=== PATIENT | female | born 1950 ===

== ENCOUNTER → 2016-12-17 | Outpatient (CLI) | payer BC ==
--- NOTE | 2016-12-17 10:36 | MM ---
Reason for exam: history of breast cancer, mastectomy. Last mammogram was performed 1 year ago. History: Patient is postmenopausal, has history of other cancer at age 64, has history of breast cancer at age 61, and had first child at age 37. Family history of breast cancer in mother at age 79 and breast cancer in maternal aunt. Mastectomy of the left breast, January 19, 2012. Malignant US LT VAD breast biopsy of the left breast, January 08, 2012. Chemotherapy, 2011. Benign excisional biopsy of the left breast, January 15, 2000. Benign stereotactic core biopsy of the left breast, December 26, 1999. Core biopsy of the left breast. 2 excisional biopsies of the left breast. Physical Findings: Nurse did not find any significant physical abnormalities on exam. MG 3D Diag Mammo W/Cad RT CC and MLO view(s) were taken of the right breast. Prior study comparison: December 02, 2015, right breast MG 3d diag mammo w/cad RT. August 16, 2014, right breast MG diagnostic mammo RT w CAD. The breast tissue is heterogeneously dense. This may lower the sensitivity of mammography. No significant new findings when compared with previous films. These results were verbally communicated with the patient and result sheet given to the patient on 12/17/16. ASSESSMENT: Benign, BI-RAD 2 RECOMMENDATION: Follow-up diagnostic mammogram of the right breast in 1 year.
--- NOTE | 2016-12-17 11:22 | BD ---
EXAMINATION TYPE: MG DEXA axial skeleton. DATE OF EXAM: 12/17/2016 11:00 AM COMPARISON: 11.24.2012 CLINICAL HISTORY: C50.212 BREAST CANCER, N95.1 POST MENOPAUSAL SYMPTOMS Height: 64 Weight: 138 FRAX RISK QUESTIONS: Alcohol (3 or more units per day): NO Family History (Parent hip fracture): NO Glucocorticoids (More than 3mos): NO (Ex: prednisone, prednisolone, methylprednisolone, dexamethasone, and hydrocortisone). History of Fracture in Adulthood: NO Secondary Osteoporosis: NO 1. Type 1 Diabetes: NO 2. Hyperthyroidism: NO 3. Menopause before 45: NO 4. Malnutrition: NO 5. Chronic liver disease: NO Rheumatoid Arthritis: NO Current Tobacco Use: NO RISK FACTORS HISTORY OF: Family History of Osteoporosis: NO Smoke tobacco: NO Drink Alcohol: SOCIAL Active: YES Diet low in dairy products/other sources of calcium: NO Postmenopausal woman: AT 49 YRS OLD Take estrogen and/or progesterone medications: CONTRACEPTIVES IN PAST FOR 20 YRS How lon YRS Lost more than 2 inches in height since high school: NOT QUITE Adrenal Insufficiency: NO MEDICATIONS: Additional Medications: HX OF CHEMO, AND PRESENTLY ON CHEMO, CALCIUM, VIT D AND BIOTIN Additional History: LT MASTECTOMY, BREAST CANCER, MULTIPLE AREAS OF CA EXAM MEASUREMENTS: Bone mineral densitometry was performed using the [employer] System. Bone mineral density as measured about the Lumbar spine is: ----- L1-L4(G/cm2): 1.100 T Score Values are as follows: ----- L1: -1.2 ----- L2: -1.7 ----- L3: -0.8 ----- L4: 0.6 ----- L1-L4: -0.7 Bone mineral density has: Increased 2.4% since study of: 11.24.2012 Bone mineral density about the R hip (g/cm2): 0.762 Bone mineral density about the L hip (g/cm2): 0.756 T Score values are as follows: -----R Neck: -2.0 -----L Neck: -2.0 -----R Intertrochanter: -2.0 -----L Intertrochanter: -2.0 Bone mineral density has: Decreased -6.1% since study of: 11.24.2012 FRAX %'S: FOR MAJOR OSTEOPOROTIC FX: 11.2%.....FOR HIP FX: 1.9% PROBABILITY OF FX IN 10 YRS TIME IMPRESSION: Osteopenia (T Score between -2.5 and -1 as noted by T score values There is slightly increased risk of fracture and the patient may be considered for treatment. Re-Screen 1-2 years. FOR BOTH SCANS OF BOTH HIPS AND L/S SPINE NOTE: T-SCORE=SD OF THE YOUNG ADULT MEAN.
== END | disposition home or self-care (01) ==
LOC: RADMAMWWP 09:32
PROVIDERS: ATTEND Internal Medicine Hematology & Oncology
DX: Z12.31 Encounter for screening mammogram for malignant neoplasm of breast (principal); Z85.3 Personal history of malignant neoplasm of breast; M85.89 Other specified disorders of bone density and structure, multiple sites
CPT/HCPCS: 77080; G0206; G0279

== ENCOUNTER → 2016-12-29 | Outpatient (CLI) | payer BC ==
[2016-12-29 11:35] LABS: Blood Urea Nitrogen 20 mg/dL (7-17); Non-African American GFR(MDRD) >60 (>60 ml/min/1.73 sqM)
--- NOTE | 2016-12-29 12:50 | CT ---
EXAMINATION TYPE: CT chest w con DATE OF EXAM: 12/29/2016 12:01 PM COMPARISON: NONE HISTORY: 66 year-old female history of breast cancer, follow-up exam TECHNIQUE: Contiguous axial scanning of the chest after the administration of 100 mL of Omnipaque 300 . Coronal/sagittal reconstructions performed. CT DLP: 132.1mGycm. Automatic exposure control utilized for a dose reduction. FINDINGS: Heart is normal size without pericardial effusion. Aorta is normal caliber with very direct takeoff of the left vertebral artery directly from the aorti c arch. No thoracic lymphadenopathy by CT size criteria. Some minimal residual soft tissue thickening remains and is unchanged at the left carotid space at the level of the thoracic inlet. Evaluation of the lungs show some strandy atelectasis in both lung bases. No consolidation or pleural effusion. Mild biapical pleural-parenchymal scarring is noted. Small hemangioma within the right hepatic dome is unchanged. Postsurgical changes of left mastectomy and breast reconstruction. Bones: There is some stable residual sclerosis along the posterior margin of the right sternal manubr ium relating to the previous lesion seen on 04/10/2016. No osseous destructive process. IMPRESSION: Status post left mastectomy and breast reconstruction. Stable exam without evidence for recurrent met astatic disease.
== END | disposition home or self-care (01) ==
LOC: RADCTMAIN 11:08
PROVIDERS: ATTEND Internal Medicine Hematology & Oncology
DX: C50.919 Malignant neoplasm of unspecified site of unspecified female breast (principal); Z90.12 Acquired absence of left breast and nipple
CPT/HCPCS: 82565; 84520; 71260; 36415; Q9967

== ENCOUNTER → 2017-05-24 | Outpatient (CLI) | payer BC ==
[2017-05-24 11:37] LABS: Blood Urea Nitrogen 22 mg/dL (7-17); Non-African American GFR(MDRD) >60 (>60 ml/min/1.73 sqM)
--- NOTE | 2017-05-24 13:07 | CT ---
EXAMINATION TYPE: CT chest w con DATE OF EXAM: 05/24/2017 COMPARISON: CT chest December 29, 2016. PET/CT April 25, 2016 HISTORY: Breast cancer CT DLP: 166.1 mGycm. Automated Exposure Control for Dose Reduction was Utilized. TECHNIQUE: CT scan of the thorax is performed following with IV Contrast, patient injected with 100 mL of Omnipaque 300. FINDINGS: LUNGS: Dependent atelectasis is seen in both lower lobes. There is minimal linear scarring in the li ngula redemonstrated on axial image 49. There is no pleural effusion or pneumothorax seen bilaterally . No concerning parenchymal nodule or mass is present bilaterally The tracheobronchial tree is patent . MEDIASTINUM: There are no greater than 1 cm hilar or mediastinal lymph nodes on current study. Scatte red subcentimeter lymph nodes are stable. No recurrent adenopathy anterior superior mediastinum is cl early seen. No cardiomegaly or pericardial effusion is seen. There is 4 vessel origin from aortic a rch which is normal variant. Mild to minimal plaque in the arch is redemonstrated. OTHER: Subcentimeter hypodense area right hepatic dome anteriorly on axial image 49 is too small to cecelia lincoln characterize per presumed benign. Post left-sided mastectomy changes with left breast implant is redemonstrated. There is mild to moderate multilevel spurring in the thoracic spine. Vague scleros is superior sternal manubrial junction is unchanged correlates with prior osseous lesion.. IMPRESSION: No significant change from prior study. No new suspicious mass or adenopathy is seen to s gest neoplastic recurrence.
== END | disposition home or self-care (01) ==
LOC: RADCTMAIN 11:01
PROVIDERS: ATTEND Internal Medicine Hematology & Oncology
DX: C50.212 Malignant neoplasm of upper-inner quadrant of left female breast (principal)
CPT/HCPCS: 82565; 84520; 71260; 36415; Q9967

== ENCOUNTER 2017-11-05 10:32 | Outpatient (CLI) | payer BC ==
[2017-11-05 11:12] VITALS: BP 132/77; PULSE 91; RESP 16; TEMP 98.3
[2017-11-05] MEDS ORDERED: FILGRASTIM-SNDZ 480 MCG/0.8 ML SYRINGE SQ ONE (23:00)
== END 2017-11-05 13:54 | disposition home or self-care (01) ==
LOC: PROCWHC3 10:32
PROVIDERS: ATTEND Internal Medicine Hematology & Oncology
DX: D70.1 Agranulocytosis secondary to cancer chemotherapy (principal)
CPT/HCPCS: 96372; Q5101

== ENCOUNTER 2017-11-05 11:27 | Emergency (ER) | payer BC ==
[2017-11-05 11:43] VITALS: TEMP 98.4
--- NOTE | 2017-11-05 12:02 | ED ---
Back Pain HPI - General Chief Complaint: Back Pain/Injury Stated Complaint: Lower Back Pain Time Seen by Provider: 11/05/17 11:49 Source: patient Limitations: no limitations - History of Present Illness Initial Comments: Patient is a 67-year-old female presents with a chief complaint of back pain. She had a history of breast cancer for which she is currently undergoing treatment. She was at the hospital today for an ultrasound and a Neupogen shot. Patient states that she had a BNP over the ultrasound but afterwards took Tylenol and her back pain feels much better. She was instructed to come to the emergency department because there is no doctor at [facility] today. The patient denies any injury. Currently she is not having any pain. Pain is not reproducible. She denies any loss of bowel or bladder function. She denies any numbness or tingling in her legs. - Related Data Home Medications Medication Instructions Recorded Confirmed Acetaminophen Tab [Tylenol Tab] 1,000 mg PO Q6H PRN 05/06/15 11/05/17 Ca/D3/Mag/Zinc/Meghana/Jackson/Mgbor 1 tab PO DAILY 05/06/15 11/05/17 [Caltrate 600+D3+Min Chew Tab] Multivit-Min/FA/Lycopene/Lut 1 tab PO DAILY 05/06/15 11/05/17 [Centrum Silver Tablet] Vitamin B Complex 1 cap PO DAILY 10/14/17 11/05/17 Biotin 5 mg PO DAILY 11/05/17 11/05/17 Previous Rx's Medication Instructions Recorded Diazepam [Valium] 5 mg PO BID PRN #10 tab 11/05/17 Allergies Allergy/AdvReac Type Severity Reaction Status Date / Time No Known Allergies Allergy Verified 11/05/17 12:15 Review of Systems ROS Statement: Those systems with pertinent positive or pertinent negative responses have been documented in the HPI. ROS Other: All systems not noted in ROS Statement are negative. Constitutional: Denies: fever Eyes: Denies: vision change Respiratory: Denies: cough Cardiovascular: Denies: chest pain Endocrine: Denies: fatigue Gastrointestinal: Denies: abdominal pain, nausea, vomiting Genitourinary: Denies: dysuria Musculoskeletal: Reports: back pain Neurological: Denies: headache Past Medical History Past Medical History: Cancer Additional Past Medical History / Comment(s): STATES HAS BREAST CA THAT HAS METASTASIZED, hx of colon polyps History of Any Multi-Drug Resistant Organisms: None Reported Past Surgical History: Breast Surgery Additional Past Surgical History / Comment(s): 2013 hysterectomy, colonoscopy, left mastectomy and reconstuction of left breast Past Anesthesia/Blood Transfusion Reactions: No Reported Reaction Past Psychological History: Anxiety, Depression Smoking Status: Never smoker - Past Family History Mother Family Medical History: Cancer, Congestive Heart Failure (CHF), COPD General Exam Limitations: no limitations General appearance: alert, in no apparent distress Head exam: Present: atraumatic, normocephalic Eye exam: Present: normal appearance Neck exam: Present: normal inspection Respiratory exam: Present: normal lung sounds bilaterally Cardiovascular Exam: Present: regular rate, normal rhythm GI/Abdominal exam: Present: soft. Absent: distended, tenderness Rectal exam: Present: deferred Extremities exam: Present: normal inspection Back exam: Present: normal inspection, full ROM. Absent: tenderness, CVA tenderness (R), CVA tenderness (L), muscle spasm, vertebral tenderness Neurological exam: Present: alert, oriented X3, normal gait Psychiatric exam: Present: normal affect, normal mood Skin exam: Present: warm, dry, intact Course Vital Signs 11/05/17 11:40 Temperature 98.4 F Pulse Rate 97 Respiratory 16 Rate Blood Pressure 130/80 O2 Sat by Pulse 96 Oximetry Medical Decision Making - Medical Decision Making Patient presents 1 day of nontraumatic back pain. Patient states that she was instructed to come here after an ultrasound however she took Tylenol after the ultrasound and states that she is feeling better. At this time, we will check a urinalysis and if negative the patient will be discharged home. On initial evaluation, the patient appears well. She is neurologically intact. She is able to handle it well without assistance. 12:48 PM Urinalysis does not offer any evidence of infection. I reviewed the ultrasound of the patient had prior to arrival at the ED. She was informed of results and was given a copy of her ultrasound interpretation. - Lab Data Lab Results 11/05/17 Range/Units 12:13 Urine Color Yellow Urine Appearance Clear (Clear) Urine pH 7.5 (5.0-8.0) Ur Specific Robert 1.020 (1.001-1.035) Urine Protein Trace H (Negative) Urine Glucose (UA) Negative (Negative) Urine Ketones Negative (Negative) Urine Blood Negative (Negative) Urine Nitrite Negative (Negative) Urine Bilirubin Negative (Negative) Urine Urobilinogen <2.0 (<2.0) mg/dL Ur Leukocyte Esterase Negative (Negative) Disposition Clinical Impression: Mechanical back pain Disposition: HOME SELF-CARE Condition: Good Instructions: Acute Low Back Pain (ED) Prescriptions: Diazepam [Valium] 5 mg PO BID PRN #10 tab PRN Reason: severe muscle spasm Referrals: Glen Vázquez MD [Primary Care Provider] - 1-2 days
[2017-11-05 12:19] LABS: Appearance,Urine Clear (Clear); Bilirubin,Urine Negative (Negative); Blood,Urine Negative (Negative); Color,Urine Yellow; Glucose,Urine (UA) Negative (Negative); Ketones,Urine Negative (Negative); Leukocyte Esterase,Urine Negative (Negative); Nitrite,Urine Negative (Negative); PH, Urine 7.5 (5.0-8.0); Protein,Urine Trace (Negative); Urobilinogen,Urine <2.0 mg/dL (<2.0)
[2017-11-05 13:20] VITALS: BP 133/62; PULSE 90; RESP 18
== END 2017-11-05 13:20 | disposition home or self-care (01) ==
LOC: EC 11:27
DX: M54.5 Low back pain (principal); Z85.3 Personal history of malignant neoplasm of breast; Z79.899 Other long term (current) drug therapy; Z90.710 Acquired absence of both cervix and uterus
CPT/HCPCS: 76700; 81003; 99283

== ENCOUNTER → 2017-11-05 | Outpatient (CLI) | payer BC ==
--- NOTE | 2017-11-05 10:46 | US ---
EXAMINATION TYPE: US abdomen complete DATE OF EXAM: 11/05/2017 COMPARISON: CT chest CLINICAL HISTORY: Abdominal Pain R10.11. Pt states low back pain that started yesterday/ currently on treatment for breast CA EXAM MEASUREMENTS: Liver Length: 15.8 cm Gallbladder Wall: 0.2 cm CBD: 0.4 cm Spleen: 11.0 cm Right Kidney: 9.8 x 4.1 x 4.5 cm Left Kidney: 10.2 x 5.1 x 4.9 cm Pancreas: 3mm Panc duct visualized Liver: Appeared wnl, lesions seen on CT unable to be visualized by ultrasound Gallbladder: wnl Evidence for sonographic Stevenson's sign: No CBD: wnl Spleen: wnl Right Kidney: wnl Left Kidney: wnl Upper IVC: wnl Abd Aorta: wnl The liver is homogenous. The intrahepatic portion of the IVC and proximal abdominal aorta are within normal limits. There is no evidence of cholelithiasis. Common bile duct is unremarkable. The visu alized portions of the pancreas are homogenous. The spleen is unremarkable. Kidneys are symmetric a nd free of hydronephrosis. No renal lesions are seen. IMPRESSION: 1. Hepatic lesion seen at CT are not confirmed with ultrasound however I do recommend further evaluat ion of the liver with hemangioma protocol.
== END | disposition home or self-care (01) ==
LOC: RADUSWWP 09:58
PROVIDERS: ATTEND Internal Medicine Hematology & Oncology
DX: R10.11 Right upper quadrant pain (principal)
CPT/HCPCS: 76700

== ENCOUNTER → 2017-12-17 | Outpatient (CLI) | payer BC ==
--- NOTE | 2017-12-17 17:17 | CT ---
EXAMINATION TYPE: CT chest w con DATE OF EXAM: 12/17/2017 COMPARISON: 10/04/2017 HISTORY: Follow up breast cancer, feeling weak CT DLP: 473 mGycm, Automated exposure control for dose reduction was used. CONTRAST: Performed injected with 100 mL of Omnipaque 300. TECHNIQUE: Axial images were obtained at 5 mm thick sections. Reconstructed images are reviewed on [employer] computer in the coronal plane. FINDINGS: Portion of the thyroid visualized is normal. Left breast prosthesis is present. Soft tissue density No suspicious lung nodules or focal infiltrates are present. No enlarged mediastinal or hilar adenopathy is evident. Couple of small aortopulmonic window lymph nodes are present. Enlarged lymphadenopathy is not identified. The ascending aorta diameter at the le sarah of the main pulmonary artery is 3.3 cm. The main pulmonary artery diameter at the bifurcation is 2.[address] sections are obtained through the upper abdomen. Abdomen is essentially unremarkable. The sclerotic area within the posterior lateral left portion of the sternum is stable. The soft tissu e density in the superior mediastinum posterior to the manubrium is significantly diminished in size. IMPRESSIONS: 1. No suspicious acute changes CT chest.
== END | disposition home or self-care (01) ==
LOC: RADPROMAIN 14:35
PROVIDERS: ATTEND Internal Medicine Hematology & Oncology
DX: C50.212 Malignant neoplasm of upper-inner quadrant of left female breast (principal)
CPT/HCPCS: 71260; Q9967; J1642

== ENCOUNTER → 2018-06-09 | Outpatient (CLI) | payer BC ==
[2018-06-09 11:41] LABS: Blood Urea Nitrogen 10 mg/dL (7-17)
--- NOTE | 2018-06-09 13:24 | CT ---
EXAMINATION TYPE: CT chest w con DATE OF EXAM: 06/09/2018 COMPARISON: 12/17/2017 and 10/04/2017 HISTORY: Breast cancer. Follow-up exam. CT DLP: 351 mGycm. Automated Exposure Control for Dose Reduction was Utilized. TECHNIQUE: CT scan of the thorax is performed following with IV Contrast, patient injected with 100 mL of Isovue 300. FINDINGS: LUNGS: There is a 3 mm pulmonary nodule within the right lower lobe that appears to be stable from th e prior, however this was obscured by atelectasis on the prior exam. No additional pulmonary nodules are identified. Minimal bibasilar subsegmental atelectasis and biapical pleural parenchymal scarring is noted. The lungs are grossly clear, there is no concerning parenchymal mass or nodule identified. There is no pleural effusion or pneumothorax seen. The tracheobronchial tree is patent. MEDIASTINUM: There are no greater than 1 cm hilar or mediastinal lymph nodes. Lymph node again measu res approximately 7 mm in short axis and is similar to the priors. No pericardial effusion is seen. There is a right-sided Mediport. OTHER: There is a left breast implant. Sclerotic lesion of the left sternum is unchanged. There is co ntinued appearance of a peripherally enhancing right hepatic lesion on series 3 image 54 as well as a previously seen lesion near the hepatic dome on image 48. These again could represent small hemangio mas also the possibility of metastasis is again not excluded. MRI could be performed for further annamaria acterization. Splenic varices are incidentally noted on today's examination. These appear to be prese nt on the prior. IMPRESSION: 1. Retrospectively stable 3 mm right basilar pulmonary nodule, previously obscured by atelectasis. 2. Stable solitary sternal sclerotic osseous metastatic focus. 3. Redemonstration of subcentimeter hepatic lesions that may represent hemangiomas although could be better characterized with MR. These are similar to priors. 4. No evidence of adenopathy. The previously seen superior mediastinal node is unchanged from the chao or and nonenlarged.
== END | disposition home or self-care (01) ==
LOC: RADPROMAIN 10:28
PROVIDERS: ATTEND Internal Medicine Hematology & Oncology
DX: C50.212 Malignant neoplasm of upper-inner quadrant of left female breast (principal); C79.51 Secondary malignant neoplasm of bone; R91.1 Solitary pulmonary nodule
CPT/HCPCS: 82565; 84520; 71260; Q9967

== ENCOUNTER → 2018-09-08 | Outpatient (CLI) | payer BC ==
[2018-09-08 08:40] LABS: Blood Urea Nitrogen 25 mg/dL (7-17)
--- NOTE | 2018-09-08 14:02 | CT ---
EXAMINATION TYPE: CT neck chest w con DATE OF EXAM: 09/08/2018 COMPARISON: None HISTORY: Breast cancer. CT DLP: 631.5 mGycm CONTRAST: Patient injected with 100 mL of Isovue M300. TECHNIQUE: Axial images at 3 mm thick sections. Reconstructed images in the coronal plane and sagitt al plane are reviewed. FINDINGS: CT neck: The torus tubarius and fossa of Rosenmuller are normal. Kiln Fireman spaces are normal. Para nasal sinuses and mastoid air cells are clear. Parotid glands appear normal and symmetrical. Submandibular glands, are normal. Parapharyngeal spac es are normal. No suspicious adenopathy is evident. The hypopharynx appears within normal limits. Vocal cord level appear symmetrical. Thyroid as visualized is normal. Osseous structures are normal. Degenerative disc changes are present. Posterior endplate spurring is present C5-6 and to a lesser degree C6-7. Anterior vertebral body spurring present C5,6 and 7. IMPRESSIONS: 1. Normal CT neck. EXAMINATION TYPE: CT neck chest w con DATE OF EXAM: 09/08/2018 COMPARISON: 06/09/2018 HISTORY: Breast cancer. CT DLP: 631.5 mGycm, Automated exposure control for dose reduction was used. CONTRAST: Performed injected with 100 mL of Isovue M300. TECHNIQUE: Axial images were obtained at 5 mm thick sections. Reconstructed images are reviewed on [employer] computer in the coronal plane. FINDINGS: Thyroid visualized is normal. There is a 0.5 cm posterior medial right lung base nodule present previously. Previous measurement of 0.3 cm. Given measurement error, this appears stable from the comparison. No enlarged mediastinal or hilar adenopathy is evident. Shotty lymphadenopathy is within the medias tinum. The ascending aorta diameter at the level of the main pulmonary artery is 3.2 cm. The main pu lmonary artery diameter at the bifurcation is 2.6 cm. There is a left breast prosthesis. Limited CT sections are obtained through the upper abdomen. The peripheral enhancing lesion within th e superior right lobe liver was present previously and is stable. This may represent a hemangioma. IMPRESSIONS: 1. No suspicious acute changes CT chest. 2. Small nodule posterior medial right lung base
== END | disposition home or self-care (01) ==
LOC: RADPROMAIN 07:55
PROVIDERS: ATTEND Internal Medicine Hematology & Oncology
DX: C50.212 Malignant neoplasm of upper-inner quadrant of left female breast (principal); R91.1 Solitary pulmonary nodule; Z95.828 Presence of other vascular implants and grafts
CPT/HCPCS: 82565; 84520; 70491; 71260; Q9967

== ENCOUNTER → 2018-11-19 | Outpatient (CLI) | payer BC ==
--- NOTE | 2018-11-21 07:30 | PE ---
EXAMINATION TYPE: PET CT fusion skull to thigh DATE OF EXAM: 11/19/2018 COMPARISON: CT neck and chest 11 days ago. HISTORY: Breast cancer treated 2012 with radiation completed 2014 and chemotherapy completed November 2018 TECHNIQUE: Following the intravenous administration of 13.357 mCi of F-18 FDG, whole body images are performed from the skull base to the midthigh. Images are reviewed on the computer in the coronal, axial, and sagittal planes. Reconstructed rotating images are created on independent workstation and reviewed on the computer. A noncontrast CT is performed in conjunction with the PET scan. SCAN: Subsequent Scan FINDINGS: SKULL BASE AND NECK: There is suspicious left-sided neck lymph nodes posterior cervical triangle axi al image 35, more anterior lymph node measures 10 x 5 mm axial image 35, max SUV is 3.00. There are a dditional suspicious left-sided neck lymph nodes level of vocal cords is 10 x 9 mm lymph node axial i mage 49, max SUV 5.09. There is hypermetabolic left supraclavicular lymph node measuring 1.7 x 0.9 cm is 59, max SUV is 3.6. CHEST, MEDIASTINUM, AND HILAR REGION: There is hypermetabolic 0.6 x 1.0 cm superior mediastinal lymph node anterior to ascending aorta axial image 81, max SUV is 5.39. Left breast implant is in place. There is suspicious 9 x 5 mm medial anterior chest wall lesion just left of midline anterior to the sternum axial images 86, mild hypermetabolic uptake is present, max S UV is 3.98. Additional smaller suspicious lesion is seen inferior to this axial image 96. There is s uspicious nodularity and skin thickening medial aspect right breast abutting skin surface, max SUV is 3.55 axial image 86. There is dense fibroglandular tissue in visualized right breast. There is mild hypermetabolic uptake lateral inferior aspect of right breast without definitive mass, max SUV is 3.21 axial image 102. Cor relate clinically. Mild skin thickening throughout the right breast is present. ABDOMEN AND PELVIS: No suspicious hypermetabolic uptake is. OSSEOUS STRUCTURES: Mild diffuse uptake throughout osseous structures is seen without suspicious foca l lytic or sclerotic lesion. OTHER CT: There is right internal jugular Mediport catheter terminating in SVC. There is mild emphysematous change throughout both lungs. There is dependent atelectasis in both lowe r lobes IMPRESSION: Suspicious left-sided neck lymph nodes. Suspicious medial anterior chest wall masses poss ibly of breast etiology? Nonspecific right breast uptake.
== END | disposition home or self-care (01) ==
LOC: RADPETMAIN 09:21
PROVIDERS: ATTEND Internal Medicine Hematology & Oncology
DX: C50.212 Malignant neoplasm of upper-inner quadrant of left female breast (principal)
CPT/HCPCS: 78815; A9552

== ENCOUNTER → 2019-01-26 | Outpatient (CLI) | payer BC | END | disposition home or self-care (01) | LOC: PROCWHC3 14:24 | PROVIDERS: ATTEND Internal Medicine Hematology & Oncology | DX: R50.9 Fever, unspecified (principal) | CPT/HCPCS: 87502 ==

== ENCOUNTER 2019-03-11 21:24 | Inpatient (IN) | payer BC ==
[2019-03-11] MEDS ORDERED: SODIUM CHLORIDE 0.9% 500 ML 500 ML IV STA (21:41)
[2019-03-11 23:05] LABS: Anisocytosis Slight; HCT 43.4 % (34.0-46.0); HGB 14.2 gm/dL (11.4-16.0); MCH 33.7 pg (25.0-35.0); MCHC 32.7 g/dL (31.0-37.0); Macrocytosis Marked; Mean Platelet Volume 6.8; Platelet Count 333 k/uL (150-450); RBC 4.21 m/uL (3.80-5.40); RDW 19.9 % (11.5-15.5)
[2019-03-11 23:15] LABS: Albumin 3.9 g/dL (3.5-5.0); Calcium 9.4 mg/dL (8.4-10.2); Magnesium 2.3 mg/dL (1.6-2.3); Total Bilirubin 0.7 mg/dL (0.2-1.3); Total Protein 6.6 g/dL (6.3-8.2)
[2019-03-11 23:17] LABS: INR 1.1 (<1.2); Prothrombin Time 11.6 sec (9.0-12.0)
--- NOTE | 2019-03-11 23:32 | XR ---
EXAM: XR Chest, 2 Views CLINICAL HISTORY: ITS.REASON XR Reason: Weakness TECHNIQUE: Frontal and lateral views of the chest. COMPARISON: No relevant prior studies available. FINDINGS: Lungs: Unremarkable. No consolidation. Pleural space: Bilateral pleural effusions. No pneumothorax. Heart: No suspicious enlargement. Mediastinum: Unremarkable. Bones/joints: No acute fracture. IMPRESSION: Bilateral pleural effusions.
--- NOTE | 2019-03-11 23:44 | ED ---
Weakness HPI - General Chief complaint: Weakness Stated complaint: Weakness Time Seen by Provider: 03/11/19 21:41 Source: patient Mode of arrival: ambulatory Limitations: no limitations - History of Present Illness Initial comments: Naida is a 69-year-old female with past medical history most significant for recurrent breast cancer patient states she's been fighting for 7 years. Patient presents the emergency department today for evaluation of generalized weakness. Patient states that over the past couple weeks she is just not had any appetite she's not been eating or drinking well. She states that she saw her primary care physician about a week ago and was told that her labs looked fine at that time but since that time she hasn't been eating or drinking. Patient reports just generalized malaise. She denies any fevers chills nausea or vomiting. She denies any specific pain. Patient does report that she feels the necrotic breast lesion on her right chest wall is getting worse and has followed her fluids not painful. It has been evaluated by her oncologist and she's been advised that there is nothing to be done for it. - Related Data Home Medications Medication Instructions Recorded Confirmed Acetaminophen Tab [Tylenol Tab] 1,000 mg PO Q6H PRN 05/06/15 03/11/19 Ca/D3/Mag/Zinc/Meghana/Jackson/Mgbor 1 tab PO DAILY 05/06/15 03/11/19 [Caltrate 600+D3+Min Chew Tab] Multivit-Min/FA/Lycopene/Lut 1 tab PO DAILY 05/06/15 03/11/19 [Centrum Silver Tablet] RX: Vitamin B Complex 1 cap PO DAILY 10/14/17 03/11/19 RX: Biotin 5 mg PO DAILY 11/05/17 03/11/19 Allergies Allergy/AdvReac Type Severity Reaction Status Date / Time No Known Allergies Allergy Verified 03/11/19 21:52 Review of Systems ROS Statement: Those systems with pertinent positive or pertinent negative responses have been documented in the HPI. ROS Other: All systems not noted in ROS Statement are negative. Past Medical History Past Medical History: Cancer Additional Past Medical History / Comment(s): STATES HAS BREAST CA THAT HAS METASTASIZED, hx of colon polyps History of Any Multi-Drug Resistant Organisms: None Reported Past Surgical History: Breast Surgery Additional Past Surgical History / Comment(s): 2012 hysterectomy, colonoscopy, left mastectomy and reconstuction of left breast Past Anesthesia/Blood Transfusion Reactions: No Reported Reaction Past Psychological History: Anxiety, Depression Smoking Status: Never smoker Past Alcohol Use History: None Reported Past Drug Use History: None Reported - Past Family History Mother Family Medical History: Cancer, Congestive Heart Failure (CHF), COPD General Exam - General Exam Comments Initial Comments: Physical Exam GENERAL: Chronically ill-appearing dehydrated elderly female HENT: Normocephalic, Atraumatic. EYES: PERRL, EOMI PULMONARY: Unlabored respirations. No audible rales rhonchi or wheezing was noted. CARDIOVASCULAR: Tachycardic, regular ABDOMEN: Soft and nontender with normal bowel sounds. SKIN: There is a necrotic right chest wall lesion due to breast cancer, areas of granulation tissues and necrosis no obvious purulent or surrounding erythema Skin is dry, there is skin tenting : Deferred NEUROLOGIC: Patient is alert and oriented x3. Moving all extremities spontaneously MUSCULOSKELETAL: Generalized atrophy PSYCHIATRIC: Normal psychiatric evaluation. Limitations: no limitations Course Vital Signs 03/11/19 03/11/19 21:38 23:48 Temperature 97.5 F L Pulse Rate 113 H 93 Respiratory 16 18 Rate Blood Pressure 89/64 103/79 O2 Sat by Pulse 95 95 Oximetry EKG Findings - EKG Comments: EKG Findings:: EKG was obtained for evaluation of tachycardia. EKG obtained at 2207. Rate is 113 rhythm is sinus there's normal axis there are normal intervals, AL 128, QRS 76, QTC is 483. This is a low voltage QRS but there are no acute ST elevations or depressions there is no evidence of acute ischemia or infarction. Medical Decision Making - Medical Decision Making The patient was seen and evaluated history is obtained from the patient This is a metastatic breast cancer patient presenting with decreased oral intake for her over a week, she appears very dehydrated she is tachycardic Labs and imaging were ordered Has multiple significant abnormalities including hyponatremia mild hyperkalemia however I suspect this is due to hemolysis BUN is elevated Patient receiving IV fluids Results were discussed with the patient I recommended she remain in the hospital for IV fluid resuscitation and further evaluation. Patient is agreeable to this. Patient care was discussed with Dr. Espinoza who accepts the admission with a consult oncology. I discussed CODE STATUS with the patient who states she would like to be full code at this time. - Lab Data Result diagrams: 03/11/19 22:54 03/11/19 22:54 Lab Results 03/11/19 03/11/19 03/11/19 Range/Units 22:54 22:54 22:54 WBC 5.0 (3.8-10.6) k/uL RBC 4.21 (3.80-5.40) m/uL Hgb 14.2 (11.4-16.0) gm/dL Hct 43.4 (34.0-46.0) % MCV 103.0 H (80.0-100.0) fL MCH 33.7 (25.0-35.0) pg MCHC 32.7 (31.0-37.0) g/dL RDW 19.9 H (11.5-15.5) % Plt Count 333 (150-450) k/uL Neutrophils % (Manual) 83 % Lymphocytes % (Manual) 11 % Monocytes % (Manual) 6 % Neutrophils # (Manual) 4.15 (1.3-7.7) k/uL Lymphocytes # (Manual) 0.55 L (1.0-4.8) k/uL Monocytes # (Manual) 0.30 (0-1.0) k/uL Nucleated RBCs 0 (0-0) /100 WBC Manual Slide Review Performed Anisocytosis Slight Macrocytosis Marked A PT (9.0-12.0) sec INR (<1.2) APTT (22.0-30.0) sec Sodium 124 L (137-145) mmol/L Potassium 6.0 H (3.5-5.1) mmol/L Chloride 94 L (98-107) mmol/L Carbon Dioxide 19 L (22-30) mmol/L Anion Gap 11 mmol/L BUN 55 H (7-17) mg/dL Creatinine 0.91 (0.52-1.04) mg/dL Est GFR (CKD-EPI)AfAm 74 (>60 ml/min/1.73 sqM) Est GFR (CKD-EPI)NonAf 65 (>60 ml/min/1.73 sqM) Glucose 137 H (74-99) mg/dL Plasma Lactic Acid [place] 1.8 (0.7-2.0) mmol/L Calcium 9.4 (8.4-10.2) mg/dL Magnesium 2.3 (1.6-2.3) mg/dL Total Bilirubin 0.7 (0.2-1.3) mg/dL AST 66 H (14-36) U/L ALT 129 H (9-52) U/L Alkaline Phosphatase 495 H (38-126) U/L Creatine Kinase 29 L (30-135) U/L Troponin I (0.000-0.034) ng/mL Total Protein 6.6 (6.3-8.2) g/dL Albumin 3.9 (3.5-5.0) g/dL TSH 2.770 (0.465-4.680) mIU/L 03/11/19 03/11/19 Range/Units 22:54 22:54 WBC (3.8-10.6) k/uL RBC (3.80-5.40) m/uL Hgb (11.4-16.0) gm/dL Hct (34.0-46.0) % MCV (80.0-100.0) fL MCH (25.0-35.0) pg MCHC (31.0-37.0) g/dL RDW (11.5-15.5) % Plt Count (150-450) k/uL Neutrophils % (Manual) % Lymphocytes % (Manual) % Monocytes % (Manual) % Neutrophils # (Manual) (1.3-7.7) k/uL Lymphocytes # (Manual) (1.0-4.8) k/uL Monocytes # (Manual) (0-1.0) k/uL Nucleated RBCs (0-0) /100 WBC Manual Slide Review Anisocytosis Macrocytosis PT 11.6 (9.0-12.0) sec INR 1.1 (<1.2) APTT 23.0 (22.0-30.0) sec Sodium (137-145) mmol/L Potassium (3.5-5.1) mmol/L Chloride (98-107) mmol/L Carbon Dioxide (22-30) mmol/L Anion Gap mmol/L BUN (7-17) mg/dL Creatinine (0.52-1.04) mg/dL Est GFR (CKD-EPI)AfAm (>60 ml/min/1.73 sqM) Est GFR (CKD-EPI)NonAf (>60 ml/min/1.73 sqM) Glucose (74-99) mg/dL Plasma Lactic Acid Gurmeet (0.7-2.0) mmol/L Calcium (8.4-10.2) mg/dL Magnesium (1.6-2.3) mg/dL Total Bilirubin (0.2-1.3) mg/dL AST (14-36) U/L ALT (9-52) U/L Alkaline Phosphatase (38-126) U/L Creatine Kinase (30-135) U/L Troponin I <0.012 (0.000-0.034) ng/mL Total Protein (6.3-8.2) g/dL Albumin (3.5-5.0) g/dL TSH (0.465-4.680) mIU/L Disposition Clinical Impression: Hyponatremia, Dehydration, Breast cancer Disposition: ADMITTED IP TO THIS HOSP Referrals: Glen Vázquez MD [Primary Care Provider] - 1-2 days
[2019-03-11] MEDS: SODIUM CHLORIDE 0.9% 1,000 ML IV SCH (23:45)
[2019-03-11] MEDS ORDERED: NALOXONE 0.4 MG/ML 1 ML VIAL IV PRN (23:46)
[2019-03-11] MEDS ORDERED: IBUPROFEN 400 MG TAB PO PRN (23:46)
[2019-03-11 23:55] LABS: Lymphocytes # (M) 0.55 k/uL (1.0-4.8); Neutrophils # (M) 4.15 k/uL (1.3-7.7); Neutrophils % (M) 83 %; Nucleated Red Blood Cells 0 /100 WBC (0-0); Total Cells Counted 100
[2019-03-12] MEDS: ONDANSETRON 4 MG/2 ML VIAL IVP PRN ×2 (00:42→17:16)
[2019-03-12] MEDS: MORPHINE SULFATE 4 MG/ML SYRINGE IV PRN ×3 (00:46→23:10)
[2019-03-12 04:19] LABS: Appearance,Urine Clear (Clear); Bacteria,Urine Occasional /hpf; Bilirubin,Urine Negative (Negative); Blood,Urine Negative (Negative); Color,Urine Yellow; Glucose,Urine (UA) Negative (Negative); Granular Casts,Urine 61 /lpf (0); Hyaline Casts,Urine 202 /lpf (0-2); Ketones,Urine Negative (Negative); Leukocyte Esterase,Urine Small (Negative); Mucus,Urine Rare /hpf; Nitrite,Urine Negative (Negative); PH, Urine 5.5 (5.0-8.0); Protein,Urine 1+ (Negative); RBC,Urine 4 /hpf (0-5); Specific Gravity,Urine 1.036 (1.001-1.035); Squamous Epithelial Cell,Urine 1 /hpf (0-4)
[2019-03-12 06:28] LABS: Potassium 5.7 mmol/L (3.5-5.1)
--- NOTE | 2019-03-12 08:40 | P.HPIM ---
History of Present Illness H&P Date: 03/12/19 Chief Complaint: Weakness This is a 69-year-old pleasant female who presented to the emergency room complaining of generalized weakness. Patient states that over the last couple weeks she has not had any appetite she has not been able to eat or drink well. Patient states that she seen her primary care physician about a week ago and was told that the left looks fine at that time however since then she has not been able to eat or drink. Patient reported generalized malaise. She denied any fever, chills, nausea or vomiting at that time. Patient has past medical history significant of recurrent breast CA, initial diagnosis apparently 7 years ago. Patient has a necrotic breast lesion on the right chest wall that is progressively getting worse. Past medical history also includes anxiety and depression. Patient has never been a smoker. At this time patient is resting in bed in no acute distress. She is complaining of lack of appetite, weakness, malaise. Patient states over the last few weeks she's had episodes of vomiting and nausea. Patient denies any diarrhea or constipation. Patient has been complaining of chest wall pain and difficulty br eathing. On Wednesday of last week she had thoracentesis due to bilateral pleural effusion. 1.3 L of fluid was drained from the right lung. Patient states after the procedure was done she did have an easier time breathing. However it did not help her weakness or malaise. Patient states that next week she will be starting another chemotherapy since previous treatments have not been successful. Patient denies any fevers or chills. Review of Systems Review Of Systems: Constitutional: No fever, no chills, no night sweats. No weight change. Reports weakness and fatigue no lethargy. No daytime sleepiness. Reports chest wall pain EENT: No headache. No blurred vision or double vision, no loss of vision. No loss of Hearing, no ringing in the ears, no dizziness. No nasal drainage or congestion. No epistaxis. No sore throat. Lungs: Reports shortness of breath, no cough, no sputum production. No wheezing. Cardiovascular: No chest pain, no lower extremity edema. No palpitations. No paroxysmal nocturnal dyspnea. No orthopnea. No lightheadedness or dizziness. No syncopal episodes. Abdominal: no abdominal discomfort. Reports nausea and vomiting. no diarrhea. No constipation. No bloody or tarry stools. Reports loss of appetite. Genitourinary: No dysuria, increased frequency, urgency. No urinary retention. Musculoskeletal: No myalgias. Reports muscle weakness, no gait dysfunction, no frequent falls. No back pain. No neck pain. Integumentary: Reports chest wall wound, No rash or pruritus. No unusual bruising. No change in hair or nails. Neurologic: No aphasia. No facial droop. No change in mentation. No head injury. No headache. No paralysis. No paresthesia. Psychiatric: No depression. No anxiety. No mood swings. Endocrine: No abnormal blood sugars. No weight change. No excessive sweating or thirst. Past Medical History Past Medical History: Cancer Additional Past Medical History / Comment(s): STATES HAS BREAST CA THAT HAS METASTASIZED, hx of colon polyps History of Any Multi-Drug Resistant Organisms: None Reported Past Surgical History: Breast Surgery, Hysterectomy Additional Past Surgical History / Comment(s): 2012 hysterectomy, colonoscopy, left mastectomy and reconstuction of left breast 2011. Chemo/Radiation last chemo tx Past Anesthesia/Blood Transfusion Reactions: No Reported Reaction Past Psychological History: Anxiety, Depression Additional Psychological History / Comment(s): related to health issues Smoking Status: Never smoker Past Alcohol Use History: None Reported Past Drug Use History: None Reported - Past Family History Mother Family Medical History: Cancer, Congestive Heart Failure (CHF), COPD Medications and Allergies Home Medications Medication Instructions Recorded Confirmed Type Acetaminophen Tab [Tylenol Tab] 1,000 mg PO Q6H PRN 05/06/15 03/11/19 History Ca/D3/Mag/Zinc/Meghana/Jackson/Mgbor 1 tab PO DAILY 05/06/15 03/11/19 History [Caltrate 600+D3+Min Chew Tab] Multivit-Min/FA/Lycopene/Lut 1 tab PO DAILY 05/06/15 03/11/19 History [Centrum Silver Tablet] Vitamin B Complex 1 cap PO DAILY 10/14/17 03/11/19 History Biotin 5 mg PO DAILY 11/05/17 03/11/19 History Allergies Allergy/AdvReac Type Severity Reaction Status Date / Time No Known Allergies Allergy Verified 03/11/19 21:52 Physical Exam Vitals: Vital Signs Temp Pulse Pulse Resp BP BP Pulse Ox 03/12/19 04:48 98.4 F 108 H 18 133/83 98 03/12/19 04:14 97.6 F 107 H 18 93/81 95 03/12/19 04:00 108 H 03/12/19 03:14 19 03/12/19 00:48 19 03/11/19 23:48 93 18 103/79 95 03/11/19 21:38 97.5 F L 113 H 16 89/64 95 Intake and Output 03/11/19 03/12/19 03/12/19 22:59 06:59 14:59 Other: # Voids 1 Weight 60.781 kg 62.7 kg General Appearance: Alert, cooperative, no distress, appears stated age. Neck HEENT: Supple, no lymphadenopathy, no thyroid enlargement, no carotid bruits. Lungs: Clear to auscultation without crackles or wheezes no rhonchi, no deformity. Chest Wall: no costochondral pain or discomfort. Heart: Regular rate and rhythm, S1, S2 normal, no murmur, rub or gallop. Back: Symmetric, no curvature, ROM normal, no CVA tenderness. Abdomen: Soft, non-tender, no rebound or rigidity, no hepatosplenomegaly. Extremities: Extremities normal, atraumatic, no cyanosis or edema. Pulses: 2+ and symmetric. Skin: Maceration to the right breast erythema and eschar noted Skin color, texture, tugor normal, Neurologic: Alert oriented x3 cranial nerves II through XII intact, no motor deficit, Results CBC & Chem 7: 03/11/19 22:54 03/12/19 10:00 Labs: Abnormal Lab Results - Last 24 Hours (Table) 03/11/19 03/11/19 03/12/19 Range/Units 22:54 22:54 01:35 MCV 103.0 H (80.0-100.0) fL RDW 19.9 H (11.5-15.5) % Lymphocytes # (Manual) 0.55 L (1.0-4.8) k/uL Macrocytosis Marked A Sodium 124 L (137-145) mmol/L Potassium 6.0 H (3.5-5.1) mmol/L Chloride 94 L (98-107) mmol/L Carbon Dioxide 19 L (22-30) mmol/L BUN 55 H (7-17) mg/dL Glucose 137 H (74-99) mg/dL AST 66 H (14-36) U/L ALT 129 H (9-52) U/L Alkaline Phosphatase 495 H (38-126) U/L Creatine Kinase 29 L (30-135) U/L Ur Specific [place] 1.036 H (1.001-1.035) Urine Protein 1+ H (Negative) Ur Leukocyte Esterase Small H (Negative) Urine WBC 11 H (0-5) /hpf Urine Bacteria Occasional H (None) /hpf Hyaline Casts 202 H (0-2) /lpf Urine Mucus Rare H (None) /hpf 03/12/19 Range/Units 05:30 MCV (80.0-100.0) fL RDW (11.5-15.5) % Lymphocytes # (Manual) (1.0-4.8) k/uL Macrocytosis Sodium 126 L (137-145) mmol/L Potassium 5.7 H (3.5-5.1) mmol/L Chloride 95 L (98-107) mmol/L Carbon Dioxide (22-30) mmol/L BUN 54 H (7-17) mg/dL Glucose 133 H (74-99) mg/dL AST (14-36) U/L ALT (9-52) U/L Alkaline Phosphatase (38-126) U/L Creatine Kinase (30-135) U/L Ur Specific [place] (1.001-1.035) Urine Protein (Negative) Ur Leukocyte Esterase (Negative) Urine WBC (0-5) /hpf Urine Bacteria (None) /hpf Hyaline Casts (0-2) /lpf Urine Mucus (None) /hpf Thrombosis Risk Factor Assmnt - Choose All That Apply Any of the Below Risk Factors Present?: Yes Other Risk Factors: Yes Each Risk Factor Represents 2 Points: Age 61-74 years, Malignancy Thrombosis Risk Factor Assessment Total Risk Factor Score: 4 Thrombosis Risk Factor Assessment Level: Moderate Risk Assessment and Plan Plan: 1. Hyponatremia secondary to dehydration possible SIADH related to stage IV breast cancer. Urine studies pending. Sodium every 6 hours 3 Blood cultures, repeat BMP in a.m. 2. Failure to thrive. Remeron 15 mg at bedtime, ensure daily. Encourage oral intake. Consult PT/OT 3. Malnutrition secondary to breast CA. As noted above nutrition consult. 4. Hyperkalemia. No EKG changes, Kayexalate 15 mg once 5. Pleural effusion post thoracentesis on 03/08/19 1.3 L removed. Chest x-ray 6. Stage IV breast CA with pleural effusion. Consult oncology 7. DVT prophylaxis pneumatic compression sleeves 8. GI prophylaxis. Pepcid 20 mg daily Discharge plan: Minimum 2 nights stay, possible home with homecare Impression and plan of care have been directed as dictated by the signing physician. Allison Greene nurse practitioner acting as scribe for signing physician.
[2019-03-12] MEDS: SODIUM CHLORIDE 0.9% 1,000 ML IV SCH ×3 (10:27→20:27)
[2019-03-12 10:28] LABS: Albumin 3.5 g/dL (3.5-5.0); Bilirubin, Delta 0.3 mg/dL (0.0-0.2); Bilirubin,Unconjugated 0.2 mg/dL (0.0-1.1); Total Bilirubin 0.5 mg/dL (0.2-1.3)
[2019-03-12] MEDS ORDERED: SODIUM POLYSTYRENE SULFONATE 15 GM/60 ML BOTTLE PO ONE (11:45)
--- NOTE | 2019-03-12 12:12 | XR ---
EXAMINATION TYPE: XR chest 2V DATE OF EXAM: 03/12/2019 HISTORY: SOB. REFERENCE: Previous study dated 03/11/2019. FINDINGS: There is a MediPort in place via a right internal jugular approach. The tip is in the right atrium. There is bibasilar airspace disease there are bilateral effusions. The heart is enlarged. There is be en very little interval change in the appearance of the chest. IMPRESSION: NO SIGNIFICANT INTERVAL CHANGE IN THE APPEARANCE OF THE CHEST.
[2019-03-12 12:15] LABS: Creatinine,Urine Random 202.8 mg/dL
[2019-03-12] MEDS: MIRTAZAPINE 15 MG TAB PO SCH (20:27)
--- NOTE | 2019-03-13 00:28 | P.CONS ---
History of Present Illness - Reason for Consult Consult date: 03/12/19 Metastatic breast cancer, progressive weakness, abnormal blood tests - History of Present Illness The patient is a 69-year-old white female, well known to our service. She is followed by Dr. Prasad in the outpatient setting. She was diagnosed with left- sided breast cancer initially in 2011. The tumor at that time was triple negative. The patient was treated with IV chemotherapy, and was then placed on observation. She then developed metastatic disease in 2014 with a large right supraclavicular mass. She received radiation for that. She has since progressed through various regimens. The patient developed a right chest wall lesion with repeat biopsy interestingly showing hormone receptor positive disease. Most recently she was on Ibrance and Faslodex. She was having increasing shortness of breath, and also noted progressive symptoms in the lesion of the right chest wall, with some superficial ulceration and intermittent drainage. She was found to have a right-sided pleural effusion on CTA done on 02/17/19, and had thoracentesis at [facility] last week, with 1.2 L drawn, with some improvement in her respiratory symptoms. Pathology is pending. However the patient continued to have progressive weakness, and very poor appetite and oral intake. Due to the same, she came into the emergency room. She was found to to be clinically dehydrated, along with multiple abnormal blood tests including sodium, elevated potassium, and elevated liver enzymes. She was therefore admitted for further management. The PET scan in 11/19 had shown uptake in the right chest wall lesion, and left supraclavicular lymph nodes. Review of Systems Constitutional: Reports chronic pain, Reports poor appetite, Reports weakness, Reports weight loss Eyes: denies blurred vision, denies pain Ears: deny: decreased hearing, ear discharge, earache, tinnitus Ears, nose, mouth and throat: Denies headache, Denies sore throat Cardiovascular: Reports shortness of breath Respiratory: Reports dyspnea Gastrointestinal: Denies abdominal pain, Denies diarrhea, Denies nausea, Denies vomiting Genitourinary: Denies dysuria, Denies hematuria Menstruation: Reports postmenopausal Musculoskeletal: Reports as per HPI (rt chest wall pain) Integumentary: Reports lesions (rt chest wall necrotic lesion) Neurological: Reports weakness Psychiatric: Denies anxiety, Denies depression Endocrine: Reports fatigue, Reports weight change Hematologic/Lymphatic: Reports as per HPI, Reports lymphadenopathy Past Medical History Past Medical History: Cancer Additional Past Medical History / Comment(s): STATES HAS BREAST CA THAT HAS METASTASIZED, hx of colon polyps History of Any Multi-Drug Resistant Organisms: None Reported Past Surgical History: Breast Surgery, Hysterectomy Additional Past Surgical History / Comment(s): 2013 hysterectomy, colonoscopy, left mastectomy and reconstuction of left breast 2011. Chemo/Radiation last chemo tx Past Anesthesia/Blood Transfusion Reactions: No Reported Reaction Past Psychological History: Anxiety, Depression Additional Psychological History / Comment(s): related to health issues Smoking Status: Never smoker Past Alcohol Use History: None Reported Past Drug Use History: None Reported - Past Family History Mother Family Medical History: Cancer, Congestive Heart Failure (CHF), COPD Medications and Allergies Home Medications Medication Instructions Recorded Confirmed Type Acetaminophen Tab [Tylenol Tab] 1,000 mg PO Q6H PRN 05/06/15 03/11/19 History Ca/D3/Mag/Zinc/Meghana/Jackson/Mgbor 1 tab PO DAILY 05/06/15 03/11/19 History [Caltrate 600+D3+Min Chew Tab] Multivit-Min/FA/Lycopene/Lut 1 tab PO DAILY 05/06/15 03/11/19 History [Centrum Silver Tablet] Vitamin B Complex 1 cap PO DAILY 10/14/17 03/11/19 History Biotin 5 mg PO DAILY 11/05/17 03/11/19 History Allergies Allergy/AdvReac Type Severity Reaction Status Date / Time No Known Allergies Allergy Verified 03/11/19 21:52 Physical Exam Vitals: Vital Signs Temp Pulse Pulse Resp BP BP Pulse Ox 03/12/19 11:37 102 H 18 03/12/19 11:36 97.5 F L 102 H 18 129/80 92 L 03/12/19 07:45 97.4 F L 104 H 18 118/83 89 L 03/12/19 04:48 98.4 F 108 H 18 133/83 98 03/12/19 04:14 97.6 F 107 H 18 93/81 95 03/12/19 04:00 108 H 03/12/19 03:14 19 03/12/19 00:48 19 03/11/19 23:48 93 18 103/79 95 03/11/19 21:38 97.5 F L 113 H 16 89/64 95 Intake and Output 03/11/19 03/12/19 03/12/19 22:59 06:59 14:59 Intake Total 296 Balance 296 Intake: IV 40 Invasive Line 2 40 Oral 256 Other: Voiding Method Toilet # Voids 1 Weight 60.781 kg 62.7 kg - Constitutional General appearance: no acute distress - EENT Eyes: EOMI, PERRLA ENT: hearing grossly normal, normal oropharynx - Neck Neck: lymphadenopathy (left SC 2-3 hard , confluent , largest 1-1.5 cm) Thyroid: bilateral: normal size - Respiratory Respiratory: right: diminished (lower 1/3) - Cardiovascular Rhythm: regular Heart sounds: normal: S1, S2 - Gastrointestinal General gastrointestinal: normal bowel sounds, soft - Integumentary Masslike lesion right chest wall, slightly raised, with metastatic, indurated, with scattered superficial ulceration - Neurologic Neurologic: CNII-XII intact - Musculoskeletal Musculoskeletal: generalized weakness, strength equal bilaterally - Psychiatric Psychiatric: A&O x's 3, appropriate affect Results CBC & Chem 7: 03/11/19 22:54 03/12/19 10:00 Labs: Abnormal Lab Results - Last 24 Hours (Table) 03/11/19 03/11/19 03/12/19 Range/Units 22:54 22:54 01:35 MCV 103.0 H (80.0-100.0) fL RDW 19.9 H (11.5-15.5) % Lymphocytes # (Manual) 0.55 L (1.0-4.8) k/uL Macrocytosis Marked A Sodium 124 L (137-145) mmol/L Potassium 6.0 H (3.5-5.1) mmol/L Chloride 94 L (98-107) mmol/L Carbon Dioxide 19 L (22-30) mmol/L BUN 55 H (7-17) mg/dL Glucose 137 H (74-99) mg/dL Delta Bilirubin (0.0-0.2) mg/dL AST 66 H (14-36) U/L ALT 129 H (9-52) U/L Alkaline Phosphatase 495 H (38-126) U/L Creatine Kinase 29 L (30-135) U/L Total Protein (6.3-8.2) g/dL Ur Specific [place] 1.036 H (1.001-1.035) Urine Protein 1+ H (Negative) Ur Leukocyte Esterase Small H (Negative) Urine WBC 11 H (0-5) /hpf Urine Bacteria Occasional H (None) /hpf Hyaline Casts 202 H (0-2) /lpf Urine Mucus Rare H (None) /hpf 03/12/19 03/12/19 Range/Units 05:30 10:00 MCV (80.0-100.0) fL RDW (11.5-15.5) % Lymphocytes # (Manual) (1.0-4.8) k/uL Macrocytosis Sodium 126 L 127 L (137-145) mmol/L Potassium 5.7 H (3.5-5.1) mmol/L Chloride 95 L (98-107) mmol/L Carbon Dioxide (22-30) mmol/L BUN 54 H (7-17) mg/dL Glucose 133 H (74-99) mg/dL Delta Bilirubin 0.3 H (0.0-0.2) mg/dL AST 47 H (14-36) U/L ALT 110 H (9-52) U/L Alkaline Phosphatase 414 H (38-126) U/L Creatine Kinase (30-135) U/L Total Protein 6.0 L (6.3-8.2) g/dL Ur Specific [place] (1.001-1.035) Urine Protein (Negative) Ur Leukocyte Esterase (Negative) Urine WBC (0-5) /hpf Urine Bacteria (None) /hpf Hyaline Casts (0-2) /lpf Urine Mucus (None) /hpf Microbiology - Last 24 Hours (Table) 03/12/19 01:35 Urine Culture - Preliminary Urine,Voided Comments: CTA report, ultrasound just report and chest x-ray report from [facility] EMR reviewed Pathology report reviewed. Pending at this time Chest x-ray: report reviewed CT scan - chest: report reviewed Assessment and Plan (1) Dehydration Narrative/Plan: The patient's oral intake has been quite poor and of progressive manner over the past several weeks. Therefore she has become dehydrated. This is confirmed on clinical examination and by labs. She is feeling somewhat better already with IV hydration of generalized weakness persists. Continue hydration, and monitoring of electrolytes with supplementation and adjustment as needed Current Visit: Yes Status: Acute Code(s): E86.0 - DEHYDRATION SNOMED Code(s): 33664100 (2) Hyponatremia Narrative/Plan: More likely hypovolemic hyponatremia due to dehydration from poor oral intake. Given recent lung issues, element of SIADH is also possible. Labs for the same have been ordered. Monitor sodium with IV hydration. I will also check cortisol level Current Visit: Yes Status: Acute Code(s): E87.1 - HYPO-OSMOLALITY AND HYPONATREMIA SNOMED Code(s): 49756097 (3) Breast cancer Narrative/Plan: Diagnostic and therapeutic circumstances as noted above. The patient's initial left-sided breast cancer was triple negative, for which she was treated with adjuvant chemotherapy, and subsequently radiation and additional chemotherapy f or metastatic disease. The right chest wall lesion on biopsy actually showed breast cancer which was hormone receptor positive, raising the possibility of a second primary. The patient was treated with aggressive first line hormonal treatment, with however continued progression. At this time cytology of the pleural fluid is pending. This will be important to know if progression is due to hormone receptor negative or hormone receptor positive disease. At this time the plan is to start her on chemotherapy with Abraxane, which would cover both entities. This would be started as an outpatient, assuming current issues improve sufficiently. Current Visit: Yes Status: Acute Code(s): C50.919 - MALIGNANT NEOPLASM OF [facility] SITE OF UNSPECIFIED FEMALE BREAST SNOMED Code(s): 023561874 (4) Abnormal liver enzymes Narrative/Plan: Etiology is not clear at this time. The patient does have a history of significant Tylenol use which could be a factor. Imaging studies show far have not shown evidence of liver metastasis. Dedicated imaging will be ordered for baseline. Current Visit: Yes Status: Acute Code(s): R74.8 - ABNORMAL LEVELS OF OTHER SERUM ENZYMES SNOMED Code(s): 131290704
[2019-03-13 06:35] LABS: Anisocytosis Moderate; Basophils % (A) 0 %; Eosinophils # (A) 0.1 k/uL (0-0.7); Eosinophils % (A) 1 %; HCT 40.6 % (34.0-46.0); HGB 13.5 gm/dL (11.4-16.0); Lymphocytes # (A) 0.4 k/uL (1.0-4.8); Lymphocytes % (A) 8 %; MCH 34.7 pg (25.0-35.0); MCHC 33.2 g/dL (31.0-37.0); MCV 104.5 fL (80.0-100.0); Mean Platelet Volume 7.7; Monocytes # (A) 0.4 k/uL (0-1.0); Monocytes % (A) 8 %; Neutrophils # (A) 3.8 k/uL (1.3-7.7); Neutrophils % (A) 80 %; Platelet Count 228 k/uL (150-450); RBC 3.88 m/uL (3.80-5.40); RDW 21.3 % (11.5-15.5); WBC 4.7 k/uL (3.8-10.6)
[2019-03-13 06:41] LABS: Macrocytosis Marked
[2019-03-13 06:43] LABS: Calcium 8.6 mg/dL (8.4-10.2); Potassium 5.4 mmol/L (3.5-5.1)
[2019-03-13] MEDS: SODIUM CHLORIDE 0.9% 1,000 ML IV SCH ×2 (07:59→14:59)
[2019-03-13] MEDS: FAMOTIDINE 20 MG TAB PO SCH (07:59)
[2019-03-13] MEDS: IOPAMIDOL-300 CONTRAST 30 ML VIAL (ORAL USE) PO PRN ×2 (08:05→09:05)
--- NOTE | 2019-03-13 10:56 | CT ---
EXAMINATION TYPE: CT abdomen pelvis w con DATE OF EXAM: 03/13/2019 COMPARISON: Nuclear medicine PET/CT 11/19/2018 HISTORY: abnormal liver enzymes CT DLP: 631.3 mGycm Automated exposure control for dose reduction was used. TECHNIQUE: Helical acquisition of images from the lung bases through the pelvis have been completed. CONTRAST: Performed with Oral Contrast and with IV Contrast, patient injected with 100 mL of Isovue 300. FINDINGS: There is a sizable pericardial effusion which has developed in the interval measuring appro ximately 19 mm in thickness anteriorly. Left breast prosthesis is again noted to be in place, there i s skin thickening over the right breast. There are some changes of anasarca. LUNG BASES: Bilateral pleural effusions have developed in the interval with associated compressive at electasis. AORTA: No significant abnormality is appreciated. LIVER/GB: Multiple low dense foci are scattered within the liver, at least 10 lesions are suspected, the largest within the right lobe measures only 17 mm. Periportal edema changes are present. Perichol ecystic fluid present about the gallbladder. PANCREAS: No significant abnormality is seen. SPLEEN: No significant abnormality is seen. ADRENALS: No significant abnormality is seen. KIDNEYS: No significant abnormality is seen. REPRODUCTIVE ORGANS: Not seen BOWEL: No significant abnormality is seen. FREE AIR: No Free Air visible. ASCITES: There is ascites developed in the interval greater in the upper abdomen is also present wit hin the pelvis and along the paracolic gutters PELVIC ADENOPATHY: None visualized. RETROPERITONEAL ADENOPATHY: No Retroperitoneal Adenopathy visible. URINARY BLADDER: No significant abnormality is seen. OSSEOUS STRUCTURES: No significant abnormality is seen. IMPRESSION: INTERVAL DEVELOPMENT OF BILATERAL PLEURAL EFFUSIONS, PERICARDIAL EFFUSION, ASCITES. METASTATIC DISEAS E TO THE LIVER.
[2019-03-13] MEDS: MORPHINE SULFATE 4 MG/ML SYRINGE IV PRN ×3 (11:08→22:21)
[2019-03-13] MEDS: ONDANSETRON 4 MG/2 ML VIAL IVP PRN ×2 (11:19→15:18)
--- NOTE | 2019-03-13 13:49 | P.PN ---
Subjective Progress Note Date: 03/13/19 This is a 69-year-old pleasant female patient of Dr. Glen Vázquez who presented to the emergency room complaining of generalized weakness. Patient states that over the last couple weeks she has not had any appetite she has not been able to eat or drink well. Patient states that she seen her primary care physician about a week ago and was told that the left looks fine at that time however since then she has not been able to eat or drink. Patient reported generalized malaise. She denied any fever, chills, nausea or vomiting at that time. Patient has past medical history significant of recurrent breast CA, initial diagnosis apparently 7 years ago. Patient has a necrotic breast lesion on the right chest wall that is progressively getting worse. Past medical history also includes anxiety and depression. Patient has never been a smoker. At this time patient is resting in bed in no acute distress. She is complaining of lack of appetite, weakness, malaise. Patient states over the last few weeks she's had episodes of vomiting and nausea. Patient denies any diarrhea or const ipation. Patient has been complaining of chest wall pain and difficulty breathing. On Wednesday of last week she had thoracentesis due to bilateral pleural effusion. 1.3 L of fluid was drained from the right lung. Patient states after the procedure was done she did have an easier time breathing. However it did not help her weakness or malaise. Patient states that next week she will be starting another chemotherapy since previous treatments have not been successful. Patient denies any fevers or chills. 03/13: Patient has a wound on her right breast which she states has been drinking for 5 days but now has a foul order. She denies being on any antibiotics recently. Consult for Dr. Wilcox has been ordered and will culture ordered. She has been seen by Dr. Zamora regarding breast cancer the plan is to start chemotherapy with Abraxane as an outpatient. Patient is noted to have increased liver enzymes and Dr. Zamora ordered CAT scan of the abdomen and pelvis which revealed interval development of bilateral pleural effusions, pericardial effusion, ascites. Metastatic disease to the liver. Consult has been admitted for cardiology regarding pericardial effusion. Chest x-ray from yesterday showed no significant interval change in the appearance of the chest. Repeat lab work reveals sodium 127, potassium 5.4, chloride 97, CO2 21, BUN 15 creatinine 0.91, blood sugar 130. Cortisol 67 Consult has been added for nephrology for hyponatremia possible SIADH. Patient does have some increased edema for which IV fluids will be decreased to 50 mL per hour. Review of Systems Review Of Systems: Constitutional: No fever, no chills, no night sweats. No weight change. Reports weakness and fatigue no lethargy. No daytime sleepiness. Reports chest wall pain EENT: No headache. No blurred vision or double vision, no loss of vision. No loss of Hearing, no ringing in the ears, no dizziness. No nasal drainage or congestion. No epistaxis. No sore throat. Lungs: Reports shortness of breath, no cough, no sputum production. No wheezing. Cardiovascular: No chest pain, no lower extremity edema. No palpitations. No paroxysmal nocturnal dyspnea. No orthopnea. No lightheadedness or dizziness. No syncopal episodes. Abdominal: no abdominal discomfort. Reports nausea and vomiting. no diarrhea. No constipation. No bloody or tarry stools. Reports loss of appetite. Genitourinary: No dysuria, increased frequency, urgency. No urinary retention. Musculoskeletal: No myalgias. Reports muscle weakness, no gait dysfunction, no frequent falls. No back pain. No neck pain. Integumentary: Reports chest wall wound, drainage, No rash or pruritus. No unusual bruising. No change in hair or nails. Neurologic: No aphasia. No facial droop. No change in mentation. No head injury. No headache. No paralysis. No paresthesia. Psychiatric: No depression. No anxiety. No mood swings. Endocrine: No abnormal blood sugars. No weight change. No excessive sweating or thirst. Objective - Vital Signs Vital signs: Vital Signs Temp 98.6 F 03/13/19 05:05 Pulse 111 H 03/13/19 05:05 Resp 20 03/13/19 05:05 BP 95/83 03/13/19 05:05 Pulse Ox 95 03/13/19 05:05 Intake & Output 03/12/19 03/13/19 03/13/19 18:59 06:59 18:59 Intake Total 1946 100 Output Total 200 Balance 1746 100 Weight 62.7 kg Intake: IV 1050 Invasive Line 2 50 Sodium Chloride 0.9% 1, 1000 000 ml @ 125 mls/hr IV . Q8H LILIAN Rx#:[id number] Oral 896 100 Output: Urine 200 Other: Voiding Method Toilet Toilet # Voids 1 - Exam General Appearance: Alert, cooperative, no distress, appears stated age. Neck HEENT: Supple, no lymphadenopathy, no thyroid enlargement, no carotid brui ts. Lungs: Clear to auscultation without crackles or wheezes no rhonchi, no deformity. Chest Wall: no costochondral pain or discomfort. Heart: Regular rate and rhythm, S1, S2 normal, no murmur, rub or gallop. Back: Symmetric, no curvature, ROM normal, no CVA tenderness. Abdomen: Soft, non-tender, no rebound or rigidity, no hepatosplenomegaly. Extremities: Extremities normal, atraumatic, no cyanosis or edema. Pulses: 2+ and symmetric. Skin: Maceration to the right breast erythema and eschar noted Skin color, texture, tugor normal, Neurologic: Alert oriented x3 cranial nerves II through XII intact, no motor deficit, - Labs CBC & Chem 7: 03/13/19 06:10 03/13/19 06:10 Labs: Abnormal Lab Results - Last 24 Hours (Table) 03/12/19 03/13/19 03/13/19 Range/Units 10:00 06:10 06:10 MCV 104.5 H (80.0-100.0) fL RDW 21.3 H (11.5-15.5) % Lymphocytes # 0.4 L (1.0-4.8) k/uL Macrocytosis Marked A Sodium 127 L 127 L (137-145) mmol/L Potassium 5.4 H (3.5-5.1) mmol/L Chloride 97 L (98-107) mmol/L Carbon Dioxide 21 L (22-30) mmol/L BUN 58 H (7-17) mg/dL Glucose 130 H (74-99) mg/dL Delta Bilirubin 0.3 H (0.0-0.2) mg/dL AST 47 H (14-36) U/L ALT 110 H (9-52) U/L Alkaline Phosphatase 414 H (38-126) U/L Total Protein 6.0 L (6.3-8.2) g/dL Microbiology - Last 24 Hours (Table) 03/11/19 22:54 Blood Culture - Preliminary Blood No Growth after 24 hours 03/12/19 01:35 Urine Culture - Preliminary Urine,Voided Assessment and Plan Plan: 1. Hyponatremia secondary to dehydration possible SIADH related to stage IV breast cancer. Consult with nephrology. IV fluids decreased to 50 mL per hour. 2. Failure to thrive. Remeron 15 mg at bedtime, ensure daily. Encourage oral intake. Consult PT/OT 3. Malnutrition secondary to breast CA. As noted above nutrition consult. 4. Hyperkalemia. No EKG changes, Kayexalate 15 mg once 5. Pleural effusion post thoracentesis on 03/08/19 1.3 L removed. Chest x-ray 6. Stage IV breast CA with pleural effusion. Consult oncology 7. Right wrist wound. Wound culture ordered, consult with Roland Neal added. 8. Pericardial effusion. Cardiology consult. 9. DVT prophylaxis pneumatic compression sleeves 8. GI prophylaxis. Pepcid 20 mg daily Discharge plan: possible home with homecare Impression and plan of care have been directed as dictated by the signing physician. Marybeth Hensley nurse practitioner acting as scribe for signing physician.
--- NOTE | 2019-03-13 14:05 | P.CONS ---
History of Present Illness - Reason for Consult Consult date: 03/13/19 Right breast wound - History of Present Illness This is a 69-year-old female patient with past medical history of initial diagnosis of left sided breast cancer in 2011 and treated with IV chemotherapy and placed on observation. She developed metastatic disease in 2014 with a large right supraclavicular mass. She received radiation and various regimes. She developed a right chest wall lesion and repeat biopsy was done and is currently on Ibrance and Faslodex. She had progressive symptoms and the lesion on the right chest wall with superficial ulceration and drainage. She has a thoracentesis done for right-sided pleural effusion last week at [facility] and 1.2 L removed and pathology pending. Patient presented to the hospital complaining of weakness poor appetite and decreased oral intake not able to eat or drink very well and generalized malaise. She denied any fever, chills, nausea or vomiting at that time. Patient states over the last few weeks she's had episodes of vomiting and nausea. Patient denies any diarrhea or constipation. Patient has been complaining of chest wall pain and difficulty breathing. Patient states that she is to start chemotherapy on Wednesday. Re garding the wound on the right chest, she has not been on any antibiotics. Wound culture was obtained today. She has had drainage from the area but noted today but had a foul odor. She underwent a CAT scan of the abdomen and pelvis which revealed interval development of bilateral pleural effusions, pericardial effusion, ascites. Metastatic disease to the liver. Chest x-ray from yesterday showed no significant interval change in the appearance of the chest. Additional consults in place including oncology, cardiology for pericardial effusion, nephrology for hyponatremia. Patient has been started on Unasyn. Review of Systems Constitutional: Reports anorexia, Reports fatigue, Reports lethargy, Reports malaise, Reports poor appetite, Reports weakness, Reports weight loss, Denies chills, Denies fever Ears, nose, mouth and throat: Denies dysphagia, Denies headache, Denies nasal congestion, Denies nasal discharge, Denies sore throat, Denies vertigo Breasts: right: pain Breasts: Reports as per HPI Cardiovascular: Reports dyspnea on exertion, Denies chest pain, Denies edema, Denies syncope Respiratory: Reports dyspnea, Denies cough, Denies cough with sputum, Denies excessive sputum, Denies hemoptysis, Denies home oxygen, Denies wheezing Gastrointestinal: Reports loss of appetite, Reports nausea, Reports vomiting, Denies abdominal pain Genitourinary: Denies dysuria Musculoskeletal: Reports muscle weakness, Denies frequent falls, Denies gait dysfunction Integumentary: Reports wounds, Denies pruritus, Denies rash Neurological: Denies aphasia, Denies change in mentation, Denies change in speech, Denies vertigo, Denies weakness Psychiatric: Denies anxiety, Denies depression Endocrine: Denies fatigue, Denies weight change Past Medical History Past Medical History: Cancer Additional Past Medical History / Comment(s): STATES HAS BREAST CA THAT HAS METASTASIZED, hx of colon polyps History of Any Multi-Drug Resistant Organisms: None Reported Past Surgical History: Breast Surgery, Hysterectomy Additional Past Surgical History / Comment(s): 2013 hysterectomy, colonoscopy, left mastectomy and reconstuction of left breast 2011. Chemo/Radiation last chemo tx Past Anesthesia/Blood Transfusion Reactions: No Reported Reaction Past Psychological History: Anxiety, Depression Additional Psychological History / Comment(s): related to health issues Smoking Status: Never smoker Past Alcohol Use History: None Reported Additional Past Alcohol Use History / Comment(s): Patient lives at home with her and is independent. Past Drug Use History: None Reported - Past Family History Mother Family Medical History: Cancer, Congestive Heart Failure (CHF), COPD Medications and Allergies Home Medications Medication Instructions Recorded Confirmed Type Acetaminophen Tab [Tylenol Tab] 1,000 mg PO Q6H PRN 05/06/15 03/11/19 History Ca/D3/Mag/Zinc/Meghana/Jackson/Mgbor 1 tab PO DAILY 05/06/15 03/11/19 History [Caltrate 600+D3+Min Chew Tab] Multivit-Min/FA/Lycopene/Lut 1 tab PO DAILY 05/06/15 03/11/19 History [Centrum Silver Tablet] Vitamin B Complex 1 cap PO DAILY 10/14/17 03/11/19 History Biotin 5 mg PO DAILY 11/05/17 03/11/19 History Allergies Allergy/AdvReac Type Severity Reaction Status Date / Time No Known Allergies Allergy Verified 03/11/19 21:52 Physical Exam Vitals: Vital Signs Temp Pulse Resp BP Pulse Ox 03/13/19 05:05 98.6 F 111 H 20 95/83 95 03/12/19 20:31 98.1 F 110 H 18 100/82 96 03/12/19 17:45 98.0 F 110 H 16 105/69 96 03/12/19 16:00 97.9 F 110 H 16 110/62 92 L 03/12/19 15:41 100 18 Intake and Output 03/12/19 03/13/19 03/13/19 22:59 06:59 14:59 Intake Total 1210 100 Balance 1210 100 Intake: IV 1010 Invasive Line 2 10 Sodium Chloride 0.9% 1, 1000 000 ml @ 125 mls/hr IV . Q8H REPLACED BY [facility] Rx#:[id number] Oral 200 100 Other: Voiding Method Toilet Toilet # Voids 2 1 1 Weight 62.7 kg Gen: This is a 69-year-old female. She is resting in bed and appears to be comfortable and in no acute distress. HEENT: Head is atraumatic, normocephalic. Pupils equal, round. Sclerae is anicteric. NECK: Supple. No JVD. No lymphadenopathy. No thyromegaly. LUNGS: Clear to auscultation. No wheezes or rhonchi. No intercostal retractions. HEART: Regular rate and rhythm. No murmur. Port to the right upper chest wall. Breast: Deferred to Dr. Wilcox ABDOMEN: Soft. Bowel sounds are present. No masses. No tenderness. EXTREMITIES: No pedal edema. No calf tenderness. NEUROLOGICAL: Patient is awake, alert and oriented x3. Cranial nerves 2 through 12 are grossly intact. Results Results: Laboratory Results WBC 4.7 k/uL (3.8-10.6) 03/13/19 06:10 RBC 3.88 m/uL (3.80-5.40) 03/13/19 06:10 Hgb 13.5 gm/dL (11.4-16.0) 03/13/19 06:10 Hct 40.6 % (34.0-46.0) 03/13/19 06:10 MCV 104.5 fL (80.0-100.0) H 03/13/19 06:10 MCH 34.7 pg (25.0-35.0) 03/13/19 06:10 MCHC 33.2 g/dL (31.0-37.0) 03/13/19 06:10 RDW 21.3 % (11.5-15.5) H 03/13/19 06:10 Plt Count 228 k/uL (150-450) 03/13/19 06:10 Neutrophils % 80 % 03/13/19 06:10 Neutrophils % (Manual) 83 % 03/11/19 22:54 Lymphocytes % 8 % 03/13/19 06:10 Lymphocytes % (Manual) 11 % 03/11/19 22:54 Monocytes % 8 % 03/13/19 06:10 Monocytes % (Manual) 6 % 03/11/19 22:54 Eosinophils % 1 % 03/13/19 06:10 Basophils % 0 % 03/13/19 06:10 Neutrophils # 3.8 k/uL (1.3-7.7) 03/13/19 06:10 Neutrophils # (Manual) 4.15 k/uL (1.3-7.7) 03/11/19 22:54 Lymphocytes # 0.4 k/uL (1.0-4.8) L 03/13/19 06:10 Lymphocytes # (Manual) 0.55 k/uL (1.0-4.8) L 03/11/19 22:54 Monocytes # 0.4 k/uL (0-1.0) 03/13/19 06:10 Monocytes # (Manual) 0.30 k/uL (0-1.0) 03/11/19 22:54 Eosinophils # 0.1 k/uL (0-0.7) 03/13/19 06:10 Basophils # 0.0 k/uL (0-0.2) 03/13/19 06:10 Nucleated RBCs 0 /100 WBC (0-0) 03/11/19 22:54 Manual Slide Review Performed 03/11/19 22:54 Anisocytosis Moderate 03/13/19 06:10 Macrocytosis Marked A 03/13/19 06:10 PT 11.6 sec (9.0-12.0) 03/11/19 22:54 INR 1.1 (<1.2) 03/11/19 22:54 APTT 23.0 sec (22.0-30.0) 03/11/19 22:54 Sodium 127 mmol/L (137-145) L 03/13/19 06:10 Potassium 5.4 mmol/L (3.5-5.1) H 03/13/19 06:10 Chloride 97 mmol/L (98-107) L 03/13/19 06:10 Carbon Dioxide 21 mmol/L (22-30) L 03/13/19 06:10 Anion Gap 9 mmol/L 03/13/19 06:10 BUN 58 mg/dL (7-17) H 03/13/19 06:10 Creatinine 0.91 mg/dL (0.52-1.04) 03/13/19 06:10 Est GFR (CKD-EPI)AfAm 74 (>60 ml/min/1.73 sqM) 03/13/19 06:10 Est GFR (CKD-EPI)NonAf 65 (>60 ml/min/1.73 sqM) 03/13/19 06:10 Glucose 130 mg/dL (74-99) H 03/13/19 06:10 Osmolality 285 mosm/kg (280-301) 03/12/19 10:00 Plasma Lactic Acid Gurmeet 1.8 mmol/L (0.7-2.0) 03/11/19 22:54 Calcium 8.6 mg/dL (8.4-10.2) 03/13/19 06:10 Magnesium 2.3 mg/dL (1.6-2.3) 03/11/19 22:54 Total Bilirubin 0.5 mg/dL (0.2-1.3) 03/12/19 10:00 Conjugated Bilirubin 0.0 mg/dL (0.0-0.3) 03/12/19 10:00 Unconjugated Bilirubin 0.2 mg/dL (0.0-1.1) 03/12/19 10:00 Delta Bilirubin 0.3 mg/dL (0.0-0.2) H 03/12/19 10:00 AST 47 U/L (14-36) H 03/12/19 10:00 ALT 110 U/L (9-52) H 03/12/19 10:00 Alkaline Phosphatase 414 U/L (38-126) H 03/12/19 10:00 Creatine Kinase 29 U/L (30-135) L 03/11/19 22:54 Troponin I <0.012 ng/mL (0.000-0.034) 03/11/19 22:54 Total Protein 6.0 g/dL (6.3-8.2) L 03/12/19 10:00 Albumin 3.5 g/dL (3.5-5.0) 03/12/19 10:00 TSH 2.770 mIU/L (0.465-4.680) 03/11/19 22:54 Cortisol 67 ug/dL 03/13/19 06:10 Urine Color Yellow 03/12/19 01:35 Urine Appearance Clear (Clear) 03/12/19 01:35 Urine pH 5.5 (5.0-8.0) 03/12/19 01:35 Ur Specific [place] 1.036 (1.001-1.035) H 03/12/19 01:35 Urine Protein 1+ (Negative) H 03/12/19 01:35 Urine Glucose (UA) Negative (Negative) 03/12/19 01:35 Urine Ketones Negative (Negative) 03/12/19 01:35 Urine Blood Negative (Negative) 03/12/19 01:35 Urine Nitrite Negative (Negative) 03/12/19 01:35 Urine Bilirubin Negative (Negative) 03/12/19 01:35 Urine Urobilinogen 2.0 mg/dL (<2.0) 03/12/19 01:35 Ur Leukocyte Esterase Small (Negative) H 03/12/19 01:35 Urine RBC 4 /hpf (0-5) 03/12/19 01:35 Urine WBC 11 /hpf (0-5) H 03/12/19 01:35 Ur Squamous Epith Cells 1 /hpf (0-4) 03/12/19 01:35 Urine Bacteria Occasional /hpf (None) H 03/12/19 01:35 Hyaline Casts 202 /lpf (0-2) H 03/12/19 01:35 Granular Casts 61 /lpf (0) 03/12/19 01:35 Urine Mucus Rare /hpf (None) H 03/12/19 01:35 Urine Osmolality 899 mosm/kg (50-1400) 03/12/19 11:20 Ur Random Creatinine 202.8 mg/dL 03/12/19 11:20 Ur Random Sodium <10 mmol/L 03/12/19 11:20 CBC & Chem 7: 03/13/19 06:10 03/13/19 06:10 Labs: Abnormal Lab Results - Last 24 Hours (Table) 03/13/19 03/13/19 Range/Units 06:10 06:10 MCV 104.5 H (80.0-100.0) fL RDW 21.3 H (11.5-15.5) % Lymphocytes # 0.4 L (1.0-4.8) k/uL Macrocytosis Marked A Sodium 127 L (137-145) mmol/L Potassium 5.4 H (3.5-5.1) mmol/L Chloride 97 L (98-107) mmol/L Carbon Dioxide 21 L (22-30) mmol/L BUN 58 H (7-17) mg/dL Glucose 130 H (74-99) mg/dL Microbiology - Last 24 Hours (Table) 03/12/19 01:35 Urine Culture - Final Urine,Voided 03/11/19 22:54 Blood Culture - Preliminary Blood No Growth after 24 hours Assessment and Plan Plan: This is a 69-year-old female with underlying history of stage IV breast cancer complicated by pleural effusion with recent thoracentesis, severe protein calorie malnutrition, hyponatremia, pericardial effusion, ascites and metastatic disease to the liver. Patient has a wound to the right breast/chest wall area. Unasyn was added and will culture obtained. Local wound care will b e addressed. Continue supportive care. Further recommendations as patient progresses. The above dictated assessment and findings were discussed with Dr. Wilcox. The impression and plan of care have been directed as dictated. Marybeth Hensley nurse practitioner acting as scribe for Dr. Wilcox.
[2019-03-13] MEDS: ALBUMIN HUMAN 25% 50 ML in EMPTY BAG 1 BAG IVPB SCH ×2 (15:45→17:08)
[2019-03-13] MEDS: AMPICILLIN-SULBACTAM 3 GM in SODIUM CHLORIDE 0.9% 100 ML IVPB SCH (17:54)
--- NOTE | 2019-03-13 18:04 | P.CON ---
Consult Note - . Consult date: 03/13/19 Assessment/Plan:: This is a 69-year-old female patient with past medical history of initial diagnosis of left sided breast cancer in 2011 and treated with IV chemotherapy and placed on observation. She developed metastatic disease in 2014 with a large right supraclavicular mass. She received radiation and various regimes. She developed a right chest wall lesion and repeat biopsy was done and is currently on Ibrance and Faslodex. She had progressive symptoms and the lesion on the right chest wall with superficial ulceration and drainage. She has a thoracentesis done for right-sided pleural effusion last week at [facility] and 1.2 L removed and pathology pending. Patient presented to the hospital complaining of weakness poor appetite and decreased oral intake not able to eat or drink very well and generalized malaise. She denied any fever, chills, nausea or vomiting at that time. Patient states over the last few weeks she's had episodes of vomiting and nausea. Patient denies any diarrhea or constipation. Patient has been complaining of chest wall pain and difficulty breathing. Patient states that she is to start chemotherapy on Wednesday. Regarding the wound on the right chest, she has not been on any antibiotics. Wound culture was obtained today. She has had drainage from the area but noted today but had a foul odor. She underwent a CAT scan of the abdomen and pelvis which revealed interval development of bilateral pleural effusions, pericardial effusion, ascites. Metastatic disease to the liver. Chest x-ray from yesterday showed no significant interval change in the appearance of the chest. Additional consults in place including oncology, cardiology for pericardial effusion, nephrology for hyponatremia. Patient has been started on Unasyn. Please see the consult note as dictated by nurse practitioner Neeru Marybeth Hensley. 69-year-old female who has metastatic breast carcinoma with recent significant worsening of her status presents to Hospital feeling very poorly. She difficulty with her breast ulceration with increasing odor drainage and increasing fatigue and malaise. She's also developed some nausea with emesis and feels very poorly. It is noted developed some hyponatremia also. On the exam the patient has the extensive ulceration to the right breast that is necrotic and malodorous. There is some surrounding erythema. At this time Unasyn is an excellent choice for the cellulitis that has developed in the roselia-ulcer area on the breast from the carcinoma. Topical metronidazole that are the tablets that are crushed in sprinkled onto the ulcers is often helpful in reducing the strong odor. It appears at the patient is developed progression of her metastatic disease since her last set of scans and it's not clear at this point in time with the overall process will be. I evaluation, assessment and plan as dictated by nurse practitioner Mrs. Marybeth Hensley.
[2019-03-13] MEDS: metroNIDAZOLE 500 MG TAB PO SCH ×2 (18:11→22:19)
[2019-03-13] MEDS: MIRTAZAPINE 15 MG TAB PO SCH (20:37)
--- NOTE | 2019-03-13 22:30 | P.PN ---
Subjective Progress Note Date: 03/13/19 Principal diagnosis: Metastatic breast Cancer Objective - Vital Signs Vital signs: Vital Signs Temp 97.5 F L 03/13/19 14:42 Pulse 110 H 03/13/19 14:42 Resp 14 03/13/19 14:42 BP 95/55 03/13/19 15:02 Pulse Ox 98 03/13/19 14:42 Intake & Output 03/12/19 03/13/19 03/13/19 18:59 06:59 18:59 Intake Total 1946 100 Output Total 200 Balance 1746 100 Weight 62.7 kg Intake: IV 1050 Invasive Line 2 50 Sodium Chloride 0.9% 1, 1000 000 ml @ 125 mls/hr IV . Q8H [facility] Rx#:[id number] Oral 896 100 Output: Urine 200 Other: Voiding Method Toilet Toilet Toilet # Voids 1 2 # Bowel Movements 0 - Exam - Constitutional General appearance: no acute distress - EENT Eyes: EOMI, PERRLA ENT: hearing grossly normal, normal oropharynx - Neck Neck: lymphadenopathy (left SC 2-3 hard , confluent , largest 1-1.5 cm) Thyroid: bilateral: normal size - Respiratory Respiratory: right: diminished (lower 1/3) - Cardiovascular Rhythm: regular Heart sounds: normal: S1, S2 - Gastrointestinal General gastrointestinal: normal bowel sounds, soft - Integumentary Masslike lesion right chest wall, slightly raised, with metastatic, indurated, with scattered superficial ulceration - Neurologic Neurologic: CNII-XII intact - Musculoskeletal Musculoskeletal: generalized weakness, strength equal bilaterally - Psychiatric Psychiatric: A&O x's 3, appropriate affect - Labs CBC & Chem 7: 03/13/19 06:10 03/13/19 06:10 Labs: Abnormal Lab Results - Last 24 Hours (Table) 03/13/19 03/13/19 Range/Units 06:10 06:10 MCV 104.5 H (80.0-100.0) fL RDW 21.3 H (11.5-15.5) % Lymphocytes # 0.4 L (1.0-4.8) k/uL Macrocytosis Marked A Sodium 127 L (137-145) mmol/L Potassium 5.4 H (3.5-5.1) mmol/L Chloride 97 L (98-107) mmol/L Carbon Dioxide 21 L (22-30) mmol/L BUN 58 H (7-17) mg/dL Glucose 130 H (74-99) mg/dL Microbiology - Last 24 Hours (Table) 03/12/19 01:35 Urine Culture - Final Urine,Voided 03/11/19 22:54 Blood Culture - Preliminary Blood No Growth after 24 hours Assessment and Plan Plan: 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 - Right chest wall lesion on biopsy with a hormone positive component (possible secondary primary) - With continued progression and persistent siadh, as well as nausea and dehydration an MRI of the brain has been ordered for full restaging Recurrent Pleural Effusions: - Status Post Thoracentesis - Will obtain the path from recent fluid studies to assess for component of hormone receptor positive or negative Abnormal liver enzymes - Etiology is not clear at this time. The patient does have a history of significant Tylenol use which could be a factor. Imaging studies show far have not shown evidence of liver metastasis. Dedicated imaging will be ordered for baseline. Dehydration - The patient's oral intake has been quite poor and of progressive manner over the past several weeks. Therefore she has become dehydrated. This is confirmed on clinical examination and by labs. She is feeling somewhat better already with IV hydration of generalized weakness persists. Continue hydration, and monitoring of electrolytes with supplementation and adjustment as needed Hyponatremia - More likely hypovolemic hyponatremia due to dehydration from poor oral intake. Given recent lung issues, element of SIADH is also possible. Labs for the same have been ordered. Monitor sodium with IV hydration. I will also check cortisol level PLan: - MRI Brain - PT/OT - Supportive Care - Prognosis beatriz
[2019-03-14] MEDS: AMPICILLIN-SULBACTAM 3 GM in SODIUM CHLORIDE 0.9% 100 ML IVPB SCH ×3 (01:13→15:22)
[2019-03-14] MEDS: SODIUM CHLORIDE 0.9% 1,000 ML IV SCH (01:13)
[2019-03-14] MEDS: MORPHINE SULFATE 4 MG/ML SYRINGE IV PRN (04:51)
[2019-03-14 07:08] LABS: Albumin 3.7 g/dL (3.5-5.0); Calcium 8.9 mg/dL (8.4-10.2); Potassium 5.9 mmol/L (3.5-5.1); Total Bilirubin 0.6 mg/dL (0.2-1.3); Total Protein 6.1 g/dL (6.3-8.2)
--- NOTE | 2019-03-14 08:13 | P.CRDCN ---
History of Present Illness Consult date: 03/14/19 Requesting physician: Keaton Espinoza Reason for Consult (text): Pericardial effusion Chief complaint: Generalized weakness, no appetite History of present illness: This is a 69-year-old female who was diagnosed with breast cancer in 2011, she then developed metastatic disease in 2014 with a large suprapubic clavicular mass for which she received radiation, patient had also received chemotherapy. She developed a right chest wall lesion with repeat biopsy showing hormone receptor positive disease and most recently was on a medication for this. Prior to this hospitalization patient had been experiencing worsening shortness of breath, she had a CTA performed on February 17 and subsequent to that underwent a thoracentesis at [facility] last week, 1.2 L was removed. Pathology is yet pending for this. She presented to the hospital on this occasion with symptoms of weakness and decreased appetite. Chest x-ray shows bilateral pleural effusions. EKG shows a sinus tachycardia with nonspecific ST-T wave changes. CT of the abdomen and pelvis was performed here which revealed interval development of bilateral pleural effusions, pericardio effusion, ascites, metastatic disease to the liver. Because of the evidence of pericardial effusion a cardiology consultation had been requested. Apparently the patient did undergo an echocardiogram with Doppler study of last evening which also showed a pericardial effusion, we have not yet seen the echo or had confirmation of the extent of the pericardial effusion. Blood for this reason the patient apparently was transferred to the cardiac unit. Her blood pressure this morning is 108/80 with a heart rate of 102, 91% on 3 L of oxygen. White blood cell count 4.7, hemoglobin 13.5, platelet count 228. Sodium yesterday 127, 128 today, potassium 5.9, BUN 66 and creatinine 1.1. AST 46, ALT 99, alk phos 413, total protein 6.1. At the time of my examination this morning, patient feels nauseated and extremely weak. She denies any dizziness or lightheadedness. Past Medical History Past Medical History: Cancer Additional Past Medical History / Comment(s): STATES HAS BREAST CA THAT HAS METASTASIZED, hx of colon polyps History of Any Multi-Drug Resistant Organisms: None Reported Past Surgical History: Breast Surgery, Hysterectomy Additional Past Surgical History / Comment(s): 2013 hysterectomy, colonoscopy, left mastectomy and reconstuction of left breast 2011. Chemo/Radiation last chemo tx Past Anesthesia/Blood Transfusion Reactions: No Reported Reaction Past Psychological History: Anxiety, Depression Additional Psychological History / Comment(s): related to health issues Smoking Status: Never smoker Past Alcohol Use History: None Reported Additional Past Alcohol Use History / Comment(s): Patient lives at home with her and is independent. Past Drug Use History: None Reported - Past Family History Mother Family Medical History: Cancer, Congestive Heart Failure (CHF), COPD Medications and Allergies Home Medications Medication Instructions Recorded Confirmed Type Acetaminophen Tab [Tylenol Tab] 1,000 mg PO Q6H PRN 05/06/15 03/11/19 History Ca/D3/Mag/Zinc/Meghana/Jackson/Mgbor 1 tab PO DAILY 05/06/15 03/11/19 History [Caltrate 600+D3+Min Chew Tab] Multivit-Min/FA/Lycopene/Lut 1 tab PO DAILY 05/06/15 03/11/19 History [Centrum Silver Tablet] Vitamin B Complex 1 cap PO DAILY 10/14/17 03/11/19 History Biotin 5 mg PO DAILY 11/05/17 03/11/19 History Allergies Allergy/AdvReac Type Severity Reaction Status Date / Time No Known Allergies Allergy Verified 03/11/19 21:52 Physical Exam Vitals: Vital Signs Temp Pulse Resp BP Pulse Ox 03/14/19 04:44 97.2 F L 102 H 19 107/82 03/14/19 02:02 106 H 119/92 03/14/19 01:17 97.5 F L 108 H 15 117/73 91 L 03/13/19 22:22 107 H 16 108/73 93 L 03/13/19 21:47 16 03/13/19 20:00 106 H 03/13/19 19:45 97.5 F L 106 H 16 145/78 95 03/13/19 17:11 100/88 03/13/19 15:02 95/55 03/13/19 14:42 97.5 F L 110 H 14 98 Intake and Output 03/13/19 03/14/19 03/14/19 22:59 06:59 14:59 Intake Total 400 Output Total 100 200 Balance -100 200 Intake: Intake, IV Titration 400 Amount Sodium Chloride 0.9% 1, 400 000 ml @ 50 mls/hr IV . Q20H [facility] Rx#:[id number] Output: Urine 100 200 Other: Voiding Method Bedside Commode Bedside Commode # Voids 1 Weight 69.4 kg Gen: This is a 69-year-old female. She is resting in bed and appears to be comfortable and in no acute distress. HEENT: Head is atraumatic, normocephalic. Pupils equal, round. Sclerae is anicteric. NECK: Supple. No JVD. No lymphadenopathy. No thyromegaly. LUNGS: Clear to auscultation. No wheezes or rhonchi. No intercostal retractions. HEART: Heart S1 and S2, no murmur or gallop heard, there is a pericardial rub heard. ABDOMEN: Soft. Bowel sounds are present. No masses. No tenderness. EXTREMITIES: No pedal edema. No calf tenderness. NEUROLOGICAL: Patient is awake, alert and oriented x3. Cranial nerves 2 through 12 are grossly intact. Results 03/13/19 06:10 03/14/19 06:35 Cardiac Enzymes 03/14/19 Range/Units 06:35 AST 46 H (14-36) U/L Comprehensive Metabolic Panel 03/14/19 Range/Units 06:35 Sodium 128 L (137-145) mmol/L Potassium 5.9 H (3.5-5.1) mmol/L Chloride 97 L (98-107) mmol/L Carbon Dioxide 20 L (22-30) mmol/L BUN 66 H (7-17) mg/dL Creatinine 1.15 H (0.52-1.04) mg/dL Glucose 119 H (74-99) mg/dL Calcium 8.9 (8.4-10.2) mg/dL AST 46 H (14-36) U/L ALT 99 H (9-52) U/L Alkaline Phosphatase 413 H (38-126) U/L Total Protein 6.1 L (6.3-8.2) g/dL Albumin 3.7 (3.5-5.0) g/dL Current Medications Generic Name Dose Route Start Last Admin Trade Name Freq PRN Reason Stop Dose Admin Famotidine 20 mg 03/13/19 09:00 03/13/19 07:59 Pepcid PO 20 mg DAILY LILIAN Administration Ampicillin Sodium/Sulbactam 100 mls @ 200 mls/hr 03/13/19 16:00 03/14/19 01:13 Sodium 3 gm/ Sodium Chloride IVPB 200 mls/hr Q8HR LILIAN Administration Sodium Chloride 1,000 mls @ 50 mls/hr 03/13/19 12:45 03/14/19 01:13 Saline 0.9% IV 50 mls/hr .Q20H LILIAN Administration Metronidazole 500 mg 03/13/19 18:00 03/13/19 22:19 Flagyl PO 500 mg QID LILIAN Administration Mirtazapine 15 mg 03/12/19 21:00 03/13/19 20:37 Remeron PO 15 mg HS LILIAN Administration Morphine Sulfate 4 mg 03/11/19 23:46 03/14/19 04:51 Morphine Sulfate (Inj) IV 2 mg Q4HR PRN Administration Severe Pain Naloxone HCl 0.2 mg 03/11/19 23:46 Narcan IV Q2M PRN Opioid Reversal Ondansetron HCl 4 mg 03/11/19 23:46 03/13/19 15:18 Zofran IVP 4 mg Q8HR PRN Administration Nausea And Vomiting Intake and Output 03/13/19 03/14/19 03/14/19 22:59 06:59 14:59 Intake Total 400 Output Total 100 200 Balance -100 200 Intake: Intake, IV Titration 400 Amount Sodium Chloride 0.9% 1, 400 000 ml @ 50 mls/hr IV . Q20H [facility] Rx#:[id number] Output: Urine 100 200 Other: Voiding Method Bedside Commode Bedside Commode # Voids 1 Weight 69.4 kg 03/13/19 06:10 03/14/19 06:35 EKG Interpretations (text) EKG shows a sinus tachycardia with a heart rate of 113, T wave inversion noted in the lateral leads. Assessment and Plan Plan: assessment and plan #1 symptoms of weakness and decreased appetite and a patient with stage IV breast cancer with metastases #2 hyponatremia and dehydration #3 recent pleural effusion status post thoracentesis #4 pericardial effusion Plan We will review the echocardiogram with Doppler study, to evaluate the pericar dial effusion to rule out potential tamponade. Patient is quite comfortable this morning, we will consult cardiothoracic surgery for possible pericardial window. Further recommendations to follow. DNP note has been reviewed, I agree with a documented findings and plan of care. Patient was seen and examined.
[2019-03-14] MEDS: FAMOTIDINE 20 MG TAB PO SCH (08:21)
[2019-03-14] MEDS: metroNIDAZOLE 500 MG TAB PO SCH ×3 (08:21→22:36)
[2019-03-14] MEDS ORDERED: ALPRAZolam 0.5 MG TAB PO PRN (09:00)
--- NOTE | 2019-03-14 09:06 | ECHOF ---
Referral Reason:routine MEASUREMENTS -------- HEIGHT: 167.6 cm WEIGHT: 62.6 kg BP: 95/55 RVIDd: 2.5 cm (< 3.3) IVSd: 1.1 cm (0.6 - 1.1) LVIDd: 3.2 cm (3.9 - 5.3) LVPWd: 1.0 cm (0.6 - 1.1) IVSs: 1.4 cm LVIDs: 2.2 cm LVPWs: 1.3 cm Ao Diam: 3.1 cm (2.0 - 3.7) AV Cusp: 1.7 cm (1.5 - 2.6) MV EXCURSION: 13.666 mm (> 18.000) MV EF SLOPE: 276 mm/s (70 - 150) EPSS: 0.4 cm MV E Casper: 0.28 m/s MV DecT: 194 ms MV A Casper: 0.47 m/s MV E/A Ratio: 0.60 RAP: 15.00 mmHg RVSP: 35.10 mmHg FINDINGS -------- Resting tachycardia (HR>100bpm). This was a technically adequate study. The left ventricular size is normal. Left ventricular wall thickness is normal. Overall left vent ricular systolic function is normal with, an EF between 60 - 65 %. The right ventricle is normal in size. The left atrium was not well visualized. The right atrium was not well visualized. There is mild aortic valve sclerosis. The mitral valve is normal. Mild tricuspid regurgitation present. There is mild pulmonary hypertension. The right ventricular systolic pressure, as measured by Doppler, is 35.10mmHg. The pulmonic valve was not well visualized. The aortic root size is normal. The inferior vena cava is dilated with poor inspiratory collapse which is consistent with estimated r ight atrial pressure of 15 mmHg. There is a large, generalized pericardial effusion present. CONCLUSIONS -------- 1. Resting tachycardia (HR>100bpm). 2. This was a technically adequate study. 3. The left ventricular size is normal. 4. Left ventricular wall thickness is normal. 5. Overall left ventricular systolic function is normal with, an EF between 60 - 65 %. 6. The right ventricle is normal in size. 7. The left atrium was not well visualized. 8. The right atrium was not well visualized. 9. There is mild aortic valve sclerosis. 10. The mitral valve is normal. 11. Mild tricuspid regurgitation present. 12. There is mild pulmonary hypertension. 13. The right ventricular systolic pressure, as measured by Doppler, is 35.10mmHg. 14. The pulmonic valve was not well visualized. 15. The aortic root size is normal. 16. The inferior vena cava is dilated with poor inspiratory collapse which is consistent with estimat ed right atrial pressure of 15 mmHg. 17. There is a large, generalized pericardial effusion present. SENIOR SHAREPOINT ARCHITECT: Thania Bennett RDCS
[2019-03-14] MEDS: ALBUMIN HUMAN 25% 50 ML in EMPTY BAG 1 BAG IVPB SCH ×2 (10:47→11:46)
[2019-03-14] MEDS ORDERED: FUROSEMIDE 10 MG/ML 2 ML VIAL IV ONE (12:02)
[2019-03-14 13:45] LABS: Potassium 5.8 mmol/L (3.5-5.1)
--- NOTE | 2019-03-14 14:46 | P.PN ---
Subjective Progress Note Date: 03/14/19 Principal diagnosis: Metastatic breast Cancer Third space edema throughout, very lethargic Son was at bedside, PLan is to undergo pericardial window this evening. Objective - Vital Signs Vital signs: Vital Signs Temp 97.2 F L 03/14/19 04:44 Pulse 102 H 03/14/19 11:57 Resp 18 03/14/19 11:57 BP 96/58 03/14/19 08:00 Pulse Ox 95 03/14/19 08:17 Intake & Output 03/13/19 03/14/19 03/14/19 18:59 06:59 18:59 Intake Total 400 Output Total 300 Balance 100 Weight 69.4 kg Intake: Intake, IV Titration 400 Amount Sodium Chloride 0.9% 1, 400 000 ml @ 50 mls/hr IV . Q20H [facility] Rx#:[id number] Output: Urine 300 Other: Voiding Method Toilet Bedside Commode Bedside Commode # Voids 2 2 # Bowel Movements 0 - Exam - Constitutional General appearance: no acute distress appears chronically ill and weak - EENT Eyes: EOMI, PERRLA ENT: hearing grossly normal, normal oropharynx - Neck Neck: lymphadenopathy (left SC 2-3 hard , confluent , largest 1-1.5 cm) Thyroid: bilateral: normal size - Respiratory Respiratory: right: diminished (lower 1/3) - Cardiovascular Rhythm: regular Heart sounds: normal: S1, S2 - Gastrointestinal General gastrointestinal:abdominal distention - Integumentary Masslike lesion right chest wall, slightly raised, with metastatic, indurated, with scattered superficial ulceration - Neurologic Neurologic: CNII-XII intact - Musculoskeletal Musculoskeletal: generalized weakness, bilateral lower and upper extremity edema - Psychiatric Psychiatric: flat affect, lethargic, falls asleep - Labs CBC & Chem 7: 03/13/19 06:10 03/14/19 13:05 Labs: Abnormal Lab Results - Last 24 Hours (Table) 03/13/19 03/14/19 03/14/19 Range/Units 06:10 06:35 13:05 Sodium 128 L 127 L (137-145) mmol/L Potassium 5.9 H 5.8 H (3.5-5.1) mmol/L Chloride 97 L 96 L (98-107) mmol/L Carbon Dioxide 20 L 19 L (22-30) mmol/L BUN 66 H (7-17) mg/dL Creatinine 1.15 H (0.52-1.04) mg/dL Glucose 119 H (74-99) mg/dL AST 46 H (14-36) U/L ALT 99 H (9-52) U/L Alkaline Phosphatase 413 H (38-126) U/L Total Protein 6.1 L (6.3-8.2) g/dL CA 15-3 Antigen 41.4 H (0.0-32.3) U/mL Microbiology - Last 24 Hours (Table) 03/11/19 22:54 Blood Culture - Preliminary Blood No Growth after 48 hours 03/13/19 15:00 Gram Stain - Preliminary Breast - Right Wound Culture - Preliminary 03/12/19 01:35 Urine Culture - Final Urine,Voided Assessment and Plan Plan: 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 - Right chest wall lesion on biopsy with a hormone positive component (possible secondary primary) - With continued progression and persistent siadh, as well as nausea and dehydration an MRI of the brain has been ordered for full restaging Recurrent Pleural Effusions: - Status Post Thoracentesis - Will obtain the path from recent fluid studies to assess for component of hormone receptor positive or negative Abnormal liver enzymes - Metastatic Cancer - Imaging studies from 03/13 are now newly showing liver metastasis. Dedicated imaging will be ordered for baseline. - GI evaluation resonable and consideration of component of hepatorenal syndrome. Nephrology is following Dehydration - The patient's oral intake has been quite poor and of progressive manner over the past several weeks. Therefore she has become dehydrated. This is confirmed on clinical examination and by labs. She is feeling somewhat better already with IV hydration of generalized weakness persists. Continue hydration, and monitoring of electrolytes with supplementation and adjustment as needed Hyponatremia - More likely hypovolemic hyponatremia due to dehydration from poor oral intake. Given recent lung issues, element of SIADH is also possible. Labs for the same have been ordered. Monitor sodium with IV hydration. I will also check cortisol level PLan: - Pericardial window per Cardiothoracic surgery - Chemo on hold at this time until recovers - Supportive Care - Prognosis beatriz
--- NOTE | 2019-03-14 15:16 | P.PN ---
Subjective Progress Note Date: 03/14/19 This is a 69-year-old pleasant female patient of Dr. Glen Vázquez who presented to the emergency room complaining of generalized weakness. Patient states that over the last couple weeks she has not had any appetite she has not been able to eat or drink well. Patient states that she seen her primary care physician about a week ago and was told that the left looks fine at that time however since then she has not been able to eat or drink. Patient reported generalized malaise. She denied any fever, chills, nausea or vomiting at that time. Patient has past medical history significant of recurrent breast CA, initial diagnosis apparently 7 years ago. Patient has a necrotic breast lesion on the right chest wall that is progressively getting worse. Past medical history also includes anxiety and depression. Patient has never been a smoker. At this time patient is resting in bed in no acute distress. She is complaining of lack of appetite, weakness, malaise. Patient states over the last few weeks she's had episodes of vomiting and nausea. Patient denies any diarrhea or const ipation. Patient has been complaining of chest wall pain and difficulty breathing. On Wednesday of last week she had thoracentesis due to bilateral pleural effusion. 1.3 L of fluid was drained from the right lung. Patient states after the procedure was done she did have an easier time breathing. However it did not help her weakness or malaise. Patient states that next week she will be starting another chemotherapy since previous treatments have not been successful. Patient denies any fevers or chills. 03/13: Patient has a wound on her right breast which she states has been drinking for 5 days but now has a foul order. She denies being on any antibiotics recently. Consult for Dr. Wilcox has been ordered and will culture ordered. She has been seen by Dr. Zamora regarding breast cancer the plan is to start chemotherapy with Abraxane as an outpatient. Patient is noted to have increased liver enzymes and Dr. Zamora ordered CAT scan of the abdomen and pelvis which revealed interval development of bilateral pleural effusions, pericardial effusion, ascites. Metastatic disease to the liver. Consult has been admitted for cardiology regarding pericardial effusion. Chest x-ray from yesterday showed no significant interval change in the appearance of the chest. Repeat lab work reveals sodium 127, potassium 5.4, chloride 97, CO2 21, BUN 15 creatinine 0.91, blood sugar 130. Cortisol 67 Consult has been added for nephrology for hyponatremia possible SIADH. Patient does have some increased edema for which IV fluids will be decreased to 50 mL per hour. 03/14: Echocardiogram reveals EF of 60-65%, mild aortic valve sclerosis, mild pulmonary hypertension, large generalized pericardial effusion. Patient was transferred to the cardiac stepdown unit. She did have marginal blood pressure readings and pulse ox was 91% on 2 L increased to 3 L. Patient has been seen by oncology and MRI of the brain was ordered for today looking for brain metastases but patient is unable to lay flat for this and we will cancel it for now. Xanax ordered for anxiety. Discussed case with cardiology and cardiothoracic surgery consult has been added. Patient received 1 dose of IV albumin yesterday we will repeat for today. Chest x-ray ordered for today. Patient states that she has less edema in her legs but continues to have edema in her arms. She denies any diarrhea. She has not had a bowel movement since admission. Patient is having very little oral intake. She is followed by dietitian and I will be changed to a regular diet to make it more accommodating for her. Repeat lab work reveals sodium 127, potassium 5.8, chloride 96, CO2 19. Patient has been afebrile, heart rate in the low 100s up to 106, pulse ox 95% on 3 L. Blood pressure 96/58. Review of Systems Constitutional: No fever, no chills, no night sweats. No weight change. Reports weakness and fatigue no lethargy. No daytime sleepiness. Reports chest wall pain EENT: No headache. No blurred vision or double vision, no loss of vision. No loss of Hearing, no ringing in the ears, no dizziness. No nasal drainage or congestion. No epistaxis. No sore throat. Lungs: Reports shortness of breath, no cough, no sputum production. No wheezing. Cardiovascular: No chest pain, no lower extremity edema. No palpitations. No paroxysmal nocturnal dyspnea. No orthopnea. No lightheadedness or dizziness. No syncopal episodes. Abdominal: no abdominal discomfort. Reports nausea and vomiting. no diarrhea. No constipation. No bloody or tarry stools. Reports loss of appetite. Genitourinary: No dysuria, increased frequency, urgency. No urinary retention. Musculoskeletal: No myalgias. Reports muscle weakness, no gait dysfunction, no frequent falls. No back pain. No neck pain. Integumentary: Reports chest wall wound, drainage, No rash or pruritus. No unusual bruising. No change in hair or nails. Neurologic: No aphasia. No facial droop. No change in mentation. No head injury. No headache. No paralysis. No paresthesia. Psychiatric: No depression. No anxiety. No mood swings. Endocrine: No abnormal blood sugars. No weight change. No excessive sweating or thirst. Objective - Vital Signs Vital signs: Vital Signs Temp 97.2 F L 03/14/19 04:44 Pulse 102 H 03/14/19 04:44 Resp 19 03/14/19 04:44 BP 107/82 03/14/19 04:44 Pulse Ox 95 03/14/19 08:17 Intake & Output 03/13/19 03/14/19 03/14/19 18:59 06:59 18:59 Intake Total 400 Output Total 300 Balance 100 Weight 69.4 kg Intake: Intake, IV Titration 400 Amount Sodium Chloride 0.9% 1, 400 000 ml @ 50 mls/hr IV . Q20H [facility] Rx#:[id number] Output: Urine 300 Other: Voiding Method Toilet Bedside Commode # Voids 2 1 # Bowel Movements 0 - Exam General Appearance: Alert, cooperative, no distress, appears stated age. Neck HEENT: Supple, no lymphadenopathy, no thyroid enlargement, no carotid bruits. Lungs: Clear to auscultation without crackles or wheezes no rhonchi, no deformity. Chest Wall: no costochondral pain or discomfort. Heart: Regular rate and rhythm, S1, S2 normal, no murmur, rub or gallop. Back: Symmetric, no curvature, ROM normal, no CVA tenderness. Abdomen: Soft, non-tender, no rebound or rigidity, no hepatosplenomegaly. Extremities: Extremities normal, atraumatic, no cyanosis or edema. Pulses: 2+ and symmetric. Skin: Maceration to the right breast erythema and eschar noted Skin color, texture, tugor normal, Neurologic: Alert oriented x3 cranial nerves II through XII intact, no motor deficit, - Labs CBC & Chem 7: 03/13/19 06:10 03/14/19 13:05 Labs: Abnormal Lab Results - Last 24 Hours (Table) 03/13/19 03/14/19 Range/Units 06:10 06:35 Sodium 128 L (137-145) mmol/L Potassium 5.9 H (3.5-5.1) mmol/L Chloride 97 L (98-107) mmol/L Carbon Dioxide 20 L (22-30) mmol/L BUN 66 H (7-17) mg/dL Creatinine 1.15 H (0.52-1.04) mg/dL Glucose 119 H (74-99) mg/dL AST 46 H (14-36) U/L ALT 99 H (9-52) U/L Alkaline Phosphatase 413 H (38-126) U/L Total Protein 6.1 L (6.3-8.2) g/dL CA 15-3 Antigen 41.4 H (0.0-32.3) U/mL Microbiology - Last 24 Hours (Table) 03/11/19 22:54 Blood Culture - Preliminary Blood No Growth after 48 hours 03/13/19 15:00 Gram Stain - Preliminary Breast - Right Wound Culture - Preliminary 03/12/19 01:35 Urine Culture - Final Urine,Voided Assessment and Plan Plan: 1. Hyponatremia secondary to dehydration possible SIADH not completely ruled out related to stage IV breast cancer. Consult with nephrology. IV fluids dec reased to 50 mL per hour. 2. Failure to thrive with severe protein calorie malnutrition and weight loss. Remeron 15 mg at bedtime, ensure daily. Encourage oral intake. Diet changed to regular. Patient is followed by registered dietitian. 3. Malnutrition secondary to breast CA. As noted above nutrition consult. 4. Hyperkalemia. No EKG changes, Kayexalate 15 mg once. Continue to monitor. 5. Pleural effusion post thoracentesis on 03/08/19 1.3 L removed. Chest x-ray repeated today 6. Stage IV breast CA with pleural effusion. Consult oncology appreciated. MRI of the brain was ordered to rule out brain metastases but this was canceled due to patient unable to lay flat. 7. Right breast wound. Wound culture ordered, consult with Dr. Wiclox, continue Unasyn. 8. Pericardial effusion. Cardiology consult. Echocardiogram as above. Patient has been transferred to cardiac stepdown unit. 9. DVT prophylaxis pneumatic compression sleeves 8. GI prophylaxis. Pepcid 20 mg daily Discharge plan: possible home with homecare. Patient is appropriate for palliative care. Impression and plan of care have been directed as dictated by the signing physician. Marbyeth Hensley nurse practitioner acting as scribe for signing physician.
--- NOTE | 2019-03-14 16:31 | P.GSCN ---
History of Present Illness Consult date: 03/14/19 Reason for Consult: Large pericardial effusion Requesting physician: Marco Leavitt History of present illness: This is 69-year-old female patient who is followed by Dr. Glen Vázquez on an outpatient basis. She has a past medical history significant for anxiety, depression and left-sided breast cancer which was diagnosed and 2012 and has been treated with chemotherapy and radiation. In 2014 she was found to have a large right supraclavicular mass which was positive for metastatic disease. There is a family history of cancer with her mom having breast cancer and her dad having prostate cancer. Recently, the patient has developed a superficial right chest wall ulceration which is being followed by infectious disease. She is a lifetime nonsmoker. Over the past week the patient has had complaints of progressive shortness of breath, generalized weakness, poor appetite and episodes of nausea and vomiting. She denies any fevers, chills, diarrhea, constipation or any recent trauma. Due to the patient's progressive shortness of breath she was seen by her primary care physician and was also treated at [facility] for a right-sided pleural effusion with 1.3 L of straw-colored fluid drained. The cytology results are not available at this time. She reports after having the fluid drained her breathing has really not improved. Subsequently due to the patient's generalized weakness and shortness of breath she presented to the emergency department here at [facility]. A chest x-ray was completed in the emergency department which showed bilateral pleural effusion. For further evaluation the patient also underwent a computed tomography scan of her abdomen and pelvis without contrast. This computed tomography scan results demonstrated interval development of bilateral pleural effusions, a pericardial effusion, ascites and metastatic disease to the liver. A 2-D echocardiogram was also completed which showed an overall left ventricular systolic function to be normal with an ejection fraction between 60 and 65%, a large generalized pericardial effusion and the inferior vena cava is dilated with poor inspiratory collapse. Due to the findings of a large per icardial effusion a consult was placed to Dr. Pam Hickman from cardiothoracic surgery for evaluation and possible surgical recommendations. Review of Systems A 14 point review of systems was completed and was negative except as mentioned in the HPI. Past Medical History Past Medical History: Cancer Additional Past Medical History / Comment(s): STATES HAS BREAST CA THAT HAS METASTASIZED, hx of colon polyps, wound to her right breast History of Any Multi-Drug Resistant Organisms: None Reported Past Surgical History: Breast Surgery, Hysterectomy Additional Past Surgical History / Comment(s): 2013 hysterectomy, colonoscopy, left mastectomy and reconstuction of left breast 2011. Chemo/Radiation last chemo tx , cataract surgery in November 2018 bilateral eyes Past Anesthesia/Blood Transfusion Reactions: No Reported Reaction Past Psychological History: Anxiety, Depression Additional Psychological History / Comment(s): related to health issues Smoking Status: Never smoker Past Alcohol Use History: None Reported Additional Past Alcohol Use History / Comment(s): Patient lives at home with her and is independent. Past Drug Use History: None Reported - Past Family History Mother Family Medical History: Cancer (Breast), Congestive Heart Failure (CHF), COPD Father Family Medical History: Cancer (Prostate), Dementia Medications and Allergies Home Medications Medication Instructions Recorded Confirmed Type Acetaminophen Tab [Tylenol Tab] 1,000 mg PO Q6H PRN 05/06/15 03/11/19 History Ca/D3/Mag/Zinc/Meghana/Jackson/Mgbor 1 tab PO DAILY 05/06/15 03/11/19 History [Caltrate 600+D3+Min Chew Tab] Multivit-Min/FA/Lycopene/Lut 1 tab PO DAILY 05/06/15 03/11/19 History [Centrum Silver Tablet] Vitamin B Complex 1 cap PO DAILY 10/14/17 03/11/19 History Biotin 5 mg PO DAILY 11/05/17 03/11/19 History Allergies Allergy/AdvReac Type Severity Reaction Status Date / Time No Known Allergies Allergy Verified 03/11/19 21:52 Surgical - Exam Vital Signs Temp Pulse Resp BP Pulse Ox 97.5 F L 113 H 16 89/64 95 03/11/19 21:38 03/11/19 21:38 03/11/19 21:38 03/11/19 21:38 03/11/19 21:38 - General No acute distress, generalized anasarca no pain, chronically ill - Eyes PERRL, normal ocular movement - ENT normal pinna, normal nares, normal mucosa, no hearing loss, no congestion - Neck Neck is supple, positive JVD no masses, no bruits, trachea midline - Respiratory Lung sounds diminished bilateral bases. No wheezes or rhonchi. Respirations are symmetrical and nonlabored. Oxygen saturation is 95% on 3 L nasal cannula. - Cardiovascular Regular rhythm and tachycardic rate. S1 and S2 present, negative for S3, gallop or murmur. Remote telemetry showing sinus tachycardia heart rate 104. Generalized anasarca. Port-A-Cath in place to her right upper chest wall. - Abdomen Abdomen is soft, nontender and distended. No guarding or rigidity. No organomegaly. Hypoactive bowel sounds all 4 abdominal quadrants. - Genitourinary Deferred - Rectum Deferred - Integumentary Skin is warm and dry. No clubbing or cyanosis is present. Right upper chest wall erythema. - Neurologic Cranial nerves II through XII are grossly intact. normal coordination, normal sensation - Musculoskeletal Bedrest at this time. Generalized weakness. - Psychiatric oriented to time, oriented to person, oriented to place, speech is normal, memory intact Results - Labs 03/13/19 06:10 03/14/19 13:05 Abnormal Lab Results - Last 24 Hours (Table) 03/13/19 03/14/19 Range/Units 06:10 06:35 Sodium 128 L (137-145) mmol/L Potassium 5.9 H (3.5-5.1) mmol/L Chloride 97 L (98-107) mmol/L Carbon Dioxide 20 L (22-30) mmol/L BUN 66 H (7-17) mg/dL Creatinine 1.15 H (0.52-1.04) mg/dL Glucose 119 H (74-99) mg/dL AST 46 H (14-36) U/L ALT 99 H (9-52) U/L Alkaline Phosphatase 413 H (38-126) U/L Total Protein 6.1 L (6.3-8.2) g/dL CA 15-3 Antigen 41.4 H (0.0-32.3) U/mL Microbiology - Last 24 Hours (Table) 03/11/19 22:54 Blood Culture - Preliminary Blood No Growth after 48 hours 03/13/19 15:00 Gram Stain - Preliminary Breast - Right Wound Culture - Preliminary 03/12/19 01:35 Urine Culture - Final Urine,Voided Diabetes panel 03/14/19 Range/Units 06:35 Sodium 128 L (137-145) mmol/L Potassium 5.9 H (3.5-5.1) mmol/L Chloride 97 L (98-107) mmol/L Carbon Dioxide 20 L (22-30) mmol/L BUN 66 H (7-17) mg/dL Creatinine 1.15 H (0.52-1.04) mg/dL Glucose 119 H (74-99) mg/dL Calcium 8.9 (8.4-10.2) mg/dL AST 46 H (14-36) U/L ALT 99 H (9-52) U/L Alkaline Phosphatase 413 H (38-126) U/L Total Protein 6.1 L (6.3-8.2) g/dL Albumin 3.7 (3.5-5.0) g/dL Calcium panel 03/14/19 Range/Units 06:35 Calcium 8.9 (8.4-10.2) mg/dL Albumin 3.7 (3.5-5.0) g/dL Pituitary panel 03/14/19 Range/Units 06:35 Sodium 128 L (137-145) mmol/L Potassium 5.9 H (3.5-5.1) mmol/L Chloride 97 L (98-107) mmol/L Carbon Dioxide 20 L (22-30) mmol/L BUN 66 H (7-17) mg/dL Creatinine 1.15 H (0.52-1.04) mg/dL Glucose 119 H (74-99) mg/dL Calcium 8.9 (8.4-10.2) mg/dL Adrenal panel 03/14/19 Range/Units 06:35 Sodium 128 L (137-145) mmol/L Potassium 5.9 H (3.5-5.1) mmol/L Chloride 97 L (98-107) mmol/L Carbon Dioxide 20 L (22-30) mmol/L BUN 66 H (7-17) mg/dL Creatinine 1.15 H (0.52-1.04) mg/dL Glucose 119 H (74-99) mg/dL Calcium 8.9 (8.4-10.2) mg/dL Total Bilirubin 0.6 (0.2-1.3) mg/dL AST 46 H (14-36) U/L ALT 99 H (9-52) U/L Alkaline Phosphatase 413 H (38-126) U/L Total Protein 6.1 L (6.3-8.2) g/dL Albumin 3.7 (3.5-5.0) g/dL - Imaging Chest x-ray: report reviewed, image reviewed CT scan - abdomen: report reviewed CT scan - pelvis: report reviewed Additional studies: 2-D echocardiogram report reviewed. Assessment and Plan Assessment: 1. Large pericardial effusion 2. Metastatic breast cancer 3. Wound to her right breast/upper chest wall 4. History of right pleural effusion status post right thoracentesis with 1.2 L of fluid were drained Plan: The patient was seen and examined on the 3 S. cardiac stepdown unit. Her chart and diagnostics were reviewed. Her case was discussed with Dr. Pam Hickman from cardiothoracic surgery. Wound care management per infectious disease. Medical comorbidity managements per primary care service. GI and DVT prophylaxis. Oncology recommendations per Dr. Zamora. The patient was seen and examined by Dr. Pam Hickman. He discussed the treatment options of the pericardial window with the patient, her and her son who are present at the bedside. Risks and benefits of the pericardial window procedure were discussed, the patient wishes to proceed with a pericardial window procedure. She has been made nothing by mouth and has been scheduled for a pericardial window procedure this evening 03/14/2019 to be performed by Dr. Hickman. Thank you Dr. Leavitt for this consult, look forward to working with you in the care of your patient. Time with Patient: Greater than 30
--- NOTE | 2019-03-14 16:40 | CONS ---
CONSULTATION REASON FOR CONSULT: Hyponatremia and hyperkalemia. HISTORY OF PRESENT ILLNESS: The patient is a 69-year-old female who has an underlying history of breast cancer with metastatic disease diagnosed in 2014 with a large right supraclavicular mass. Currently patient has an open wound, from which she noticed increased drainage over the last few days prior to admission. The drainage was also foul-smelling. The patient follows with Dr. Wilcox as outpatient. She denies any prior history of hyponatremia or hyperkalemia. She has no history of constipation. Blood sugar was not elevated. Patient states that she has had significant swelling and she is about 20 pounds heavier than her usual weight. Patient is not on any diuretics at home. Currently she is maintained on normal saline. Sodium was 124 on admission, currently improved to 127 and 128 mEq/L. Patient is complaining of mild shortness of breath. She denies use of any nonsteroidal anti- inflammatory agents prior to admission. Serum cortisol was checked; it was at 67. Urine osmolality was 899, random urine sodium less than 10. PAST MEDICAL HISTORY: Breast cancer with metastatic disease. PAST SURGICAL HISTORY: 1. Breast surgery. 2. Hysterectomy. 3. Colonoscopy. 4. Left mastectomy. 5. Left breast reconstruction surgery. 6. History of chemo and radiation. SOCIAL HISTORY: Negative for smoking, drug abuse or alcohol abuse. MEDICATIONS: Medications prior to admission included: 1. Multivitamins. 2. Caltrate. 3. Vitamin D. 4. Biotene. 5. Tylenol. ALLERGIES: NONE. REVIEW OF SYSTEMS: As per HPI. Other systems negative. PHYSICAL EXAMINATION: Patient is comfortable, awake, alert, oriented x3, not in any acute distress. Blood pressure was 96/58, heart rate 106 per minute. She is afebrile. EXAMINATION OF THE HEART: S1 and S2. EXAMINATION OF LUNGS: Bilateral breath sounds are heard. Decreased breath sounds at the bases. Wound on the right side of the chest is currently dressed. ABDOMEN: Soft, non-tender. Examination of lower extremities shows no significant edema. However, there is edema in the upper extremities and trace in the lower extremities as well. 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 LABS: Sodium 127, potassium 5.8, BUN 66, serum creatinine 1.15, hemoglobin 13.5 g/dL. ASSESSMENT: 1. Hyponatremia; appears to be hypervolemic. I will give an additional dose of Lasix. Sodium seems to have improved with saline. Random urine sodium was less than 10. Therefore I will continue with saline but give an additional dose of Lasix. There is no evidence of adrenal insufficiency. Serum cortisol was at 67. Check TSH level if not checked. We may need to diurese the patient, depending on the labs from this evening. 2. Hyperkalemia, possibly related to tissue breakdown from the wound, as patient denies any prior history of hyperkalemia. She currently is not constipated and her blood sugars are not high and patient denies use of any nonsteroidal anti- inflammatory agents. Serum cortisol is not low. Patient she is receiving the Lasix IV and that will help with the potassium as well. We will repeat electrolytes this evening. Patient to be maintained on a low-potassium diet. 3. Metastatic breast cancer. PLAN: Lasix IV x1. Continue with saline for now and repeat sodium this evening. Thank you for this consultation. Will continue to follow the patient with you during her hospitalization. We will also maintain the patient on low-potassium diet. MMODL / IJN: [id number] /
[2019-03-14] MEDS ORDERED: ePHEDrine SULFATE/0.9% NACL/PF 50 MG/5 ML SYRINGE IV ONE (17:34)
[2019-03-14] MEDS ORDERED: ETOMIDATE 2 MG/ML 10 ML VIAL ONE (17:34)
[2019-03-14] MEDS ORDERED: MIDAZOLAM 2 MG/2 ML VIAL ONE (17:34)
[2019-03-14] MEDS ORDERED: NEOSTIGMINE 1 MG/ML 10 ML VIAL ONE (17:34)
[2019-03-14] MEDS ORDERED: fentaNYL (PF) 50 MCG/ML 2 ML AMP ONE (17:34)
[2019-03-14] MEDS ORDERED: ROCURONIUM BROMIDE 10 MG/ML 10 ML VIAL IV ONE (17:34)
[2019-03-14] MEDS ORDERED: PHYSOSTIGMINE SALICYLATE 1 MG/ML 2 ML AMP ONE (17:34)
[2019-03-14] MEDS ORDERED: FLUMAZENIL 0.1 MG/ML 5 ML VIAL IVP ONE (17:34)
[2019-03-14] MEDS ORDERED: NALOXONE 0.4 MG/ML 1 ML VIAL ONE (17:34)
[2019-03-14] MEDS ORDERED: DEXTROSE 50% SYRINGE 50 ML IVP ONE (17:34)
[2019-03-14] MEDS ORDERED: GLYCOPYRROLATE 0.2 MG/ML 2 ML VIAL ONE (17:34)
[2019-03-14] MEDS ORDERED: IV FLUID CONTINUATION 1,000 ML IV ONE (17:54)
[2019-03-14] MEDS ORDERED: SODIUM CHLORIDE 0.9% 50 ML with ceFAZolin 2,000 MG IV ONE ×2 (18:10)
[2019-03-14] MEDS ORDERED: ceFAZolin IN SWFI 2 GM/20 ML SYRINGE IVP ONE (18:45)
[2019-03-14] MEDS ORDERED: CHLORHEXIDINE GLUCONATE 15 ML CUP MUCOUS MEM SCH (21:00)
[2019-03-14] MEDS ORDERED: PROPOFOL 1,000 MG in EMPTY BAG 1 BAG IV SCH (21:00)
[2019-03-14 21:03] LABS: Glucose,Whole Blood 161 mg/dL (75-99)
[2019-03-14 21:29] LABS: ABG Base Excess -6.8 mmol/L; ABG HCO3 19 mmol/L (21-25); ABG Oxygen Saturation 98.4 % (94-97); ABG PCO2 33 mmHg (35-45); ABG PH 7.36 (7.35-7.45); ABG PO2 141 mmHg (83-108); ABG TCO2 20 mmol/L (19-24)
--- NOTE | 2019-03-14 22:23 | XR ---
EXAM: XR Chest, 1 View CLINICAL HISTORY: Tube placement TECHNIQUE: Frontal view of the chest. COMPARISON: No relevant prior studies available. FINDINGS: Lungs: See below. Pleural space: Moderate bilateral pleural effusions, right greater than left, with adjacent atelectasis. Pneumonia is not excluded. No pneumothorax. Heart: Unremarkable. No cardiomegaly. Mediastinum: Unremarkable. Bones/joints: Unremarkable. Tubes, lines and devices: Enteric tube is seen extending to the gastric fundus. Right IJ Port-A-Cath with tip at the cavoatrial junction. Endotracheal tube terminates 2 cm above the дмитрий. There is a tube coiled within the upper abdomen which appears to be an enteric tube. Correlate clinically. IMPRESSION: Moderate bilateral pleural effusions, right greater than left, with adjacent atelectasis. Pneumonia is not excluded.
--- NOTE | 2019-03-14 22:35 | P.PN ---
Subjective Progress Note Date: 03/14/19 This is a 69-year-old female patient with past medical history of initial diagnosis of left sided breast cancer in 2011 and treated with IV chemotherapy and placed on observation. She developed metastatic disease in 2014 with a large right supraclavicular mass. She received radiation and vario us regimes. She developed a right chest wall lesion and repeat biopsy was done and is currently on Ibrance and Faslodex. She had progressive symptoms and the lesion on the right chest wall with superficial ulceration and drainage. She has a thoracentesis done for right-sided pleural effusion last week at [facility] and 1.2 L removed and pathology pending. Patient presented to the hospital complaining of weakness poor appetite and decreased oral intake not able to eat or drink very well and generalized malaise. She denied any fever, chills, nausea or vomiting at that time. Patient states over the last few weeks she's had episodes of vomiting and nausea. Patient denies any diarrhea or constipation. Patient has been complaining of chest wall pain and difficulty breathing. Patient states that she is to start chemotherapy on Wednesday. Regarding the wound on the right chest, she has not been on any antibiotics. Wound culture was obtained today. She has had drainage from the area but noted today but had a foul odor. She underwent a CAT scan of the abdomen and pelvis which revealed interval development of bilateral pleural effusions, pericardial effusion, ascites. Metastatic disease to the liver. Chest x-ray from yesterday showed no significant interval change in the appearance of the chest. Additional consults in place including oncology, cardiology for pericardial effusion, nephrology for hyponatremia. Patient has been started on Unasyn. 03/14/2019 Patient still feels poorly and has shortness of breath but nausea has improved. Still very fatigued. Objective - Vital Signs Vital signs: Vital Signs Temp 96.9 F L 03/14/19 17:32 Pulse 108 H 03/14/19 17:32 Resp 18 03/14/19 17:32 BP 92/48 03/14/19 16:00 Pulse Ox 94 L 03/14/19 17:32 Intake & Output 03/14/19 03/14/19 03/15/19 06:59 18:59 06:59 Intake Total 400 550 8.224 Output Total 300 250 Balance 100 550 -241.776 Weight 69.4 kg 69.4 kg Intake: IV 550 Intake, IV Titration 400 8.224 Amount Propofol 1,000 mg In 8.224 Empty Bag 1 bag @ Titrate IV .Q0M LILIAN Rx#: [id number] Sodium Chloride 0.9% 1, 400 000 ml @ 50 mls/hr IV . Q20H LILIAN Rx#:[id number] Output: Chest Tube Drainage 130 Mediastinal 130 Urine 300 100 Estimated Blood Loss 20 Other: Voiding Method Bedside Commode Bedside Commode # Voids 2 - Exam Gen: This is a 69-year-old female. She is resting in bed has shortness of breath at rest HEENT: Head is atraumatic, normocephalic. Pupils equal, round. Sclerae is anicteric. NECK: Supple. No JVD. No lymphadenopathy. No thyromegaly. LUNGS: Clear to auscultation. No wheezes or rhonchi. basilar crackles HEART: Regular rate and rhythm. No murmur. Port to the right upper chest wall. Breast: Significant ulceration to the right breast anterior aspect with necrosis and foul odor, slightly improved with topical therapy. ABDOMEN: Soft. Bowel sounds are present. No masses. No tenderness. EXTREMITIES: No pedal edema. No calf tenderness. NEUROLOGICAL: Patient is awake, alert and oriented x3. Cranial nerves 2 through 12 are grossly intact. - Labs CBC & Chem 7: 03/13/19 06:10 03/14/19 13:05 Labs: Abnormal Lab Results - Last 24 Hours (Table) 03/13/19 03/14/19 03/14/19 Range/Units 06:10 06:35 13:05 ABG pCO2 (35-45) mmHg ABG pO2 (83-108) mmHg ABG HCO3 (21-25) mmol/L ABG O2 Saturation (94-97) % Sodium 128 L 127 L (137-145) mmol/L Potassium 5.9 H 5.8 H (3.5-5.1) mmol/L Chloride 97 L 96 L (98-107) mmol/L Carbon Dioxide 20 L 19 L (22-30) mmol/L BUN 66 H (7-17) mg/dL Creatinine 1.15 H (0.52-1.04) mg/dL Glucose 119 H (74-99) mg/dL POC Glucose (mg/dL) (75-99) mg/dL AST 46 H (14-36) U/L ALT 99 H (9-52) U/L Alkaline Phosphatase 413 H (38-126) U/L Total Protein 6.1 L (6.3-8.2) g/dL CA 15-3 Antigen 41.4 H (0.0-32.3) U/mL 03/14/19 03/14/19 Range/Units 21:01 21:28 ABG pCO2 33 L (35-45) mmHg ABG pO2 141 H (83-108) mmHg ABG HCO3 19 L (21-25) mmol/L ABG O2 Saturation 98.4 H (94-97) % Sodium (137-145) mmol/L Potassium (3.5-5.1) mmol/L Chloride (98-107) mmol/L Carbon Dioxide (22-30) mmol/L BUN (7-17) mg/dL Creatinine (0.52-1.04) mg/dL Glucose (74-99) mg/dL POC Glucose (mg/dL) 161 H (75-99) mg/dL AST (14-36) U/L ALT (9-52) U/L Alkaline Phosphatase (38-126) U/L Total Protein (6.3-8.2) g/dL CA 15-3 Antigen (0.0-32.3) U/mL Microbiology - Last 24 Hours (Table) 03/13/19 15:00 Gram Stain - Preliminary Breast - Right Wound Culture - Preliminary Gram Neg Bacilli 03/11/19 22:54 Blood Culture - Preliminary Blood No Growth after 48 hours Laboratory Results WBC 4.7 k/uL (3.8-10.6) 03/13/19 06:10 RBC 3.88 m/uL (3.80-5.40) 03/13/19 06:10 Hgb 13.5 gm/dL (11.4-16.0) 03/13/19 06:10 Hct 40.6 % (34.0-46.0) 03/13/19 06:10 MCV 104.5 fL (80.0-100.0) H 03/13/19 06:10 MCH 34.7 pg (25.0-35.0) 03/13/19 06:10 MCHC 33.2 g/dL (31.0-37.0) 03/13/19 06:10 RDW 21.3 % (11.5-15.5) H 03/13/19 06:10 Plt Count 228 k/uL (150-450) 03/13/19 06:10 Neutrophils % 80 % 03/13/19 06:10 Neutrophils % (Manual) 83 % 03/11/19 22:54 Lymphocytes % 8 % 03/13/19 06:10 Lymphocytes % (Manual) 11 % 03/11/19 22:54 Monocytes % 8 % 03/13/19 06:10 Monocytes % (Manual) 6 % 03/11/19 22:54 Eosinophils % 1 % 03/13/19 06:10 Basophils % 0 % 03/13/19 06:10 Neutrophils # 3.8 k/uL (1.3-7.7) 03/13/19 06:10 Neutrophils # (Manual) 4.15 k/uL (1.3-7.7) 03/11/19 22:54 Lymphocytes # 0.4 k/uL (1.0-4.8) L 03/13/19 06:10 Lymphocytes # (Manual) 0.55 k/uL (1.0-4.8) L 03/11/19 22:54 Monocytes # 0.4 k/uL (0-1.0) 03/13/19 06:10 Monocytes # (Manual) 0.30 k/uL (0-1.0) 03/11/19 22:54 Eosinophils # 0.1 k/uL (0-0.7) 03/13/19 06:10 Basophils # 0.0 k/uL (0-0.2) 03/13/19 06:10 Nucleated RBCs 0 /100 WBC (0-0) 03/11/19 22:54 Manual Slide Review Performed 03/11/19 22:54 Anisocytosis Moderate 03/13/19 06:10 Macrocytosis Marked A 03/13/19 06:10 PT 11.6 sec (9.0-12.0) 03/11/19 22:54 INR 1.1 (<1.2) 03/11/19 22:54 APTT 23.0 sec (22.0-30.0) 03/11/19 22:54 Sample Site CROSSROADS 03/14/19 21:28 ABG pH 7.36 (7.35-7.45) 03/14/19 21:28 ABG pCO2 33 mmHg (35-45) L 03/14/19 21:28 ABG pO2 141 mmHg (83-108) H 03/14/19 21:28 ABG HCO3 19 mmol/L (21-25) L 03/14/19 21:28 ABG Total CO2 20 mmol/L (19-24) 03/14/19 21:28 ABG O2 Saturation 98.4 % (94-97) H 03/14/19 21:28 ABG Base Excess -6.8 mmol/L 03/14/19 21:28 Negro Test N/A 03/14/19 21:28 FiO2 100 % 03/14/19 21:28 Sodium 127 mmol/L (137-145) L 03/14/19 13:05 Potassium 5.8 mmol/L (3.5-5.1) H 03/14/19 13:05 Chloride 96 mmol/L (98-107) L 03/14/19 13:05 Carbon Dioxide 19 mmol/L (22-30) L 03/14/19 13:05 Anion Gap 12 mmol/L 03/14/19 13:05 BUN 66 mg/dL (7-17) H 03/14/19 06:35 Creatinine 1.15 mg/dL (0.52-1.04) H 03/14/19 06:35 Est GFR (CKD-EPI)AfAm 56 (>60 ml/min/1.73 sqM) 03/14/19 06:35 Est GFR (CKD-EPI)NonAf 49 (>60 ml/min/1.73 sqM) 03/14/19 06:35 Glucose 119 mg/dL (74-99) H 03/14/19 06:35 POC Glucose (mg/dL) 161 mg/dL (75-99) H 03/14/19 21:01 POC Glu [employer]etic Sales Assistant ID Lizbeth Luu 03/14/19 21:01 Osmolality 285 mosm/kg (280-301) 03/12/19 10:00 Plasma Lactic Acid Gurmeet 1.8 mmol/L (0.7-2.0) 03/11/19 22:54 Calcium 8.9 mg/dL (8.4-10.2) 03/14/19 06:35 Magnesium 2.3 mg/dL (1.6-2.3) 03/11/19 22:54 Total Bilirubin 0.6 mg/dL (0.2-1.3) 03/14/19 06:35 Conjugated Bilirubin 0.0 mg/dL (0.0-0.3) 03/12/19 10:00 Unconjugated Bilirubin 0.2 mg/dL (0.0-1.1) 03/12/19 10:00 Delta Bilirubin 0.3 mg/dL (0.0-0.2) H 03/12/19 10:00 AST 46 U/L (14-36) H 03/14/19 06:35 ALT 99 U/L (9-52) H 03/14/19 06:35 Alkaline Phosphatase 413 U/L (38-126) H 03/14/19 06:35 Creatine Kinase 29 U/L (30-135) L 03/11/19 22:54 Troponin I <0.012 ng/mL (0.000-0.034) 03/11/19 22:54 Total Protein 6.1 g/dL (6.3-8.2) L 03/14/19 06:35 Albumin 3.7 g/dL (3.5-5.0) 03/14/19 06:35 CA 15-3 Antigen 41.4 U/mL (0.0-32.3) H 03/13/19 06:10 TSH 2.770 mIU/L (0.465-4.680) 03/11/19 22:54 Cortisol 67 ug/dL 03/13/19 06:10 Urine Color Yellow 03/12/19 01:35 Urine Appearance Clear (Clear) 03/12/19 01:35 Urine pH 5.5 (5.0-8.0) 03/12/19 01:35 Ur Specific [place] 1.036 (1.001-1.035) H 03/12/19 01:35 Urine Protein 1+ (Negative) H 03/12/19 01:35 Urine Glucose (UA) Negative (Negative) 03/12/19 01:35 Urine Ketones Negative (Negative) 03/12/19 01:35 Urine Blood Negative (Negative) 03/12/19 01:35 Urine Nitrite Negative (Negative) 03/12/19 01:35 Urine Bilirubin Negative (Negative) 03/12/19 01:35 Urine Urobilinogen 2.0 mg/dL (<2.0) 03/12/19 01:35 Ur Leukocyte Esterase Small (Negative) H 03/12/19 01:35 Urine RBC 4 /hpf (0-5) 03/12/19 01:35 Urine WBC 11 /hpf (0-5) H 03/12/19 01:35 Ur Squamous Epith Cells 1 /hpf (0-4) 03/12/19 01:35 Urine Bacteria Occasional /hpf (None) H 03/12/19 01:35 Hyaline Casts 202 /lpf (0-2) H 03/12/19 01:35 Granular Casts 61 /lpf (0) 03/12/19 01:35 Urine Mucus Rare /hpf (None) H 03/12/19 01:35 Urine Osmolality 899 mosm/kg (50-1400) 03/12/19 11:20 Ur Random Creatinine 202.8 mg/dL 03/12/19 11:20 Ur Random Sodium <10 mmol/L 03/12/19 11:20 Microbiology 03/13/19 15:00 Breast - Right Gram Stain - Preliminary 03/13/19 15:00 Breast - Right Wound Culture - Preliminary Gram Neg Bacilli 03/11/19 22:54 Blood Blood Culture - Preliminary No Growth after 48 hours 03/12/19 01:35 Urine,Voided Urine Culture - Final Assessment and Plan (1) Breast cancer Narrative/Plan: 69-year-old female who has metastatic breast carcinoma with recent significant worsening of her status presents to Hospital feeling very poorly. She difficulty with her breast ulceration with increasing odor drainage and increasing fatigue and malaise. She's also developed some nausea with emesis and feels very poorly. It is noted developed some hyponatremia also. On the exam the patient has the extensive ulceration to the right breast that is necrotic and malodorous. There is some surrounding erythema. At this time Unasyn is an excellent choice for the cellulitis that has developed in the roselia-ulcer area on the breast from the carcinoma. Topical metronidazole that are the tablets that are crushed in sprinkled onto the ulcers is often helpful in reducing the strong odor. It appears at the patient is developed progression of her metastatic disease since her last set of scans and it's not clear at this point in time with the overall process will be. 03/14/2019 patient is had little improvement. However the topical metronidazole has helped the significant malodorous nature to the right breast. Patient over still short of breath. Echocardiogram shows evidence of a pericardial effusion. Will be seen by cardiovascular surgery and likely will have an emergent pericardial window. Continue as before by cultures are pending. Current Visit: Yes Status: Acute Code(s): C50.919 - MALIGNANT NEOPLASM OF UNSP SITE OF UNSPECIFIED FEMALE BREAST SNOMED Code(s): 264483727 (2) Pericardial effusion, acute Current Visit: Yes Status: Acute Code(s): I30.9 - ACUTE PERICARDITIS, UNSPECIFIED SNOMED Code(s): 71489581
[2019-03-14 22:46] LABS: Potassium 4.8 mmol/L (3.5-5.1)
[2019-03-14 22:56] LABS: Anisocytosis Moderate; HGB 12.5 gm/dL (11.4-16.0); MCH 34.8 pg (25.0-35.0); MCHC 33.6 g/dL (31.0-37.0); MCV 103.5 fL (80.0-100.0); Macrocytosis Marked; Mean Platelet Volume 7.7; Platelet Count 148 k/uL (150-450); RBC 3.58 m/uL (3.80-5.40); RDW 21.4 % (11.5-15.5); WBC 1.6 k/uL (3.8-10.6)
[2019-03-14 22:58] LABS: INR 1.2 (<1.2); Prothrombin Time 12.8 sec (9.0-12.0)
[2019-03-14] MEDS: IPRATROPIUM-ALBUTEROL 3 ML NEB INHALATION SCH (23:00)
[2019-03-14] MEDS ORDERED: metroNIDAZOLE 500 MG TAB ONE (23:50)
[2019-03-14] MEDS ORDERED: MIRTAZAPINE 15 MG TAB ONE (23:50)
[2019-03-15] MEDS: IPRATROPIUM-ALBUTEROL 3 ML NEB INHALATION SCH ×2 (03:30→07:58)
[2019-03-15 04:09] LABS: Glucose,Whole Blood 117 mg/dL (75-99)
[2019-03-15 05:08] LABS: Band Neutrophils % 2 %; Lymphocytes # (M) 0.21 k/uL (1.0-4.8); Monocytes # (M) 0.46 k/uL (0-1.0); Neutrophils % (M) 56 %; Nucleated Red Blood Cells 0 /100 WBC (0-0); Poikilocytosis (M) Present; Polychromasia Present; Total Cells Counted 100
[2019-03-15 05:10] LABS: ABG HCO3 21 mmol/L (21-25); ABG Oxygen Saturation 96.7 % (94-97); ABG PCO2 28 mmHg (35-45); ABG PH 7.47 (7.35-7.45); ABG PO2 82 mmHg (83-108); ABG TCO2 22 mmol/L (19-24)
[2019-03-15 05:44] LABS: ALT 72 U/L (9-52); AST 39 U/L (14-36); Albumin 2.9 g/dL (3.5-5.0); Alkaline Phosphatase 304 U/L (38-126); Anion Gap 9 mmol/L; Blood Urea Nitrogen 58 mg/dL (7-17); Calcium 8.6 mg/dL (8.4-10.2); Carbon Dioxide 18 mmol/L (22-30); Chloride 100 mmol/L (98-107); Glucose 101 mg/dL (74-99); Magnesium 2.2 mg/dL (1.6-2.3); Potassium 4.7 mmol/L (3.5-5.1); Sodium 127 mmol/L (137-145); Total Bilirubin 0.7 mg/dL (0.2-1.3); Total Protein 5.1 g/dL (6.3-8.2)
[2019-03-15] MEDS: INSULIN ASPART (NovoLOG) 100 UNIT/ML VIAL SQ SCH ×4 (06:23→20:28)
[2019-03-15 06:25] LABS: Glucose,Whole Blood 107 mg/dL (75-99)
[2019-03-15] MEDS: MORPHINE SULFATE 4 MG/ML SYRINGE IV PRN (07:08)
[2019-03-15 07:27] LABS: Anisocytosis Moderate; HCT 37.9 % (34.0-46.0); HGB 12.6 gm/dL (11.4-16.0); MCH 34.1 pg (25.0-35.0); MCHC 33.3 g/dL (31.0-37.0); MCV 102.4 fL (80.0-100.0); Macrocytosis Marked; Mean Platelet Volume 7.1; Platelet Count 130 k/uL (150-450); RDW 20.2 % (11.5-15.5)
[2019-03-15 07:31] LABS: WBC 1.4 k/uL (3.8-10.6)
[2019-03-15 07:36] LABS: INR 1.2 (<1.2); Prothrombin Time 12.5 sec (9.0-12.0)
[2019-03-15 07:48] LABS: Eosinophils # (M) 0.01 k/uL (0-0.7); Lymphocytes # (M) 0.17 k/uL (1.0-4.8); Monocytes # (M) 0.49 k/uL (0-1.0); Neutrophils # (M) 0.73 k/uL (1.3-7.7); Neutrophils % (M) 52 %; Nucleated Red Blood Cells 0 /100 WBC (0-0); Total Cells Counted 100
[2019-03-15 07:50] LABS: Polychromasia Present
[2019-03-15 07:51] LABS: Poikilocytosis (M) Present
--- NOTE | 2019-03-15 08:24 | OP ---
OPERATIVE REPORT DATE OF THE SURGERY: 03/14/2019 SURGEON: Dr. Pam Hickman. 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 POSTOPERATIVE DIAGNOSIS: Malignant pericardial effusion with early tamponade on echo. PROCEDURE: Subxiphoid pericardiostomy. INDICATION FOR SURGERY: Patient is an unfortunate 69-year-old lady with metastatic breast carcinoma who was admitted with pleural effusion and on echo was found to have a large pericardial effusion. She is tachycardic with shortness of breath. She had a pleural tap. At this point, she has been considered for urgent subxiphoid pericardiostomy. Risks, benefits, and alternatives were discussed with her and her family. They understood them and agreed to proceed. The patient has a large tumor on the right breast with skin ulceration and hard chest wall with tumor invasion. The subxiphoid area seems to be spared. DESCRIPTION OF THE PROCEDURE: The patient was brought to the operating room. She was given 2 grams of cefazolin and the chest and abdomen were prepped and draped before inducing the general anesthesia with etomidate. The patient remained hemodynamically stable after initiation of general endotracheal anesthesia. A 5 cm incision was made in the midline below the xiphoid. We found the linea alba in the midst of retracted heart tissue. With finger dissection, I was able to develop albeit with difficulty plane under the sternum. A GLENNY retractor was placed to help elevate the xiphoid and the sternum. With blunt dissection, there was probably a breach of the peritoneum and a large amount of ascitic milky fluid was aspirated. That reached and the peritoneum was closed with Vicryl 2-0. The diaphragm was grasped with a Tabatha and brought inferiorly as everything was retracted superiorly. The pericardial surface was very thickened and a fining needle temporary needle confirmed presence of serosanguineous fluid. I made an opening in the pericardium with a 15 blade and drained around 500 mL of serosanguineous fluid. Hemodynamics improve further. That opening was enlarged with the Bovie, and again the pericardium was very thickened. I placed a right angle 32-Spanish in the posterior pericardium and was brought out through a separate stab incision below my access incision. The linea alba was closed with interrupted Ethibond 0 and the subcutaneous tissue was closed with interrupted Vicryl 2-0 and the skin closed in subcuticular manner using the Vicryl 4-0. Patient tolerated procedure well and was transferred to the recovery room in stable condition. The fluid was sent for cytology. MMODL / IJN: [id number] / MTDD
--- NOTE | 2019-03-15 08:27 | XR ---
EXAMINATION TYPE: XR chest 1V portable DATE OF EXAM: 03/15/2019 COMPARISON: 03/14/2019 HISTORY: Shortness of breath. Recent extubation. TECHNIQUE: Single frontal view of the chest is obtained. FINDINGS: Endotracheal tube enteric tubes have been removed in the interim. Bilateral small layering pleural effusions are redemonstrated with associated bibasilar airspace disease. No pulmonary vascul ar congestion or interstitial edema. Cardia mediastinal silhouette is partially obscured but remains overall stable. Right-sided Mediport is unchanged. There appears to be an enteric tube from an inferi or approach, possibly percutaneous coiled in the expected region of the stomach. IMPRESSION: Similar-appearing pleural effusions and associated bibasilar airspace disease, likely at electasis.
[2019-03-15] MEDS: MIRTAZAPINE 15 MG TAB PO SCH ×2 (08:50→21:18)
[2019-03-15] MEDS: AMPICILLIN-SULBACTAM 3 GM in SODIUM CHLORIDE 0.9% 100 ML IVPB SCH ×3 (08:50→16:34)
[2019-03-15] MEDS: metroNIDAZOLE 500 MG TAB PO SCH ×5 (08:50→22:48)
[2019-03-15] MEDS: SODIUM CHLORIDE 0.9% 1,000 ML IV SCH ×2 (08:51→14:56)
--- NOTE | 2019-03-15 09:11 | PN ---
PROGRESS NOTE Mrs. Moss is a 69-year-old female with a history of breast cancer in 2012 with subsequent metastasis in 2015 who has underwent thoracentesis about a month ago at [facility], presented with progressive dyspnea and fatigue, was found to have significant pericardial effusion, underwent placement of a pericardial window by Dr. Hickman. Her breathing is better today. She continues to be feeling quite weak. She denies any chest discomfort. She denies any dizziness. She has history of ascites as well as metastatic disease to the liver. She had evidence of hyponatremia on presentation. PHYSICAL EXAMINATION: Blood pressure running in the high 90s with a heart rate in the 90s and low 100s. LUNGS: Decreased breath sounds at the bases. HEART: Regular rate and rhythm, S1, S2. No S3 with no rub. Pericardial tube noted. ABDOMEN: Soft. Positive bowel sounds. EXTREMITIES: No significant edema. LAB DATA: Revealed a hemoglobin of 12.6, white blood cells yesterday 1.6. Her platelet count is 130. Her chest x-ray shows a bilateral pleural effusion, the size of her cardiac silhouette is smaller. IMPRESSION: 1. Breast cancer with metastasis and pericardial effusion, most likely malignant. 2. Pleural effusion. 3. Recurrent metastatic breast cancer. 4. Hyponatremia, could be related to SIADH. RECOMMENDATION: From the cardiac standpoint, will continue supportive care. She had 500 mL drained yesterday of bloody fluid. Will await the pathology. Unfortunately, the prognosis remains very poor. MMODL / IJN: [id number] /
[2019-03-15] MEDS ORDERED: FUROSEMIDE 10 MG/ML 4 ML VIAL IV STA (09:40)
--- NOTE | 2019-03-15 10:02 | P.CNPUL ---
History of Present Illness Consult date: 03/15/19 Requesting physician: Pam Hickman Reason for consult: other Chief complaint: Pericardial effusion, status post pericardial window History of present illness: This is a 69-year-old white female patient of Dr. Glen Vázquez, with past medical history of metastatic breast cancer, diagnosed in her left breast back in 2011 and patient was treated with chemoradiation. Patient developed metastat ic disease in 2014 with a large right supraclavicular mass, for which she received radiation. She had since progressed through various regimens, she developed a right chest wall lesion with repeat biopsy showing hormone receptor positive disease. She most recently was on hypertensive and the Faslodex. She was developing increasing shortness of breath, and progressive symptoms in the lesion in the right chest wall with superficial ulceration and intermittent drainage. She underwent right-sided thoracentesis at the [facility] last week with removal of 1.2 L of pleural fluid with improvement of her dyspnea. Pathology results are not available to us at this time. Patient had progressive weakness, poor appetite and decreased oral intake. She was brought into the emergency department on 03/11/2019, found to be clinically dehydrated with multiple lab abnormalities including low sodium, elevated potassium, and elevated liver enzymes. Most recent PET scan on November 19 showed uptake in the right chest wall lesion, and left supraclavicular lymph nodes. CT of the abdomen and pelvis was completed in the emergency department and showed multiple low density foci scattered within the liver at least 10 lesions related to metastatic disease to the liver, with pericholecystic fluid present about the gallbladder, no significant abnormality in the pancreas, spleen or adrenal glands. There was ascites developing in the upper abdomen. An interval development of bilateral pleural effusions pericardial effusion and ascites. Echocardiogram revealed EF of 60-65%, and a large generalized pericardial effusion. Patient was having marginal low blood pressures. She was seen by cardiothoracic surgery, and surgical intervention was recommended for a large pericardial effusion. And patient underwent pericardial window on 03/14/2019 and following her surgery she returned to the ICU on the ventilator. Patient has been successfully weaned from the ventilator support, she was extubated sometime this morning, she is currently seen in the intensive care unit, this is postoperative day 1, status post pericardial window. She is currently on 6 L of oxygen per nasal cannula, her IV 0.9 normal saline at a rate of 50 ML per hour, she was extubated at 05 40 this morning. Today's chest x-ray has been reviewed, and shows pleural effusions, and associated bibasilar airspace disease likely related to atelectasis. Patient has a subxiphoid chest tube in place, has been 198 mL of serosanguineous output since surgery, with drainage of 500 mL of serosanguineous output during surgery from the chest tube. Review of Systems All systems: negative Constitutional: Reports anorexia, Reports poor appetite, Reports weakness, Reports weight loss, Denies chills, Denies fever Eyes: denies blurred vision, denies pain Ears, nose, mouth and throat: Denies headache, Denies sore throat Cardiovascular: Denies chest pain, Denies shortness of breath Respiratory: Denies cough Gastrointestinal: Denies abdominal pain, Denies diarrhea, Denies nausea, Denies vomiting Genitourinary: Denies dysuria, Denies hematuria Musculoskeletal: Denies myalgias Integumentary: Denies pruritus, Denies rash Neurological: Denies numbness, Denies weakness Psychiatric: Denies anxiety, Denies depression Endocrine: Denies fatigue, Denies weight change Past Medical History Past Medical History: Cancer Additional Past Medical History / Comment(s): STATES HAS BREAST CA THAT HAS METASTASIZED, hx of colon polyps, wound to her right breast History of Any Multi-Drug Resistant Organisms: None Reported Past Surgical History: Breast Surgery, Hysterectomy Additional Past Surgical History / Comment(s): 2013 hysterectomy, colonoscopy, left mastectomy and reconstuction of left breast 2011. Chemo/Radiation last chemo tx , cataract surgery in November 2018 bilateral eyes Past Anesthesia/Blood Transfusion Reactions: No Reported Reaction Past Psychological History: Anxiety, Depression Additional Psychological History / Comment(s): related to health issues Smoking Status: Never smoker Past Alcohol Use History: None Reported Additional Past Alcohol Use History / Comment(s): Patient lives at home with her and is independent. Past Drug Use History: None Reported - Past Family History Father Family Medical History: Cancer (Prostate), Dementia Mother Family Medical History: Cancer (Breast), Congestive Heart Failure (CHF), COPD Medications and Allergies Home Medications Medication Instructions Recorded Confirmed Type Acetaminophen Tab [Tylenol Tab] 1,000 mg PO Q6H PRN 05/06/15 03/11/19 History Ca/D3/Mag/Zinc/Meghana/Jackson/Mgbor 1 tab PO DAILY 05/06/15 03/11/19 History [Caltrate 600+D3+Min Chew Tab] Multivit-Min/FA/Lycopene/Lut 1 tab PO DAILY 05/06/15 03/11/19 History [Centrum Silver Tablet] Vitamin B Complex 1 cap PO DAILY 10/14/17 03/11/19 History Biotin 5 mg PO DAILY 11/05/17 03/11/19 History Allergies Allergy/AdvReac Type Severity Reaction Status Date / Time No Known Allergies Allergy Verified 03/11/19 21:52 Physical Exam Vitals: Vital Signs Temp Pulse Pulse Resp BP BP Pulse Ox 03/15/19 09:38 96 03/15/19 09:00 112 H 15 90/69 95 03/15/19 08:10 111 H 03/15/19 08:00 97.5 F L 112 H 18 95/73 93 L 03/15/19 07:58 111 H 97 03/15/19 07:00 106 H 31 H 94/59 98 03/15/19 06:19 92 03/15/19 06:00 104 H 20 98/64 96 03/15/19 05:45 108 H 18 98 03/15/19 05:30 103 H 16 97 03/15/19 05:15 106 H 16 92 L 03/15/19 05:00 100 16 95 03/15/19 04:45 98 18 97 03/15/19 04:30 98 20 97 03/15/19 04:15 96 19 97 03/15/19 04:00 97.4 F L 97 19 97 03/15/19 03:45 95 18 97 03/15/19 03:30 93 19 100 03/15/19 03:15 96 19 100 03/15/19 03:00 96 19 100 03/15/19 02:45 92 20 92 L 03/15/19 02:30 92 18 95 03/15/19 02:15 93 18 95 03/15/19 02:00 100 18 98 03/15/19 01:45 92 18 99 03/15/19 01:30 93 18 95 03/15/19 01:15 92 18 96 03/15/19 01:00 92 18 97 03/15/19 00:45 91 18 99 03/15/19 00:30 89 18 98 03/15/19 00:15 88 14 99 03/15/19 00:00 97.5 F L 89 18 98 03/14/19 23:45 89 18 99 03/14/19 23:30 88 18 98 03/14/19 23:15 90 18 98 03/14/19 23:00 90 16 99 03/14/19 22:45 92 20 99 03/14/19 22:30 90 20 99 03/14/19 22:15 93 18 99 03/14/19 22:00 92 18 98 03/14/19 21:45 96 22 98 03/14/19 21:30 98 21 03/14/19 21:15 106 H 18 03/14/19 21:00 98 21 96 03/14/19 20:52 101 H 24 03/14/19 17:32 96.9 F L 108 H 18 94 L 03/14/19 16:00 98.9 F 100 18 92/48 92 L 03/14/19 11:57 102 H 18 Intake and Output 03/14/19 03/15/19 03/15/19 22:59 06:59 14:59 Intake Total 608.224 400 150 Output Total 250 638 267 Balance 358.224 -238 -117 Intake: IV 600 400 150 Ampicillin-Sulbactam 3 gm 100 In Sodium Chloride 0.9% 100 ml @ 200 mls/hr IVPB Q8HR PENDING SALE TO [facility] Rx#:[id number] Sodium Chloride 0.9% 50 50 300 150 ml @ 0 mls/hr IV .STK-MED ONE with ceFAZolin 2,000 mg Rx#:[id number] Intake, IV Titration 8.224 Amount Propofol 1,000 mg In 8.224 Empty Bag 1 bag @ Titrate IV .Q0M PENDING SALE TO [facility] Rx#: [id number] Output: Chest Tube Drainage 130 68 52 Mediastinal 130 68 52 Urine 100 570 215 Estimated Blood Loss 20 Other: # Voids 2 ABP, PAP, CO, CI - Last 8 Hours Arterial Blood Pressure 84/57 Arterial Blood Pressure 85/56 Arterial Blood Pressure 95/59 Arterial Blood Pressure 94/60 Arterial Blood Pressure 94/59 Arterial Blood Pressure 91/58 Arterial Blood Pressure 90/56 Arterial Blood Pressure 84/61 Arterial Blood Pressure 87/61 Arterial Blood Pressure 83/54 Arterial Blood Pressure 82/57 Arterial Blood Pressure 91/56 Arterial Blood Pressure 92/60 Arterial Blood Pressure 95/58 Arterial Blood Pressure 99/61 Arterial Blood Pressure 93/58 Arterial Blood Pressure 96/59 GENERAL EXAM: Alert, pleasant, weak and fatigued chronically ill-looking 69-year-old white female, on 6 L of oxygen, comfortable in no apparent distress. HEAD: Normocephalic/atraumatic. EYES: Normal reaction of pupils, equal size. Conjunctiva pink, sclera white. NOSE: Clear with pink turbinates. THROAT: No erythema or exudates. NECK: No masses, no JVD, no thyroid enlargement, no adenopathy. CHEST: No chest wall deformity. Symmetrical expansion. Subxiphoid chest tube is present, with 190 mL of serosanguinous is output in the chest tube. Right breast is covered with the ABD dressing, and there are extensive ulcerated wounds on her right breast with the some limited drainage LUNGS: Equal air entry with no crackles, wheeze, rhonchi or dullness. CVS: Regular rate and rhythm, normal S1 and S2, no gallops, no murmurs, no rubs ABDOMEN: Soft, nontender. No hepatosplenomegaly, normal bowel sounds, no guarding or rigidity. EXTREMITIES: No clubbing, mild lower extremity edema, no cyanosis, 2+ pulses and upper and lower extremities. MUSCULOSKELETAL: Muscle strength and tone normal. SPINE: No scoliosis or deformity SKIN: No rashes CENTRAL NERVOUS SYSTEM: Alert and oriented -3. No focal deficits, tone is normal in all 4 extremities. PSYCHIATRIC: Alert and oriented -3. Appropriate affect. Intact judgment and insight. Results - Laboratory Findings CBC and BMP: 03/15/19 04:15 03/15/19 04:15 ABG ABG pH 7.47 (7.35-7.45) H 03/15/19 05:07 ABG pCO2 28 mmHg (35-45) L 03/15/19 05:07 ABG pO2 82 mmHg (83-108) L 03/15/19 05:07 ABG O2 Saturation 96.7 % (94-97) 03/15/19 05:07 PT/INR, D-dimer PT 12.5 sec (9.0-12.0) H 03/15/19 04:15 INR 1.2 (<1.2) H 03/15/19 04:15 Abnormal lab findings: Abnormal Labs 03/11/19 03/11/19 03/12/19 22:54 22:54 01:35 WBC RBC MCV 103.0 H RDW 19.9 H Plt Count Neutrophils # (Manual) Lymphocytes # Lymphocytes # (Manual) 0.55 L Macrocytosis Marked A PT INR ABG pH ABG pCO2 ABG pO2 ABG HCO3 ABG O2 Saturation Sodium 124 L Potassium 6.0 H Chloride 94 L Carbon Dioxide 19 L BUN 55 H Creatinine Glucose 137 H POC Glucose (mg/dL) Delta Bilirubin AST 66 H ALT 129 H Alkaline Phosphatase 495 H Creatine Kinase 29 L Total Protein Albumin CA 15-3 Antigen Ur Specific [place] 1.036 H Urine Protein 1+ H Ur Leukocyte Esterase Small H Urine WBC 11 H Urine Bacteria Occasional H Hyaline Casts 202 H Urine Mucus Rare H 03/12/19 03/12/19 03/13/19 05:30 10:00 06:10 WBC RBC MCV 104.5 H RDW 21.3 H Plt Count Neutrophils # (Manual) Lymphocytes # 0.4 L Lymphocytes # (Manual) Macrocytosis Marked A PT INR ABG pH ABG pCO2 ABG pO2 ABG HCO3 ABG O2 Saturation Sodium 126 L 127 L Potassium 5.7 H Chloride 95 L Carbon Dioxide BUN 54 H Creatinine Glucose 133 H POC Glucose (mg/dL) Delta Bilirubin 0.3 H AST 47 H ALT 110 H Alkaline Phosphatase 414 H Creatine Kinase Total Protein 6.0 L Albumin CA 15-3 Antigen Ur Specific [place] Urine Protein Ur Leukocyte Esterase Urine WBC Urine Bacteria Hyaline Casts Urine Mucus 03/13/19 03/13/19 03/14/19 06:10 06:10 06:35 WBC RBC MCV RDW Plt Count Neutrophils # (Manual) Lymphocytes # Lymphocytes # (Manual) Macrocytosis PT INR ABG pH ABG pCO2 ABG pO2 ABG HCO3 ABG O2 Saturation Sodium 127 L 128 L Potassium 5.4 H 5.9 H Chloride 97 L 97 L Carbon Dioxide 21 L 20 L BUN 58 H 66 H Creatinine 1.15 H Glucose 130 H 119 H POC Glucose (mg/dL) Delta Bilirubin AST 46 H ALT 99 H Alkaline Phosphatase 413 H Creatine Kinase Total Protein 6.1 L Albumin CA 15-3 Antigen 41.4 H Ur Specific [place] Urine Protein Ur Leukocyte Esterase Urine WBC Urine Bacteria Hyaline Casts Urine Mucus 03/14/19 03/14/19 03/14/19 13:05 21:01 21:28 WBC RBC MCV RDW Plt Count Neutrophils # (Manual) Lymphocytes # Lymphocytes # (Manual) Macrocytosis PT INR ABG pH ABG pCO2 33 L ABG pO2 141 H ABG HCO3 19 L ABG O2 Saturation 98.4 H Sodium 127 L Potassium 5.8 H Chloride 96 L Carbon Dioxide 19 L BUN Creatinine Glucose POC Glucose (mg/dL) 161 H Delta Bilirubin AST ALT Alkaline Phosphatase Creatine Kinase Total Protein Albumin CA 15-3 Antigen Ur Specific [place] Urine Protein Ur Leukocyte Esterase Urine WBC Urine Bacteria Hyaline Casts Urine Mucus 03/14/19 03/14/19 03/14/19 22:28 22:28 22:28 WBC 1.6 L RBC 3.58 L MCV 103.5 H RDW 21.4 H Plt Count 148 L Neutrophils # (Manual) 0.90 L Lymphocytes # Lymphocytes # (Manual) 0.21 L Macrocytosis Marked A PT 12.8 H INR 1.2 H ABG pH ABG pCO2 ABG pO2 ABG HCO3 ABG O2 Saturation Sodium 127 L Potassium Chloride Carbon Dioxide 18 L BUN Creatinine Glucose POC Glucose (mg/dL) Delta Bilirubin AST ALT Alkaline Phosphatase Creatine Kinase Total Protein Albumin CA 15-3 Antigen Ur Specific [place] Urine Protein Ur Leukocyte Esterase Urine WBC Urine Bacteria Hyaline Casts Urine Mucus 03/15/19 03/15/19 03/15/19 01:17 04:15 04:15 WBC 1.4 L* RBC 3.70 L MCV 102.4 H RDW 20.2 H Plt Count 130 L Neutrophils # (Manual) 0.73 L Lymphocytes # Lymphocytes # (Manual) 0.17 L Macrocytosis Marked A PT INR ABG pH ABG pCO2 ABG pO2 ABG HCO3 ABG O2 Saturation Sodium 127 L Potassium Chloride Carbon Dioxide 18 L BUN 58 H Creatinine Glucose 101 H POC Glucose (mg/dL) 117 H Delta Bilirubin AST 39 H ALT 72 H Alkaline Phosphatase 304 H Creatine Kinase Total Protein 5.1 L Albumin 2.9 L CA 15-3 Antigen Ur Specific [place] Urine Protein Ur Leukocyte Esterase Urine WBC Urine Bacteria Hyaline Casts Urine Mucus 03/15/19 03/15/19 03/15/19 04:15 05:07 06:22 WBC RBC MCV RDW Plt Count Neutrophils # (Manual) Lymphocytes # Lymphocytes # (Manual) Macrocytosis PT 12.5 H INR 1.2 H ABG pH 7.47 H ABG pCO2 28 L ABG pO2 82 L ABG HCO3 ABG O2 Saturation Sodium Potassium Chloride Carbon Dioxide BUN Creatinine Glucose POC Glucose (mg/dL) 107 H Delta Bilirubin AST ALT Alkaline Phosphatase Creatine Kinase Total Protein Albumin CA 15-3 Antigen Ur Specific [place] Urine Protein Ur Leukocyte Esterase Urine WBC Urine Bacteria Hyaline Casts Urine Mucus - Diagnostic Findings Chest x-ray: report reviewed, image reviewed Assessment and Plan Plan: Assessment: #1. Malignant pericardial effusion, status post pericardial window, postop day 1, with the immediate removal of 500 mL of serosanguineous output in surgery, and there has been additional 1 98 mL of drainage in the chest tube overnight #2. Routine ventilator management, and patient was successfully extubated this morning on 03/15/2019, postop day 1, status post pericardial window #3. Metastatic recurrent breast cancer, with metastasis to the liver, and the supraclavicular nodes #4. History of left breast cancer in 2011 treated with chemoradiation #5. Generalized weakness, anorexia, weakness, dehydration #6. Leukopenia #7. Hyponatremia, improving with hydration #8. Non-anion gap metabolic acidosis #9. Elevated liver enzymes related to liver metastasis #10. Bilateral pleural Effusions, and recent history of thoracentesis at [facility] with removal of 1.2 L of pleural fluid, cytology results are not available to us Plan: We'll continue monitoring the patient in the intensive care unit, she is awake and alert, she is been extubated this morning, provided incentive spirometry, encouraged to deep breathe and cough, wean FiO2, chest x-ray shows bilateral pleural effusions. Patient is hemodynamically stable, she is producing large am ount of urine, renal profile is within normal limits, his serum sodium is improved, we'll continue current antibiotic coverage, GI and DVT prophylaxis, nephrology is following, and patient has received a dose of IV Lasix, the service is following, and managing the antibiotics, we will proceed with sips of clear liquids, and advance her diet as tolerated at 6 hours post extubate him. We'll continue to follow and make further recommendations I performed a history & physical examination of the patient and discussed their management with my nurse practitioner, Renea Ames. I reviewed the nurse practitioner's note and agree with the documented findings and plan of care. Lung sounds are positive for diminished breath sounds. The findings and the impression was discussed with the patient. I attest to the documentation by the nurse practitioner. Time with Patient: Greater than 30
[2019-03-15] MEDS: FAMOTIDINE 20 MG TAB PO SCH (11:41)
[2019-03-15 12:09] LABS: Glucose,Whole Blood 90 mg/dL (75-99)
[2019-03-15] MEDS ORDERED: ACETAMINOPHEN TAB 325 MG TAB PO PRN (12:44)
--- NOTE | 2019-03-15 14:07 | PN ---
PROGRESS NOTE Patient is seen for followup for hyponatremia and hyperkalemia. She was taken for a pericardial window, which was done yesterday. Therefore, she is currently in the ICU. The patient is maintained on normal saline at 50 mL an hour. She states she feels significantly bloated. Her sodium has been staying at about 127. She received 20 mg of IV push Lasix yesterday. Random urine sodium was less than 10. However, patient clinically appears hypervolemic. I will give her 40 mg of Lasix x1 and repeat sodium this afternoon. Then we can discontinue the saline infusion as well. PHYSICAL EXAMINATION: On examination today, blood pressure was 107/60, heart rate 111 per minute. Patient is afebrile. Examination of the heart, S1, S2. Examination of the lungs, decreased breath sounds at bases. Abdomen is soft, nontender, and obese. Examination of the lower extremities shows edema 1+ bilaterally. [employer]ING INSPECTOR exam is grossly intact. Wound on the right side of the chest is currently dressed. LABS: Show sodium 137, potassium 4.7, BUN 58, serum creatinine 0.75, hemoglobin at 12.6 g/dL, white cell count 1.4. ASSESSMENT: 1. Hyponatremia, appears clinically hypervolemic. Random urine sodium was less than 10. Patient is maintained on saline. However, sodium has not improved any further. I will give a dose of Lasix now and we will repeat sodium level this evening. I would likely discontinue the saline infusion. 2. Hyperkalemia, currently improved with the IV Lasix, this could be most likely related to tissue breakdown from chronic wound in the left chest. At this time, blood sugars are not elevated and patient denies any underlying constipation. 3. Metastatic breast cancer. 4. Chronic wound, left chest, maintained on antibiotics, being followed by Dr. Wilcox. 5. Pericardial effusion status post pericardial window, currently doing okay. PLAN: IV Lasix x1. Repeat sodium this evening. Overall prognosis is guarded. MMODL / IJN: [id number] /
--- NOTE | 2019-03-15 14:07 | P.PN ---
Subjective Progress Note Date: 03/15/19 This is a 69-year-old pleasant female patient of Dr. Glen Vázquez who presented to the emergency room complaining of generalized weakness. Patient states that over the last couple weeks she has not had any appetite she has not been able to eat or drink well. Patient states that she seen her primary care physician about a week ago and was told that the left looks fine at that time however since then she has not been able to eat or drink. Patient reported generalized malaise. She denied any fever, chills, nausea or vomiting at that time. Patient has past medical history significant of recurrent breast CA, initial diagnosis apparently 7 years ago. Patient has a necrotic breast lesion on the right chest wall that is progressively getting worse. Past medical history also includes anxiety and depression. Patient has never been a smoker. At this time patient is resting in bed in no acute distress. She is complaining of lack of appetite, weakness, malaise. Patient states over the last few weeks she's had episodes of vomiting and nausea. Patient denies any diarrhea or const ipation. Patient has been complaining of chest wall pain and difficulty breathing. On Wednesday of last week she had thoracentesis due to bilateral pleural effusion. 1.3 L of fluid was drained from the right lung. Patient states after the procedure was done she did have an easier time breathing. However it did not help her weakness or malaise. Patient states that next week she will be starting another chemotherapy since previous treatments have not been successful. Patient denies any fevers or chills. 03/13: Patient has a wound on her right breast which she states has been drinking for 5 days but now has a foul order. She denies being on any antibiotics recently. Consult for Dr. Wilcox has been ordered and will culture ordered. She has been seen by Dr. Zamora regarding breast cancer the plan is to start chemotherapy with Abraxane as an outpatient. Patient is noted to have increased liver enzymes and Dr. Zamora ordered CAT scan of the abdomen and pelvis which revealed interval development of bilateral pleural effusions, pericardial effusion, ascites. Metastatic disease to the liver. Consult has been admitted for cardiology regarding pericardial effusion. Chest x-ray from yesterday showed no significant interval change in the appearance of the chest. Repeat lab work reveals sodium 127, potassium 5.4, chloride 97, CO2 21, BUN 15 creatinine 0.91, blood sugar 130. Cortisol 67 Consult has been added for nephrology for hyponatremia possible SIADH. Patient does have some increased edema for which IV fluids will be decreased to 50 mL per hour. 03/14: Echocardiogram reveals EF of 60-65%, mild aortic valve sclerosis, mild pulmonary hypertension, large generalized pericardial effusion. Patient was transferred to the cardiac stepdown unit. She did have marginal blood pressure readings and pulse ox was 91% on 2 L increased to 3 L. Patient has been seen by oncology and MRI of the brain was ordered for today looking for brain metastases but patient is unable to lay flat for this and we will cancel it for now. Xanax ordered for anxiety. Discussed case with cardiology and cardiothoracic surgery consult has been added. Patient received 1 dose of IV albumin yesterday we will repeat for today. Chest x-ray ordered for today. Patient states that she has less edema in her legs but continues to have edema in her arms. She denies any diarrhea. She has not had a bowel movement since admission. Patient is having very little oral intake. She is followed by dietitian and I will be changed to a regular diet to make it more accommodating for her. Repeat lab work reveals sodium 127, potassium 5.8, chloride 96, CO2 19. Patient has been afebrile, heart rate in the low 100s up to 106, pulse ox 95% on 3 L. Blood pressure 96/58. 03/15: Patient underwent subxiphoid pericardiostomy yesterday evening with Dr. Hickman for malignant pericardial effusion with early tamponade with drainage of 500 ML's of bloody fluid and specimen was sent for cytology. Patient was s intubated and admitted into the intensive care unit. Patient was successfully extubated around 6 AM. Chest x-ray this morning reveals similar-appearing pleural effusions and associated bibasilar airspace disease likely atelectasis. Patient has been afebrile, heart rate 112, blood pressure 90/69, pulse ox 96% on high flow nasal cannula 8 L. Repeat lab work reveals white count 1.4, hemoglobin 12.6, platelet count 130, INR 1.2. Sodium remains at 127, BUN 15 creatinine 0.75. Liver function tests remain elevated with AST 39, ALT 72 and alkaline phosphatase 304. Patient was also seen yesterday by Dr. Eleazar and additional dose of Lasix ordered. Wound cultures showing gram-negative bacilli. Patient is complaining of severe chest pain for which she has morphine available but due to her blood pressure has not been given. We will add in tramadol and plain Tylenol for pain control. Review of Systems Constitutional: No fever, no chills, no night sweats. No weight change. Reports weakness and fatigue no lethargy. No daytime sleepiness. Reports chest wall pain EENT: No headache. No blurred vision or double vision, no loss of vision. No loss of Hearing, no ringing in the ears, no dizziness. No nasal drainage or congestion. No epistaxis. No sore throat. Lungs: Reports shortness of breath, no cough, no sputum production. No wheezing. Cardiovascular: reports chest pain,reports edema. No palpitations. No paroxysmal nocturnal dyspnea. No orthopnea. No lightheadedness or dizziness. No syncopal episodes. Abdominal: no abdominal discomfort. Reports nausea and vomiting. no diarrhea. No constipation. No bloody or tarry stools. Reports loss of appetite. Genitourinary: No dysuria, increased frequency, urgency. No urinary retention. Musculoskeletal: No myalgias. Reports muscle weakness, no gait dysfunction, no frequent falls. No back pain. No neck pain. Integumentary: Reports chest wall wound, drainage, No rash or pruritus. No unusual bruising. No change in hair or nails. Neurologic: No aphasia. No facial droop. No change in mentation. No head injury. No headache. No paralysis. No paresthesia. Psychiatric: No depression. No anxiety. No mood swings. Endocrine: No abnormal blood sugars. No weight change. No excessive sweating or thirst. Objective - Vital Signs Vital signs: Vital Signs Temp 97.5 F L 03/15/19 08:00 Pulse 112 H 03/15/19 09:00 Resp 15 03/15/19 09:00 BP 90/69 03/15/19 09:00 Pulse Ox 96 03/15/19 09:38 Intake & Output 03/14/19 03/15/19 03/15/19 18:59 06:59 18:59 Intake Total 550 458.224 150 Output Total 888 267 Balance 550 -429.776 -117 Weight 69.4 kg Intake: IV 550 450 150 Ampicillin-Sulbactam 3 gm 100 In Sodium Chloride 0.9% 100 ml @ 200 mls/hr IVPB Q8HR [facility] Rx#:[id number] Sodium Chloride 0.9% 50 350 150 ml @ 0 mls/hr IV .STK-MED ONE with ceFAZolin 2,000 mg Rx#:[id number] Intake, IV Titration 8.224 Amount Propofol 1,000 mg In 8.224 Empty Bag 1 bag @ Titrate IV .Q0M [facility] Rx#: [id number] Output: Chest Tube Drainage 198 52 Mediastinal 198 52 Urine 670 215 Estimated Blood Loss 20 Other: Voiding Method Bedside Commode # Voids 2 ABP, PAP, CO, CI - Last Documented Arterial Blood Pressure 84/57 - Exam General Appearance: Alert, cooperative, no distress, appears stated age. Son is at bedside. Neck HEENT: Supple, no lymphadenopathy, no thyroid enlargement, no carotid bruits. Lungs: Clear to auscultation without crackles or wheezes no rhonchi, no deformity. Chest Wall: no costochondral pain or discomfort. Heart: Regular rate and rhythm, S1, S2 normal, no murmur, rub or gallop. Back: Symmetric, no curvature, ROM normal, no CVA tenderness. Abdomen: Soft, non-tender, no rebound or rigidity, no hepatosplenomegaly. Extremities: Extremities normal, atraumatic, no cyanosis or edema. Pulses: 2+ and symmetric. Skin: Maceration to the right breast erythema and eschar noted Skin color, texture, tugor normal, Neurologic: Alert oriented x3 cranial nerves II through XII intact, no motor deficit, - Labs CBC & Chem 7: 03/15/19 04:15 03/15/19 04:15 Labs: Abnormal Lab Results - Last 24 Hours (Table) 03/14/19 03/14/19 03/14/19 Range/Units 13:05 21:01 21:28 WBC (3.8-10.6) k/uL RBC (3.80-5.40) m/uL MCV (80.0-100.0) fL RDW (11.5-15.5) % Plt Count (150-450) k/uL Neutrophils # (Manual) (1.3-7.7) k/uL Lymphocytes # (Manual) (1.0-4.8) k/uL Macrocytosis PT (9.0-12.0) sec INR (<1.2) ABG pH (7.35-7.45) ABG pCO2 33 L (35-45) mmHg ABG pO2 141 H (83-108) mmHg ABG HCO3 19 L (21-25) mmol/L ABG O2 Saturation 98.4 H (94-97) % Sodium 127 L (137-145) mmol/L Potassium 5.8 H (3.5-5.1) mmol/L Chloride 96 L (98-107) mmol/L Carbon Dioxide 19 L (22-30) mmol/L BUN (7-17) mg/dL Glucose (74-99) mg/dL POC Glucose (mg/dL) 161 H (75-99) mg/dL AST (14-36) U/L ALT (9-52) U/L Alkaline Phosphatase (38-126) U/L Total Protein (6.3-8.2) g/dL Albumin (3.5-5.0) g/dL 03/14/19 03/14/19 03/14/19 Range/Units 22:28 22:28 22:28 WBC 1.6 L (3.8-10.6) k/uL RBC 3.58 L (3.80-5.40) m/uL MCV 103.5 H (80.0-100.0) fL RDW 21.4 H (11.5-15.5) % Plt Count 148 L (150-450) k/uL Neutrophils # (Manual) 0.90 L (1.3-7.7) k/uL Lymphocytes # (Manual) 0.21 L (1.0-4.8) k/uL Macrocytosis Marked A PT 12.8 H (9.0-12.0) sec INR 1.2 H (<1.2) ABG pH (7.35-7.45) ABG pCO2 (35-45) mmHg ABG pO2 (83-108) mmHg ABG HCO3 (21-25) mmol/L ABG O2 Saturation (94-97) % Sodium 127 L (137-145) mmol/L Potassium (3.5-5.1) mmol/L Chloride (98-107) mmol/L Carbon Dioxide 18 L (22-30) mmol/L BUN (7-17) mg/dL Glucose (74-99) mg/dL POC Glucose (mg/dL) (75-99) mg/dL AST (14-36) U/L ALT (9-52) U/L Alkaline Phosphatase (38-126) U/L Total Protein (6.3-8.2) g/dL Albumin (3.5-5.0) g/dL 03/15/19 03/15/19 03/15/19 Range/Units 01:17 04:15 04:15 WBC 1.4 L* (3.8-10.6) k/uL RBC 3.70 L (3.80-5.40) m/uL MCV 102.4 H (80.0-100.0) fL RDW 20.2 H (11.5-15.5) % Plt Count 130 L (150-450) k/uL Neutrophils # (Manual) 0.73 L (1.3-7.7) k/uL Lymphocytes # (Manual) 0.17 L (1.0-4.8) k/uL Macrocytosis Marked A PT (9.0-12.0) sec INR (<1.2) ABG pH (7.35-7.45) ABG pCO2 (35-45) mmHg ABG pO2 (83-108) mmHg ABG HCO3 (21-25) mmol/L ABG O2 Saturation (94-97) % Sodium 127 L (137-145) mmol/L Potassium (3.5-5.1) mmol/L Chloride (98-107) mmol/L Carbon Dioxide 18 L (22-30) mmol/L BUN 58 H (7-17) mg/dL Glucose 101 H (74-99) mg/dL POC Glucose (mg/dL) 117 H (75-99) mg/dL AST 39 H (14-36) U/L ALT 72 H (9-52) U/L Alkaline Phosphatase 304 H (38-126) U/L Total Protein 5.1 L (6.3-8.2) g/dL Albumin 2.9 L (3.5-5.0) g/dL 03/15/19 03/15/19 03/15/19 Range/Units 04:15 05:07 06:22 WBC (3.8-10.6) k/uL RBC (3.80-5.40) m/uL MCV (80.0-100.0) fL RDW (11.5-15.5) % Plt Count (150-450) k/uL Neutrophils # (Manual) (1.3-7.7) k/uL Lymphocytes # (Manual) (1.0-4.8) k/uL Macrocytosis PT 12.5 H (9.0-12.0) sec INR 1.2 H (<1.2) ABG pH 7.47 H (7.35-7.45) ABG pCO2 28 L (35-45) mmHg ABG pO2 82 L (83-108) mmHg ABG HCO3 (21-25) mmol/L ABG O2 Saturation (94-97) % Sodium (137-145) mmol/L Potassium (3.5-5.1) mmol/L Chloride (98-107) mmol/L Carbon Dioxide (22-30) mmol/L BUN (7-17) mg/dL Glucose (74-99) mg/dL POC Glucose (mg/dL) 107 H (75-99) mg/dL AST (14-36) U/L ALT (9-52) U/L Alkaline Phosphatase (38-126) U/L Total Protein (6.3-8.2) g/dL Albumin (3.5-5.0) g/dL Microbiology - Last 24 Hours (Table) 03/11/19 22:54 Blood Culture - Preliminary Blood No Growth after 72 hours 03/13/19 15:00 Gram Stain - Preliminary Breast - Right Wound Culture - Preliminary Gram Neg Bacilli Assessment and Plan Plan: 1. Hyponatremia secondary to dehydration possible SIADH not completely ruled out related to stage IV breast cancer. Consult with nephrology. IV fluids decreased to 50 mL per hour. Additional dose of IV Lasix ordered. 2. Failure to thrive with severe protein calorie malnutrition and weight loss. Remeron 15 mg at bedtime, ensure daily. Encourage oral intake. Diet changed to regular. Patient is followed by registered dietitian. 3. Malnutrition secondary to breast CA. As noted above nutrition consult. 4. Hyperkalemia. No EKG changes, Kayexalate 15 mg once. Continue to monitor. 5. Pleural effusion post thoracentesis on 03/08/19 1.3 L removed. Chest x-ray repeated today 6. Stage IV breast CA with pleural effusion. Consult oncology appreciated. MRI of the brain was ordered to rule out brain metastases but this was canceled due to patient unable to lay flat. 7. Right breast wound. Wound culture ordered, consult with laura Neal. Flagyl is used for local wound care. 8. Pericardial effusion status post pericardial window by cardiothoracic surgery. Patient was transferred to intensive care unit. Cytology is pending. 9. DVT prophylaxis pneumatic compression sleeves 8. GI prophylaxis. Pepcid 20 mg daily Discharge plan: possible home with homecare. Patient is appropriate for palliative care. Impression and plan of care have been directed as dictated by the signing physician. Marybeth Hensley nurse practitioner acting as scribe for signing physician.
--- NOTE | 2019-03-15 14:11 | P.PN ---
Subjective Progress Note Date: 03/15/19 Principal diagnosis: Malignant pericardial effusion with early On Echocardiogram, Anxiety, Depression, and Left-Sided Breast Cancer Which Was Diagnosed in 2012 and Has Been Treated with Chemotherapy and Radiation and a Large Right Supraclavicular Mass Positive for Metastatic Cancer. POD #1 subxiphoid pericardiostomy. The patient is laying in bed in the intensive care unit. She is in no acute distress. She currently denies any complaints of pain or shortness of breath. She is hemodynamically stable and has not no inotropic or pressor support. Subxiphoid chest tube remains in place to low continuous suction. No air leak is present and it is draining thin serosanguineous drainage with 210 mL output since surgery. She remains on 6 L high flow nasal cannula with oxygen saturations 96%. Objective - Vital Signs Vital signs: Vital Signs Temp 97.5 F L 03/15/19 08:00 Pulse 112 H 03/15/19 11:00 Resp 23 03/15/19 11:00 BP 84/68 03/15/19 11:00 Pulse Ox 96 03/15/19 11:00 Intake & Output 03/14/19 03/15/19 03/15/19 18:59 06:59 18:59 Intake Total 550 458.224 350 Output Total 888 432 Balance 550 -429.776 -82 Weight 69.4 kg Intake: IV 550 450 350 Ampicillin-Sulbactam 3 gm 100 100 In Sodium Chloride 0.9% 100 ml @ 200 mls/hr IVPB Q8HR [facility] Rx#:[id number] Sodium Chloride 0.9% 50 350 250 ml @ 0 mls/hr IV .STK-MED ONE with ceFAZolin 2,000 mg Rx#:[id number] Intake, IV Titration 8.224 Amount Propofol 1,000 mg In 8.224 Empty Bag 1 bag @ Titrate IV .Q0M [facility] Rx#: [id number] Output: Chest Tube Drainage 198 82 Mediastinal 198 82 Urine 670 350 Estimated Blood Loss 20 Other: Voiding Method Bedside Commode # Voids 2 ABP, PAP, CO, CI - Last Documented Arterial Blood Pressure 84/57 - Constitutional General appearance: Present: cooperative, no acute distress, thin - Respiratory Details: Lung sounds with few scattered crackles throughout, diminished bilateral bases. Respirations are symmetrical and nonlabored. Oxygen saturation are 96% on 6 L nasal cannula. Subxiphoid chest tube in place to low continuous wall suction - 20 cm H2O. No air leak is present. Draining thin serosanguineous drainage. 210 mL output since surgery. - Cardiovascular Details: Regular rhythm and rate. S1 and S2 present, negative for S3, gallop or murmur. Bedside telemetry showing sinus tachycardia heart rate 105. Generalized anasarca. - Gastrointestinal Gastrointestinal Comment(s): Abdomen is soft, nontender and nondistended. Active bowel sounds all 4 abdominal quadrants. No guarding or rigidity. No organomegaly. - Genitourinary Genitourinary Comment(s): Baca catheter for accurate I&O. Draining clear yellow urine. 570 mL output in the last 8 hours. - Integumentary Integumentary Comment(s): Skin is warm and dry. No clubbing or cyanosis is present. Right upper chest wall erythema. Subxiphoid incision clean dry and approximated. No drainage or redness present. Covered with a dry gauze. - Neurologic Neurologic: Present: CNII-XII intact - Musculoskeletal Musculoskeletal: Present: generalized weakness, strength equal bilaterally - Psychiatric Psychiatric Comment(s): Flat affect Psychiatric: Present: A&O x's 3, intact judgment & insight - Allied health notes Allied health notes reviewed: nursing - Labs CBC & Chem 7: 03/15/19 04:15 03/15/19 04:15 Labs: Abnormal Lab Results - Last 24 Hours (Table) 03/14/19 03/14/19 03/14/19 Range/Units 13:05 21:01 21:28 WBC (3.8-10.6) k/uL RBC (3.80-5.40) m/uL MCV (80.0-100.0) fL RDW (11.5-15.5) % Plt Count (150-450) k/uL Neutrophils # (Manual) (1.3-7.7) k/uL Lymphocytes # (Manual) (1.0-4.8) k/uL Macrocytosis PT (9.0-12.0) sec INR (<1.2) ABG pH (7.35-7.45) ABG pCO2 33 L (35-45) mmHg ABG pO2 141 H (83-108) mmHg ABG HCO3 19 L (21-25) mmol/L ABG O2 Saturation 98.4 H (94-97) % Sodium 127 L (137-145) mmol/L Potassium 5.8 H (3.5-5.1) mmol/L Chloride 96 L (98-107) mmol/L Carbon Dioxide 19 L (22-30) mmol/L BUN (7-17) mg/dL Glucose (74-99) mg/dL POC Glucose (mg/dL) 161 H (75-99) mg/dL AST (14-36) U/L ALT (9-52) U/L Alkaline Phosphatase (38-126) U/L Total Protein (6.3-8.2) g/dL Albumin (3.5-5.0) g/dL 03/14/19 03/14/19 03/14/19 Range/Units 22:28 22:28 22:28 WBC 1.6 L (3.8-10.6) k/uL RBC 3.58 L (3.80-5.40) m/uL MCV 103.5 H (80.0-100.0) fL RDW 21.4 H (11.5-15.5) % Plt Count 148 L (150-450) k/uL Neutrophils # (Manual) 0.90 L (1.3-7.7) k/uL Lymphocytes # (Manual) 0.21 L (1.0-4.8) k/uL Macrocytosis Marked A PT 12.8 H (9.0-12.0) sec INR 1.2 H (<1.2) ABG pH (7.35-7.45) ABG pCO2 (35-45) mmHg ABG pO2 (83-108) mmHg ABG HCO3 (21-25) mmol/L ABG O2 Saturation (94-97) % Sodium 127 L (137-145) mmol/L Potassium (3.5-5.1) mmol/L Chloride (98-107) mmol/L Carbon Dioxide 18 L (22-30) mmol/L BUN (7-17) mg/dL Glucose (74-99) mg/dL POC Glucose (mg/dL) (75-99) mg/dL AST (14-36) U/L ALT (9-52) U/L Alkaline Phosphatase (38-126) U/L Total Protein (6.3-8.2) g/dL Albumin (3.5-5.0) g/dL 03/15/19 03/15/19 03/15/19 Range/Units 01:17 04:15 04:15 WBC 1.4 L* (3.8-10.6) k/uL RBC 3.70 L (3.80-5.40) m/uL MCV 102.4 H (80.0-100.0) fL RDW 20.2 H (11.5-15.5) % Plt Count 130 L (150-450) k/uL Neutrophils # (Manual) 0.73 L (1.3-7.7) k/uL Lymphocytes # (Manual) 0.17 L (1.0-4.8) k/uL Macrocytosis Marked A PT (9.0-12.0) sec INR (<1.2) ABG pH (7.35-7.45) ABG pCO2 (35-45) mmHg ABG pO2 (83-108) mmHg ABG HCO3 (21-25) mmol/L ABG O2 Saturation (94-97) % Sodium 127 L (137-145) mmol/L Potassium (3.5-5.1) mmol/L Chloride (98-107) mmol/L Carbon Dioxide 18 L (22-30) mmol/L BUN 58 H (7-17) mg/dL Glucose 101 H (74-99) mg/dL POC Glucose (mg/dL) 117 H (75-99) mg/dL AST 39 H (14-36) U/L ALT 72 H (9-52) U/L Alkaline Phosphatase 304 H (38-126) U/L Total Protein 5.1 L (6.3-8.2) g/dL Albumin 2.9 L (3.5-5.0) g/dL 03/15/19 03/15/19 03/15/19 Range/Units 04:15 05:07 06:22 WBC (3.8-10.6) k/uL RBC (3.80-5.40) m/uL MCV (80.0-100.0) fL RDW (11.5-15.5) % Plt Count (150-450) k/uL Neutrophils # (Manual) (1.3-7.7) k/uL Lymphocytes # (Manual) (1.0-4.8) k/uL Macrocytosis PT 12.5 H (9.0-12.0) sec INR 1.2 H (<1.2) ABG pH 7.47 H (7.35-7.45) ABG pCO2 28 L (35-45) mmHg ABG pO2 82 L (83-108) mmHg ABG HCO3 (21-25) mmol/L ABG O2 Saturation (94-97) % Sodium (137-145) mmol/L Potassium (3.5-5.1) mmol/L Chloride (98-107) mmol/L Carbon Dioxide (22-30) mmol/L BUN (7-17) mg/dL Glucose (74-99) mg/dL POC Glucose (mg/dL) 107 H (75-99) mg/dL AST (14-36) U/L ALT (9-52) U/L Alkaline Phosphatase (38-126) U/L Total Protein (6.3-8.2) g/dL Albumin (3.5-5.0) g/dL Microbiology - Last 24 Hours (Table) 03/11/19 22:54 Blood Culture - Preliminary Blood No Growth after 72 hours 03/13/19 15:00 Gram Stain - Preliminary Breast - Right Wound Culture - Preliminary Gram Neg Bacilli - Imaging and Cardiology Chest x-ray: report reviewed, image reviewed Assessment and Plan Assessment: 1. Large malignant pericardial effusion status post subxiphoid pericardiostomy 2. Metastatic breast cancer 3. Wound to her right breast/upper chest wall 4. History of right pleural effusion status post right thoracentesis with 1.2 L of fluid were drained Plan: 1. Keep subxiphoid chest tube in place to low continuous wall suction -20 cm H2O. 2. Encourage use of her incentive spirometry every hour while awake. 3. DVT and GI prophylaxis. 4. Bronchodilators per pulmonary management. 5. Medical and comorbidities management per primary care service. 6. Pericardial fluid cytology pending. 7. More recommendations to follow based on patient's clinical course. Time with Patient: Greater than 30
[2019-03-15] MEDS: traMADol 50 MG TAB PO PRN (15:02)
[2019-03-15 17:08] LABS: Glucose,Whole Blood 111 mg/dL (75-99)
[2019-03-15] MEDS ORDERED: FUROSEMIDE 10 MG/ML 2 ML VIAL IV ONE (20:00)
[2019-03-15 21:53] LABS: Glucose,Whole Blood 162 mg/dL (75-99)
--- NOTE | 2019-03-15 21:57 | P.PN ---
Subjective Progress Note Date: 03/15/19 This is a 69-year-old female patient with past medical history of initial diagnosis of left sided breast cancer in 2011 and treated with IV chemotherapy and placed on observation. She developed metastatic disease in 2014 with a large right supraclavicular mass. She received radiation and vario us regimes. She developed a right chest wall lesion and repeat biopsy was done and is currently on Ibrance and Faslodex. She had progressive symptoms and the lesion on the right chest wall with superficial ulceration and drainage. She has a thoracentesis done for right-sided pleural effusion last week at [facility] and 1.2 L removed and pathology pending. Patient presented to the hospital complaining of weakness poor appetite and decreased oral intake not able to eat or drink very well and generalized malaise. She denied any fever, chills, nausea or vomiting at that time. Patient states over the last few weeks she's had episodes of vomiting and nausea. Patient denies any diarrhea or constipation. Patient has been complaining of chest wall pain and difficulty breathing. Patient states that she is to start chemotherapy on Wednesday. Regarding the wound on the right chest, she has not been on any antibiotics. Wound culture was obtained today. She has had drainage from the area but noted today but had a foul odor. She underwent a CAT scan of the abdomen and pelvis which revealed interval development of bilateral pleural effusions, pericardial effusion, ascites. Metastatic disease to the liver. Chest x-ray from yesterday showed no significant interval change in the appearance of the chest. Additional consults in place including oncology, cardiology for pericardial effusion, nephrology for hyponatremia. Patient has been started on Unasyn. 03/14/2019 Patient still feels poorly and has shortness of breath but nausea has improved. Still very fatigued. 03/15/2019 patient is status post pericardial window and is feeling somewhat better today. She still is quite weak. Was able to drink liquids without great difficulty. Appetite is poor. Denies nausea or emesis at this time. Pain is under good control. Mood is improved. Objective - Vital Signs Vital signs: Vital Signs Temp 97.7 F 03/15/19 20:00 Pulse 106 H 03/15/19 20:00 Resp 14 03/15/19 20:00 BP 93/63 03/15/19 20:00 Pulse Ox 96 03/15/19 20:00 Intake & Output 03/15/19 03/15/19 03/16/19 06:59 18:59 06:59 Intake Total 458.224 630 10 Output Total 888 5657 50 Balance -429.776 -1986 Intake: IV 450 630 10 0.9 KVO 30 10 Ampicillin-Sulbactam 3 gm 100 100 In Sodium Chloride 0.9% 100 ml @ 200 mls/hr IVPB Q8HR [facility] Rx#:[id number] Sodium Chloride 0.9% 50 350 500 ml @ 0 mls/hr IV .STK-MED ONE with ceFAZolin 2,000 mg Rx#:[id number] Intake, IV Titration 8.224 Amount Propofol 1,000 mg In 8.224 Empty Bag 1 bag @ Titrate IV .Q0M [facility] Rx#: [id number] Output: Chest Tube Drainage 198 132 Mediastinal 198 132 Urine 670 2485 50 Estimated Blood Loss 20 Other: Voiding Method Indwelling Catheter Indwelling Catheter ABP, PAP, CO, CI - Last Documented Arterial Blood Pressure 84/57 - Exam Gen: This is a 69-year-old female. She is resting in bed has shortness of breath at rest HEENT: Head is atraumatic, normocephalic. Pupils equal, round. Sclerae is anicteric. NECK: Supple. No JVD. No lymphadenopathy. No thyromegaly. LUNGS: Clear to auscultation. No wheezes or rhonchi. basilar crackles subxiphoid chest tube is in place with little tenderness HEART: Regular rate and rhythm. No murmur. Port to the right upper chest wall. Breast: Significant ulceration to the right breast anterior aspect with necrosis followed her has completely resolved ABDOMEN: Soft. Bowel sounds are present. No masses. No tenderness. EXTREMITIES: No pedal edema. No calf tenderness. NEUROLOGICAL: Patient is awake, alert and oriented x3. Cranial nerves 2 through 12 are grossly intact. - Labs CBC & Chem 7: 03/15/19 04:15 03/15/19 15:32 Labs: Abnormal Lab Results - Last 24 Hours (Table) 03/14/19 03/14/19 03/14/19 Range/Units 22:28 22:28 22:28 WBC 1.6 L (3.8-10.6) k/uL RBC 3.58 L (3.80-5.40) m/uL MCV 103.5 H (80.0-100.0) fL RDW 21.4 H (11.5-15.5) % Plt Count 148 L (150-450) k/uL Neutrophils # (Manual) 0.90 L (1.3-7.7) k/uL Lymphocytes # (Manual) 0.21 L (1.0-4.8) k/uL Macrocytosis Marked A PT 12.8 H (9.0-12.0) sec INR 1.2 H (<1.2) ABG pH (7.35-7.45) ABG pCO2 (35-45) mmHg ABG pO2 (83-108) mmHg Sodium 127 L (137-145) mmol/L Carbon Dioxide 18 L (22-30) mmol/L BUN (7-17) mg/dL Glucose (74-99) mg/dL POC Glucose (mg/dL) (75-99) mg/dL AST (14-36) U/L ALT (9-52) U/L Alkaline Phosphatase (38-126) U/L Total Protein (6.3-8.2) g/dL Albumin (3.5-5.0) g/dL 03/15/19 03/15/19 03/15/19 Range/Units 01:17 04:15 04:15 WBC 1.4 L* (3.8-10.6) k/uL RBC 3.70 L (3.80-5.40) m/uL MCV 102.4 H (80.0-100.0) fL RDW 20.2 H (11.5-15.5) % Plt Count 130 L (150-450) k/uL Neutrophils # (Manual) 0.73 L (1.3-7.7) k/uL Lymphocytes # (Manual) 0.17 L (1.0-4.8) k/uL Macrocytosis Marked A PT (9.0-12.0) sec INR (<1.2) ABG pH (7.35-7.45) ABG pCO2 (35-45) mmHg ABG pO2 (83-108) mmHg Sodium 127 L (137-145) mmol/L Carbon Dioxide 18 L (22-30) mmol/L BUN 58 H (7-17) mg/dL Glucose 101 H (74-99) mg/dL POC Glucose (mg/dL) 117 H (75-99) mg/dL AST 39 H (14-36) U/L ALT 72 H (9-52) U/L Alkaline Phosphatase 304 H (38-126) U/L Total Protein 5.1 L (6.3-8.2) g/dL Albumin 2.9 L (3.5-5.0) g/dL 03/15/19 03/15/19 03/15/19 Range/Units 04:15 05:07 06:22 WBC (3.8-10.6) k/uL RBC (3.80-5.40) m/uL MCV (80.0-100.0) fL RDW (11.5-15.5) % Plt Count (150-450) k/uL Neutrophils # (Manual) (1.3-7.7) k/uL Lymphocytes # (Manual) (1.0-4.8) k/uL Macrocytosis PT 12.5 H (9.0-12.0) sec INR 1.2 H (<1.2) ABG pH 7.47 H (7.35-7.45) ABG pCO2 28 L (35-45) mmHg ABG pO2 82 L (83-108) mmHg Sodium (137-145) mmol/L Carbon Dioxide (22-30) mmol/L BUN (7-17) mg/dL Glucose (74-99) mg/dL POC Glucose (mg/dL) 107 H (75-99) mg/dL AST (14-36) U/L ALT (9-52) U/L Alkaline Phosphatase (38-126) U/L Total Protein (6.3-8.2) g/dL Albumin (3.5-5.0) g/dL 03/15/19 03/15/19 Range/Units 15:32 17:05 WBC (3.8-10.6) k/uL RBC (3.80-5.40) m/uL MCV (80.0-100.0) fL RDW (11.5-15.5) % Plt Count (150-450) k/uL Neutrophils # (Manual) (1.3-7.7) k/uL Lymphocytes # (Manual) (1.0-4.8) k/uL Macrocytosis PT (9.0-12.0) sec INR (<1.2) ABG pH (7.35-7.45) ABG pCO2 (35-45) mmHg ABG pO2 (83-108) mmHg Sodium 131 L (137-145) mmol/L Carbon Dioxide (22-30) mmol/L BUN (7-17) mg/dL Glucose (74-99) mg/dL POC Glucose (mg/dL) 111 H (75-99) mg/dL AST (14-36) U/L ALT (9-52) U/L Alkaline Phosphatase (38-126) U/L Total Protein (6.3-8.2) g/dL Albumin (3.5-5.0) g/dL Microbiology - Last 24 Hours (Table) 03/13/19 15:00 Gram Stain - Final Breast - Right Wound Culture - Final Proteus mirabilis 03/11/19 22:54 Blood Culture - Preliminary Blood No Growth after 72 hours Laboratory Results WBC 1.4 k/uL (3.8-10.6) L* 03/15/19 04:15 RBC 3.70 m/uL (3.80-5.40) L 03/15/19 04:15 Hgb 12.6 gm/dL (11.4-16.0) 03/15/19 04:15 Hct 37.9 % (34.0-46.0) 03/15/19 04:15 MCV 102.4 fL (80.0-100.0) H 03/15/19 04:15 MCH 34.1 pg (25.0-35.0) 03/15/19 04:15 MCHC 33.3 g/dL (31.0-37.0) 03/15/19 04:15 RDW 20.2 % (11.5-15.5) H 03/15/19 04:15 Plt Count 130 k/uL (150-450) L 03/15/19 04:15 Neutrophils % 80 % 03/13/19 06:10 Neutrophils % (Manual) 52 % 03/15/19 04:15 Band Neutrophils % 2 % 03/14/19 22:28 Lymphocytes % 8 % 03/13/19 06:10 Lymphocytes % (Manual) 12 % 03/15/19 04:15 Monocytes % 8 % 03/13/19 06:10 Monocytes % (Manual) 35 % 03/15/19 04:15 Eosinophils % 1 % 03/13/19 06:10 Eosinophils % (Manual) 1 % 03/15/19 04:15 Basophils % 0 % 03/13/19 06:10 Neutrophils # 3.8 k/uL (1.3-7.7) 03/13/19 06:10 Neutrophils # (Manual) 0.73 k/uL (1.3-7.7) L 03/15/19 04:15 Lymphocytes # 0.4 k/uL (1.0-4.8) L 03/13/19 06:10 Lymphocytes # (Manual) 0.17 k/uL (1.0-4.8) L 03/15/19 04:15 Monocytes # 0.4 k/uL (0-1.0) 03/13/19 06:10 Monocytes # (Manual) 0.49 k/uL (0-1.0) 03/15/19 04:15 Eosinophils # 0.1 k/uL (0-0.7) 03/13/19 06:10 Eosinophils # (Manual) 0.01 k/uL (0-0.7) 03/15/19 04:15 Basophils # 0.0 k/uL (0-0.2) 03/13/19 06:10 Nucleated RBCs 0 /100 WBC (0-0) 03/15/19 04:15 Manual Slide Review Performed 03/14/19 22:28 Polychromasia Present 03/15/19 04:15 Poikilocytosis (manual Present 03/15/19 04:15 Anisocytosis Moderate 03/15/19 04:15 Macrocytosis Marked A 03/15/19 04:15 PT 12.5 sec (9.0-12.0) H 03/15/19 04:15 INR 1.2 (<1.2) H 03/15/19 04:15 APTT 24.0 sec (22.0-30.0) 03/15/19 04:15 Sample Site SCAR 03/15/19 05:07 ABG pH 7.47 (7.35-7.45) H 03/15/19 05:07 ABG pCO2 28 mmHg (35-45) L 03/15/19 05:07 ABG pO2 82 mmHg (83-108) L 03/15/19 05:07 ABG HCO3 21 mmol/L (21-25) 03/15/19 05:07 ABG Total CO2 22 mmol/L (19-24) 03/15/19 05:07 ABG O2 Saturation 96.7 % (94-97) 03/15/19 05:07 ABG Base Excess -3.0 mmol/L 03/15/19 05:07 Negro Test Yes 03/15/19 05:07 FiO2 50 % 03/15/19 05:07 Sodium 131 mmol/L (137-145) L 03/15/19 15:32 Potassium 4.7 mmol/L (3.5-5.1) 03/15/19 04:15 Chloride 100 mmol/L (98-107) 03/15/19 04:15 Carbon Dioxide 18 mmol/L (22-30) L 03/15/19 04:15 Anion Gap 9 mmol/L 03/15/19 04:15 BUN 58 mg/dL (7-17) H 03/15/19 04:15 Creatinine 0.75 mg/dL (0.52-1.04) 03/15/19 04:15 Est GFR (CKD-EPI)AfAm >90 (>60 ml/min/1.73 sqM) 03/15/19 04:15 Est GFR (CKD-EPI)NonAf 82 (>60 ml/min/1.73 sqM) 03/15/19 04:15 Glucose 101 mg/dL (74-99) H 03/15/19 04:15 POC Glucose (mg/dL) 162 mg/dL (75-99) H 03/15/19 20:16 POC Glu [employer]ist ID Monica Hernández 03/15/19 20:16 Osmolality 285 mosm/kg (280-301) 03/12/19 10:00 Plasma Lactic Acid Gurmeet 1.8 mmol/L (0.7-2.0) 03/11/19 22:54 Uric Acid 7.1 mg/dL (3.7-7.4) 03/15/19 04:15 Calcium 8.6 mg/dL (8.4-10.2) 03/15/19 04:15 Phosphorus 3.0 mg/dL (2.5-4.5) 03/15/19 04:15 Magnesium 2.2 mg/dL (1.6-2.3) 03/15/19 04:15 Total Bilirubin 0.7 mg/dL (0.2-1.3) 03/15/19 04:15 Conjugated Bilirubin 0.0 mg/dL (0.0-0.3) 03/12/19 10:00 Unconjugated Bilirubin 0.2 mg/dL (0.0-1.1) 03/12/19 10:00 Delta Bilirubin 0.3 mg/dL (0.0-0.2) H 03/12/19 10:00 AST 39 U/L (14-36) H 03/15/19 04:15 ALT 72 U/L (9-52) H 03/15/19 04:15 Alkaline Phosphatase 304 U/L (38-126) H 03/15/19 04:15 Creatine Kinase 29 U/L (30-135) L 03/11/19 22:54 Troponin I <0.012 ng/mL (0.000-0.034) 03/11/19 22:54 Total Protein 5.1 g/dL (6.3-8.2) L 03/15/19 04:15 Albumin 2.9 g/dL (3.5-5.0) L 03/15/19 04:15 CA 15-3 Antigen 41.4 U/mL (0.0-32.3) H 03/13/19 06:10 TSH 2.770 mIU/L (0.465-4.680) 03/11/19 22:54 Cortisol 67 ug/dL 03/13/19 06:10 Urine Color Yellow 03/12/19 01:35 Urine Appearance Clear (Clear) 03/12/19 01:35 Urine pH 5.5 (5.0-8.0) 03/12/19 01:35 Ur Specific [place] 1.036 (1.001-1.035) H 03/12/19 01:35 Urine Protein 1+ (Negative) H 03/12/19 01:35 Urine Glucose (UA) Negative (Negative) 03/12/19 01:35 Urine Ketones Negative (Negative) 03/12/19 01:35 Urine Blood Negative (Negative) 03/12/19 01:35 Urine Nitrite Negative (Negative) 03/12/19 01:35 Urine Bilirubin Negative (Negative) 03/12/19 01:35 Urine Urobilinogen 2.0 mg/dL (<2.0) 03/12/19 01:35 Ur Leukocyte Esterase Small (Negative) H 03/12/19 01:35 Urine RBC 4 /hpf (0-5) 03/12/19 01:35 Urine WBC 11 /hpf (0-5) H 03/12/19 01:35 Ur Squamous Epith Cells 1 /hpf (0-4) 03/12/19 01:35 Urine Bacteria Occasional /hpf (None) H 03/12/19 01:35 Hyaline Casts 202 /lpf (0-2) H 03/12/19 01:35 Granular Casts 61 /lpf (0) 03/12/19 01:35 Urine Mucus Rare /hpf (None) H 03/12/19 01:35 Urine Osmolality 899 mosm/kg (50-1400) 03/12/19 11:20 Ur Random Creatinine 202.8 mg/dL 03/12/19 11:20 Ur Random Sodium <10 mmol/L 03/12/19 11:20 Microbiology 03/13/19 15:00 Breast - Right Gram Stain - Final 03/13/19 15:00 Breast - Right Wound Culture - Final Proteus mirabilis 03/11/19 22:54 Blood Blood Culture - Preliminary No Growth after 72 hours 03/12/19 01:35 Urine,Voided Urine Culture - Final Assessment and Plan (1) Breast cancer Narrative/Plan: 69-year-old female who has metastatic breast carcinoma with recent significant worsening of her status presents to Hospital feeling very poorly. She difficulty with her breast ulceration with increasing odor drainage and increasing fatigue and malaise. She's also developed some nausea with emesis and feels very poorly. It is noted developed some hyponatremia also. On the exam the patient has the extensive ulceration to the right breast that is necrotic and malodorous. There is some surrounding erythema. At this time Unasyn is an excellent choice for the cellulitis that has developed in the roselia-ulcer area on the breast from the carcinoma. Topical metronidazole that are the tablets that are crushed in sprinkled onto the ulcers is often helpful in reducing the strong odor. It appears at the patient is developed progression of her metastatic disease since her last set of scans and it's not clear at this point in time with the overall process will be. 03/14/2019 patient is had little improvement. However the topical metronidazole has helped the significant malodorous nature to the right breast. Patient over still short of breath. Echocardiogram shows evidence of a pericardial effusion. Will be seen by cardiovascular surgery and likely will have an emergent pericardial window. Continue as before by cultures are pending. 03/15/2019 patient is status post the pericardial window. She is having some improvement of her status. Blood pressure remains low urine output is adequate. She is not requiring vasopressor therapy. Wound culture does show evidence of the Proteus which is susceptible to Unasyn and constantly current antibiotic therapy continues. Topical metronidazole has been very helpful in reducing the putrid odor from the right breast ulceration. Patient does feel better because the improved odor. Await the cytology results and overall plan. Current Visit: Yes Status: Acute Code(s): C50.919 - MALIGNANT NEOPLASM OF UNSP SITE OF UNSPECIFIED FEMALE BREAST SNOMED Code(s): 706219018 (2) Pericardial effusion, acute Current Visit: Yes Status: Acute Code(s): I30.9 - ACUTE PERICARDITIS, U NSPECIFIED SNOMED Code(s): 44229099
[2019-03-16] MEDS: AMPICILLIN-SULBACTAM 3 GM in SODIUM CHLORIDE 0.9% 100 ML IVPB SCH ×3 (00:54→17:00)
[2019-03-16 04:53] LABS: Anion Gap 7 mmol/L; Blood Urea Nitrogen 43 mg/dL (7-17); Calcium 8.3 mg/dL (8.4-10.2); Carbon Dioxide 22 mmol/L (22-30); Chloride 100 mmol/L (98-107); Glucose 101 mg/dL (74-99); Magnesium 2.1 mg/dL (1.6-2.3); Potassium 4.3 mmol/L (3.5-5.1); Sodium 129 mmol/L (137-145)
[2019-03-16 05:03] LABS: Anisocytosis Moderate; HCT 36.4 % (34.0-46.0); HGB 12.5 gm/dL (11.4-16.0); MCH 35.6 pg (25.0-35.0); MCHC 34.4 g/dL (31.0-37.0); MCV 103.3 fL (80.0-100.0); Macrocytosis Marked; Mean Platelet Volume 7.6; Platelet Count 141 k/uL (150-450); RBC 3.52 m/uL (3.80-5.40); RDW 21.4 % (11.5-15.5); WBC 2.7 k/uL (3.8-10.6)
[2019-03-16 05:34] LABS: Band Neutrophils % 3 %; Lymphocytes # (M) 0.16 k/uL (1.0-4.8); Monocytes # (M) 0.92 k/uL (0-1.0); Neutrophils % (M) 57 %; Nucleated Red Blood Cells 0 /100 WBC (0-0); Total Cells Counted 100
[2019-03-16 05:35] LABS: Anisocytosis (M) Present
[2019-03-16 05:36] LABS: Polychromasia Present
[2019-03-16] MEDS: INSULIN ASPART (NovoLOG) 100 UNIT/ML VIAL SQ SCH ×4 (07:19→22:05)
--- NOTE | 2019-03-16 07:25 | XR ---
EXAMINATION TYPE: XR chest 1V portable DATE OF EXAM: 03/16/2019 COMPARISON: 03/15/2019 HISTORY: Shortness of breath TECHNIQUE: Single frontal view of the chest is obtained. FINDINGS: Bilateral consolidation and pleural effusion. Mediport catheter noted. No pneumothorax. Tu geno overlying the upper abdomen. May represent enteric tube. Findings are stable. IMPRESSION: 1. Stable findings compatible with bilateral infiltrate and pleural effusion correlate for pneumonia versus CHF.
[2019-03-16 07:29] LABS: Glucose,Whole Blood 143 mg/dL (75-99)
[2019-03-16] MEDS: metroNIDAZOLE 500 MG TAB PO SCH ×4 (08:06→22:15)
[2019-03-16] MEDS: traMADol 50 MG TAB PO PRN ×3 (08:06→22:14)
[2019-03-16] MEDS: FAMOTIDINE 20 MG TAB PO SCH (08:06)
--- NOTE | 2019-03-16 08:39 | P.PN ---
Subjective Progress Note Date: 03/16/19 Principal diagnosis: Pericardial effusion, status post pericardial window This is a 69-year-old white female patient of Dr. Glen Vázquez, with past medical history of metastatic breast cancer, diagnosed in her left breast back in 2011 and patient was treated with chemoradiation. Patient developed metastatic disease in 2014 with a large right supraclavicular mass, for which she received radiation. She had since progressed through various regimens, she developed a right chest wall lesion with repeat biopsy showing hormone receptor positive disease. She most recently was on hypertensive and the Faslodex. She was developing increasing shortness of breath, and progressive symptoms in the lesion in the right chest wall with superficial ulceration and intermittent drai nage. She underwent right-sided thoracentesis at the [facility] last week with removal of 1.2 L of pleural fluid with improvement of her dyspnea. Pathology results are not available to us at this time. Patient had progressive weakness, poor appetite and decreased oral intake. She was brought into the emergency department on 03/11/2019, found to be clinically dehydrated with multiple lab abnormalities including low sodium, elevated potassium, and elevated liver enzymes. Most recent PET scan on November 19 showed uptake in the right chest wall lesion, and left supraclavicular lymph nodes. CT of the abdomen and pelvis was completed in the emergency department and showed multiple low density foci scattered within the liver at least 10 lesions related to metastatic disease to the liver, with pericholecystic fluid present about the gallbladder, no significant abnormality in the pancreas, spleen or adrenal glands. There was ascites developing in the upper abdomen. An interval development of bilateral pleural effusions pericardial effusion and ascites. Echocardiogram revealed EF of 60-65%, and a large generalized pericardial effusion. Patient was having marginal low blood pressures. She was seen by cardiothoracic surgery, and surgical intervention was recommended for a large pericardial effusion. And patient underwent pericardial window on 03/14/2019 and following her surgery she returned to the ICU on the ventilator. Patient has been successfully weaned from the ventilator support, she was extubated sometime this morning, she is currently seen in the intensive care unit, this is postoperative day 1, status post pericardial window. She is currently on 6 L of oxygen per nasal cannula, her IV 0.9 normal saline at a rate of 50 ML per hour, she was extubated at 05 40 this morning. Today's chest x-ray has been reviewed, and shows pleural effusions, and associated bibasilar airspace disease likely related to atelectasis. Patient has a subxiphoid chest tube in place, has been 198 mL of serosanguineous output since surgery, with drainage of 500 mL of serosanguineous output during surgery from the chest tube. On 03/16/2019 patient seen in follow-up in the intensive care unit, she is resting in bed, awake and alert, in no acute distress, she is on 8 L per high flow nasal cannula, and her pulse ox is 96%, she is afebrile, blood pressures at times are marginal, with BP in the 80s over 50s, and 90s over 60s, hour the patient is asymptomatic, and producing urine and the order of 30-45 ML per hour, alert, and not complaining of anything, his labs have been reviewed, and showed dull white blood cell count of 2.7, hemoglobin of 12.5, serum sodium is 129, potassium is 4.3, chloride is 100, BUN is 43, creatinine is 0.62. I-S effort is 500 mL, lung sounds are clear to auscultation, no rhonchi or rales. The 0.9 normal saline at a rate of 10 ML per hour. Right breast wound culture was positive for Proteus mirabilis, she is on Unasyn which organism is susceptible to, tolerating oral intake, although appetite remains poor. Subxiphoid chest tube is in place, and there has been 182 mL of thin serosanguineous output over last 24 hours. no specific complaints, patient is calm and comfortable, denies any difficulty breathing or chest pain Objective - Vital Signs Vital signs: Vital Signs Temp 98.3 F 03/16/19 04:00 Pulse 101 H 03/16/19 07:00 Resp 12 03/16/19 07:00 BP 90/59 03/16/19 07:00 Pulse Ox 97 03/16/19 07:00 Intake & Output 03/15/19 03/16/19 03/16/19 18:59 06:59 18:59 Intake Total 630 410 10 Output Total 0233 1210 30 Balance -1986 -800 -20 Weight 75.1 kg Intake: IV 630 210 10 0.9 KVO 30 110 10 Ampicillin-Sulbactam 3 gm 100 100 In Sodium Chloride 0.9% 100 ml @ 200 mls/hr IVPB Q8HR [facility] Rx#:[id number] Sodium Chloride 0.9% 50 500 ml @ 0 mls/hr IV .STK-MED ONE with ceFAZolin 2,000 mg Rx#:[id number] Oral 200 Output: Chest Tube Drainage 132 50 Mediastinal 132 50 Urine 2485 1160 30 Other: Voiding Method Indwelling Catheter Indwelling Catheter ABP, PAP, CO, CI - Last Documented Arterial Blood Pressure 84/57 - Exam GENERAL EXAM: Alert, pleasant, weak and fatigued chronically ill-looking 69-year-old white female, on 6 L of oxygen, comfortable in no apparent distress. HEAD: Normocephalic/atraumatic. EYES: Normal reaction of pupils, equal size. Conjunctiva pink, sclera white. NOSE: Clear with pink turbinates. THROAT: No erythema or exudates. NECK: No masses, no JVD, no thyroid enlargement, no adenopathy. CHEST: No chest wall deformity. Symmetrical expansion. Subxiphoid chest tube is present, with 182 mL of serosanguinous is output in the chest tube. Right breast is covered with the ABD dressing, and there are extensive ulcerated wounds on her right breast with the some limited drainage LUNGS: Equal air entry with no crackles, wheeze, rhonchi or dullness. CVS: Regular rate and rhythm, normal S1 and S2, no gallops, no murmurs, no rubs ABDOMEN: Soft, nontender. No hepatosplenomegaly, normal bowel sounds, no guarding or rigidity. EXTREMITIES: No clubbing, mild lower extremity edema, no cyanosis, 2+ pulses and upper and lower extremities. MUSCULOSKELETAL: Muscle strength and tone normal. SPINE: No scoliosis or deformity SKIN: No rashes CENTRAL NERVOUS SYSTEM: Alert and oriented -3. No focal deficits, tone is normal in all 4 extremities. PSYCHIATRIC: Alert and oriented -3. Appropriate affect. Intact judgment and insight. - Labs CBC & Chem 7: 03/16/19 04:13 03/16/19 04:13 Labs: Abnormal Lab Results - Last 24 Hours (Table) 03/15/19 03/15/19 03/15/19 Range/Units 15:32 17:05 20:16 WBC (3.8-10.6) k/uL RBC (3.80-5.40) m/uL MCV (80.0-100.0) fL MCH (25.0-35.0) pg RDW (11.5-15.5) % Plt Count (150-450) k/uL Lymphocytes # (Manual) (1.0-4.8) k/uL Macrocytosis Sodium 131 L (137-145) mmol/L BUN (7-17) mg/dL Glucose (74-99) mg/dL POC Glucose (mg/dL) 111 H 162 H (75-99) mg/dL Calcium (8.4-10.2) mg/dL 03/16/19 03/16/19 03/16/19 Range/Units 04:13 04:13 07:14 WBC 2.7 L (3.8-10.6) k/uL RBC 3.52 L (3.80-5.40) m/uL MCV 103.3 H (80.0-100.0) fL MCH 35.6 H (25.0-35.0) pg RDW 21.4 H (11.5-15.5) % Plt Count 141 L (150-450) k/uL Lymphocytes # (Manual) 0.16 L (1.0-4.8) k/uL Macrocytosis Marked A Sodium 129 L (137-145) mmol/L BUN 43 H (7-17) mg/dL Glucose 101 H (74-99) mg/dL POC Glucose (mg/dL) 143 H (75-99) mg/dL Calcium 8.3 L (8.4-10.2) mg/dL Microbiology - Last 24 Hours (Table) 03/11/19 22:54 Blood Culture - Preliminary Blood No Growth after 96 hours 03/13/19 15:00 Gram Stain - Final Breast - Right Wound Culture - Final Proteus mirabilis Assessment and Plan Plan: Assessment: #1. Malignant pericardial effusion, status post pericardial window, postop day 2, with the immediate removal of 500 mL of serosanguineous output in surgery, and there has been additional 1 98 mL of drainage in the chest tube overnight #2. Routine ventilator management, and patient was successfully extubated this morning on 03/15/2019, postop day 1, status post pericardial window #3. Metastatic recurrent breast cancer, with metastasis to the liver, and the supraclavicular nodes #4. History of left breast cancer in 2012 treated with chemoradiation #5. Generalized weakness, anorexia, weakness, dehydration #6. Leukopenia #7. Hyponatremia, improving with hydration #8. Non-anion gap metabolic acidosis, improving #9. Elevated liver enzymes related to liver metastasis #10. Bilateral pleural Effusions, and recent history of thoracentesis at [facility] with removal of 1.2 L of pleural fluid, cytology results are not available to us Plan: Continue encouraging deep breathing and coughing, today's chest x-ray has been reviewed, and shows stable findings of bilateral pleural effusions, and bilateral infiltrates. Patient is afebrile, she is covered with Unasyn, no cough or congestion, no respiratory distress. Hemodynamically patient is stable, wean FiO2, increase activity as tolerated, encouraged patient to sit up in a chair, consult physical therapy. Continue to follow along with the CT surgery and other consultants. Await further recommendations from CT surgery. I performed a history & physical examination of the patient and discussed their management with my nurse practitioner, Renea Ames. I reviewed the nurse practitioner's note and agree with the documented findings and plan of care. Lung sounds are positive for diminished breath sounds. The findings and the impression was discussed with the patient. I attest to the documentation by the nurse practitioner. Time with Patient: Less than 30
--- NOTE | 2019-03-16 09:22 | P.PN ---
Subjective Patient is seen in follow-up for hyponatremia. Sodium level today is down a bit at 129. Oral intake is fair. She is on a full liquid diet. Denies chest pain. GFR at baseline. Vital signs are stable. Blood pressure on the lower side. General: The patient appeared well nourished and normally developed. HEENT: Head exam is unremarkable. Neck is without jugular venous distension. LUNGS: Breath sounds decreased. HEART: Rate and Rhythm are regular. First and second heart sounds normal. No murmurs, rubs or gallops. ABDOMEN: Abdominal exam reveals normal bowel sounds. Non-tender. EXTREMITITES: 1+ edema. Objective - Vital Signs Vital signs: Vital Signs Temp 98.3 F 03/16/19 04:00 Pulse 101 H 03/16/19 07:00 Resp 12 03/16/19 07:00 BP 90/59 03/16/19 07:00 Pulse Ox 97 03/16/19 07:00 Intake & Output 03/15/19 03/16/19 03/16/19 18:59 06:59 18:59 Intake Total 630 410 10 Output Total 2617 1210 30 Balance -1986 Weight 75.1 kg Intake: IV 630 210 10 0.9 KVO 30 110 10 Ampicillin-Sulbactam 3 gm 100 100 In Sodium Chloride 0.9% 100 ml @ 200 mls/hr IVPB Q8HR [facility] Rx#:[id number] Sodium Chloride 0.9% 50 500 ml @ 0 mls/hr IV .STK-MED ONE with ceFAZolin 2,000 mg Rx#:[id number] Oral 200 Output: Chest Tube Drainage 132 50 Mediastinal 132 50 Urine 2485 1160 30 Other: Voiding Method Indwelling Catheter Indwelling Catheter ABP, PAP, CO, CI - Last Documented Arterial Blood Pressure 84/57 - Labs CBC & Chem 7: 03/16/19 04:13 03/16/19 04:13 Labs: Abnormal Lab Results - Last 24 Hours (Table) 03/15/19 03/15/19 03/15/19 Range/Units 15:32 17:05 20:16 WBC (3.8-10.6) k/uL RBC (3.80-5.40) m/uL MCV (80.0-100.0) fL MCH (25.0-35.0) pg RDW (11.5-15.5) % Plt Count (150-450) k/uL Lymphocytes # (Manual) (1.0-4.8) k/uL Macrocytosis Sodium 131 L (137-145) mmol/L BUN (7-17) mg/dL Glucose (74-99) mg/dL POC Glucose (mg/dL) 111 H 162 H (75-99) mg/dL Calcium (8.4-10.2) mg/dL 03/16/19 03/16/19 03/16/19 Range/Units 04:13 04:13 07:14 WBC 2.7 L (3.8-10.6) k/uL RBC 3.52 L (3.80-5.40) m/uL MCV 103.3 H (80.0-100.0) fL MCH 35.6 H (25.0-35.0) pg RDW 21.4 H (11.5-15.5) % Plt Count 141 L (150-450) k/uL Lymphocytes # (Manual) 0.16 L (1.0-4.8) k/uL Macrocytosis Marked A Sodium 129 L (137-145) mmol/L BUN 43 H (7-17) mg/dL Glucose 101 H (74-99) mg/dL POC Glucose (mg/dL) 143 H (75-99) mg/dL Calcium 8.3 L (8.4-10.2) mg/dL Microbiology - Last 24 Hours (Table) 03/11/19 22:54 Blood Culture - Preliminary Blood No Growth after 96 hours 03/13/19 15:00 Gram Stain - Final Breast - Right Wound Culture - Final Proteus mirabilis Assessment and Plan Plan: Assessment: 1. Hyponatremia. Patient is hypervolemic. 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 Sodium level 129 this morning. Urine sodium noted to be less than 10. Urine osmolality 899. TSH, uric acid and cortisol level normal. 2. 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 3. Metastatic breast cancer. 4. Breast wound culture positive for Proteus maintained on antibiotics. 5. Volume overload. Plan: Lasix 40 mg IV once today. Maintain ensure. Repeat sodium level this evening. Ejection fraction preserved on recent echo.
[2019-03-16] MEDS ORDERED: FUROSEMIDE 10 MG/ML 4 ML VIAL IV STA (09:23)
--- NOTE | 2019-03-16 10:28 | PN ---
PROGRESS NOTE Mrs. Msos is a 69-year-old female with history of breast cancer with metastasis with pericardial and pleural effusion, underwent pericardial window. She is feeling better this morning. She continues to feel quite weak, but her breathing is better. She has continued to be in sinus mechanism. Hemodynamically, she is stable. Cytology on her pericardial fluid remains pending. Hemodynamically, she has been stable. She continues to be at this time on Remeron, Flagyl, tramadol. PHYSICAL EXAMINATION: Blood pressure running in the high 90s with the heart rate in the low 100s and 90s, afebrile. LUNGS: Reveal decreased breath sounds at the bases. HEART: Regular rate and rhythm. S1, S2. No S3 with no rub. ABDOMEN: Soft, nontender. EXTREMITIES: No edema. LAB DATA: Lab data revealed BUN and creatinine 43 and 0.62, potassium 4.3, hemoglobin 12.5. IMPRESSION: 1. Metastatic breast cancer with pericardial and pleural effusion and liver metastasis. 2. Hyponatremia. RECOMMENDATION: We will continue present therapy. We will await the results of the fluid. She continues to have hyponatremia, most likely SIADH. Unfortunately, the prognosis remains quite poor. We will await the input of the oncology service. MMODL / IJN: [id number] /
--- NOTE | 2019-03-16 12:26 | P.PN ---
Subjective Progress Note Date: 03/16/19 Principal diagnosis: Metastatic breast Cancer Patient seen in follow-up today. looking overall improved, still difficult to "catch breath" although awake and much more alert than on previous interactions. Objective - Vital Signs Vital signs: Vital Signs Temp 97.8 F 03/16/19 12:00 Pulse 105 H 03/16/19 12:00 Resp 19 03/16/19 12:00 BP 87/71 03/16/19 12:00 Pulse Ox 95 03/16/19 12:00 Intake & Output 03/15/19 03/16/19 03/16/19 18:59 06:59 18:59 Intake Total 630 410 310 Output Total 2617 1210 1045 Balance -1986 -800 -735 Weight 75.1 kg Intake: IV 630 210 160 0.9 KVO 30 110 60 Ampicillin-Sulbactam 3 gm 100 100 100 In Sodium Chloride 0.9% 100 ml @ 200 mls/hr IVPB Q8HR [facility] Rx#:[id number] Sodium Chloride 0.9% 50 500 ml @ 0 mls/hr IV .STK-MED ONE with ceFAZolin 2,000 mg Rx#:[id number] Oral 200 150 Output: Chest Tube Drainage 132 50 40 Mediastinal 132 50 40 Urine 2485 1160 1005 Other: Voiding Method Indwelling Catheter Indwelling Catheter Indwelling Catheter ABP, PAP, CO, CI - Last Documented Arterial Blood Pressure 84/57 - Exam - Constitutional General appearance: no acute distress appears chronically ill and weak - EENT Eyes: EOMI, PERRLA ENT: hearing grossly normal, normal oropharynx - Neck Neck: lymphadenopathy (left SC 2-3 hard , confluent , largest 1-1.5 cm) Thyroid: bilateral: normal size - Respiratory Respiratory: right: diminished (lower 1/3) Drainage tube - Cardiovascular Rhythm: regular Heart sounds: normal: S1, S2 - Gastrointestinal General gastrointestinal:abdominal distention - Integumentary Masslike lesion right chest wall, slightly raised, with metastatic, indurated, with scattered superficial ulceration - Neurologic Neurologic: CNII-XII intact - Musculoskeletal Musculoskeletal: generalized weakness, bilateral lower and upper extremity edema - Psychiatric Psychiatric: Awake and calm - Labs CBC & Chem 7: 03/16/19 04:13 03/16/19 04:13 Labs: Abnormal Lab Results - Last 24 Hours (Table) 0503/15/19 03/15/19 Range/Units 15:32 17:05 20:16 WBC (3.8-10.6) k/uL RBC (3.80-5.40) m/uL MCV (80.0-100.0) fL MCH (25.0-35.0) pg RDW (11.5-15.5) % Plt Count (150-450) k/uL Lymphocytes # (Manual) (1.0-4.8) k/uL Macrocytosis Sodium 131 L (137-145) mmol/L BUN (7-17) mg/dL Glucose (74-99) mg/dL POC Glucose (mg/dL) 111 H 162 H (75-99) mg/dL Calcium (8.4-10.2) mg/dL 03/16/19 03/16/19 03/16/19 Range/Units 04:13 04:13 07:14 WBC 2.7 L (3.8-10.6) k/uL RBC 3.52 L (3.80-5.40) m/uL MCV 103.3 H (80.0-100.0) fL MCH 35.6 H (25.0-35.0) pg RDW 21.4 H (11.5-15.5) % Plt Count 141 L (150-450) k/uL Lymphocytes # (Manual) 0.16 L (1.0-4.8) k/uL Macrocytosis Marked A Sodium 129 L (137-145) mmol/L BUN 43 H (7-17) mg/dL Glucose 101 H (74-99) mg/dL POC Glucose (mg/dL) 143 H (75-99) mg/dL Calcium 8.3 L (8.4-10.2) mg/dL Microbiology - Last 24 Hours (Table) 03/11/19 22:54 Blood Culture - Preliminary Blood No Growth after 96 hours 03/13/19 15:00 Gram Stain - Final Breast - Right Wound Culture - Final Proteus mirabilis Assessment and Plan Plan: 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 - Right chest wall lesion on biopsy with a hormone positive component (possible secondary primary) - With continued progression and persistent siadh, as well as nausea and dehydration an MRI of the brain has been ordered for full restaging Recurrent Pleural Effusions: - Status Post Thoracentesis - Will obtain the path from recent fluid studies to assess for component of hormone receptor positive or negative Abnormal liver enzymes - Metastatic Cancer - Imaging studies from 03/13 are now newly showing liver metastasis. Dedicated imaging will be ordered for baseline. - GI evaluation resonable and consideration of component of hepatorenal syndrome. Nephrology is following Dehydration - The patient's oral intake has been quite poor and of progressive manner over the past several weeks. Therefore she has become dehydrated. This is confirmed on clinical examination and by labs. She is feeling somewhat better already with IV hydration of generalized weakness persists. Continue hydration, and monitoring of electrolytes with supplementation and adjustment as needed Hyponatremia - More likely hypovolemic hyponatremia due to dehydration from poor oral intake. Given recent lung issues, element of SIADH is also possible. Labs for the same have been ordered. - Nephrology Following Malignant pericardial effusion: - Status post pericardial window, postop day 2. - Drainage in the chest tube overnight - ICU/Pulmonary/CTS Management PLan: - Status Post Pericardial window per Cardiothoracic surgery 03/14/19 - Chemo on hold at this time until recovers
[2019-03-16] MEDS: MIDODRINE 5 MG TAB PO SCH ×2 (12:39→17:09)
[2019-03-16 12:40] LABS: Glucose,Whole Blood 112 mg/dL (75-99)
--- NOTE | 2019-03-16 14:31 | P.PN ---
Subjective Progress Note Date: 03/16/19 Principal diagnosis: Malignant pericardial effusion with early On Echocardiogram, Anxiety, Depression, and Left-Sided Breast Cancer dagnosed in 2012 and treated with Chemotherapy and Radiationm, Large Right Supraclavicular Mass Positive for Metastatic Cancer. POD #2 subxiphoid pericardiostomy. The patient is sitting up to the bedside chair in the intensive care unit. She is in no acute distress. Denies any complaints of pain or shortness of breath. Her and son are at her bedside. She remains hemodynamically stable and has not no inotropic or pressor support. Subxiphoid chest tube remains in place and is to waterseal. No air leak is present and it is draining thin serosanguineous drainage with 110 mL output in the last 24 hours and 50 mL output in the last 8 hours. Oxygen saturations are 96% on 8 L high flow nasal cannula. She is achieving 750 mL on her incentive spirometry. Objective - Vital Signs Vital signs: Vital Signs Temp 97.8 F 03/16/19 12:00 Pulse 105 H 03/16/19 13:00 Resp 30 H 03/16/19 13:00 BP 92/67 03/16/19 13:00 Pulse Ox 96 03/16/19 13:00 Intake & Output 03/15/19 03/16/19 03/16/19 18:59 06:59 18:59 Intake Total 630 410 470 Output Total 2617 1210 1045 Balance -1986 -800 -575 Weight 75.1 kg Intake: IV 630 210 170 0.9 KVO 30 110 70 Ampicillin-Sulbactam 3 gm 100 100 100 In Sodium Chloride 0.9% 100 ml @ 200 mls/hr IVPB Q8HR [facility] Rx#:[id number] Sodium Chloride 0.9% 50 500 ml @ 0 mls/hr IV .STK-MED ONE with ceFAZolin 2,000 mg Rx#:[id number] Oral 200 300 Output: Chest Tube Drainage 132 50 40 Mediastinal 132 50 40 Urine 2485 1160 1005 Other: Voiding Method Indwelling Catheter Indwelling Catheter Indwelling Catheter ABP, PAP, CO, CI - Last Documented Arterial Blood Pressure 84/57 - Constitutional General appearance: Present: cooperative, no acute distress, obese - Respiratory Details: Lung sounds with few scattered crackles to her bilateral bases. Respirations are symmetrical and nonlabored. Oxygen saturation are 96% on 8 L high flow nasa l cannula. Achieving 750 mL on her incentive spirometry. Subxiphoid chest tube in place to water seal. Draining thin serosanguineous drainage. 110 mL output in the last 24 hours, 50 mL output in the last 8 hours. No air leak is present. - Cardiovascular Details: Regular rhythm and tachycardic rate. S1 and S2 present, negative for S3, gallop or murmur. Bedside telemetry showing sinus tachycardia heart rate 110. No edema present. - Gastrointestinal Gastrointestinal Comment(s): Abdomen is soft, nontender and nondistended. Hypoactive bowel sounds all 4 abdominal quadrants. No guarding or rigidity. No organomegaly. Tolerating oral intake. - Genitourinary Genitourinary Comment(s): Baca catheter for accurate I&O. Draining clear yellow urine. 660 mL output in the last 8 hours. - Integumentary Integumentary Comment(s): Skin is warm and dry. No clubbing or cyanosis is present. Right upper chest wall erythema/ulceration covered with ABDs pad. Subxiphoid incision clean dry and approximated. No drainage or redness present. Covered with a dry gauze. - Neurologic Neurologic: Present: CNII-XII intact - Musculoskeletal Musculoskeletal: Present: gait normal, generalized weakness, strength equal bilaterally - Psychiatric Psychiatric: Present: A&O x's 3, appropriate affect, intact judgment & insight - Allied health notes Allied health notes reviewed: nursing - Labs CBC & Chem 7: 03/16/19 04:13 03/16/19 04:13 Labs: Abnormal Lab Results - Last 24 Hours (Table) 03/15/19 03/15/19 03/15/19 Range/Units 15:32 17:05 20:16 WBC (3.8-10.6) k/uL RBC (3.80-5.40) m/uL MCV (80.0-100.0) fL MCH (25.0-35.0) pg RDW (11.5-15.5) % Plt Count (150-450) k/uL Lymphocytes # (Manual) (1.0-4.8) k/uL Macrocytosis Sodium 131 L (137-145) mmol/L BUN (7-17) mg/dL Glucose (74-99) mg/dL POC Glucose (mg/dL) 111 H 162 H (75-99) mg/dL Calcium (8.4-10.2) mg/dL 03/16/19 03/16/19 03/16/19 Range/Units 04:13 04:13 07:14 WBC 2.7 L (3.8-10.6) k/uL RBC 3.52 L (3.80-5.40) m/uL MCV 103.3 H (80.0-100.0) fL MCH 35.6 H (25.0-35.0) pg RDW 21.4 H (11.5-15.5) % Plt Count 141 L (150-450) k/uL Lymphocytes # (Manual) 0.16 L (1.0-4.8) k/uL Macrocytosis Marked A Sodium 129 L (137-145) mmol/L BUN 43 H (7-17) mg/dL Glucose 101 H (74-99) mg/dL POC Glucose (mg/dL) 143 H (75-99) mg/dL Calcium 8.3 L (8.4-10.2) mg/dL 03/16/19 Range/Units 12:37 WBC (3.8-10.6) k/uL RBC (3.80-5.40) m/uL MCV (80.0-100.0) fL MCH (25.0-35.0) pg RDW (11.5-15.5) % Plt Count (150-450) k/uL Lymphocytes # (Manual) (1.0-4.8) k/uL Macrocytosis Sodium (137-145) mmol/L BUN (7-17) mg/dL Glucose (74-99) mg/dL POC Glucose (mg/dL) 112 H (75-99) mg/dL Calcium (8.4-10.2) mg/dL Microbiology - Last 24 Hours (Table) 03/11/19 22:54 Blood Culture - Preliminary Blood No Growth after 96 hours 03/13/19 15:00 Gram Stain - Final Breast - Right Wound Culture - Final Proteus mirabilis - Imaging and Cardiology Chest x-ray: report reviewed, image reviewed Assessment and Plan Assessment: 1. Large malignant pericardial effusion status post subxiphoid pericardiostomy 2. Metastatic breast cancer 3. Wound to her right breast/upper chest wall 4. History of right pleural effusion status post right thoracentesis with 1.2 L of fluid were drained Plan: 1. Keep subxiphoid chest tube in place, place to water seal. 2. Encourage use of her incentive spirometry every hour while awake. 3. DVT and GI prophylaxis. 4. Bronchodilators per pulmonary management. 5. Medical and comorbidities management per primary care service. 6. Pericardial fluid cytology pending. 7. Discontinue Baca catheter. 8. Increase activity as tolerated. Physical and occupational therapy following. 9. More recommendations to follow based on patient's clinical course. Time with Patient: Greater than 30
--- NOTE | 2019-03-16 15:50 | P.PN ---
Subjective Progress Note Date: 03/16/19 This is a 69-year-old pleasant female patient of Dr. Glen Vázquez who presented to the emergency room complaining of generalized weakness. Patient states that over the last couple weeks she has not had any appetite she has not been able to eat or drink well. Patient states that she seen her primary care physician about a week ago and was told that the left looks fine at that time however since then she has not been able to eat or drink. Patient reported generalized malaise. She denied any fever, chills, nausea or vomiting at that time. Patient has past medical history significant of recurrent breast CA, initial diagnosis apparently 7 years ago. Patient has a necrotic breast lesion on the right chest wall that is progressively getting worse. Past medical history also includes anxiety and depression. Patient has never been a smoker. At this time patient is resting in bed in no acute distress. She is complaining of lack of appetite, weakness, malaise. Patient states over the last few weeks she's had episodes of vomiting and nausea. Patient denies any diarrhea or const ipation. Patient has been complaining of chest wall pain and difficulty breathing. On Wednesday of last week she had thoracentesis due to bilateral pleural effusion. 1.3 L of fluid was drained from the right lung. Patient states after the procedure was done she did have an easier time breathing. However it did not help her weakness or malaise. Patient states that next week she will be starting another chemotherapy since previous treatments have not been successful. Patient denies any fevers or chills. 03/13: Patient has a wound on her right breast which she states has been drinking for 5 days but now has a foul order. She denies being on any antibiotics recently. Consult for Dr. Wilcox has been ordered and will culture ordered. She has been seen by Dr. Zamora regarding breast cancer the plan is to start chemotherapy with Abraxane as an outpatient. Patient is noted to have increased liver enzymes and Dr. Zamora ordered CAT scan of the abdomen and pelvis which revealed interval development of bilateral pleural effusions, pericardial effusion, ascites. Metastatic disease to the liver. Consult has been admitted for cardiology regarding pericardial effusion. Chest x-ray from yesterday showed no significant interval change in the appearance of the chest. Repeat lab work reveals sodium 127, potassium 5.4, chloride 97, CO2 21, BUN 15 creatinine 0.91, blood sugar 130. Cortisol 67 Consult has been added for nephrology for hyponatremia possible SIADH. Patient does have some increased edema for which IV fluids will be decreased to 50 mL per hour. 03/14: Echocardiogram reveals EF of 60-65%, mild aortic valve sclerosis, mild pulmonary hypertension, large generalized pericardial effusion. Patient was transferred to the cardiac stepdown unit. She did have marginal blood pressure readings and pulse ox was 91% on 2 L increased to 3 L. Patient has been seen by oncology and MRI of the brain was ordered for today looking for brain metastases but patient is unable to lay flat for this and we will cancel it for now. Xanax ordered for anxiety. Discussed case with cardiology and cardiothoracic surgery consult has been added. Patient received 1 dose of IV albumin yesterday we will repeat for today. Chest x-ray ordered for today. Patient states that she has less edema in her legs but continues to have edema in her arms. She denies any diarrhea. She has not had a bowel movement since admission. Patient is having very little oral intake. She is followed by dietitian and I will be changed to a regular diet to make it more accommodating for her. Repeat lab work reveals sodium 127, potassium 5.8, chloride 96, CO2 19. Patient has been afebrile, heart rate in the low 100s up to 106, pulse ox 95% on 3 L. Blood pressure 96/58. 03/15: Patient underwent subxiphoid pericardiostomy yesterday evening with Dr. Hickman for malignant pericardial effusion with early tamponade with drainage of 500 ML's of bloody fluid and specimen was sent for cytology. Patient was s intubated and admitted into the intensive care unit. Patient was successfully extubated around 6 AM. Chest x-ray this morning reveals similar-appearing pleural effusions and associated bibasilar airspace disease likely atelectasis. Patient has been afebrile, heart rate 112, blood pressure 90/69, pulse ox 96% on high flow nasal cannula 8 L. Repeat lab work reveals white count 1.4, hemoglobin 12.6, platelet count 130, INR 1.2. Sodium remains at 127, BUN 15 creatinine 0.75. Liver function tests remain elevated with AST 39, ALT 72 and alkaline phosphatase 304. Patient was also seen yesterday by Dr. Eleazar and additional dose of Lasix ordered. Wound cultures showing gram-negative bacilli. Patient is complaining of severe chest pain for which she has morphine available but due to her blood pressure has not been given. We will add in tramadol and plain Tylenol for pain control. 03/16 patient is sitting up in the chair in the ICU. Denies any shortness of breath. Blood pressure 88/66 pulse rate 110 temp 97.8 saturating well heat liters high flow nasal cannula. Continues to drain serosanguineous drainage from the subxiphoid chest to with 50 mL since her last 8 hours. Cortisol on 03/13 was normal will repeat cortisol with ACTH. Midodrine initiated 10 mg 3 times a day for blood pressure. Wound culture positive for Proteus susceptible to Unasyn Review of Systems Constitutional: No fever, no chills, no night sweats. No weight change. Reports weakness and fatigue no lethargy. No daytime sleepiness. Reports chest wall pain EENT: No headache. No blurred vision or double vision, no loss of vision. No loss of Hearing, no ringing in the ears, no dizziness. No nasal drainage or congestion. No epistaxis. No sore throat. Lungs: Reports shortness of breath, no cough, no sputum production. No wheezing. Cardiovascular: reports chest pain,reports edema. No palpitations. No paroxysmal nocturnal dyspnea. No orthopnea. No lightheadedness or dizziness. No syncopal episodes. Abdominal: no abdominal discomfort. Reports nausea and vomiting. no diarrhea. No constipation. No bloody or tarry stools. Reports loss of appetite. Genitourinary: No dysuria, increased frequency, urgency. No urinary retention. Musculoskeletal: No myalgias. Reports muscle weakness, no gait dysfunction, no frequent falls. No back pain. No neck pain. Integumentary: Reports chest wall wound, drainage, No rash or pruritus. No unusual bruising. No change in hair or nails. Neurologic: No aphasia. No facial droop. No change in mentation. No head injury. No headache. No paralysis. No paresthesia. Psychiatric: No depression. No anxiety. No mood swings. Endocrine: No abnormal blood sugars. No weight change. No excessive sweating or thirst. Objective - Vital Signs Vital signs: Vital Signs Temp 97.8 F 03/16/19 12:00 Pulse 108 H 03/16/19 14:00 Resp 33 H 03/16/19 14:00 BP 86/75 03/16/19 14:00 Pulse Ox 97 03/16/19 14:00 Intake & Output 03/15/19 03/16/19 03/16/19 18:59 06:59 18:59 Intake Total 630 410 480 Output Total 261 1210 1195 Balance -1986 -800 -715 Weight 75.1 kg Intake: IV 630 210 180 0.9 KVO 30 110 80 Ampicillin-Sulbactam 3 gm 100 100 100 In Sodium Chloride 0.9% 100 ml @ 200 mls/hr IVPB Q8HR [facility] Rx#:[id number] Sodium Chloride 0.9% 50 500 ml @ 0 mls/hr IV .STK-MED ONE with ceFAZolin 2,000 mg Rx#:[id number] Oral 200 300 Output: Chest Tube Drainage 132 50 40 Mediastinal 132 50 40 Urine 2485 1160 1155 Other: Voiding Method Indwelling Catheter Indwelling Catheter Indwelling Catheter ABP, PAP, CO, CI - Last Documented Arterial Blood Pressure 84/57 - Exam General Appearance: Alert, cooperative, no distress, appears stated age. Son is at bedside. Neck HEENT: Supple, no lymphadenopathy, no thyroid enlargement, no carotid bruits. Lungs: Clear to auscultation without crackles or wheezes no rhonchi, no deformity. Chest Wall: no costochondral pain or discomfort. Heart: Regular rate and rhythm, S1, S2 normal, no murmur, rub or gallop. Back: Symmetric, no curvature, ROM normal, no CVA tenderness. Abdomen: Soft, non-tender, no rebound or rigidity, no hepatosplenomegaly. Extremities: Extremities normal, atraumatic, no cyanosis or edema. Pulses: 2+ and symmetric. Skin: Maceration to the right breast erythema and eschar noted Skin color, texture, tugor normal, Neurologic: Alert oriented x3 cranial nerves II through XII intact, no motor deficit, - Labs CBC & Chem 7: 03/16/19 04:13 03/16/19 04:13 Labs: Abnormal Lab Results - Last 24 Hours (Table) 03/15/19 03/15/19 03/15/19 Range/Units 15:32 17:05 20:16 WBC (3.8-10.6) k/uL RBC (3.80-5.40) m/uL MCV (80.0-100.0) fL MCH (25.0-35.0) pg RDW (11.5-15.5) % Plt Count (150-450) k/uL Lymphocytes # (Manual) (1.0-4.8) k/uL Macrocytosis Sodium 131 L (137-145) mmol/L BUN (7-17) mg/dL Glucose (74-99) mg/dL POC Glucose (mg/dL) 111 H 162 H (75-99) mg/dL Calcium (8.4-10.2) mg/dL 03/16/19 03/16/19 03/16/19 Range/Units 04:13 04:13 07:14 WBC 2.7 L (3.8-10.6) k/uL RBC 3.52 L (3.80-5.40) m/uL MCV 103.3 H (80.0-100.0) fL MCH 35.6 H (25.0-35.0) pg RDW 21.4 H (11.5-15.5) % Plt Count 141 L (150-450) k/uL Lymphocytes # (Manual) 0.16 L (1.0-4.8) k/uL Macrocytosis Marked A Sodium 129 L (137-145) mmol/L BUN 43 H (7-17) mg/dL Glucose 101 H (74-99) mg/dL POC Glucose (mg/dL) 143 H (75-99) mg/dL Calcium 8.3 L (8.4-10.2) mg/dL 03/16/19 Range/Units 12:37 WBC (3.8-10.6) k/uL RBC (3.80-5.40) m/uL MCV (80.0-100.0) fL MCH (25.0-35.0) pg RDW (11.5-15.5) % Plt Count (150-450) k/uL Lymphocytes # (Manual) (1.0-4.8) k/uL Macrocytosis Sodium (137-145) mmol/L BUN (7-17) mg/dL Glucose (74-99) mg/dL POC Glucose (mg/dL) 112 H (75-99) mg/dL Calcium (8.4-10.2) mg/dL Microbiology - Last 24 Hours (Table) 03/11/19 22:54 Blood Culture - Preliminary Blood No Growth after 96 hours 03/13/19 15:00 Gram Stain - Final Breast - Right Wound Culture - Final Proteus mirabilis Assessment and Plan Plan: 1. Hyponatremia secondary to dehydration possible SIADH not completely ruled out related to stage IV breast cancer. Consult with nephrology. IV fluids decreased to 20 mL per hour. Additional dose of IV Lasix ordered. 2. Failure to thrive with severe protein calorie malnutrition and weight loss. Remeron 15 mg at bedtime, ensure daily. Encourage oral intake. Diet changed to regular. Patient is followed by registered dietitian. 3. Malnutrition secondary to breast CA. As noted above nutrition consult. 4. Hyperkalemia. No EKG changes, Kayexalate 15 mg once. Continue to monitor. 5. Pleural effusion post thoracentesis on 03/08/19 1.3 L removed. Chest x-ray repeated today 6. Stage IV breast CA with pleural effusion. Consult oncology appreciated. MRI of the brain was ordered to rule out brain metastases but this was canceled due to patient unable to lay flat. 7. Right breast wound. Positive for Proteus Wound culture ordered, consult with Dr. Wilcox, continue Unasyn susceptible to Unasyn. Flagyl is used for l ocal wound care. 8. Pericardial effusion status post pericardial window by cardiothoracic surgery. Patient was transferred to intensive care unit. Cytology is pending. 9. DVT prophylaxis pneumatic compression sleeves 8. GI prophylaxis. Pepcid 20 mg daily 10. Hypotension likely secondary to decreased intravascular volume. Rule out critical illness adrenal insufficiency cortisol and ACTH ordered Midodrine initiated at 10 mg 3 times a day Discharge plan: possible home with homecare. Patient is appropriate for palliative care.
[2019-03-16 17:06] LABS: Glucose,Whole Blood 122 mg/dL (75-99)
[2019-03-16 17:30] LABS: Anion Gap 8 mmol/L; Blood Urea Nitrogen 36 mg/dL (7-17); Calcium 6.9 mg/dL (8.4-10.2); Carbon Dioxide 18 mmol/L (22-30); Chloride 107 mmol/L (98-107); Glucose 95 mg/dL (74-99); Potassium 3.8 mmol/L (3.5-5.1); Sodium 133 mmol/L (137-145)
[2019-03-16 22:05] LABS: Glucose,Whole Blood 132 mg/dL (75-99)
[2019-03-16] MEDS: MIRTAZAPINE 15 MG TAB PO SCH (22:14)
--- NOTE | 2019-03-16 23:13 | P.PN ---
Subjective Progress Note Date: 03/16/19 This is a 69-year-old female patient with past medical history of initial diagnosis of left sided breast cancer in 2011 and treated with IV chemotherapy and placed on observation. She developed metastatic disease in 2014 with a large right supraclavicular mass. She received radiation and vario us regimes. She developed a right chest wall lesion and repeat biopsy was done and is currently on Ibrance and Faslodex. She had progressive symptoms and the lesion on the right chest wall with superficial ulceration and drainage. She has a thoracentesis done for right-sided pleural effusion last week at [facility] and 1.2 L removed and pathology pending. Patient presented to the hospital complaining of weakness poor appetite and decreased oral intake not able to eat or drink very well and generalized malaise. She denied any fever, chills, nausea or vomiting at that time. Patient states over the last few weeks she's had episodes of vomiting and nausea. Patient denies any diarrhea or constipation. Patient has been complaining of chest wall pain and difficulty breathing. Patient states that she is to start chemotherapy on Wednesday. Regarding the wound on the right chest, she has not been on any antibiotics. Wound culture was obtained today. She has had drainage from the area but noted today but had a foul odor. She underwent a CAT scan of the abdomen and pelvis which revealed interval development of bilateral pleural effusions, pericardial effusion, ascites. Metastatic disease to the liver. Chest x-ray from yesterday showed no significant interval change in the appearance of the chest. Additional consults in place including oncology, cardiology for pericardial effusion, nephrology for hyponatremia. Patient has been started on Unasyn. 03/14/2019 Patient still feels poorly and has shortness of breath but nausea has improved. Still very fatigued. 03/15/2019 patient is status post pericardial window and is feeling somewhat better today. She still is quite weak. Was able to drink liquids without great difficulty. Appetite is poor. Denies nausea or emesis at this time. Pain is under good control. Mood is improved. 03/16/2019 patient continues to have some improvement after the pericardial window. Pain is improved. She is sitting up in a chair. Looks towards having her lunch. Is a 90 difficulties. Shortness of breath is improved. Objective - Vital Signs Vital signs: Vital Signs Temp 97.5 F L 03/16/19 20:00 Pulse 105 H 03/16/19 21:00 Resp 20 03/16/19 21:00 BP 105/73 03/16/19 21:00 Pulse Ox 87 L 03/16/19 21:00 Intake & Output 03/16/19 03/16/19 03/17/19 06:59 18:59 06:59 Intake Total 410 630 380 Output Total 1210 1480 Balance -800 -850 380 Weight 75.1 kg Intake: IV 210 330 20 0.9 KVO 110 130 20 Ampicillin-Sulbactam 3 gm 100 200 In Sodium Chloride 0.9% 100 ml @ 200 mls/hr IVPB Q8HR LILIAN Rx#:[id number] Oral 200 300 360 Output: Chest Tube Drainage 50 50 Mediastinal 50 50 Urine 1160 1430 Other: Voiding Method Indwelling Catheter Bedside Commode # Voids 0 ABP, PAP, CO, CI - Last Documented Arterial Blood Pressure 84/57 - Exam Gen: This is a 69-year-old female. She is resting in bed has shortness of breath at rest HEENT: Head is atraumatic, normocephalic. Pupils equal, round. Sclerae is anicteric. NECK: Supple. No JVD. No lymphadenopathy. No thyromegaly. LUNGS: Clear to auscultation. No wheezes or rhonchi. basilar crackles subxiphoid chest tube is in place with little tenderness HEART: Regular rate and rhythm. No murmur. Port to the right upper chest wall. Breast: Significant ulceration to the right breast anterior aspect with necrosis followed her has completely resolved ABDOMEN: Soft. Bowel sounds are present. No masses. No tenderness. EXTREMITIES: No pedal edema. No calf tenderness. NEUROLOGICAL: Patient is awake, alert and oriented x3. Cranial nerves 2 through 12 are grossly intact. - Labs CBC & Chem 7: 03/16/19 04:13 03/16/19 17:04 Labs: Abnormal Lab Results - Last 24 Hours (Table) 03/16/19 03/16/19 03/16/19 Range/Units 04:13 04:13 07:14 WBC 2.7 L (3.8-10.6) k/uL RBC 3.52 L (3.80-5.40) m/uL MCV 103.3 H (80.0-100.0) fL MCH 35.6 H (25.0-35.0) pg RDW 21.4 H (11.5-15.5) % Plt Count 141 L (150-450) k/uL Lymphocytes # (Manual) 0.16 L (1.0-4.8) k/uL Macrocytosis Marked A Sodium 129 L (137-145) mmol/L Carbon Dioxide (22-30) mmol/L BUN 43 H (7-17) mg/dL Creatinine (0.52-1.04) mg/dL Glucose 101 H (74-99) mg/dL POC Glucose (mg/dL) 143 H (75-99) mg/dL Calcium 8.3 L (8.4-10.2) mg/dL 03/16/19 03/16/19 03/16/19 Range/Units 12:37 17:04 17:06 WBC (3.8-10.6) k/uL RBC (3.80-5.40) m/uL MCV (80.0-100.0) fL MCH (25.0-35.0) pg RDW (11.5-15.5) % Plt Count (150-450) k/uL Lymphocytes # (Manual) (1.0-4.8) k/uL Macrocytosis Sodium 133 L (137-145) mmol/L Carbon Dioxide 18 L (22-30) mmol/L BUN 36 H (7-17) mg/dL Creatinine 0.50 L (0.52-1.04) mg/dL Glucose (74-99) mg/dL POC Glucose (mg/dL) 112 H 122 H (75-99) mg/dL Calcium 6.9 L (8.4-10.2) mg/dL 03/16/19 Range/Units 22:04 WBC (3.8-10.6) k/uL RBC (3.80-5.40) m/uL MCV (80.0-100.0) fL MCH (25.0-35.0) pg RDW (11.5-15.5) % Plt Count (150-450) k/uL Lymphocytes # (Manual) (1.0-4.8) k/uL Macrocytosis Sodium (137-145) mmol/L Carbon Dioxide (22-30) mmol/L BUN (7-17) mg/dL Creatinine (0.52-1.04) mg/dL Glucose (74-99) mg/dL POC Glucose (mg/dL) 132 H (75-99) mg/dL Calcium (8.4-10.2) mg/dL Microbiology - Last 24 Hours (Table) 03/11/19 22:54 Blood Culture - Preliminary Blood No Growth after 96 hours Laboratory Results WBC 2.7 k/uL (3.8-10.6) L 03/16/19 04:13 RBC 3.52 m/uL (3.80-5.40) L 03/16/19 04:13 Hgb 12.5 gm/dL (11.4-16.0) 03/16/19 04:13 Hct 36.4 % (34.0-46.0) 03/16/19 04:13 MCV 103.3 fL (80.0-100.0) H 03/16/19 04:13 MCH 35.6 pg (25.0-35.0) H 03/16/19 04:13 MCHC 34.4 g/dL (31.0-37.0) 03/16/19 04:13 RDW 21.4 % (11.5-15.5) H 03/16/19 04:13 Plt Count 141 k/uL (150-450) L 03/16/19 04:13 Neutrophils % 80 % 03/13/19 06:10 Neutrophils % (Manual) 57 % 03/16/19 04:13 Band Neutrophils % 3 % 03/16/19 04:13 Lymphocytes % 8 % 03/13/19 06:10 Lymphocytes % (Manual) 6 % 03/16/19 04:13 Monocytes % 8 % 03/13/19 06:10 Monocytes % (Manual) 34 % 03/16/19 04:13 Eosinophils % 1 % 03/13/19 06:10 Eosinophils % (Manual) 1 % 03/15/19 04:15 Basophils % 0 % 03/13/19 06:10 Neutrophils # 3.8 k/uL (1.3-7.7) 03/13/19 06:10 Neutrophils # (Manual) 1.60 k/uL (1.3-7.7) 03/16/19 04:13 Lymphocytes # 0.4 k/uL (1.0-4.8) L 03/13/19 06:10 Lymphocytes # (Manual) 0.16 k/uL (1.0-4.8) L 03/16/19 04:13 Monocytes # 0.4 k/uL (0-1.0) 03/13/19 06:10 Monocytes # (Manual) 0.92 k/uL (0-1.0) 03/16/19 04:13 Eosinophils # 0.1 k/uL (0-0.7) 03/13/19 06:10 Eosinophils # (Manual) 0.01 k/uL (0-0.7) 03/15/19 04:15 Basophils # 0.0 k/uL (0-0.2) 03/13/19 06:10 Nucleated RBCs 0 /100 WBC (0-0) 03/16/19 04:13 Manual Slide Review Performed 03/16/19 04:13 Polychromasia Present 03/16/19 04:13 Poikilocytosis (manual Present 03/15/19 04:15 Anisocytosis Moderate 03/16/19 04:13 Anisocytosis (manual) Present 03/16/19 04:13 Macrocytosis Marked A 03/16/19 04:13 PT 12.5 sec (9.0-12.0) H 03/15/19 04:15 INR 1.2 (<1.2) H 03/15/19 04:15 APTT 24.0 sec (22.0-30.0) 03/15/19 04:15 Sample Site [place] 03/15/19 05:07 ABG pH 7.47 (7.35-7.45) H 03/15/19 05:07 ABG pCO2 28 mmHg (35-45) L 03/15/19 05:07 ABG pO2 82 mmHg (83-108) L 03/15/19 05:07 ABG HCO3 21 mmol/L (21-25) 03/15/19 05:07 ABG Total CO2 22 mmol/L (19-24) 03/15/19 05:07 ABG O2 Saturation 96.7 % (94-97) 03/15/19 05:07 ABG Base Excess -3.0 mmol/L 03/15/19 05:07 Negro Test Yes 03/15/19 05:07 FiO2 50 % 03/15/19 05:07 Sodium 133 mmol/L (137-145) L 03/16/19 17:04 Potassium 3.8 mmol/L (3.5-5.1) 03/16/19 17:04 Chloride 107 mmol/L (98-107) 03/16/19 17:04 Carbon Dioxide 18 mmol/L (22-30) L 03/16/19 17:04 Anion Gap 8 mmol/L 03/16/19 17:04 BUN 36 mg/dL (7-17) H 03/16/19 17:04 Creatinine 0.50 mg/dL (0.52-1.04) L 03/16/19 17:04 Est GFR (CKD-EPI)AfAm >90 (>60 ml/min/1.73 sqM) 03/16/19 17:04 Est GFR (CKD-EPI)NonAf >90 (>60 ml/min/1.73 sqM) 03/16/19 17:04 Glucose 95 mg/dL (74-99) 03/16/19 17:04 POC Glucose (mg/dL) 132 mg/dL (75-99) H 03/16/19 22:04 POC Glu Paralegal Supervisor ID Erika Hurtado 03/16/19 22:04 Osmolality 285 mosm/kg (280-301) 03/12/19 10:00 Plasma Lactic Acid [place] 1.8 mmol/L (0.7-2.0) 03/11/19 22:54 Uric Acid 7.1 mg/dL (3.7-7.4) 03/15/19 04:15 Calcium 6.9 mg/dL (8.4-10.2) L 03/16/19 17:04 Phosphorus 3.0 mg/dL (2.5-4.5) 03/16/19 04:13 Magnesium 2.1 mg/dL (1.6-2.3) 03/16/19 04:13 Total Bilirubin 0.7 mg/dL (0.2-1.3) 03/15/19 04:15 Conjugated Bilirubin 0.0 mg/dL (0.0-0.3) 03/12/19 10:00 Unconjugated Bilirubin 0.2 mg/dL (0.0-1.1) 03/12/19 10:00 Delta Bilirubin 0.3 mg/dL (0.0-0.2) H 03/12/19 10:00 AST 39 U/L (14-36) H 03/15/19 04:15 ALT 72 U/L (9-52) H 03/15/19 04:15 Alkaline Phosphatase 304 U/L (38-126) H 03/15/19 04:15 Creatine Kinase 29 U/L (30-135) L 03/11/19 22:54 Troponin I <0.012 ng/mL (0.000-0.034) 03/11/19 22:54 Total Protein 5.1 g/dL (6.3-8.2) L 03/15/19 04:15 Albumin 2.9 g/dL (3.5-5.0) L 03/15/19 04:15 CA 15-3 Antigen 41.4 U/mL (0.0-32.3) H 03/13/19 06:10 TSH 2.770 mIU/L (0.465-4.680) 03/11/19 22:54 Cortisol 67 ug/dL 03/13/19 06:10 Urine Color Yellow 03/12/19 01:35 Urine Appearance Clear (Clear) 03/12/19 01:35 Urine pH 5.5 (5.0-8.0) 03/12/19 01:35 Ur Specific [place] 1.036 (1.001-1.035) H 03/12/19 01:35 Urine Protein 1+ (Negative) H 03/12/19 01:35 Urine Glucose (UA) Negative (Negative) 03/12/19 01:35 Urine Ketones Negative (Negative) 03/12/19 01:35 Urine Blood Negative (Negative) 03/12/19 01:35 Urine Nitrite Negative (Negative) 03/12/19 01:35 Urine Bilirubin Negative (Negative) 03/12/19 01:35 Urine Urobilinogen 2.0 mg/dL (<2.0) 03/12/19 01:35 Ur Leukocyte Esterase Small (Negative) H 03/12/19 01:35 Urine RBC 4 /hpf (0-5) 03/12/19 01:35 Urine WBC 11 /hpf (0-5) H 03/12/19 01:35 Ur Squamous Epith Cells 1 /hpf (0-4) 03/12/19 01:35 Urine Bacteria Occasional /hpf (None) H 03/12/19 01:35 Hyaline Casts 202 /lpf (0-2) H 03/12/19 01:35 Granular Casts 61 /lpf (0) 03/12/19 01:35 Urine Mucus Rare /hpf (None) H 03/12/19 01:35 Urine Osmolality 899 mosm/kg (50-1400) 03/12/19 11:20 Ur Random Creatinine 202.8 mg/dL 03/12/19 11:20 Ur Random Sodium <10 mmol/L 03/12/19 11:20 Microbiology 03/11/19 22:54 Blood Blood Culture - Preliminary No Growth after 96 hours 03/13/19 15:00 Breast - Right Gram Stain - Final 03/13/19 15:00 Breast - Right Wound Culture - Final Proteus mirabilis 03/12/19 01:35 Urine,Voided Urine Culture - Final Assessment and Plan (1) Breast cancer Narrative/Plan: 69-year-old female who has metastatic breast carcinoma with recent significant worsening of her status presents to Hospital feeling very poorly. She difficulty with her breast ulceration with increasing odor drainage and increasing fatigue and malaise. She's also developed some nausea with emesis and feels very poorly. It is noted developed some hyponatremia also. On the exam the patient has the extensive ulceration to the right breast that is necrotic and malodorous. There is some surrounding erythema. At this time Unasyn is an excellent choice for the cellulitis that has developed in the roselia-ulcer area on the breast from the carcinoma. Topical metronidazole that are the tablets that are crushed in sprinkled onto the ulcers is often helpful in reducing the strong odor. It appears at the patient is developed progression of her metastatic disease since her last set of scans and it's not clear at this point in time with the overall process will be. 03/14/2019 patient is had little improvement. However the topical metronidazole has helped the significant malodorous nature to the right breast. Patient over still short of breath. Echocardiogram shows evidence of a pericardial effusion. Will be seen by cardiovascular surgery and likely will have an emergent pericardial window. Continue as before by cultures are pending. 03/15/2019 patient is status post the pericardial window. She is having some improvement of her status. Blood pressure remains low urine output is adequate. She is not requiring vasopressor therapy. Wound culture does show evidence of the Proteus which is susceptible to Unasyn and constantly current antibiotic therapy continues. Topical metronidazole has been very helpful in reducing the putrid odor from the right breast ulceration. Patient does feel better because the improved odor. Await the cytology results and overall plan. 03/16/2019 patient has further improvement to be able to tolerate sitting up in the chair. He looks forward to ingesting some of her lunch. Is denying amounts of pain. Remains afebrile. Odor from the right breast ulceration from her breast cancer has responded very well to the topical metronidazole. Fortunately she's feeling somewhat better since the pericardial window and is less short of breath. Current Visit: Yes Status: Acute Code(s): C50.919 - MALIGNANT NEOPLASM OF UNSP SITE OF UNSPECIFIED FEMALE BREAST SNOMED Code(s): 581573535 (2) Pericardial effusion, acute Current Visit: Yes Status: Acute Code(s): I30.9 - ACUTE PERICARDITIS, UNSPECIFIED SNOMED Code(s): 76553660
[2019-03-17] MEDS: AMPICILLIN-SULBACTAM 3 GM in SODIUM CHLORIDE 0.9% 100 ML IVPB SCH ×3 (01:30→16:47)
[2019-03-17 05:53] LABS: Anisocytosis Moderate; HCT 41.7 % (34.0-46.0); HGB 13.1 gm/dL (11.4-16.0); MCH 33.6 pg (25.0-35.0); MCHC 31.4 g/dL (31.0-37.0); MCV 107.3 fL (80.0-100.0); Macrocytosis Marked; Mean Platelet Volume 6.8; Platelet Count 218 k/uL (150-450); RBC 3.88 m/uL (3.80-5.40); RDW 20.3 % (11.5-15.5); WBC 4.3 k/uL (3.8-10.6)
[2019-03-17 06:36] LABS: Anion Gap 8 mmol/L; Blood Urea Nitrogen 40 mg/dL (7-17); Calcium 8.4 mg/dL (8.4-10.2); Carbon Dioxide 23 mmol/L (22-30); Chloride 99 mmol/L (98-107); Glucose 111 mg/dL (74-99); Potassium 4.5 mmol/L (3.5-5.1); Sodium 130 mmol/L (137-145)
[2019-03-17 06:39] LABS: Band Neutrophils % 5 %; Eosinophils # (M) 0.04 k/uL (0-0.7); Lymphocytes # (M) 0.77 k/uL (1.0-4.8); Monocytes # (M) 0.56 k/uL (0-1.0); Neutrophils % (M) 63 %; Nucleated Red Blood Cells 0 /100 WBC (0-0); Total Cells Counted 100
[2019-03-17 06:40] LABS: Polychromasia Present
[2019-03-17 06:42] LABS: Poikilocytosis (M) Present
[2019-03-17 07:11] LABS: Glucose,Whole Blood 113 mg/dL (75-99)
[2019-03-17] MEDS: INSULIN ASPART (NovoLOG) 100 UNIT/ML VIAL SQ SCH ×4 (07:13→22:06)
--- NOTE | 2019-03-17 07:48 | XR ---
EXAMINATION TYPE: XR chest 1V portable DATE OF EXAM: 03/17/2019 COMPARISON: Prior chest x-ray 03/16/2019 HISTORY: Abnormal chest x-ray TECHNIQUE: Single frontal view of the chest is obtained. FINDINGS: Central venous catheter is stable. Bibasilar increased density persists. No evident pneumo thorax. There are overlying cardiac leads. Heart is obscured as on prior. Tubing is coiled over the u pper abdomen and is stable. IMPRESSION: No significant interval change. Bibasilar effusions and associated atelectasis, correlat e to exclude pneumonia. Follow-up recommended.
--- NOTE | 2019-03-17 07:50 | PN ---
PROGRESS NOTE DATE OF SERVICE: March 17, 2019 This is a 69-year-old female with history of metastatic and recurrent breast cancer. She has mets to the supraclavicular nodes and liver mets. The patient was initially seen for a pericardial effusion. She is postop day #3, status post pericardial window. The patient had postoperative ventilator management for her surgical procedure as noted above, and she was successfully extubated on March 15, 2019. The patient is doing reasonably well. She is on O2 at 5 L by nasal cannula. Denies being short of breath. Her IV is 0.9 at 10 mL an hour. She is postop day #3. She has a history of metastatic and recurrent breast cancer with liver mets and supraclavicular mets. She has a history of left breast cancer and treated with chemo radiation back in 2011. Other medical problems include a non-anion gap metabolic acidosis, hyponatremia, elevated liver enzymes, and bilateral pleural effusions with previous thoracentesis at [facility]. The patient does appear to be reaccumulating pleural effusions. I will ask for an ultrasound today to see if we cannot drain her. [facility], she may benefit from a PleurX catheter, but overall prognosis is poor. Currently, even through all this, she seems to be doing reasonably well today. Vital signs are reviewed. Temperature 97.8, heart rate 102, respiratory rate 12, blood pressure 100/74, mean 82 and 5 L saturations are in the low 90s. Appears in no acute distress. HEENT: Examination is grossly unremarkable. Nasal O2 was noted. NECK: Supple. Full range of motion. No adenopathy or thyromegaly. Neck veins are flat. CARDIOVASCULAR: Examination reveals regular rhythm and rate. She is mildly tachycardic. Lungs reveal diminished breath sounds at the bases. There is crackles at the bases. ABDOMEN: Soft. Bowel sounds are heard. EXTREMITIES: Are intact. No cyanosis, clubbing, or edema. SKIN: Without rash. NEUROLOGIC: Examination is brief but nonfocal. Labs are reviewed. White count 4.3, hemoglobin 13.1, hematocrit 41.7, platelet count 218,000. Sodium 130, potassium 4.5, chloride 99, CO2 is 23. BUN and creatinine were 40 and 0.52. Microbiologic study shows some wound positive cultures for Proteus mirabilis on the right breast. Urine and blood sampling is negative thus far. Chest x-ray shows bilateral effusions, worsening from yesterday. Medications are reviewed. They include Tylenol, Xanax, Unasyn, famotidine, NovoLog insulin, Flagyl, midodrine, Remeron, morphine, Narcan, Zofran and tramadol. ASSESSMENT: 1. Postoperative day #3, status post pericardial window for malignant pericardial effusion. The patient with recurrent metastatic breast cancer. 2. Routine postoperative ventilator management with successful extubation on March 15. 3. Metastatic recurrent breast cancer with metastasis to the liver and supraclavicular nodes. 4. History of left breast cancer in 2011, treated with chemoradiation. 5. Generalized weakness with anorexia and dehydration. 6. History of leukopenia. 7. Hyponatremia. 8. Non-anion gap metabolic acidosis. 9. Elevated liver enzymes related to liver metastasis. 10.Bilateral pleural effusions with a recent thoracentesis at [facility]. PLAN: We will do ultrasound of the bilateral posterior chest. The patient may benefit from thoracentesis. Her overall prognosis is poor. No additional recommendations are made. We will continue to follow. Currently, she is not short of breath, but she will become more short of breath with additional fluid accumulation. Ultimately, PleurX catheter may be needed. We will continue to follow. MMODL / IJN: [id number] /
[2019-03-17] MEDS: MIDODRINE 5 MG TAB PO SCH ×3 (07:55→17:16)
[2019-03-17] MEDS: FAMOTIDINE 20 MG TAB PO SCH (07:55)
[2019-03-17] MEDS: metroNIDAZOLE 500 MG TAB PO SCH ×4 (07:55→22:06)
[2019-03-17] MEDS: traMADol 50 MG TAB PO PRN ×3 (08:00→22:05)
--- NOTE | 2019-03-17 08:29 | PN ---
PROGRESS NOTE Mrs. Moss is a 69-year-old female with a history of recurrent breast cancer with metastasis, who presented with pericardial effusion underwent pericardiotomy and window placement with tube placement. She is feeling better. She continues to be dyspneic. She denies any chest pain. No dizziness. She is weak. She denies any nausea. She is in sinus mechanism. She is on Pepcid 20 mg daily, midodrine 10 mg 3 times a day, Remeron. PHYSICAL EXAMINATION: Blood pressure running in the high 90s low 100s with the heart rate in the low 100. LUNGS: With severe decreased breath sound in both bases. HEART: Regular rate and rhythm. S1, S2. No S3. No rub appreciated. ABDOMEN: Soft and nontender. Positive bowel sounds. EXTREMITIES: No significant edema. LAB DATA: Lab data revealed BUN and creatinine 40 and 0.52, potassium 4.5, sodium 130. Hemoglobin of 13.1. Chest x-ray is consistent with bilateral effusion. IMPRESSION: 1. Breast cancer with metastasis with pleural and pericardial effusion malignant. 2. Hyponatremia. RECOMMENDATION: At this time, we will continue supportive care from the cardiac standpoint, she may require repeat thoracentesis because of the recurrent pericardial effusion. We will await the results of her cytology. Unfortunately the prognosis remains quite poor. MMODL / IJN: [id number] /
--- NOTE | 2019-03-17 09:10 | US ---
EXAMINATION TYPE: US chest DATE OF EXAM: 03/17/2019 COMPARISON: Chest x-ray 03/17/2019 CLINICAL HISTORY: with markings please. Pleural effusion TECHNIQUE: Targeted ultrasound of the posterior lower bilateral hemithoraces EXAM MEASUREMENTS: Right Pleural Effusion pocket size: 9.0 cm Right skin surface to fluid distance: 2.4 cm Left Pleural Effusion pocket size: 9.9 cm Left skin surface to fluid distance: 2.0 cm Right side marked for possible thoracentesis outside the dept. Left side marked for possible thoracentesis outside the dept. Pulmonologists are able to review the images in the patient?s EMR. IMPRESSIONS: Bilateral pleural effusions.
--- NOTE | 2019-03-17 11:42 | PCN ---
PROCEDURE NOTE PROCEDURE: Right thoracentesis. Indication Pleural effusion. A time-out was completed verifying correct patient, procedure, site, positioning , and implant (s) or special equipment if applicable. Ultrasound guidance was used and appropriate fluid pocket was identified and marked. Patient was positioned, prepped and draped in usual sterile fashion. Lidocaine was used to anesthetize the area. A Thoracentesis catheter was introduced into the pleural space and fluid was removed. Blood loss was none. A chest x-ray was ordered to evaluate for pneumothorax. Total Fluid Removed 1450 mL Color of Fluid bloody Fluid was not sent for appropriate laboratory tests. Patient tolerated the procedure well and there were no complications. The right posterior chest was marked by ultrasound. There was no immediate complications. The patient will get a chest x-ray to rule out pneumothorax. The patient tolerated the procedure well. The fluid will not be saved as she has had previous thoracentesis done at [facility] that came back positive showing adenocarcinoma breast primary. Hence, the fluid will be discarded. Additional recommendations and suggestions are forthcoming. Again the patient tolerated the procedure well without any major complications. MMODL / IJN: [id number] / CRISTINA
[2019-03-17 11:46] LABS: Glucose,Whole Blood 134 mg/dL (75-99)
--- NOTE | 2019-03-17 12:10 | XR ---
EXAMINATION TYPE: XR chest 1V portable DATE OF EXAM: 03/17/2019 COMPARISON: Prior chest x-ray same dated earlier time HISTORY: Status post right thoracentesis TECHNIQUE: Single frontal view of the chest is obtained. FINDINGS: There is some interval improvement in aeration on the right. No evident pneumothorax. IMPRESSION: No evident complication status post right thoracentesis.
--- NOTE | 2019-03-17 12:25 | P.PN ---
Subjective Progress Note Date: 03/17/19 Principal diagnosis: Malignant pericardial effusion with early On Echocardiogram, Anxiety, Depression, and Left-Sided Breast Cancer dagnosed in 2011 and treated with Chemotherapy and Radiationm, Large Right Supraclavicular Mass Positive for Metastatic Cancer. POD #3 subxiphoid pericardiostomy. The patient is sitting up to the bedside chair in the intensive care unit. She is in no acute distress. Denies any complaints of pain or shortness of breath. Her son is at her bedside, questions answered to the best my ability. She remains hemodynamically stable and has not no inotropic or pressor support. Subxiphoid chest tube remains in place and is to waterseal. No air leak is present and it is draining thin serosanguineous drainage with 90 mL output in the last 24 hours. Oxygen saturations are 93% on 5 L high flow nasal cannula. She is achieving 750 mL on her incentive spirometry. Pericardial fluid cytology results have been received and are positive for metastatic adenocarcinoma consistent with primary breast origin. These results have been discussed with the patient and her family present at her bedside. Objective - Vital Signs Vital signs: Vital Signs Temp 97.8 F 03/17/19 08:00 Pulse 113 H 03/17/19 09:00 Resp 16 03/17/19 09:00 BP 95/68 03/17/19 09:00 Pulse Ox 90 L 03/17/19 09:00 Intake & Output 03/16/19 03/17/19 03/17/19 18:59 06:59 18:59 Intake Total 630 590 380 Output Total 1480 475 90 Balance -850 115 290 Weight 75.5 kg Intake: IV 330 110 130 0.9 KVO 130 110 30 Ampicillin-Sulbactam 3 gm 200 100 In Sodium Chloride 0.9% 100 ml @ 200 mls/hr IVPB Q8HR [facility] Rx#:[id number] Oral 300 480 250 Output: Chest Tube Drainage 50 90 Mediastinal 50 90 Urine 1430 475 Other: Voiding Method Bedside Commode Bedside Commode Bedside Commode # Voids 1 ABP, PAP, CO, CI - Last Documented Arterial Blood Pressure 84/57 - Constitutional General appearance: Present: cooperative, no acute distress, obese - Respiratory Details: Lungs sounds diminished to her bilateral bases, right greater than left. Re spirations are symmetrical and nonlabored. Oxygen saturation are 93% on 5 L nasal cannula. Achieving 750 mL on her incentive spirometry. Subxiphoid chest tube in place to waterseal. No air leak is present. Draining thin serosanguineous drainage. 90 mL output in the last 24 hours. - Cardiovascular Details: Regular rhythm and tachycardic rate. S1 and S2 present, negative for S3, gallop or murmur. Bedside telemetry showing sinus tachycardia heart rate 112. Generalized +1 edema. Knee-high TRAM hose and sequential compression devices in place from her bilateral lower extremities. - Gastrointestinal Gastrointestinal Comment(s): Abdomen soft, nontender and nondistended. Active bowel sounds all 4 abdominal quadrants. No guarding or rigidity. No organomegaly. - Genitourinary Genitourinary Comment(s): Voiding clear yellow urine. - Integumentary Integumentary Comment(s): Skin is warm and dry. No clubbing or cyanosis is present. Right upper chest wall erythema/ulceration covered with ABDs pad. Subxiphoid incision clean dry and approximated. No drainage or redness present. Covered with a dry gauze - Neurologic Neurologic: Present: CNII-XII intact - Musculoskeletal Musculoskeletal: Present: gait normal, generalized weakness, strength equal bilaterally - Psychiatric Psychiatric: Present: A&O x's 3, appropriate affect, intact judgment & insight - Allied health notes Allied health notes reviewed: nursing - Labs CBC & Chem 7: 03/17/19 05:33 03/17/19 05:33 Labs: Abnormal Lab Results - Last 24 Hours (Table) 03/16/19 03/16/19 03/16/19 Range/Units 12:37 17:04 17:06 MCV (80.0-100.0) fL RDW (11.5-15.5) % Lymphocytes # (Manual) (1.0-4.8) k/uL Macrocytosis Sodium 133 L (137-145) mmol/L Carbon Dioxide 18 L (22-30) mmol/L BUN 36 H (7-17) mg/dL Creatinine 0.50 L (0.52-1.04) mg/dL Glucose (74-99) mg/dL POC Glucose (mg/dL) 112 H 122 H (75-99) mg/dL Calcium 6.9 L (8.4-10.2) mg/dL 03/16/19 03/17/19 03/17/19 Range/Units 22:04 05:33 05:33 MCV 107.3 H (80.0-100.0) fL RDW 20.3 H (11.5-15.5) % Lymphocytes # (Manual) 0.77 L (1.0-4.8) k/uL Macrocytosis Marked A Sodium 130 L (137-145) mmol/L Carbon Dioxide (22-30) mmol/L BUN 40 H (7-17) mg/dL Creatinine (0.52-1.04) mg/dL Glucose 111 H (74-99) mg/dL POC Glucose (mg/dL) 132 H (75-99) mg/dL Calcium (8.4-10.2) mg/dL 03/17/19 03/17/19 Range/Units 07:09 11:44 MCV (80.0-100.0) fL RDW (11.5-15.5) % Lymphocytes # (Manual) (1.0-4.8) k/uL Macrocytosis Sodium (137-145) mmol/L Carbon Dioxide (22-30) mmol/L BUN (7-17) mg/dL Creatinine (0.52-1.04) mg/dL Glucose (74-99) mg/dL POC Glucose (mg/dL) 113 H 134 H (75-99) mg/dL Calcium (8.4-10.2) mg/dL Microbiology - Last 24 Hours (Table) 03/11/19 22:54 Blood Culture - Preliminary Blood No Growth after 120 hours - Imaging and Cardiology Chest x-ray: report reviewed, image reviewed Assessment and Plan Assessment: 1. Large malignant pericardial effusion status post subxiphoid pericardiostomy 2. Metastatic breast cancer 3. Wound to her right breast/upper chest wall 4. History of right pleural effusion status post right thoracentesis Plan: 1. Keep subxiphoid chest tube in place, place to water seal anticipate chest tube will be discontinued tomorrow 03/18/2019. 2. Encourage use of her incentive spirometry every hour while awake. 3. DVT and GI prophylaxis. 4. Bronchodilators per pulmonary management. 5. Medical and comorbidities management per primary care service. 6. Pericardial fluid cytology shows a positive result for metastatic adenocarcinoma consistent with primary breast origin. These results have been discussed with the patient and her family by Dr. Fouad Azoury. 7. Increase activity as tolerated. Physical and occupational therapy following. 8. Right thoracentesis to be completed by pulmonary medicine today. 9. More recommendations to follow based on patient's clinical course. Time with Patient: Greater than 30
--- NOTE | 2019-03-17 12:26 | P.PN ---
Subjective Progress Note Date: 03/17/19 Principal diagnosis: Metastatic breast Cancer Status Post right Thoracentesis this am 1450 off. Still having increased effort although improved since fluid off. Her overall edema has also improved. She was up in chair and at bedside. We discussed the positive pathology from pericardial effusion, which will not change the recommendation of systemic treatment once recovers from hospitalization Objective - Vital Signs Vital signs: Vital Signs Temp 97.8 F 03/17/19 08:00 Pulse 113 H 03/17/19 09:00 Resp 16 03/17/19 09:00 BP 95/68 03/17/19 09:00 Pulse Ox 90 L 03/17/19 09:00 Intake & Output 03/16/19 03/17/19 03/17/19 18:59 06:59 18:59 Intake Total 630 590 380 Output Total 1480 475 90 Balance -850 115 290 Weight 75.5 kg Intake: IV 330 110 130 0.9 KVO 130 110 30 Ampicillin-Sulbactam 3 gm 200 100 In Sodium Chloride 0.9% 100 ml @ 200 mls/hr IVPB Q8HR [facility] Rx#:[id number] Oral 300 480 250 Output: Chest Tube Drainage 50 90 Mediastinal 50 90 Urine 1430 475 Other: Voiding Method Bedside Commode Bedside Commode Bedside Commode # Voids 1 ABP, PAP, CO, CI - Last Documented Arterial Blood Pressure 84/57 - Exam - Constitutional General appearance: no acute distress appears chronically ill and weak - EENT Eyes: EOMI, PERRLA ENT: hearing grossly normal, normal oropharynx - Neck Neck: lymphadenopathy (left SC 2-3 hard , confluent , largest 1-1.5 cm) Thyroid: bilateral: normal size - Respiratory Respiratory: right: diminished (lower 1/3) Drainage tube - Cardiovascular Rhythm: regular Heart sounds: normal: S1, S2 - Gastrointestinal General gastrointestinal:abdominal distention - Integumentary Masslike lesion right chest wall, slightly raised, with metastatic, indurated, with scattered superficial ulceration - Neurologic Neurologic: CNII-XII intact - Musculoskeletal Musculoskeletal: generalized weakness, bilateral lower and upper extremity edema - Psychiatric Psychiatric: Awake and calm - Labs CBC & Chem 7: 03/17/19 05:33 03/17/19 05:33 Labs: Abnormal Lab Results - Last 24 Hours (Table) 03/16/19 03/16/19 03/16/19 Range/Units 12:37 17:04 17:06 MCV (80.0-100.0) fL RDW (11.5-15.5) % Lymphocytes # (Manual) (1.0-4.8) k/uL Macrocytosis Sodium 133 L (137-145) mmol/L Carbon Dioxide 18 L (22-30) mmol/L BUN 36 H (7-17) mg/dL Creatinine 0.50 L (0.52-1.04) mg/dL Glucose (74-99) mg/dL POC Glucose (mg/dL) 112 H 122 H (75-99) mg/dL Calcium 6.9 L (8.4-10.2) mg/dL 03/16/19 03/17/19 03/17/19 Range/Units 22:04 05:33 05:33 MCV 107.3 H (80.0-100.0) fL RDW 20.3 H (11.5-15.5) % Lymphocytes # (Manual) 0.77 L (1.0-4.8) k/uL Macrocytosis Marked A Sodium 130 L (137-145) mmol/L Carbon Dioxide (22-30) mmol/L BUN 40 H (7-17) mg/dL Creatinine (0.52-1.04) mg/dL Glucose 111 H (74-99) mg/dL POC Glucose (mg/dL) 132 H (75-99) mg/dL Calcium (8.4-10.2) mg/dL 03/17/19 03/17/19 Range/Units 07:09 11:44 MCV (80.0-100.0) fL RDW (11.5-15.5) % Lymphocytes # (Manual) (1.0-4.8) k/uL Macrocytosis Sodium (137-145) mmol/L Carbon Dioxide (22-30) mmol/L BUN (7-17) mg/dL Creatinine (0.52-1.04) mg/dL Glucose (74-99) mg/dL POC Glucose (mg/dL) 113 H 134 H (75-99) mg/dL Calcium (8.4-10.2) mg/dL Microbiology - Last 24 Hours (Table) 03/11/19 22:54 Blood Culture - Preliminary Blood No Growth after 120 hours Assessment and Plan Plan: 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 - Right chest wall lesion on biopsy with a hormone positive component (possible secondary primary) - With continued progression and persistent siadh, as well as nausea and dehydration an MRI of the brain has been ordered for full restaging Recurrent Pleural Effusions: - Status Post Thoracentesis - Will obtain the path from recent fluid studies to assess for component of ho rmone receptor positive or negative - Status POst Right Thoracentesis today 03/17 1450 cc off Abnormal liver enzymes - Metastatic Cancer - Imaging studies from 03/13 are now newly showing liver metastasis. Dedicated imaging will be ordered for baseline. - GI evaluation resonable and consideration of component of hepatorenal syndrome. Nephrology is following Dehydration - The patient's oral intake has been quite poor and of progressive manner over the past several weeks. Therefore she has become dehydrated. This is confirmed on clinical examination and by labs. She is feeling somewhat better already with IV hydration of generalized weakness persists. Continue hydration, and monitoring of electrolytes with supplementation and adjustment as needed Hyponatremia - More likely hypovolemic hyponatremia due to dehydration from poor oral intake. Given recent lung issues, element of SIADH is also possible. Labs for the same have been ordered. - Nephrology Following Malignant pericardial effusion: - Status post pericardial window, postop day 2. - Drainage in the chest tube overnight - ICU/Pulmonary/CTS Management PLan: - Status Post Pericardial window per Cardiothoracic surgery 03/14/19 - Pericardial FLuid Results discussed with patient, treatment plan same - Chemo on hold at this time until recovers - PRN Thoracentesis - ICU Care Physician Attest: I have completed the fulll history and physical and devloped the full impression and plan, dictated as a scribe
--- NOTE | 2019-03-17 12:34 | P.PN ---
Subjective Patient is seen in follow-up for hyponatremia. Sodium level today is 130. Oral intake is fair. She is now on a regular diet. Denies chest pain. GFR at baseline. Currently sitting up in chair. She underwent thoracentesis this morning with 1.45 L removed. Vital signs are stable. Blood pressure on the lower side. General: The patient appeared well nourished and normally developed. HEENT: Head exam is unremarkable. Neck is without jugular venous distension. LUNGS: Breath sounds decreased. HEART: Rate and Rhythm are regular. First and second heart sounds normal. No murmurs, rubs or gallops. ABDOMEN: Abdominal exam reveals normal bowel sounds. Non-tender. EXTREMITITES: 1+ edema. Objective - Vital Signs Vital signs: Vital Signs Temp 97.8 F 03/17/19 08:00 Pulse 113 H 03/17/19 09:00 Resp 16 03/17/19 09:00 BP 95/68 03/17/19 09:00 Pulse Ox 90 L 03/17/19 09:00 Intake & Output 03/16/19 03/17/19 03/17/19 18:59 06:59 18:59 Intake Total 630 590 380 Output Total 1480 475 90 Balance -850 115 290 Weight 75.5 kg Intake: IV 330 110 130 0.9 KVO 130 110 30 Ampicillin-Sulbactam 3 gm 200 100 In Sodium Chloride 0.9% 100 ml @ 200 mls/hr IVPB Q8HR [facility] Rx#:[id number] Oral 300 480 250 Output: Chest Tube Drainage 50 90 Mediastinal 50 90 Urine 1430 475 Other: Voiding Method Bedside Commode Bedside Commode Bedside Commode # Voids 1 ABP, PAP, CO, CI - Last Documented Arterial Blood Pressure 84/57 - Labs CBC & Chem 7: 03/17/19 05:33 03/17/19 05:33 Labs: Abnormal Lab Results - Last 24 Hours (Table) 03/16/19 03/16/19 03/16/19 Range/Units 12:37 17:04 17:06 MCV (80.0-100.0) fL RDW (11.5-15.5) % Lymphocytes # (Manual) (1.0-4.8) k/uL Macrocytosis Sodium 133 L (137-145) mmol/L Carbon Dioxide 18 L (22-30) mmol/L BUN 36 H (7-17) mg/dL Creatinine 0.50 L (0.52-1.04) mg/dL Glucose (74-99) mg/dL POC Glucose (mg/dL) 112 H 122 H (75-99) mg/dL Calcium 6.9 L (8.4-10.2) mg/dL 03/16/19 03/17/19 03/17/19 Range/Units 22:04 05:33 05:33 MCV 107.3 H (80.0-100.0) fL RDW 20.3 H (11.5-15.5) % Lymphocytes # (Manual) 0.77 L (1.0-4.8) k/uL Macrocytosis Marked A Sodium 130 L (137-145) mmol/L Carbon Dioxide (22-30) mmol/L BUN 40 H (7-17) mg/dL Creatinine (0.52-1.04) mg/dL Glucose 111 H (74-99) mg/dL POC Glucose (mg/dL) 132 H (75-99) mg/dL Calcium (8.4-10.2) mg/dL 03/17/19 03/17/19 Range/Units 07:09 11:44 MCV (80.0-100.0) fL RDW (11.5-15.5) % Lymphocytes # (Manual) (1.0-4.8) k/uL Macrocytosis Sodium (137-145) mmol/L Carbon Dioxide (22-30) mmol/L BUN (7-17) mg/dL Creatinine (0.52-1.04) mg/dL Glucose (74-99) mg/dL POC Glucose (mg/dL) 113 H 134 H (75-99) mg/dL Calcium (8.4-10.2) mg/dL Microbiology - Last 24 Hours (Table) 03/11/19 22:54 Blood Culture - Preliminary Blood No Growth after 120 hours Assessment and Plan Plan: Assessment: 1. Hyponatremia. Patient is hypervolemic. 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 Sodium level 130 this morning. Urine sodium noted to be less than 10. Urine osmolality 899. TSH, uric acid and cortisol level normal. 2. 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 3. Metastatic breast cancer. 4. Breast wound culture positive for Proteus maintained on antibiotics. 5. Volume overload. 6. Pleural effusion status post right-sided thoracentesis this morning is 1.45 liters drained. Plan: Add Lasix 40 mg IV twice daily. Maintain free water restriction. Ejection fraction preserved on recent echo.
--- NOTE | 2019-03-17 13:03 | P.PN ---
Subjective This is a 69-year-old pleasant female patient of Dr. Glen Vázquez who presented to the emergency room complaining of generalized weakness. Patient states that over the last couple weeks she has not had any appetite she has not been able to eat or drink well. Patient states that she seen her primary care physician about a week ago and was told that the left looks fine at that time however since then she has not been able to eat or drink. Patient reported generalized malaise. She denied any fever, chills, nausea or vomiting at that time. Patient has past medical history significant of recurrent breast CA, initial diagnosis apparently 7 years ago. Patient has a necrotic breast lesion on the right chest wall that is progressively getting worse. Past medical history also includes anxiety and depression. Patient has never been a smoker. At this time patient is resting in bed in no acute distress. She is complaining of lack of appetite, weakness, malaise. Patient states over the last few weeks she's had episodes of vomiting and nausea. Patient denies any diarrhea or constipation. Patient has been complaining of chest wall pain and difficulty breathing. On Wednesday of last week she had thoracentesis due to bilateral pleural effusion. 1.3 L of fluid was drained from the right lung. Patient states after the procedure was done she did have an easier time breathing. However it did not help her weakness or malaise. Patient states that next week she will be starting another chemotherapy since previous treatments have not been successful. Patient denies any fevers or chills. 03/13: Patient has a wound on her right breast which she states has been drinking for 5 days but now has a foul order. She denies being on any antibiotics recently. Consult for Dr. Wilcox has been ordered and will culture ordered. She has been seen by Dr. Zamora regarding breast cancer the plan is to start chemotherapy with Abraxane as an outpatient. Patient is noted to have increased liver enzymes and Dr. Zamora ordered CAT scan of the abdomen and pelvis which revealed interval development of bilateral pleural effusions, pericardial effusion, ascites. Metastatic disease to the liver. Consult has been admitted for cardiology regarding pericardial effusion. Chest x-ray from yesterday showed no significant interval change in the appearance of the chest. Repeat lab work reveals sodium 127, potassium 5.4, chloride 97, CO2 21, BUN 15 creatinine 0.91, blood sugar 130. Cortisol 67 Consult has been added for nephrology for hyponatremia possible SIADH. Patient does have some increased edema for which IV fluids will be decreased to 50 mL per hour. 03/14: Echocardiogram reveals EF of 60-65%, mild aortic valve sclerosis, mild pulmonary hypertension, large generalized pericardial effusion. Patient was transferred to the cardiac stepdown unit. She did have marginal blood pressure readings and pulse ox was 91% on 2 L increased to 3 L. Patient has been seen by oncology and MRI of the brain was ordered for today looking for brain metastases but patient is unable to lay flat for this and we will cancel it for now. Xanax ordered for anxiety. Discussed case with cardiology and cardiothoracic surgery consult has been added. Patient received 1 dose of IV albumin yesterday we will repeat for today. Chest x-ray ordered for today. Patient states that she has less edema in her legs but continues to have edema in her arms. She denies any diarrhea. She has not had a bowel movement since admission. Patient is having very little oral intake. She is followed by dietitian and I will be changed to a regular diet to make it more accommodating for her. Repeat lab work reveals sodium 127, potassium 5.8, chloride 96, CO2 19. Patient has been afebrile, heart rate in the low 100s up to 106, pulse ox 95% on 3 L. Blood pressure 96/58. 03/15: Patient underwent subxiphoid pericardiostomy yesterday evening with Dr. Hickman for malignant pericardial effusion with early tamponade with drainage of 500 ML's of bloody fluid and specimen was sent for cytology. Patient was s intubated and admitted into the intensive care unit. Patient was successfully extubated around 6 AM. Chest x-ray this morning reveals similar-appearing pleural effusions and associated bibasilar airspace disease likely atelectasis. Patient has been afebrile, heart rate 112, blood pressure 90/69, pulse ox 96% on high flow nasal cannula 8 L. Repeat lab work reveals white count 1.4, hemoglobin 12.6, platelet count 130, INR 1.2. Sodium remains at 127, BUN 15 creatinine 0.75. Liver function tests remain elevated with AST 39, ALT 72 and alkaline phosphatase 304. Patient was also seen yesterday by Dr. Bush and additional dose of Lasix ordered. Wound cultures showing gram-negative bacilli. Patient is complaining of severe chest pain for which she has morphine available but due to her blood pressure has not been given. We will add in tramadol and plain Tylenol for pain control. 03/16 patient is sitting up in the chair in the ICU. Denies any shortness of breath. Blood pressure 88/66 pulse rate 110 temp 97.8 saturating well heat liters high flow nasal cannula. Continues to drain serosanguineous drainage from the subxiphoid chest to with 50 mL since her last 8 hours. Cortisol on 03/13 was normal will repeat cortisol with ACTH. Midodrine initiated 10 mg 3 times a day for blood pressure. Wound culture positive for Proteus susceptible to Unasyn 03/17 patient is sitting up in chair in the ICU. She is feeling better than yesterday had 90 mL output from the pericardial tube. Patient did get thoracentesis this morning from her right chest . Currently saturating 97% on 5 L of high flow blood pressure 95/68 tachycardic to 113. Patient initiated on midodrine 10 mg 3 times a day cortisol 37 normal. Plan for thoracentesis on the left. Pathology from pericardial fluid positive for metastatic adenocarcinoma primary breast lesion ER negative. Review of Systems Constitutional: No fever, no chills, no night sweats. No weight change. Reports weakness and fatigue no lethargy. No daytime sleepiness. Reports chest wall pain EENT: No headache. No blurred vision or double vision, no loss of vision. No loss of Hearing, no ringing in the ears, no dizziness. No nasal drainage or co ngestion. No epistaxis. No sore throat. Lungs: Reports shortness of breath, no cough, no sputum production. No wheezing. Cardiovascular: reports chest pain,reports edema. No palpitations. No paro xysmal nocturnal dyspnea. No orthopnea. No lightheadedness or dizziness. No syncopal episodes. Abdominal: no abdominal discomfort. Reports nausea and vomiting. no diarrhea. No constipation. No bloody or tarry stools. Reports loss of appetite. Genitourinary: No dysuria, increased frequency, urgency. No urinary retention. Musculoskeletal: No myalgias. Reports muscle weakness, no gait dysfunction, no frequent falls. No back pain. No neck pain. Integumentary: Reports chest wall wound, drainage, No rash or pruritus. No unusual bruising. No change in hair or nails. Neurologic: No aphasia. No facial droop. No change in mentation. No head injury. No headache. No paralysis. No paresthesia. Psychiatric: No depression. No anxiety. No mood swings. Endocrine: No abnormal blood sugars. No weight change. No excessive sweating or thirst. Objective - Vital Signs Vital signs: Vital Signs Temp 97.8 F 03/17/19 08:00 Pulse 113 H 03/17/19 09:00 Resp 16 03/17/19 09:00 BP 95/68 03/17/19 09:00 Pulse Ox 90 L 03/17/19 09:00 Intake & Output 03/16/19 03/17/19 03/17/19 18:59 06:59 18:59 Intake Total 630 590 380 Output Total 1480 475 90 Balance -850 115 290 Weight 75.5 kg Intake: IV 330 110 130 0.9 KVO 130 110 30 Ampicillin-Sulbactam 3 gm 200 100 In Sodium Chloride 0.9% 100 ml @ 200 mls/hr IVPB Q8HR [facility] Rx#:[id number] Oral 300 480 250 Output: Chest Tube Drainage 50 90 Mediastinal 50 90 Urine 1430 475 Other: Voiding Method Bedside Commode Bedside Commode Bedside Commode # Voids 1 ABP, PAP, CO, CI - Last Documented Arterial Blood Pressure 84/57 - Exam General Appearance: Alert, cooperative, no distress, appears stated age. Son is at bedside. Neck HEENT: Supple, no lymphadenopathy, no thyroid enlargement, no carotid bruits. Lungs: Clear to auscultation without crackles or wheezes no rhonchi, no deformity. Chest Wall: no costochondral pain or discomfort. Heart: Regular rate and rhythm, S1, S2 normal, no murmur, rub or gallop. Back: Symmetric, no curvature, ROM normal, no CVA tenderness. Abdomen: Soft, non-tender, no rebound or rigidity, no hepatosplenomegaly. Extremities: Extremities normal, atraumatic, no cyanosis or edema. Pulses: 2+ and symmetric. Skin: Maceration to the right breast erythema and eschar noted Skin color, texture, tugor normal, Neurologic: Alert oriented x3 cranial nerves II through XII intact, no motor deficit, - Labs CBC & Chem 7: 03/17/19 05:33 03/17/19 05:33 Labs: Abnormal Lab Results - Last 24 Hours (Table) 03/16/19 03/16/19 03/16/19 Range/Units 17:04 17:06 22:04 MCV (80.0-100.0) fL RDW (11.5-15.5) % Lymphocytes # (Manual) (1.0-4.8) k/uL Macrocytosis Sodium 133 L (137-145) mmol/L Carbon Dioxide 18 L (22-30) mmol/L BUN 36 H (7-17) mg/dL Creatinine 0.50 L (0.52-1.04) mg/dL Glucose (74-99) mg/dL POC Glucose (mg/dL) 122 H 132 H (75-99) mg/dL Calcium 6.9 L (8.4-10.2) mg/dL 03/17/19 03/17/19 03/17/19 Range/Units 05:33 05:33 07:09 MCV 107.3 H (80.0-100.0) fL RDW 20.3 H (11.5-15.5) % Lymphocytes # (Manual) 0.77 L (1.0-4.8) k/uL Macrocytosis Marked A Sodium 130 L (137-145) mmol/L Carbon Dioxide (22-30) mmol/L BUN 40 H (7-17) mg/dL Creatinine (0.52-1.04) mg/dL Glucose 111 H (74-99) mg/dL POC Glucose (mg/dL) 113 H (75-99) mg/dL Calcium (8.4-10.2) mg/dL 03/17/19 Range/Units 11:44 MCV (80.0-100.0) fL RDW (11.5-15.5) % Lymphocytes # (Manual) (1.0-4.8) k/uL Macrocytosis Sodium (137-145) mmol/L Carbon Dioxide (22-30) mmol/L BUN (7-17) mg/dL Creatinine (0.52-1.04) mg/dL Glucose (74-99) mg/dL POC Glucose (mg/dL) 134 H (75-99) mg/dL Calcium (8.4-10.2) mg/dL Microbiology - Last 24 Hours (Table) 03/11/19 22:54 Blood Culture - Preliminary Blood No Growth after 120 hours Assessment and Plan Plan: 1. Hyponatremia secondary to dehydration possible SIADH not completely ruled out related to stage IV breast cancer. IV fluids decreased to 20 mL per hour. Lasix 40 IV twice daily. Urine sodium less than 10. Urine osmolarity A 59 uric acid is normal patient initiated on free water restriction 2. Failure to thrive with severe protein calorie malnutrition and weight loss. Remeron 15 mg at bedtime, ensure daily. Encourage oral intake. Diet changed to regular. Patient is followed by registered dietitian. 3. Malnutrition secondary to breast CA. As noted above nutrition consult. 4. Hyperkalemia. No EKG changes, Kayexalate 15 mg once. Continue to monitor. 5. Pleural effusion post thoracentesis on 03/08/19 1.3 L removed. Thoracentesis on 03/17 on the right. Thoracentesis on the left pending patient is a candidate of Pleurx catheter in future 6. Stage IV breast CA with pleural effusion. Consult oncology appreciated. MRI of the brain was ordered to rule out brain metastases but this was canceled due to patient unable to lay flat. 7. Right breast wound. Positive for Proteus Wound culture ordered, consult with Dr. Wilcox, continue Unasyn susceptible to Unasyn. Flagyl is used for local wound care. 8. Pericardial effusion status post pericardial window by cardiothoracic surgery. Patient was transferred to intensive care unit. Cytology is pending. 9. DVT prophylaxis pneumatic compression sleeves 8. GI prophylaxis. Pepcid 20 mg daily 10. Hypotension likely secondary to decreased intravascular volume. Rule out critical illness adrenal insufficiency cortisol and ACTH ordered Midodrine initiated at 10 mg 3 times a day Discharge plan: possible home with homecare. Patient is appropriate for palliative care.
--- NOTE | 2019-03-17 14:31 | XR ---
EXAMINATION TYPE: XR chest 1V portable DATE OF EXAM: 03/17/2019 COMPARISON: Prior chest x-ray 03/15/2018 and earlier time HISTORY: Status post left thoracentesis TECHNIQUE: Single frontal view of the chest is obtained. FINDINGS: There is interval improved aeration at the left lung base. No pneumothorax. No other signi ficant interval change. IMPRESSION: No evident complication status post left thoracentesis.
[2019-03-17 17:10] LABS: Glucose,Whole Blood 110 mg/dL (75-99)
[2019-03-17] MEDS: DOCUSATE 100 MG CAP PO SCH ×2 (18:25→22:05)
[2019-03-17] MEDS ORDERED: FUROSEMIDE 10 MG/ML 4 ML VIAL IV SCH (21:00)
[2019-03-17 21:04] LABS: Glucose,Whole Blood 184 mg/dL (75-99)
[2019-03-17] MEDS: GLYCERIN ADULT SUPPOSITORY 1 EACH RECTAL SCH (21:55)
[2019-03-17] MEDS: MIRTAZAPINE 15 MG TAB PO SCH (22:05)
--- NOTE | 2019-03-17 22:20 | PCN ---
PROCEDURE NOTE PROCEDURE: Left-sided thoracentesis. OPERATORS: 1. Tereso Hayes MD. 2. Dr. Muriel Urena. PREOPERATIVE DIAGNOSIS: Left pleural effusion. POSTOPERATIVE DIAGNOSIS: Left pleural effusion. PROCEDURE DESCRIPTION: A time-out was completed verifying correct patient, procedure, site, positioning, and implant (s) or special equipment if applicable. Ultrasound guidance was used to lida the posterior chest, and appropriate fluid pocket was identified and marked. Patient was positioned, prepped and draped in usual sterile fashion. Lidocaine was used to anesthetize the area. A Thoracentesis catheter was introduced into the pleural space and fluid was removed. Blood loss was none. A chest x-ray was ordered to determine if there was pneumothorax. Total Fluid Removed: 1300 mL Fluid was not sent for to the laboratory for evaluation. Patient tolerated the procedure well and there were no immediate complications or issues. MMODL / IJN: [id number] /
--- NOTE | 2019-03-17 22:36 | P.PN ---
Subjective Progress Note Date: 03/17/19 This is a 69-year-old female patient with past medical history of initial diagnosis of left sided breast cancer in 2011 and treated with IV chemotherapy and placed on observation. She developed metastatic disease in 2014 with a large right supraclavicular mass. She received radiation and vario us regimes. She developed a right chest wall lesion and repeat biopsy was done and is currently on Ibrance and Faslodex. She had progressive symptoms and the lesion on the right chest wall with superficial ulceration and drainage. She has a thoracentesis done for right-sided pleural effusion last week at [facility] and 1.2 L removed and pathology pending. Patient presented to the hospital complaining of weakness poor appetite and decreased oral intake not able to eat or drink very well and generalized malaise. She denied any fever, chills, nausea or vomiting at that time. Patient states over the last few weeks she's had episodes of vomiting and nausea. Patient denies any diarrhea or constipation. Patient has been complaining of chest wall pain and difficulty breathing. Patient states that she is to start chemotherapy on Wednesday. Regarding the wound on the right chest, she has not been on any antibiotics. Wound culture was obtained today. She has had drainage from the area but noted today but had a foul odor. She underwent a CAT scan of the abdomen and pelvis which revealed interval development of bilateral pleural effusions, pericardial effusion, ascites. Metastatic disease to the liver. Chest x-ray from yesterday showed no significant interval change in the appearance of the chest. Additional consults in place including oncology, cardiology for pericardial effusion, nephrology for hyponatremia. Patient has been started on Unasyn. 03/14/2019 Patient still feels poorly and has shortness of breath but nausea has improved. Still very fatigued. 03/15/2019 patient is status post pericardial window and is feeling somewhat better today. She still is quite weak. Was able to drink liquids without great difficulty. Appetite is poor. Denies nausea or emesis at this time. Pain is under good control. Mood is improved. 03/16/2019 patient continues to have some improvement after the pericardial window. Pain is improved. She is sitting up in a chair. Looks towards having her lunch. Is a 90 difficulties. Shortness of breath is improved. 03/17/2019 patient remains improved after the pericardial window. As expected it was a malignant effusion. She fortunately is feeling much less short of breath mood is improved. No other new complaints still poor appetite. Objective - Vital Signs Vital signs: Vital Signs Temp 98.0 F 03/17/19 20:00 Pulse 108 H 03/17/19 21:00 Resp 18 03/17/19 21:00 BP 89/74 03/17/19 21:00 Pulse Ox 94 L 03/17/19 21:00 Intake & Output 03/17/19 03/17/19 03/18/19 06:59 18:59 06:59 Intake Total 590 730 Output Total 475 720 Balance 115 10 Weight 75.5 kg 75.5 kg Intake: IV 110 330 0.9 KVO 110 130 Ampicillin-Sulbactam 3 gm 200 In Sodium Chloride 0.9% 100 ml @ 200 mls/hr IVPB Q8HR [facility] Rx#:[id number] Oral 480 400 Output: Chest Tube Drainage 120 Mediastinal 120 Urine 475 600 Other: Voiding Method Bedside Commode Bedside Commode # Voids 1 ABP, PAP, CO, CI - Last Documented Arterial Blood Pressure 84/57 - Exam Gen: This is a 69-year-old female. She is up in the chair and feels better today HEENT: Head is atraumatic, normocephalic. Pupils equal, round. Sclerae is anicteric. NECK: Supple. No JVD. No lymphadenopathy. No thyromegaly. LUNGS: Clear to auscultation. No wheezes or rhonchi. basilar crackles subxiphoid chest tube is in place with little tenderness HEART: Regular rate and rhythm. No murmur. Port to the right upper chest wall. Breast: Significant ulceration to the right breast anterior aspect with necrosis followed her has completely resolved ABDOMEN: Soft. Bowel sounds are present. No masses. No tenderness. EXTREMITIES: No pedal edema. No calf tenderness. NEUROLOGICAL: Patient is awake, alert and oriented x3. - Labs CBC & Chem 7: 03/17/19 05:33 03/17/19 05:33 Labs: Abnormal Lab Results - Last 24 Hours (Table) 03/17/19 03/17/19 03/17/19 Range/Units 05:33 05:33 07:09 MCV 107.3 H (80.0-100.0) fL RDW 20.3 H (11.5-15.5) % Lymphocytes # (Manual) 0.77 L (1.0-4.8) k/uL Macrocytosis Marked A Sodium 130 L (137-145) mmol/L BUN 40 H (7-17) mg/dL Glucose 111 H (74-99) mg/dL POC Glucose (mg/dL) 113 H (75-99) mg/dL 03/17/19 03/17/19 03/17/19 Range/Units 11:44 17:08 21:02 MCV (80.0-100.0) fL RDW (11.5-15.5) % Lymphocytes # (Manual) (1.0-4.8) k/uL Macrocytosis Sodium (137-145) mmol/L BUN (7-17) mg/dL Glucose (74-99) mg/dL POC Glucose (mg/dL) 134 H 110 H 184 H (75-99) mg/dL Microbiology - Last 24 Hours (Table) 03/11/19 22:54 Blood Culture - Preliminary Blood No Growth after 120 hours Laboratory Results WBC 4.3 k/uL (3.8-10.6) 03/17/19 05:33 RBC 3.88 m/uL (3.80-5.40) 03/17/19 05:33 Hgb 13.1 gm/dL (11.4-16.0) 03/17/19 05:33 Hct 41.7 % (34.0-46.0) 03/17/19 05:33 MCV 107.3 fL (80.0-100.0) H 03/17/19 05:33 MCH 33.6 pg (25.0-35.0) 03/17/19 05:33 MCHC 31.4 g/dL (31.0-37.0) 03/17/19 05:33 RDW 20.3 % (11.5-15.5) H 03/17/19 05:33 Plt Count 218 k/uL (150-450) 03/17/19 05:33 Neutrophils % 80 % 03/13/19 06:10 Neutrophils % (Manual) 63 % 03/17/19 05:33 Band Neutrophils % 5 % 03/17/19 05:33 Lymphocytes % 8 % 03/13/19 06:10 Lymphocytes % (Manual) 18 % 03/17/19 05:33 Monocytes % 8 % 03/13/19 06:10 Monocytes % (Manual) 13 % 03/17/19 05:33 Eosinophils % 1 % 03/13/19 06:10 Eosinophils % (Manual) 1 % 03/17/19 05:33 Basophils % 0 % 03/13/19 06:10 Neutrophils # 3.8 k/uL (1.3-7.7) 03/13/19 06:10 Neutrophils # (Manual) 2.90 k/uL (1.3-7.7) 03/17/19 05:33 Lymphocytes # 0.4 k/uL (1.0-4.8) L 03/13/19 06:10 Lymphocytes # (Manual) 0.77 k/uL (1.0-4.8) L 03/17/19 05:33 Monocytes # 0.4 k/uL (0-1.0) 03/13/19 06:10 Monocytes # (Manual) 0.56 k/uL (0-1.0) 03/17/19 05:33 Eosinophils # 0.1 k/uL (0-0.7) 03/13/19 06:10 Eosinophils # (Manual) 0.04 k/uL (0-0.7) 03/17/19 05:33 Basophils # 0.0 k/uL (0-0.2) 03/13/19 06:10 Nucleated RBCs 0 /100 WBC (0-0) 03/17/19 05:33 Manual Slide Review Performed 03/17/19 05:33 Polychromasia Present 03/17/19 05:33 Poikilocytosis (manual Present 03/17/19 05:33 Anisocytosis Moderate 03/17/19 05:33 Anisocytosis (manual) Present 03/16/19 04:13 Macrocytosis Marked A 03/17/19 05:33 PT 12.5 sec (9.0-12.0) H 03/15/19 04:15 INR 1.2 (<1.2) H 03/15/19 04:15 APTT 24.0 sec (22.0-30.0) 03/15/19 04:15 Sample Site [place] 03/15/19 05:07 ABG pH 7.47 (7.35-7.45) H 03/15/19 05:07 ABG pCO2 28 mmHg (35-45) L 03/15/19 05:07 ABG pO2 82 mmHg (83-108) L 03/15/19 05:07 ABG HCO3 21 mmol/L (21-25) 03/15/19 05:07 ABG Total CO2 22 mmol/L (19-24) 03/15/19 05:07 ABG O2 Saturation 96.7 % (94-97) 03/15/19 05:07 ABG Base Excess -3.0 mmol/L 03/15/19 05:07 Negro Test Yes 03/15/19 05:07 FiO2 50 % 03/15/19 05:07 Sodium 130 mmol/L (137-145) L 03/17/19 05:33 Potassium 4.5 mmol/L (3.5-5.1) 03/17/19 05:33 Chloride 99 mmol/L (98-107) 03/17/19 05:33 Carbon Dioxide 23 mmol/L (22-30) 03/17/19 05:33 Anion Gap 8 mmol/L 03/17/19 05:33 BUN 40 mg/dL (7-17) H 03/17/19 05:33 Creatinine 0.52 mg/dL (0.52-1.04) 03/17/19 05:33 Est GFR (CKD-EPI)AfAm >90 (>60 ml/min/1.73 sqM) 03/17/19 05:33 Est GFR (CKD-EPI)NonAf >90 (>60 ml/min/1.73 sqM) 03/17/19 05:33 Glucose 111 mg/dL (74-99) H 03/17/19 05:33 POC Glucose (mg/dL) 184 mg/dL (75-99) H 03/17/19 21:02 POC Glu Heel Layer ID Monica Hernández 03/17/19 21:02 Osmolality 285 mosm/kg (280-301) 03/12/19 10:00 Plasma Lactic Acid [place] 1.8 mmol/L (0.7-2.0) 03/11/19 22:54 Uric Acid 7.1 mg/dL (3.7-7.4) 03/15/19 04:15 Calcium 8.4 mg/dL (8.4-10.2) 03/17/19 05:33 Phosphorus 3.0 mg/dL (2.5-4.5) 03/16/19 04:13 Magnesium 2.1 mg/dL (1.6-2.3) 03/16/19 04:13 Total Bilirubin 0.7 mg/dL (0.2-1.3) 03/15/19 04:15 Conjugated Bilirubin 0.0 mg/dL (0.0-0.3) 03/12/19 10:00 Unconjugated Bilirubin 0.2 mg/dL (0.0-1.1) 03/12/19 10:00 Delta Bilirubin 0.3 mg/dL (0.0-0.2) H 03/12/19 10:00 AST 39 U/L (14-36) H 03/15/19 04:15 ALT 72 U/L (9-52) H 03/15/19 04:15 Alkaline Phosphatase 304 U/L (38-126) H 03/15/19 04:15 Creatine Kinase 29 U/L (30-135) L 03/11/19 22:54 Troponin I <0.012 ng/mL (0.000-0.034) 03/11/19 22:54 Total Protein 5.1 g/dL (6.3-8.2) L 03/15/19 04:15 Albumin 2.9 g/dL (3.5-5.0) L 03/15/19 04:15 CA 15-3 Antigen 41.4 U/mL (0.0-32.3) H 03/13/19 06:10 TSH 2.770 mIU/L (0.465-4.680) 03/11/19 22:54 Cortisol 32 ug/dL 03/17/19 05:33 ACTH 37.40 pg/mL (0.00-45.99) 03/17/19 05:33 Urine Color Yellow 03/12/19 01:35 Urine Appearance Clear (Clear) 03/12/19 01:35 Urine pH 5.5 (5.0-8.0) 03/12/19 01:35 Ur Specific [place] 1.036 (1.001-1.035) H 03/12/19 01:35 Urine Protein 1+ (Negative) H 03/12/19 01:35 Urine Glucose (UA) Negative (Negative) 03/12/19 01:35 Urine Ketones Negative (Negative) 03/12/19 01:35 Urine Blood Negative (Negative) 03/12/19 01:35 Urine Nitrite Negative (Negative) 03/12/19 01:35 Urine Bilirubin Negative (Negative) 03/12/19 01:35 Urine Urobilinogen 2.0 mg/dL (<2.0) 03/12/19 01:35 Ur Leukocyte Esterase Small (Negative) H 03/12/19 01:35 Urine RBC 4 /hpf (0-5) 03/12/19 01:35 Urine WBC 11 /hpf (0-5) H 03/12/19 01:35 Ur Squamous Epith Cells 1 /hpf (0-4) 03/12/19 01:35 Urine Bacteria Occasional /hpf (None) H 03/12/19 01:35 Hyaline Casts 202 /lpf (0-2) H 03/12/19 01:35 Granular Casts 61 /lpf (0) 03/12/19 01:35 Urine Mucus Rare /hpf (None) H 03/12/19 01:35 Urine Osmolality 899 mosm/kg (50-1400) 03/12/19 11:20 Ur Random Creatinine 202.8 mg/dL 03/12/19 11:20 Ur Random Sodium <10 mmol/L 03/12/19 11:20 Microbiology 03/11/19 22:54 Blood Blood Culture - Preliminary No Growth after 120 hours 03/13/19 15:00 Breast - Right Gram Stain - Final 03/13/19 15:00 Breast - Right Wound Culture - Final Proteus mirabilis 03/12/19 01:35 Urine,Voided Urine Culture - Final Assessment and Plan (1) Breast cancer Narrative/Plan: 69-year-old female who has metastatic breast carcinoma with recent significant worsening of her status presents to Hospital feeling very poorly. She difficulty with her breast ulceration with increasing odor drainage and increasing fatigue and malaise. She's also developed some nausea with emesis and feels very poorly. It is noted developed some hyponatremia also. On the exam the patient has the extensive ulceration to the right breast that is necrotic and malodorous. There is some surrounding erythema. At this time Unasyn is an excellent choice for the cellulitis that has developed in the roselia-ulcer area on the breast from the carcinoma. Topical metronidazole that are the tablets that are crushed in sprinkled onto the ulcers is often helpful in reducing the strong odor. It appears at the patient is developed progression of her metastatic disease since her last set of scans and it's not clear at this point in time with the overall process will be. 03/14/2019 patient is had little improvement. However the topical metronidazole has helped the significant malodorous nature to the right breast. Patient over still short of breath. Echocardiogram shows evidence of a pericardial effusion. Will be seen by cardiovascular surgery and likely will have an emergent roselia cardial window. Continue as before by cultures are pending. 03/15/2019 patient is status post the pericardial window. She is having some improvement of her status. Blood pressure remains low urine output is adequate. She is not requiring vasopressor therapy. Wound culture does show evidence of the Proteus which is susceptible to Unasyn and constantly current antibiotic therapy continues. Topical metronidazole has been very helpful in reducing the putrid odor from the right breast ulceration. Patient does feel better because the improved odor. Await the cytology results and overall plan. 03/16/2019 patient has further improvement to be able to tolerate sitting up in the chair. He looks forward to ingesting some of her lunch. Is denying amounts of pain. Remains afebrile. Odor from the right breast ulceration from her breast cancer has responded very well to the topical metronidazole. Fortunately she's feeling somewhat better since the pericardial window and is less short of breath. 03/17/2019 patient is feeling better. Tolerate sitting up quite well. She's done well with current antibiotic therapy with Unasyn and topical metronidazole to the ulceration of the chest wall. If she improves and her chest tube becomes removed there will be discharge plans and process. As she ready for discharge the Unasyn may be changed to Augmentin May continue the topical metronidazole to the ulceration of the chest wall. Palliative care consultation would be helpful, as could be consideration for a hospice approach. Current Visit: Yes Status: Acute Code(s): C50.919 - MALIGNANT NEOPLASM OF UNSP SITE OF UNSPECIFIED FEMALE BREAST SNOMED Code(s): 414244109 (2) Pericardial effusion, acute Current Visit: Yes Status: Acute Code(s): I30.9 - ACUTE PERICARDITIS, UNSPECIFIED SNOMED Code(s): 97457034
[2019-03-18] MEDS: AMPICILLIN-SULBACTAM 3 GM in SODIUM CHLORIDE 0.9% 100 ML IVPB SCH ×3 (01:36→16:45)
[2019-03-18 06:37] LABS: Anisocytosis Moderate; Basophils % (A) 0 %; Eosinophils # (A) 0.1 k/uL (0-0.7); Eosinophils % (A) 3 %; HCT 37.4 % (34.0-46.0); HGB 12.3 gm/dL (11.4-16.0); Lymphocytes # (A) 0.7 k/uL (1.0-4.8); Lymphocytes % (A) 15 %; MCH 34.5 pg (25.0-35.0); MCV 104.7 fL (80.0-100.0); Macrocytosis Marked; Mean Platelet Volume 7.5; Monocytes # (A) 0.6 k/uL (0-1.0); Monocytes % (A) 13 %; Neutrophils # (A) 3.1 k/uL (1.3-7.7); Neutrophils % (A) 65 %; Platelet Count 194 k/uL (150-450); RBC 3.57 m/uL (3.80-5.40); RDW 20.9 % (11.5-15.5); WBC 4.7 k/uL (3.8-10.6)
--- NOTE | 2019-03-18 06:39 | XR ---
EXAMINATION TYPE: XR chest 1V portable DATE OF EXAM: 03/18/2019 HISTORY: Tube placement. REFERENCE: Previous study dated 03/17/2019. FINDINGS: Right internal jugular catheter is in place. Its tip is in the right atrium. There is bibasilar airspace disease. There are bilateral effusions. Heart size is upper limits of nor mal. Overall appearance is unchanged. IMPRESSION: NO SIGNIFICANT INTERVAL CHANGE IN THE APPEARANCE OF THE CHEST.
[2019-03-18 06:45] LABS: Anion Gap 4 mmol/L; Blood Urea Nitrogen 34 mg/dL (7-17); Calcium 8.2 mg/dL (8.4-10.2); Carbon Dioxide 27 mmol/L (22-30); Chloride 99 mmol/L (98-107); Glucose 98 mg/dL (74-99); Potassium 4.8 mmol/L (3.5-5.1); Sodium 130 mmol/L (137-145)
[2019-03-18 06:54] LABS: Glucose,Whole Blood 105 mg/dL (75-99)
[2019-03-18] MEDS: INSULIN ASPART (NovoLOG) 100 UNIT/ML VIAL SQ SCH ×4 (06:56→21:07)
[2019-03-18] MEDS: MIDODRINE 5 MG TAB PO SCH ×3 (07:53→18:30)
[2019-03-18] MEDS: traMADol 50 MG TAB PO PRN ×3 (07:53→22:07)
--- NOTE | 2019-03-18 08:54 | PN ---
PROGRESS NOTE Mrs. Moss is a 69-year-old female with history of breast cancer with metastasis, who presented with progressive dyspnea, was found to have worsening pleural and pericardial effusion. She had a pericardial tube placed with drainage. The cytology came back as consistent with metastatic adenocarcinoma with primary origin from the breast. She had underwent bilateral thoracentesis yesterday. She is feeling better. Her breathing is better. She denies any symptoms of chest pain. She denies any dizziness. Hemodynamically, she is stable. She continues to be on the IV Lasix and midodrine 10 mg 3 times a day. PHYSICAL EXAMINATION: Blood pressure running in the high 90s with a heart rate in the 90s. Lungs with improved air exchange in the bases bilaterally. HEART: Regular rate and rhythm, S1, S2. No S3. No rub. ABDOMEN: Soft, nontender. EXTREMITIES: No significant edema. LAB DATA: Revealed BUN and creatinine 34 and 0.45. Hemoglobin of 12.3. IMPRESSION: 1. Metastatic breast cancer with pleural and pericardial effusion, malignant. 2. Dyspnea related to the effusion. 3. Hyponatremia. RECOMMENDATION: From the cardiac standpoint, there is no active arrhythmia or ischemia. Unfortunately, the prognosis is quite guarded because of the malignancy. No further intervention from the cardiac standpoint are needed. The pericardial tube will be removed once the drainage is minimal. The risk of recurrence is quite high. We will await the input of the Oncology Service. VIVIEN / DONITA: [id number] /
[2019-03-18] MEDS ORDERED: FUROSEMIDE 10 MG/ML 4 ML VIAL IV SCH (09:00)
--- NOTE | 2019-03-18 09:19 | P.PN ---
Subjective Progress Note Date: 03/18/19 Principal diagnosis: Malignant pericardial effusion with early On Echocardiogram, Anxiety, Depression, and Left-Sided Breast Cancer dagnosed in 2012 and treated with Chemotherapy and Radiationm, Large Right Supraclavicular Mass Positive for Metastatic Cancer. POD #4 subxiphoid pericardiostomy. The patient is laying in bed in the intensive care unit. She is in no acute distress. Denies any complaints of pain or shortness of breath. She reports that she had both of her lungs drained of fluid yesterday by the lung doctor. She reports since this fluid has been drained her breathing has much improved. Subxiphoid chest tube remains in place and is to waterseal. No air leak is present and it is draining thin serosanguineous drainage with 50 mL output in the last 24 hours. Oxygen saturations are 96% on 3 L high flow nasal cannula. She is achieving 1000 mL on her incentive spirometry. Pericardial fluid cytology results have been received and is positive for metastatic adenocarcinoma consistent with primary breast origin, this was discussed with the patient by oncology. Objective - Vital Signs Vital signs: Vital Signs Temp 98.0 F 03/18/19 08:00 Pulse 105 H 03/18/19 09:00 Resp 11 L 03/18/19 09:00 BP 95/69 03/18/19 09:00 Pulse Ox 94 L 03/18/19 09:00 Intake & Output 03/17/19 03/18/19 03/18/19 18:59 06:59 18:59 Intake Total 730 220 Output Total 720 425 10 Balance 10 -205 -10 Weight 75.5 kg 70.8 kg Intake: IV 330 100 0.9 KVO 130 Ampicillin-Sulbactam 3 gm 200 100 In Sodium Chloride 0.9% 100 ml @ 200 mls/hr IVPB Q8HR [facility] Rx#:[id number] Oral 400 120 Output: Chest Tube Drainage 120 10 Mediastinal 120 10 Urine 600 425 Other: Voiding Method Bedside Commode Bedside Commode # Voids 0 0 ABP, PAP, CO, CI - Last Documented Arterial Blood Pressure 84/57 - Constitutional General appearance: Present: cooperative, no acute distress, obese - Respiratory Details: Lung sounds essentially clear to her bilateral upper lobes, diminished bilateral bases. Respirations are symmetrical and nonlabored. Oxygen saturation are 96% on 3 L nasal cannula. Achieving 1000 mL on her incentive spirometry. Subxip hoid chest tube in place to low continuous wall suction -20 cm H2O. Draining thin serous drainage. No air leak is present. 50 mL output in the last 24 hours. - Cardiovascular Details: Regular rhythm and tachycardic rate. S1 and S2 present, negative for S3, gallop or murmur. Bedside telemetry showing sinus tachycardia heart rate 107. +1 generalized edema. - Gastrointestinal Gastrointestinal Comment(s): Abdomen is soft, nontender nondistended. Active bowel sounds to all 4 abdominal quadrants. No guarding or rigidity. No organomegaly. Tolerating oral intake. - Genitourinary Genitourinary Comment(s): Voiding clear yellow urine. - Integumentary Integumentary Comment(s): Skin is warm and dry. No clubbing or cyanosis is present. Subxiphoid incision is clean, dry and approximated. No drainage or redness is present. Gauze dressing is clean, dry and intact. Right upper chest wall erythema/ulceration covered with ABDs pad. - Neurologic Neurologic: Present: CNII-XII intact - Musculoskeletal Musculoskeletal: Present: gait normal, generalized weakness, strength equal bilaterally - Psychiatric Psychiatric: Present: A&O x's 3, appropriate affect, intact judgment & insight - Allied health notes Allied health notes reviewed: nursing - Labs CBC & Chem 7: 03/18/19 06:10 03/18/19 06:10 Labs: Abnormal Lab Results - Last 24 Hours (Table) 03/17/19 03/17/19 03/17/19 Range/Units 11:44 17:08 21:02 RBC (3.80-5.40) m/uL MCV (80.0-100.0) fL RDW (11.5-15.5) % Lymphocytes # (1.0-4.8) k/uL Macrocytosis Sodium (137-145) mmol/L BUN (7-17) mg/dL Creatinine (0.52-1.04) mg/dL POC Glucose (mg/dL) 134 H 110 H 184 H (75-99) mg/dL Calcium (8.4-10.2) mg/dL 03/18/19 03/18/19 03/18/19 Range/Units 06:10 06:10 06:52 RBC 3.57 L (3.80-5.40) m/uL MCV 104.7 H (80.0-100.0) fL RDW 20.9 H (11.5-15.5) % Lymphocytes # 0.7 L (1.0-4.8) k/uL Macrocytosis Marked A Sodium 130 L (137-145) mmol/L BUN 34 H (7-17) mg/dL Creatinine 0.45 L (0.52-1.04) mg/dL POC Glucose (mg/dL) 105 H (75-99) mg/dL Calcium 8.2 L (8.4-10.2) mg/dL Microbiology - Last 24 Hours (Table) 03/11/19 22:54 Blood Culture - Final Blood No Growth after 144 hours - Imaging and Cardiology Chest x-ray: report reviewed, image reviewed Assessment and Plan Assessment: 1. Large malignant pericardial effusion status post subxiphoid pericardiostomy 2. Metastatic breast cancer 3. Wound to her right breast/upper chest wall 4. History of right pleural effusion status post right thoracentesis 5. Bilateral pleural effusions with thoracentesis completed to her right and left chest yesterday by pulmonary medicine Plan: 1. Discontinue subxiphoid chest tube. 2. Encourage use of her incentive spirometry every hour while awake. 3. DVT and GI prophylaxis. 4. Bronchodilators per pulmonary management. 5. Medical and comorbidities management per primary care service. 6. Increase activity as tolerated. Physical and occupational therapy followi ng. 7. Once subxiphoid chest tube is removed we will follow patient on an as-needed basis. Time with Patient: Greater than 30
--- NOTE | 2019-03-18 09:57 | P.PN ---
Subjective Patient is seen in follow-up for hyponatremia. Sodium level today is stable at 130. Oral intake is fair. Denies chest pain. GFR at baseline. She underwent bilateral thoracentesis on March 17 with nearly 2.5 L drained. She is currently having her chest tube removed. Vital signs are stable. Blood pressure on the lower side. General: The patient appeared well nourished and normally developed. HEENT: Head exam is unremarkable. Neck is without jugular venous distension. LUNGS: Breath sounds decreased. HEART: Rate and Rhythm are regular. First and second heart sounds normal. No murmurs, rubs or gallops. ABDOMEN: Abdominal exam reveals normal bowel sounds. Non-tender. EXTREMITITES: 1+ edema. Objective - Vital Signs Vital signs: Vital Signs Temp 98.0 F 03/18/19 08:00 Pulse 105 H 03/18/19 09:00 Resp 11 L 03/18/19 09:00 BP 95/69 03/18/19 09:00 Pulse Ox 94 L 03/18/19 09:00 Intake & Output 03/17/19 03/18/19 03/18/19 18:59 06:59 18:59 Intake Total 730 220 Output Total 720 425 10 Balance 10 -205 -10 Weight 75.5 kg 70.8 kg Intake: IV 330 100 0.9 KVO 130 Ampicillin-Sulbactam 3 gm 200 100 In Sodium Chloride 0.9% 100 ml @ 200 mls/hr IVPB Q8HR [facility] Rx#:[id number] Oral 400 120 Output: Chest Tube Drainage 120 10 Mediastinal 120 10 Urine 600 425 Other: Voiding Method Bedside Commode Bedside Commode # Voids 0 0 ABP, PAP, CO, CI - Last Documented Arterial Blood Pressure 84/57 - Labs CBC & Chem 7: 03/18/19 06:10 03/18/19 06:10 Labs: Abnormal Lab Results - Last 24 Hours (Table) 03/17/19 03/17/19 03/17/19 Range/Units 11:44 17:08 21:02 RBC (3.80-5.40) m/uL MCV (80.0-100.0) fL RDW (11.5-15.5) % Lymphocytes # (1.0-4.8) k/uL Macrocytosis Sodium (137-145) mmol/L BUN (7-17) mg/dL Creatinine (0.52-1.04) mg/dL POC Glucose (mg/dL) 134 H 110 H 184 H (75-99) mg/dL Calcium (8.4-10.2) mg/dL 03/18/19 03/18/19 03/18/19 Range/Units 06:10 06:10 06:52 RBC 3.57 L (3.80-5.40) m/uL MCV 104.7 H (80.0-100.0) fL RDW 20.9 H (11.5-15.5) % Lymphocytes # 0.7 L (1.0-4.8) k/uL Macrocytosis Marked A Sodium 130 L (137-145) mmol/L BUN 34 H (7-17) mg/dL Creatinine 0.45 L (0.52-1.04) mg/dL POC Glucose (mg/dL) 105 H (75-99) mg/dL Calcium 8.2 L (8.4-10.2) mg/dL Microbiology - Last 24 Hours (Table) 03/11/19 22:54 Blood Culture - Final Blood No Growth after 144 hours Assessment and Plan Plan: Assessment: 1. Hyponatremia. Patient is hypervolemic. 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 Sodium level 130 this morning. Urine sodium noted to be less than 10. Urine osmolality 899. TSH, uric acid and cortisol level normal. 2. 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 3. Metastatic breast cancer. 4. Breast wound culture positive for Proteus maintained on antibiotics. 5. Volume overload. 6. Pleural effusion status post bilateral thoracentesis on March 17 with nearly 2.5 L drained. Plan: Lasix held this morning due to low blood pressure. If blood pressure remains low, I will give her a dose of Samsca. Repeat sodium level this afternoon. Maintain free water restriction. Ejection fraction preserved on recent echo.
[2019-03-18] MEDS: FAMOTIDINE 20 MG TAB PO SCH (09:59)
[2019-03-18] MEDS: metroNIDAZOLE 500 MG TAB PO SCH ×4 (09:59→22:07)
[2019-03-18] MEDS: GLYCERIN ADULT SUPPOSITORY 1 EACH RECTAL SCH (09:59)
[2019-03-18] MEDS: DOCUSATE 100 MG CAP PO SCH ×2 (09:59→22:07)
--- NOTE | 2019-03-18 10:33 | P.PN ---
Subjective Progress Note Date: 03/18/19 Principal diagnosis: Severe hyponatremia, failure to thrive, pleural effusion, stage IV breast cancer with pleural effusion, right breast wound, pericardial effusion This is a 69-year-old pleasant female patient of Dr. Glen Vázquez who presented to the emergency room complaining of generalized weakness. Patient states that over the last couple weeks she has not had any appetite she has not been able to eat or drink well. Patient states that she seen her [facility] physician about a week ago and was told that the left looks fine at that time however since then she has not been able to eat or drink. Patient reported generalized malaise. She denied any fever, chills, nausea or vomiting at that time. Patient has past medical history significant of recurrent breast CA, initial diagnosis apparently 7 years ago. Patient has a necrotic breast lesion on the right chest wall that is progressively getting worse. Past medical history also includes anxiety and depression. Patient has never been a smoker. At this time patient is resting in bed in no acute distress. She is complaining of lack of appetite, weakness, malaise. Patient states over the last few weeks she's had episodes of vomiting and nausea. Patient denies any diarrhea or constipation. Patient has been complaining of chest wall pain and difficulty breathing. On Wednesday of last week she had thoracentesis due to bilateral pleural effusion. 1.3 L of fluid was drained from the right lung. Patient states after the procedure was done she did have an easier time breathing. However it did not help her weakness or malaise. Patient states that next week she will be starting another chemotherapy since previous treatments have not been successful. Patient denies any fevers or chills. 03/13: Patient has a wound on her right breast which she states has been drinking for 5 days but now has a foul order. She denies being on any antibiotics recently. Consult for Dr. Wiclox has been ordered and will culture ordered. She has been seen by Dr. Zamora regarding breast cancer the plan is to start chemotherapy with Abraxane as an outpatient. Patient is noted to have increased liver enzymes and Dr. Zamora ordered CAT scan of the abdomen and pelvis which revealed interval development of bilateral pleural effusions, pericardial effusion, ascites. Metastatic disease to the liver. Consult has been admitted for cardiology regarding pericardial effusion. Chest x-ray from yesterday showed no significant interval change in the appearance of the chest. Repeat lab work reveals sodium 127, potassium 5.4, chloride 97, CO2 21, BUN 15 creatinine 0.91, blood sugar 130. Cortisol 67 Consult has been added for nephrology for hyponatremia possible SIADH. Patient does have some increased edema for which IV fluids will be decreased to 50 mL per hour. 03/14: Echocardiogram reveals EF of 60-65%, mild aortic valve sclerosis, mild pulmonary hypertension, large generalized pericardial effusion. Patient was transferred to the cardiac stepdown unit. She did have marginal blood pressure readings and pulse ox was 91% on 2 L increased to 3 L. Patient has been seen by oncology and MRI of the brain was ordered for today looking for brain metastases but patient is unable to lay flat for this and we will cancel it for now. Xanax ordered for anxiety. Discussed case with cardiology and cardiothoracic surgery consult has been added. Patient received 1 dose of IV albumin yesterday we will repeat for today. Chest x-ray ordered for today. Patient states that she has less edema in her legs but continues to have edema in her arms. She denies any diarrhea. She has not had a bowel movement since admission. Patient is having very little oral intake. She is followed by dietitian and I will be changed to a regular diet to make it more accommodating for her. Repeat lab work reveals sodium 127, potassium 5.8, chloride 96, CO2 19. Patient has been afebrile, heart rate in the low 100s up to 106, pulse ox 95% on 3 L. Blood pressure 96/58. 03/15: Patient underwent subxiphoid pericardiostomy yesterday evening with Dr. Hickman for malignant pericardial effusion with early tamponade with drainage of 500 ML's of bloody fluid and specimen was sent for cytology. Patient was s intubated and admitted into the intensive care unit. Patient was successfully extubated around 6 AM. Chest x-ray this morning reveals similar-appearing pleural effusions and associated bibasilar airspace disease likely atelectasis. Patient has been afebrile, heart rate 112, blood pressure 90/69, pulse ox 96% on high flow nasal cannula 8 L. Repeat lab work reveals white count 1.4, hemoglobin 12.6, platelet count 130, INR 1.2. Sodium remains at 127, BUN 15 creatinine 0.75. Liver function tests remain elevated with AST 39, ALT 72 and alkaline phosphatase 304. Patient was also seen yesterday by Dr. Bush and additional dose of Lasix ordered. Wound cultures showing gram-negative bacilli. Patient is complaining of severe chest pain for which she has morphine available but due to her blood pressure has not been given. We will add in tramadol and plain Tylenol for pain control. 03/16 patient is sitting up in the chair in the ICU. Denies any shortness of breath. Blood pressure 88/66 pulse rate 110 temp 97.8 saturating well heat liters high flow nasal cannula. Continues to drain serosanguineous drainage from the subxiphoid chest to with 50 mL since her last 8 hours. Cortisol on 03/01 3 was normal will repeat cortisol with ACTH. Midodrine initiated 10 mg 3 times a day for blood pressure. Wound culture positive for Proteus susceptible to Unasyn 03/17 patient is sitting up in chair in the ICU. She is feeling better than yesterday had 90 mL output from the pericardial tube. Patient did get thoracentesis this morning from her right chest . Currently saturating 97% on 5 L of high flow blood pressure 95/68 tachycardic to 113. Patient initiated on midodrine 10 mg 3 times a day cortisol 37 normal. Plan for thoracentesis on the left. Pathology from pericardial fluid positive for metastatic adenocarcinoma primary breast lesion ER negative. 03/18: Patient is laying in bed still in the ICU her blood pressure has been slightly but better remain on midodrine sodium has improved some chest tube will be removed today patient might be able to leave the ICU after this is done. Pain management is better controlled. Objective - Vital Signs Vital signs: Vital Signs Temp 98.0 F 03/18/19 08:00 Pulse 108 H 03/18/19 10:00 Resp 13 03/18/19 10:00 BP 88/59 03/18/19 10:00 Pulse Ox 94 L 03/18/19 10:00 Intake & Output 03/17/19 03/18/19 03/18/19 18:59 06:59 18:59 Intake Total 730 220 100 Output Total 720 425 10 Balance 10 -205 90 Weight 75.5 kg 70.8 kg Intake: IV 330 100 100 0.9 KVO 130 Ampicillin-Sulbactam 3 gm 200 100 100 In Sodium Chloride 0.9% 100 ml @ 200 mls/hr IVPB Q8HR [facility] Rx#:[id number] Oral 400 120 Output: Chest Tube Drainage 120 10 Mediastinal 120 10 Urine 600 425 Other: Voiding Method Bedside Commode Bedside Commode # Voids 0 0 ABP, PAP, CO, CI - Last Documented Arterial Blood Pressure 84/57 - Exam Review of systems: CONSTITUTIONAL: Very malnourished laying in bed still look and slight distress not dyspneic with mild hypoxia. EYES: No icterus sclerae, no conjunctivitis. EARS, NOSE, MOUTH, THROAT, and FACE: No sore throat, lymphadenopathy, carotid bruits or deformity. RESPIRATORY: Positive shortness of breath cough wheezes. CARDIOVASCULAR: Positive PND orthopnea no angina. GASTROINTESTINAL: Nausea no vomiting diarrhea constipation. GENITOURINARY: Negative for Hematuria or UTI, no kidney stones. INTEGUMENT/BREAST: Negative for any muscular injury with mild osteoarthritis.. HEMATOLOGIC/LYMPHATIC: Advanced lung cancer with metastasis. MUSCULOSKELTAL: Negative for Myalgia or arthralgia. NEURLOGICAL: No LOC, Sz or syncope, blurred vision dizziness or abnormality.. BEHAVIORAL/PSYCH: Negative. ENDOCRINE: Negative. Physical examination: General Appearance: Alert, cooperative, no distress, very skinny look older than her age. Neck HEENT: Supple, no lymphadenopathy, no thyroid enlargement, no carotid bruits. Lungs: Decreased breath some bilaterally specially the left side positive fine rhonchi without crackles positive mild expiratory wheezes. Chest Wall: Decrease expansion with deep inspiration no tenderness and no deformity was found on exam, no costochondral pain or discomfort. Heart: Regular rate and rhythm, S1, S2 normal, no murmur, rub or gallop. Back: Mild scoliosis with slight discomfort the L-spine area. Abdomen: Soft, non-tender, bowel sounds active all four quadrants, no masses, no organomegaly. Extremities: Trace edema decreased pulse and dorsalis pedis bilaterally, no cyanosis or edema. Pulses: 2+ and symmetric. Skin: Skin color, texture, tugor normal, no rashes or lesions. Neurologic: Alert oriented x3 cranial nerves II through XII intact, no motor deficit, no abnormal balance or gait. - Labs CBC & Chem 7: 03/18/19 06:10 03/18/19 06:10 Labs: Abnormal Lab Results - Last 24 Hours (Table) 05/03/17/19 03/17/19 Range/Units 11:44 17:08 21:02 RBC (3.80-5.40) m/uL MCV (80.0-100.0) fL RDW (11.5-15.5) % Lymphocytes # (1.0-4.8) k/uL Macrocytosis Sodium (137-145) mmol/L BUN (7-17) mg/dL Creatinine (0.52-1.04) mg/dL POC Glucose (mg/dL) 134 H 110 H 184 H (75-99) mg/dL Calcium (8.4-10.2) mg/dL 03/18/19 03/18/19 03/18/19 Range/Units 06:10 06:10 06:52 RBC 3.57 L (3.80-5.40) m/uL MCV 104.7 H (80.0-100.0) fL RDW 20.9 H (11.5-15.5) % Lymphocytes # 0.7 L (1.0-4.8) k/uL Macrocytosis Marked A Sodium 130 L (137-145) mmol/L BUN 34 H (7-17) mg/dL Creatinine 0.45 L (0.52-1.04) mg/dL POC Glucose (mg/dL) 105 H (75-99) mg/dL Calcium 8.2 L (8.4-10.2) mg/dL Microbiology - Last 24 Hours (Table) 03/11/19 22:54 Blood Culture - Final Blood No Growth after 144 hours Assessment and Plan Plan: 1. Hyponatremia secondary to dehydration possible SIADH not completely ruled out related to stage IV breast cancer. IV fluids decreased to 20 mL per hour. Lasix 40 IV twice daily. Urine sodium less than 10. Urine osmolarity A 59 uric acid is normal patient initiated on free water restriction, sodium slightly but better today. 2. Stage IV breast CA with pleural effusion. Consult oncology appreciated. MRI of the brain was ordered to rule out brain metastases but this was canceled due to patient unable to lay flat. Still seen oncology not clear whether any management is possible this point or not. 3. Malnutrition secondary to breast CA. As noted above nutrition consult. 4. Hyperkalemia. With stage II chronic kidney disease: Potassium is down and improve patient still been managing conservative management. 5. Pleural effusion: Chest tube will be removed today. 6. Failure to thrive with severe protein calorie malnutrition and weight loss. Remeron 15 mg at bedtime, ensure daily. Encourage oral intake. Diet changed to regular. Patient is followed by registered dietitian. 7. Right breast wound. Positive for Proteus Wound culture ordered, consult with Dr. Wilcox, continue Unasyn susceptible to Unasyn. Flagyl is used for local wound care. 8. Pericardial effusion status post pericardial window by cardiothoracic surgery. Patient was transferred to intensive care unit. Cytology is pending. 9. DVT prophylaxis pneumatic compression sleeves 8. GI prophylaxis. Pepcid 20 mg daily 10. Hypotension likely secondary to decreased intravascular volume. Rule out critical illness adrenal insufficiency cortisol and ACTH ordered Midodrine initiated at 10 mg 3 times a day
--- NOTE | 2019-03-18 10:57 | PN ---
PROGRESS NOTE DATE OF SERVICE: March 18, 2019 This is a 69-year-old female with a history of metastatic and recurrent breast cancer. She has METS to the supraclavicular nodes and liver mets. The patient was initially seen for pericardial effusion. She is postop day #4 status post pericardial window. From that standpoint, she is doing well. She had routine postoperative ventilator management for her surgical procedures noted. She was successfully extubated on March 15. Yesterday, we did a right and then a left thoracentesis. They were done on the same day. She had more than 1 L of fluid removed from both pleural spaces. From the pulmonary standpoint, she is doing much better. Currently, she is on nasal O2 at 3 L. She is not getting any IV fluids. The patient is going to have her chest tube removed. The patient can be transferred I believe to the general medical floor without telemetry and/or more favorably transferred over to Oncology. Overall prognosis is poor. She is still a FULL CODE. Code status should be discussed. She has no complaints today. She is resting comfortably. Her breathing is improved. PHYSICAL EXAMINATION: VITAL SIGNS: Current vital signs are reviewed. Temperature 98, heart rate 100, respiratory rate 11, blood pressure 95/69, mean 77, 3 L saturation 94%. She appears in no acute distress. HEENT examination is grossly unremarkable. Nasal O2 in place. NECK: Supple. Full range of motion. No adenopathy. CARDIOVASCULAR examination reveals mild tachycardia. Heart rate right around 100. S1, S2 normal. LUNGS: Diminished breath sounds at the bases. Breath sounds are much improved. A few scattered rhonchi. No wheezes or crackles. ABDOMEN: Soft. Bowel sounds are heard. EXTREMITIES are intact. Some slight edema and anasarca. No cyanosis or clubbing. SKIN without rash. NEUROLOGIC examination is brief but nonfocal. LABS: Reviewed. White count 4.7, hemoglobin 12.3, hematocrit 37.4, platelet count 194,000. Sodium 130, potassium 4.8, chloride 99, CO2 27. Anion gap is 4. BUN and creatinine were 34 and 0.45. Microbiologic studies are showing wound cultures of the right breast to be positive for Proteus mirabilis. For this, she is on Unasyn and Flagyl powder. Chest x-rays are reviewed. It shows dramatic improvement of both pleural spaces. Pleural fluid is still present but no significant reaccumulation has occurred. ASSESSMENT: 1. Postoperative day #4 status post pericardial window for malignant pericardial effusion. The patient does have a history of recurrent metastatic breast cancer. 2. Routine postoperative ventilator management, with successful extubation on March 15. 3. Metastatic recurrent breast cancer with METS to the liver and supraclavicular nodes. 4. History of left breast cancer 2011, treated with chemo radiation. 5. Status post bilateral thoracentesis on March 17. More than 1 L of fluid was removed from both pleural spaces. 6. Generalized weakness with anorexia and dehydration. 7. History of leukopenia. 8. Hyponatremia. 9. Non-anion gap metabolic acidosis. 10.Elevated liver enzymes related to liver metastasis. 11.Bilateral pleural effusions, treated as above. PLAN: The patient is doing better. Respiratory status is improved. She will be transferred to the general medical floor without telemetry or more likely to Oncology. We will follow only as needed. No additional recommendations are made. Prognosis is very guarded. Code status should be discussed. MMODL / IJN: [id number] /
[2019-03-18 11:59] LABS: Glucose,Whole Blood 136 mg/dL (75-99)
--- NOTE | 2019-03-18 17:07 | P.PN ---
Subjective Progress Note Date: 03/18/19 This is a 69-year-old female patient with past medical history of initial diagnosis of left sided breast cancer in 2011 and treated with IV chemotherapy and placed on observation. She developed metastatic disease in 2014 with a large right supraclavicular mass. She received radiation and vario us regimes. She developed a right chest wall lesion and repeat biopsy was done and is currently on Ibrance and Faslodex. She had progressive symptoms and the lesion on the right chest wall with superficial ulceration and drainage. She has a thoracentesis done for right-sided pleural effusion last week at [facility] and 1.2 L removed and pathology pending. Patient presented to the hospital complaining of weakness poor appetite and decreased oral intake not able to eat or drink very well and generalized malaise. She denied any fever, chills, nausea or vomiting at that time. Patient states over the last few weeks she's had episodes of vomiting and nausea. Patient denies any diarrhea or constipation. Patient has been complaining of chest wall pain and difficulty breathing. Patient states that she is to start chemotherapy on Wednesday. Regarding the wound on the right chest, she has not been on any antibiotics. Wound culture was obtained today. She has had drainage from the area but noted today but had a foul odor. She underwent a CAT scan of the abdomen and pelvis which revealed interval development of bilateral pleural effusions, pericardial effusion, ascites. Metastatic disease to the liver. Chest x-ray from yesterday showed no significant interval change in the appearance of the chest. Additional consults in place including oncology, cardiology for pericardial effusion, nephrology for hyponatremia. Patient has been started on Unasyn. 03/14/2019 Patient still feels poorly and has shortness of breath but nausea has improved. Still very fatigued. 03/15/2019 patient is status post pericardial window and is feeling somewhat better today. She still is quite weak. Was able to drink liquids without great difficulty. Appetite is poor. Denies nausea or emesis at this time. Pain is under good control. Mood is improved. 03/16/2019 patient continues to have some improvement after the pericardial window. Pain is improved. She is sitting up in a chair. Looks towards having her lunch. Is a 90 difficulties. Shortness of breath is improved. 03/17/2019 patient remains improved after the pericardial window. As expected it was a malignant effusion. She fortunately is feeling much less short of breath mood is improved. No other new complaints still poor appetite. March 18, 2019 patient sitting up feeling better improving her appetite. Request some chips which she sounded good to her. Objective - Vital Signs Vital signs: Vital Signs Temp 97.7 F 03/18/19 12:00 Pulse 106 H 03/18/19 14:00 Resp 26 H 03/18/19 14:00 BP 100/59 03/18/19 15:00 Pulse Ox 97 03/18/19 14:00 Intake & Output 03/17/19 03/18/19 03/18/19 18:59 06:59 18:59 Intake Total 730 220 712 Output Total 720 425 710 Balance 10 -205 2 Weight 75.5 kg 70.8 kg Intake: IV 330 100 120 0.9 KVO 130 20 Ampicillin-Sulbactam 3 gm 200 100 100 In Sodium Chloride 0.9% 100 ml @ 200 mls/hr IVPB Q8HR [facility] Rx#:[id number] Oral 400 120 592 Output: Chest Tube Drainage 120 10 Mediastinal 120 10 Urine 600 425 700 Other: Voiding Method Bedside Commode Bedside Commode Bedside Commode # Voids 0 0 # Bowel Movements 1 ABP, PAP, CO, CI - Last Documented Arterial Blood Pressure 84/57 - Exam Gen: This is a 69-year-old female. She is up in the chair and feels better today HEENT: Head is atraumatic, normocephalic. Pupils equal, round. Sclerae is anicteric. NECK: Supple. No JVD. No lymphadenopathy. No thyromegaly. LUNGS: Clear to auscultation. No wheezes or rhonchi. basilar crackles subxiphoid chest tube is now removed and patient feels better. HEART: Regular rate and rhythm. No murmur. Port to the right upper chest wall. Breast: Significant ulceration to the right breast anterior aspect with necrosis followed her has completely resolved ABDOMEN: Soft. Bowel sounds are present. No masses. No tenderness. EXTREMITIES: No pedal edema. No calf tenderness. NEUROLOGICAL: Patient is awake, alert and oriented x3. - Labs CBC & Chem 7: 03/18/19 06:10 03/18/19 06:10 Labs: Abnormal Lab Results - Last 24 Hours (Table) 03/17/19 03/17/1903/18/19 Range/Units 17:08 21:02 06:10 RBC 3.57 L (3.80-5.40) m/uL MCV 104.7 H (80.0-100.0) fL RDW 20.9 H (11.5-15.5) % Lymphocytes # 0.7 L (1.0-4.8) k/uL Macrocytosis Marked A Sodium (137-145) mmol/L BUN (7-17) mg/dL Creatinine (0.52-1.04) mg/dL POC Glucose (mg/dL) 110 H 184 H (75-99) mg/dL Calcium (8.4-10.2) mg/dL 03/18/19 03/18/19 03/18/19 Range/Units 06:10 06:52 11:58 RBC (3.80-5.40) m/uL MCV (80.0-100.0) fL RDW (11.5-15.5) % Lymphocytes # (1.0-4.8) k/uL Macrocytosis Sodium 130 L (137-145) mmol/L BUN 34 H (7-17) mg/dL Creatinine 0.45 L (0.52-1.04) mg/dL POC Glucose (mg/dL) 105 H 136 H (75-99) mg/dL Calcium 8.2 L (8.4-10.2) mg/dL Microbiology - Last 24 Hours (Table) 03/11/19 22:54 Blood Culture - Final Blood No Growth after 144 hours Laboratory Results WBC 4.7 k/uL (3.8-10.6) 03/18/19 06:10 RBC 3.57 m/uL (3.80-5.40) L 03/18/19 06:10 Hgb 12.3 gm/dL (11.4-16.0) 03/18/19 06:10 Hct 37.4 % (34.0-46.0) 03/18/19 06:10 MCV 104.7 fL (80.0-100.0) H 03/18/19 06:10 MCH 34.5 pg (25.0-35.0) 03/18/19 06:10 MCHC 33.0 g/dL (31.0-37.0) 03/18/19 06:10 RDW 20.9 % (11.5-15.5) H 03/18/19 06:10 Plt Count 194 k/uL (150-450) 03/18/19 06:10 Neutrophils % 65 % 03/18/19 06:10 Neutrophils % (Manual) 63 % 03/17/19 05:33 Band Neutrophils % 5 % 03/17/19 05:33 Lymphocytes % 15 % 03/18/19 06:10 Lymphocytes % (Manual) 18 % 03/17/19 05:33 Monocytes % 13 % 03/18/19 06:10 Monocytes % (Manual) 13 % 03/17/19 05:33 Eosinophils % 3 % 03/18/19 06:10 Eosinophils % (Manual) 1 % 03/17/19 05:33 Basophils % 0 % 03/18/19 06:10 Neutrophils # 3.1 k/uL (1.3-7.7) 03/18/19 06:10 Neutrophils # (Manual) 2.90 k/uL (1.3-7.7) 03/17/19 05:33 Lymphocytes # 0.7 k/uL (1.0-4.8) L 03/18/19 06:10 Lymphocytes # (Manual) 0.77 k/uL (1.0-4.8) L 03/17/19 05:33 Monocytes # 0.6 k/uL (0-1.0) 03/18/19 06:10 Monocytes # (Manual) 0.56 k/uL (0-1.0) 03/17/19 05:33 Eosinophils # 0.1 k/uL (0-0.7) 03/18/19 06:10 Eosinophils # (Manual) 0.04 k/uL (0-0.7) 03/17/19 05:33 Basophils # 0.0 k/uL (0-0.2) 03/18/19 06:10 Nucleated RBCs 0 /100 WBC (0-0) 03/17/19 05:33 Manual Slide Review Performed 03/17/19 05:33 Polychromasia Present 03/17/19 05:33 Poikilocytosis (manual Present 03/17/19 05:33 Anisocytosis Moderate 03/18/19 06:10 Anisocytosis (manual) Present 03/16/19 04:13 Macrocytosis Marked A 03/18/19 06:10 PT 12.5 sec (9.0-12.0) H 03/15/19 04:15 INR 1.2 (<1.2) H 03/15/19 04:15 APTT 24.0 sec (22.0-30.0) 03/15/19 04:15 Sample Site SCAR 03/15/19 05:07 ABG pH 7.47 (7.35-7.45) H 03/15/19 05:07 ABG pCO2 28 mmHg (35-45) L 03/15/19 05:07 ABG pO2 82 mmHg (83-108) L 03/15/19 05:07 ABG HCO3 21 mmol/L (21-25) 03/15/19 05:07 ABG Total CO2 22 mmol/L (19-24) 03/15/19 05:07 ABG O2 Saturation 96.7 % (94-97) 03/15/19 05:07 ABG Base Excess -3.0 mmol/L 03/15/19 05:07 Negro Test Yes 03/15/19 05:07 FiO2 50 % 03/15/19 05:07 Sodium 130 mmol/L (137-145) L 03/18/19 06:10 Potassium 4.8 mmol/L (3.5-5.1) 03/18/19 06:10 Chloride 99 mmol/L (98-107) 03/18/19 06:10 Carbon Dioxide 27 mmol/L (22-30) 03/18/19 06:10 Anion Gap 4 mmol/L 03/18/19 06:10 BUN 34 mg/dL (7-17) H 03/18/19 06:10 Creatinine 0.45 mg/dL (0.52-1.04) L 03/18/19 06:10 Est GFR (CKD-EPI)AfAm >90 (>60 ml/min/1.73 sqM) 03/18/19 06:10 Est GFR (CKD-EPI)NonAf >90 (>60 ml/min/1.73 sqM) 03/18/19 06:10 Glucose 98 mg/dL (74-99) 03/18/19 06:10 POC Glucose (mg/dL) 136 mg/dL (75-99) H 03/18/19 11:58 POC Glu [employer] ID 03/18/19 11:58 Osmolality 285 mosm/kg (280-301) 03/12/19 10:00 Plasma Lactic Acid [place] 1.8 mmol/L (0.7-2.0) 03/11/19 22:54 Uric Acid 7.1 mg/dL (3.7-7.4) 03/15/19 04:15 Calcium 8.2 mg/dL (8.4-10.2) L 03/18/19 06:10 Phosphorus 3.0 mg/dL (2.5-4.5) 03/16/19 04:13 Magnesium 2.1 mg/dL (1.6-2.3) 03/16/19 04:13 Total Bilirubin 0.7 mg/dL (0.2-1.3) 03/15/19 04:15 Conjugated Bilirubin 0.0 mg/dL (0.0-0.3) 03/12/19 10:00 Unconjugated Bilirubin 0.2 mg/dL (0.0-1.1) 03/12/19 10:00 Delta Bilirubin 0.3 mg/dL (0.0-0.2) H 03/12/19 10:00 AST 39 U/L (14-36) H 03/15/19 04:15 ALT 72 U/L (9-52) H 03/15/19 04:15 Alkaline Phosphatase 304 U/L (38-126) H 03/15/19 04:15 Creatine Kinase 29 U/L (30-135) L 03/11/19 22:54 Troponin I <0.012 ng/mL (0.000-0.034) 03/11/19 22:54 Total Protein 5.1 g/dL (6.3-8.2) L 03/15/19 04:15 Albumin 2.9 g/dL (3.5-5.0) L 03/15/19 04:15 CA 15-3 Antigen 41.4 U/mL (0.0-32.3) H 03/13/19 06:10 TSH 2.770 mIU/L (0.465-4.680) 03/11/19 22:54 Cortisol 32 ug/dL 03/17/19 05:33 ACTH 37.40 pg/mL (0.00-45.99) 03/17/19 05:33 Urine Color Yellow 03/12/19 01:35 Urine Appearance Clear (Clear) 03/12/19 01:35 Urine pH 5.5 (5.0-8.0) 03/12/19 01:35 Ur Specific [place] 1.036 (1.001-1.035) H 03/12/19 01:35 Urine Protein 1+ (Negative) H 03/12/19 01:35 Urine Glucose (UA) Negative (Negative) 03/12/19 01:35 Urine Ketones Negative (Negative) 03/12/19 01:35 Urine Blood Negative (Negative) 03/12/19 01:35 Urine Nitrite Negative (Negative) 03/12/19 01:35 Urine Bilirubin Negative (Negative) 03/12/19 01:35 Urine Urobilinogen 2.0 mg/dL (<2.0) 03/12/19 01:35 Ur Leukocyte Esterase Small (Negative) H 03/12/19 01:35 Urine RBC 4 /hpf (0-5) 03/12/19 01:35 Urine WBC 11 /hpf (0-5) H 03/12/19 01:35 Ur Squamous Epith Cells 1 /hpf (0-4) 03/12/19 01:35 Urine Bacteria Occasional /hpf (None) H 03/12/19 01:35 Hyaline Casts 202 /lpf (0-2) H 03/12/19 01:35 Granular Casts 61 /lpf (0) 03/12/19 01:35 Urine Mucus Rare /hpf (None) H 03/12/19 01:35 Urine Osmolality 899 mosm/kg (50-1400) 03/12/19 11:20 Ur Random Creatinine 202.8 mg/dL 03/12/19 11:20 Ur Random Sodium <10 mmol/L 03/12/19 11:20 Microbiology 03/11/19 22:54 Blood Blood Culture - Final No Growth after 144 hours 03/13/19 15:00 Breast - Right Gram Stain - Final 03/13/19 15:00 Breast - Right Wound Culture - Final Proteus mirabilis 03/12/19 01:35 Urine,Voided Urine Culture - Final Assessment and Plan (1) Breast cancer Narrative/Plan: 69-year-old female who has metastatic breast carcinoma with recent significant worsening of her status presents to Hospital feeling very poorly. She difficulty with her breast ulceration with increasing odor drainage and increasing fatigue and malaise. She's also developed some nausea with emesis and feels very poorly. It is noted developed some hyponatremia also. On the exam the patient has the extensive ulceration to the right breast that is necrotic and malodorous. There is some surrounding erythema. At this time Unasyn is an excellent choice for the cellulitis that has developed in the roselia-ulcer area on the breast from the carcinoma. Topical metronidazole that are the tablets that are crushed in sprinkled onto the ulcers is often helpful in reducing the strong odor. It appears at the patient is developed progression of her metastatic disease since her last set of scans and it's not clear at this point in time with the overall process will be. 03/14/2019 patient is had little improvement. However the topical metronidazole has helped the significant malodorous nature to the right breast. Patient over still short of breath. Echocardiogram shows evidence of a pericardial effusion. Will be seen by cardiovascular surgery and likely will have an emergent pericardial window. Continue as before by cultures are pending. 03/15/2019 patient is status post the pericardial window. She is having some improvement of her status. Blood pressure remains low urine output is adequate. She is not requiring vasopressor therapy. Wound culture does show evidence of the Proteus which is susceptible to Unasyn and constantly current antibiotic therapy continues. Topical metronidazole has been very helpful in reducing the putrid odor from the right breast ulceration. Patient does feel better because the improved odor. Await the cytology results and overall plan. 03/16/2019 patient has further improvement to be able to tolerate sitting up in the chair. He looks forward to ingesting some of her lunch. Is denying amounts of pain. Remains afebrile. Odor from the right breast ulceration from her breast cancer has responded very well to the topical metronidazole. Fortunately she's feeling somewhat better since the pericardial window and is less short of breath. 03/17/2019 patient is feeling better. Tolerate sitting up quite well. She's done well with current antibiotic therapy with Unasyn and topical metronidazole to the ulceration of the chest wall. If she improves and her chest tube becomes removed there will be discharge plans and process. As she ready for discharge the Unasyn may be changed to Augmentin May continue the topical metronidazole to the ulceration of the chest wall. Palliative care consultation would be helpful, as could be consideration for a hospice approach. March 18, 2019 patient fortunately continues to have some improvement now that her chest tube is been removed. Her discomforts are improved. Her appetite is impr oving. If she improves we'll suggest Unasyn and will be changed to Augmentin to complete a course of therapy. And topical metronidazole applied to the chest wall to help with the pungent odor the necrotic tissue. Palliative care consult would be helpful. Current Visit: Yes Status: Acute Code(s): C50.919 - MALIGNANT NEOPLASM OF UNSP SITE OF UNSPECIFIED FEMALE BREAST SNOMED Code(s): 999454524 (2) Pericardial effusion, acute Current Visit: Yes Status: Acute Code(s): I30.9 - ACUTE PERICARDITIS, U NSPECIFIED SNOMED Code(s): 18224724
[2019-03-18 17:09] LABS: Glucose,Whole Blood 124 mg/dL (75-99)
[2019-03-18 17:40] LABS: Potassium 5.3 mmol/L (3.5-5.1)
[2019-03-18] MEDS ORDERED: FUROSEMIDE 10 MG/ML 4 ML VIAL IV STA (18:03)
[2019-03-18 21:05] LABS: Glucose,Whole Blood 136 mg/dL (75-99)
[2019-03-18] MEDS: MIRTAZAPINE 15 MG TAB PO SCH (22:07)
[2019-03-19] MEDS: AMPICILLIN-SULBACTAM 3 GM in SODIUM CHLORIDE 0.9% 100 ML IVPB SCH ×3 (01:10→16:50)
[2019-03-19 06:17] LABS: Anisocytosis Slight; Basophils % (A) 0 %; Eosinophils # (A) 0.1 k/uL (0-0.7); Eosinophils % (A) 1 %; HCT 39.7 % (34.0-46.0); HGB 12.6 gm/dL (11.4-16.0); Lymphocytes # (A) 0.6 k/uL (1.0-4.8); Lymphocytes % (A) 11 %; MCH 33.3 pg (25.0-35.0); MCHC 31.8 g/dL (31.0-37.0); MCV 104.5 fL (80.0-100.0); Macrocytosis Marked; Mean Platelet Volume 7.1; Monocytes # (A) 0.9 k/uL (0-1.0); Monocytes % (A) 15 %; Neutrophils % (A) 69 %; Platelet Count 210 k/uL (150-450); RDW 19.7 % (11.5-15.5); WBC 5.8 k/uL (3.8-10.6)
[2019-03-19 06:30] LABS: Anion Gap 5 mmol/L; Blood Urea Nitrogen 34 mg/dL (7-17); Calcium 8.2 mg/dL (8.4-10.2); Carbon Dioxide 29 mmol/L (22-30); Chloride 96 mmol/L (98-107); Glucose 105 mg/dL (74-99); Sodium 130 mmol/L (137-145)
[2019-03-19 06:32] LABS: Potassium 5.2 mmol/L (3.5-5.1)
--- NOTE | 2019-03-19 06:45 | XR ---
EXAMINATION TYPE: XR chest 1V portable DATE OF EXAM: 03/19/2019 HISTORY: Tube placement. REFERENCE: Previous study dated 03/18/2019. FINDINGS: There is a is a right internal jugular catheter in place. Its tips in the superior vena cav a. There are bilateral effusions. The bibasilar airspace disease. Heart size is within normal limits. Th ere has been no interval change in the appearance of the chest. IMPRESSION: NO SIGNIFICANT INTERVAL CHANGE IN THE APPEARANCE OF THE CHEST.
[2019-03-19 07:01] LABS: Glucose,Whole Blood 112 mg/dL (75-99)
[2019-03-19] MEDS: INSULIN ASPART (NovoLOG) 100 UNIT/ML VIAL SQ SCH ×4 (07:29→21:40)
--- NOTE | 2019-03-19 08:34 | PN ---
PROGRESS NOTE Mrs. Moss is a 69-year-old female with history of metastatic breast cancer who presented with progressive dyspnea, hyponatremia, progressive fatigue, was noted to have pericardial effusion, underwent window placement. The pericardial tube was removed yesterday. She has underwent bilateral thoracentesis. She is feeling better overall. Her breathing is stable. She has discomfort in the right side of the chest related to her breast cancer. She denies any dizziness or palpitation. She is in sinus mechanism. Hemodynamically, she is stable. She continues to be at this time on ampicillin, Flagyl, midodrine and tramadol on a p.r.n. basis. PHYSICAL EXAMINATION: Blood pressure 117/90 with a heart in 90s. Lungs with mild decrease in breath sounds at the bases. HEART: Regular rhythm S1, S2. No S3. No rub appreciated. ABDOMEN: Soft, nontender. Positive bowel sounds. EXTREMITIES: No edema. LAB DATA: Revealed BUN and creatinine 34 and 0.47, potassium 5.2, sodium 130, hemoglobin of 12.6. IMPRESSION: 1. 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 2. Hyponatremia, stable. 3. Malnutrition. RECOMMENDATION: From the cardiac standpoint, there is no active cardiac issue at this point. We will see her on an as-needed basis. Please feel free to call us for any question. MMODL / IJN: [id number] /
[2019-03-19] MEDS: MIDODRINE 5 MG TAB PO SCH ×3 (09:05→16:51)
[2019-03-19] MEDS: FAMOTIDINE 20 MG TAB PO SCH (09:06)
[2019-03-19] MEDS: DOCUSATE 100 MG CAP PO SCH ×2 (09:06→21:36)
[2019-03-19] MEDS: metroNIDAZOLE 500 MG TAB PO SCH ×4 (09:06→21:36)
[2019-03-19] MEDS: traMADol 50 MG TAB PO PRN ×2 (09:14→21:36)
[2019-03-19] MEDS ORDERED: TOLVAPTAN 15 MG 1/2 TABLET PO ONE (09:19)
--- NOTE | 2019-03-19 09:21 | P.PN ---
Subjective Patient is seen in follow-up for hyponatremia. Sodium level today is stable at 130. Oral intake is fair. Denies chest pain. GFR at baseline. She underwent bilateral thoracentesis on March 17 with nearly 2.5 L drained. Chest tube was removed yesterday. No active complaints. Vital signs are stable. Blood pressure on the lower side. General: The patient appeared well nourished and normally developed. HEENT: Head exam is unremarkable. Neck is without jugular venous distension. LUNGS: Breath sounds decreased. HEART: Rate and Rhythm are regular. First and second heart sounds normal. No murmurs, rubs or gallops. ABDOMEN: Abdominal exam reveals normal bowel sounds. Non-tender. EXTREMITITES: 1+ edema. Objective - Vital Signs Vital signs: Vital Signs Temp 97.8 F 03/19/19 00:00 Pulse 98 03/19/19 02:00 Resp 12 03/19/19 02:00 BP 117/90 03/19/19 02:00 Pulse Ox 96 03/19/19 09:06 Intake & Output 03/18/19 03/19/19 03/19/19 18:59 06:59 18:59 Intake Total 1436 120 Output Total 910 1300 Balance 526 -1180 Weight 72.9 kg Intake: IV 170 0.9 KVO 20 Ampicillin-Sulbactam 3 gm 150 In Sodium Chloride 0.9% 100 ml @ 200 mls/hr IVPB Q8HR [facility] Rx#:[id number] Oral 1266 120 Output: Chest Tube Drainage 10 Mediastinal 10 Urine 900 1300 Other: Voiding Method Bedside Commode # Voids 0 1 # Bowel Movements 1 ABP, PAP, CO, CI - Last Documented Arterial Blood Pressure 84/57 - Labs CBC & Chem 7: 03/19/19 05:34 03/19/19 05:34 Labs: Abnormal Lab Results - Last 24 Hours (Table) 03/18/19 03/18/19 03/18/19 Range/Units 11:58 17:08 17:19 MCV (80.0-100.0) fL RDW (11.5-15.5) % Lymphocytes # (1.0-4.8) k/uL Macrocytosis Sodium 130 L (137-145) mmol/L Potassium 5.3 H (3.5-5.1) mmol/L Chloride (98-107) mmol/L BUN (7-17) mg/dL Creatinine (0.52-1.04) mg/dL Glucose (74-99) mg/dL POC Glucose (mg/dL) 136 H 124 H (75-99) mg/dL Calcium (8.4-10.2) mg/dL 03/18/19 03/19/19 03/19/19 Range/Units 21:03 05:34 05:34 MCV 104.5 H (80.0-100.0) fL RDW 19.7 H (11.5-15.5) % Lymphocytes # 0.6 L (1.0-4.8) k/uL Macrocytosis Marked A Sodium 130 L (137-145) mmol/L Potassium 5.2 H (3.5-5.1) mmol/L Chloride 96 L (98-107) mmol/L BUN 34 H (7-17) mg/dL Creatinine 0.47 L (0.52-1.04) mg/dL Glucose 105 H (74-99) mg/dL POC Glucose (mg/dL) 136 H (75-99) mg/dL Calcium 8.2 L (8.4-10.2) mg/dL 03/19/19 Range/Units 06:58 MCV (80.0-100.0) fL RDW (11.5-15.5) % Lymphocytes # (1.0-4.8) k/uL Macrocytosis Sodium (137-145) mmol/L Potassium (3.5-5.1) mmol/L Chloride (98-107) mmol/L BUN (7-17) mg/dL Creatinine (0.52-1.04) mg/dL Glucose (74-99) mg/dL POC Glucose (mg/dL) 112 H (75-99) mg/dL Calcium (8.4-10.2) mg/dL Assessment and Plan Plan: Assessment: 1. Hyponatremia. Patient is hypervolemic. 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 Sodium level 130 this morning. Urine sodium noted to be less than 10. Urine osmolality 899. TSH, uric acid and cortisol level normal. 2. 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 3. Metastatic breast cancer. 4. Breast wound culture positive for Proteus maintained on antibiotics. 5. Volume overload. 6. Pleural effusion status post bilateral thoracentesis on March 17 with nearly 2.5 L drained. Plan: Lasix held this morning due to low blood pressure. Samsca 15 mg once now. Repeat sodium level this afternoon. Will remove oral water restriction as she will be getting samsca. Ejection fraction preserved on recent echo.
--- NOTE | 2019-03-19 09:46 | P.PN ---
Subjective Progress Note Date: 03/19/19 Principal diagnosis: Pericardial effusion, status post pericardial window This is a 69-year-old white female patient of Dr. Glen Vázquez, with past medical history of metastatic breast cancer, diagnosed in her left breast back in 2011 and patient was treated with chemoradiation. Patient developed metastatic disease in 2014 with a large right supraclavicular mass, for which she received radiation. She had since progressed through various regimens, she developed a right chest wall lesion with repeat biopsy showing hormone receptor positive disease. She most recently was on hypertensive and the Faslodex. She was developing increasing shortness of breath, and progressive symptoms in the lesion in the right chest wall with superficial ulceration and intermittent drai nage. She underwent right-sided thoracentesis at the [facility] last week with removal of 1.2 L of pleural fluid with improvement of her dyspnea. Pathology results are not available to us at this time. Patient had progressive weakness, poor appetite and decreased oral intake. She was brought into the emergency department on 03/11/2019, found to be clinically dehydrated with multiple lab abnormalities including low sodium, elevated potassium, and elevated liver enzymes. Most recent PET scan on November 19 showed uptake in the right chest wall lesion, and left supraclavicular lymph nodes. CT of the abdomen and pelvis was completed in the emergency department and showed multiple low density foci scattered within the liver at least 10 lesions related to metastatic disease to the liver, with pericholecystic fluid present about the gallbladder, no significant abnormality in the pancreas, spleen or adrenal glands. There was ascites developing in the upper abdomen. An interval development of bilateral pleural effusions pericardial effusion and ascites. Echocardiogram revealed EF of 60-65%, and a large generalized pericardial effusion. Patient was having marginal low blood pressures. She was seen by cardiothoracic surgery, and surgical intervention was recommended for a large pericardial effusion. And patient underwent pericardial window on 03/14/2019 and following her surgery she returned to the ICU on the ventilator. Patient has been successfully weaned from the ventilator support, she was extubated sometime this morning, she is currently seen in the intensive care unit, this is postoperative day 1, status post pericardial window. She is currently on 6 L of oxygen per nasal cannula, her IV 0.9 normal saline at a rate of 50 ML per hour, she was extubated at 05 40 this morning. Today's chest x-ray has been reviewed, and shows pleural effusions, and associated bibasilar airspace disease likely related to atelectasis. Patient has a subxiphoid chest tube in place, has been 198 mL of serosanguineous output since surgery, with drainage of 500 mL of serosanguineous output during surgery from the chest tube. On 03/16/2019 patient seen in follow-up in the intensive care unit, she is resting in bed, awake and alert, in no acute distress, she is on 8 L per high flow nasal cannula, and her pulse ox is 96%, she is afebrile, blood pressures at times are marginal, with BP in the 80s over 50s, and 90s over 60s, hour the patient is asymptomatic, and producing urine and the order of 30-45 ML per hour, alert, and not complaining of anything, his labs have been reviewed, and showed dull white blood cell count of 2.7, hemoglobin of 12.5, serum sodium is 129, potassium is 4.3, chloride is 100, BUN is 43, creatinine is 0.62. I-S effort is 500 mL, lung sounds are clear to auscultation, no rhonchi or rales. The 0.9 normal saline at a rate of 10 ML per hour. Right breast wound culture was positive for Proteus mirabilis, she is on Unasyn which organism is susceptible to, tolerating oral intake, although appetite remains poor. Subxiphoid chest tube is in place, and there has been 182 mL of thin serosanguineous output over last 24 hours. no specific complaints, patient is calm and comfortable, denies any difficulty breathing or chest pain On 03/19/2019 patient seen in follow-up in the intensive care unit. Patient has been in the low status for last 24 hours, she is awaiting a bed on general medical floor. She is awake and alert, oriented 3, currently on 2 L of oxygen, with a pulse ox of 94-95%, she is afebrile, hemodynamically patient is stable, no specific complaints, she underwent bilateral thoracentesis on 03/17/2019, and there was a 1.3 L removed from her left side, and 1450 ML removed from the right side. On today's chest x-ray there is still residual small pleural effusions bilaterally. Patient denies any acute distress. Patient was given a dose of IV Lasix per nephrology service, and her renal profile is stable, with BUN of 34, and creatinine 0.47, electrolytes revealed a serum sodium of 1:30, potassium is 5.2, chloride is 96, CO2 is 29, anion gap was 5. White blood cell count was 5.8, hemoglobin was 12.6, no fever or chills. Patient is on antibiotics for evidence of Proteus mirabilis infection in the right breast wound, urine culture and blood culture showed no growth. Antibiotic coverage in the form of Unasyn, and patient is receiving Flagyl by mouth Objective - Vital Signs Vital signs: Vital Signs Temp 97.8 F 03/19/19 00:00 Pulse 98 03/19/19 02:00 Resp 12 03/19/19 02:00 BP 117/90 03/19/19 02:00 Pulse Ox 96 03/19/19 09:06 Intake & Output 03/18/19 03/19/19 03/19/19 18:59 06:59 18:59 Intake Total 1436 120 Output Total 910 1300 Balance 526 -1180 Weight 72.9 kg Intake: IV 170 0.9 KVO 20 Ampicillin-Sulbactam 3 gm 150 In Sodium Chloride 0.9% 100 ml @ 200 mls/hr IVPB Q8HR [facility] Rx#:[id number] Oral 1266 120 Output: Chest Tube Drainage 10 Mediastinal 10 Urine 900 1300 Other: Voiding Method Bedside Commode # Voids 0 1 # Bowel Movements 1 ABP, PAP, CO, CI - Last Documented Arterial Blood Pressure 84/57 - Exam GENERAL EXAM: Alert, pleasant, weak and fatigued chronically ill-looking 69-year-old white female, on 2 L of oxygen, comfortable in no apparent distress. HEAD: Normocephalic/atraumatic. EYES: Normal reaction of pupils, equal size. Conjunctiva pink, sclera white. NOSE: Clear with pink turbinates. THROAT: No erythema or exudates. NECK: No masses, no JVD, no thyroid enlargement, no adenopathy. CHEST: No chest wall deformity. Symmetrical expansion. Interval removal of the subxiphoid chest tube and there are extensive ulcerated wounds on her right breast with the some limited drainage LUNGS: Equal air entry with no crackles, wheeze, rhonchi or dullness. CVS: Regular rate and rhythm, normal S1 and S2, no gallops, no murmurs, no rubs ABDOMEN: Soft, nontender. No hepatosplenomegaly, normal bowel sounds, no guarding or rigidity. EXTREMITIES: No clubbing, mild lower extremity edema, no cyanosis, 2+ pulses and upper and lower extremities. MUSCULOSKELETAL: Muscle strength and tone normal. SPINE: No scoliosis or deformity SKIN: No rashes CENTRAL NERVOUS SYSTEM: Alert and oriented -3. No focal deficits, tone is normal in all 4 extremities. PSYCHIATRIC: Alert and oriented -3. Appropriate affect. Intact judgment and insight. - Labs CBC & Chem 7: 03/19/19 05:34 03/19/19 05:34 Labs: Abnormal Lab Results - Last 24 Hours (Table) 03/18/19 03/18/19 03/18/19 Range/Units 11:58 17:08 17:19 MCV (80.0-100.0) fL RDW (11.5-15.5) % Lymphocytes # (1.0-4.8) k/uL Macrocytosis Sodium 130 L (137-145) mmol/L Potassium 5.3 H (3.5-5.1) mmol/L Chloride (98-107) mmol/L BUN (7-17) mg/dL Creatinine (0.52-1.04) mg/dL Glucose (74-99) mg/dL POC Glucose (mg/dL) 136 H 124 H (75-99) mg/dL Calcium (8.4-10.2) mg/dL 03/18/19 03/19/19 03/19/19 Range/Units 21:03 05:34 05:34 MCV 104.5 H (80.0-100.0) fL RDW 19.7 H (11.5-15.5) % Lymphocytes # 0.6 L (1.0-4.8) k/uL Macrocytosis Marked A Sodium 130 L (137-145) mmol/L Potassium 5.2 H (3.5-5.1) mmol/L Chloride 96 L (98-107) mmol/L BUN 34 H (7-17) mg/dL Creatinine 0.47 L (0.52-1.04) mg/dL Glucose 105 H (74-99) mg/dL POC Glucose (mg/dL) 136 H (75-99) mg/dL Calcium 8.2 L (8.4-10.2) mg/dL 03/19/19 Range/Units 06:58 MCV (80.0-100.0) fL RDW (11.5-15.5) % Lymphocytes # (1.0-4.8) k/uL Macrocytosis Sodium (137-145) mmol/L Potassium (3.5-5.1) mmol/L Chloride (98-107) mmol/L BUN (7-17) mg/dL Creatinine (0.52-1.04) mg/dL Glucose (74-99) mg/dL POC Glucose (mg/dL) 112 H (75-99) mg/dL Calcium (8.4-10.2) mg/dL Assessment and Plan Plan: Assessment: #1. Malignant pericardial effusion, status post pericardial window, postop day 5, with the immediate removal of 500 mL of serosanguineous output in surgery. Cytology of the pericardial fluid was positive for metastatic adenocarcinoma consistent with primary breast origin #2. Routine ventilator management, and patient was successfully extubated this morning on 03/15/2019, postop day 1, status post pericardial window #3. Metastatic recurrent breast cancer, with metastasis to the liver, and the supraclavicular nodes #4. History of left breast cancer in 2011 treated with chemoradiation #5. Generalized weakness, anorexia, weakness, dehydration #6. Leukopenia #7. Hyponatremia, improving with hydration #8. Non-anion gap metabolic acidosis, improving #9. Elevated liver enzymes related to liver metastasis #10. Bilateral pleural Effusions, and recent history of thoracentesis at [facility] with removal of 1.2 L of pleural fluid, cytology results were positive for metastatic adenocarcinoma with breast primary. Patient underwent bilateral thoracentesis on 03/17/2019 with removal of 1450 of pleural fluid the right side, and 1.3 L from the left side, no cytology was sent Plan: Patient is hemodynamically stable, no acute issues overnight, today's chest x- ray has been reviewed with Dr. Hayes, patient was seen and evaluated by Dr. Marte, and there are small residual pleural effusions present bilaterally, patient received a dose of IV Lasix per nephrology, she is in no acute distress, FiO2 is down to 2 L, continue encouraging deep breathing and coughing. Patient is stable to go out of the intensive care unit today to general medical floor. continue with antibiotics per ID service recommendations, we'll continue to follow. I performed a history & physical examination of the patient and discussed their management with my nurse practitioner, Renea Ames. I reviewed the nurse practitioner's note and agree with the documented findings and plan of care. Lung sounds are positive for diminished breath sounds. The findings and the impression was discussed with the patient. I attest to the documentation by the nurse practitioner. Time with Patient: Less than 30
--- NOTE | 2019-03-19 10:56 | P.PN ---
Subjective Progress Note Date: 03/19/19 Principal diagnosis: Severe hyponatremia, failure to thrive, pleural effusion, stage IV breast cancer with pleural effusion, right breast wound, pericardial effusion This is a 69-year-old pleasant female patient of Dr. Glen Vázquez who presented to the emergency room complaining of generalized weakness. Patient states that over the last couple weeks she has not had any appetite she has not been able to eat or drink well. Patient states that she seen her primar care physician about a week ago and was told that the left looks fine at that time however since then she has not been able to eat or drink. Patient reported generalized malaise. She denied any fever, chills, nausea or vomiting at that time. Patient has past medical history significant of recurrent breast CA, initial diagnosis apparently 7 years ago. Patient has a necrotic breast lesion on the right chest wall that is progressively getting worse. Past medical history also includes anxiety and depression. Patient has never been a smoker. At this time patient is resting in bed in no acute distress. She is complaining of lack of appetite, weakness, malaise. Patient states over the last few weeks she's had episodes of vomiting and nausea. Patient denies any diarrhea or constipation. Patient has been complaining of chest wall pain and difficulty breathing. On Wednesday of last week she had thoracentesis due to bilateral pleural effusion. 1.3 L of fluid was drained from the right lung. Patient states after the procedure was done she did have an easier time breathing. However it did not help her weakness or malaise. Patient states that next week she will be starting another chemotherapy since previous treatments have not been successful. Patient denies any fevers or chills. 03/13: Patient has a wound on her right breast which she states has been drinking for 5 days but now has a foul order. She denies being on any antibiotics recently. Consult for Dr. Wilcox has been ordered and will culture ordered. She has been seen by Dr. Zamora regarding breast cancer the plan is to start chemotherapy with Abraxane as an outpatient. Patient is noted to have increased liver enzymes and Dr. Zamora ordered CAT scan of the abdomen and pelvis which revealed interval development of bilateral pleural effusions, pericardial effusion, ascites. Metastatic disease to the liver. Consult has been admitted for cardiology regarding pericardial effusion. Chest x-ray from yesterday showed no significant interval change in the appearance of the chest. Repeat lab work reveals sodium 127, potassium 5.4, chloride 97, CO2 21, BUN 15 creatinine 0.91, blood sugar 130. Cortisol 67 Consult has been added for nephrology for hyponatremia possible SIADH. Patient does have some increased edema for which IV fluids will be decreased to 50 mL per hour. 03/14: Echocardiogram reveals EF of 60-65%, mild aortic valve sclerosis, mild pulmonary hypertension, large generalized pericardial effusion. Patient was transferred to the cardiac stepdown unit. She did have marginal blood pressure readings and pulse ox was 91% on 2 L increased to 3 L. Patient has been seen by oncology and MRI of the brain was ordered for today looking for brain metastases but patient is unable to lay flat for this and we will cancel it for now. Xanax ordered for anxiety. Discussed case with cardiology and cardiothoracic surgery consult has been added. Patient received 1 dose of IV albumin yesterday we will repeat for today. Chest x-ray ordered for today. Patient states that she has less edema in her legs but continues to have edema in her arms. She denies any diarrhea. She has not had a bowel movement since admission. Patient is having very little oral intake. She is followed by dietitian and I will be changed to a regular diet to make it more accommodating for her. Repeat lab work reveals sodium 127, potassium 5.8, chloride 96, CO2 19. Patient has been afebrile, heart rate in the low 100s up to 106, pulse ox 95% on 3 L. Blood pressure 96/58. 03/15: Patient underwent subxiphoid pericardiostomy yesterday evening with Dr. Hickman for malignant pericardial effusion with early tamponade with drainage of 500 ML's of bloody fluid and specimen was sent for cytology. Patient was s intubated and admitted into the intensive care unit. Patient was successfully extubated around 6 AM. Chest x-ray this morning reveals similar-appearing pleural effusions and associated bibasilar airspace disease likely atelectasis. Patient has been afebrile, heart rate 112, blood pressure 90/69, pulse ox 96% on high flow nasal cannula 8 L. Repeat lab work reveals white count 1.4, hemoglobin 12.6, platelet count 130, INR 1.2. Sodium remains at 127, BUN 15 creatinine 0.75. Liver function tests remain elevated with AST 39, ALT 72 and alkaline phosphatase 304. Patient was also seen yesterday by Dr. Bush and additional dose of Lasix ordered. Wound cultures showing gram-negative bacilli. Patient is complaining of severe chest pain for which she has morphine available but due to her blood pressure has not been given. We will add in tramadol and plain Tylenol for pain control. 03/16 patient is sitting up in the chair in the ICU. Denies any shortness of breath. Blood pressure 88/66 pulse rate 110 temp 97.8 saturating well heat liters high flow nasal cannula. Continues to drain serosanguineous drainage from the subxiphoid chest to with 50 mL since her last 8 hours. Cortisol on 03/01 3 was normal will repeat cortisol with ACTH. Midodrine initiated 10 mg 3 times a day for blood pressure. Wound culture positive for Proteus susceptible to Unasyn 03/17 patient is sitting up in chair in the ICU. She is feeling better than yesterday had 90 mL output from the pericardial tube. Patient did get thoracentesis this morning from her right chest . Currently saturating 97% on 5 L of high flow blood pressure 95/68 tachycardic to 113. Patient initiated on midodrine 10 mg 3 times a day cortisol 37 normal. Plan for thoracentesis on the left. Pathology from pericardial fluid positive for metastatic adenocarcinoma primary breast lesion ER negative. 03/18: Patient is laying in bed still in the ICU her blood pressure has been slightly but better remain on midodrine sodium has improved some chest tube will be removed today patient might be able to leave the ICU after this is done. Pain management is better controlled. 03/19: Patient still in the ICU, out of her bed, chest tube is out, pain is well controlled on manage, chest x-ray has significant improvement so far, her sodium has improved as well. We'll consult psychiatric social worker supervisor and started looking for possibility of discharge in the next 24-48 hours. Objective - Vital Signs Vital signs: Vital Signs Temp 97.8 F 03/19/19 00:00 Pulse 98 03/19/19 02:00 Resp 12 03/19/19 02:00 BP 117/90 03/19/19 02:00 Pulse Ox 96 03/19/19 09:06 Intake & Output 03/18/19 03/19/19 03/19/19 18:59 06:59 18:59 Intake Total 1436 120 Output Total 910 1300 Balance 526 -1180 Weight 72.9 kg Intake: IV 170 0.9 KVO 20 Ampicillin-Sulbactam 3 gm 150 In Sodium Chloride 0.9% 100 ml @ 200 mls/hr IVPB Q8HR [facility] Rx#:[id number] Oral 1266 120 Output: Chest Tube Drainage 10 Mediastinal 10 Urine 900 1300 Other: Voiding Method Bedside Commode # Voids 0 1 # Bowel Movements 1 ABP, PAP, CO, CI - Last Documented Arterial Blood Pressure 84/57 - Exam Review of systems: CONSTITUTIONAL: Very malnourished laying in bed still look and slight distress not dyspneic with mild hypoxia. EYES: No icterus sclerae, no conjunctivitis. EARS, NOSE, MOUTH, THROAT, and FACE: No sore throat, lymphadenopathy, carotid bruits or deformity. RESPIRATORY: Positive shortness of breath cough wheezes. CARDIOVASCULAR: Positive PND orthopnea no angina. GASTROINTESTINAL: Nausea no vomiting diarrhea constipation. GENITOURINARY: Negative for Hematuria or UTI, no kidney stones. INTEGUMENT/BREAST: Negative for any muscular injury with mild osteoarthritis.. HEMATOLOGIC/LYMPHATIC: Advanced lung cancer with metastasis. MUSCULOSKELTAL: Negative for Myalgia or arthralgia. NEURLOGICAL: No LOC, Sz or syncope, blurred vision dizziness or abnormality.. BEHAVIORAL/PSYCH: Negative. ENDOCRINE: Negative. Physical examination: General Appearance: Alert, cooperative, no distress, very skinny look older than her age. Neck HEENT: Supple, no lymphadenopathy, no thyroid enlargement, no carotid bruits. Lungs: Decreased breath some bilaterally specially the left side positive fine rhonchi without crackles positive mild expiratory wheezes. Chest Wall: Decrease expansion with deep inspiration no tenderness and no deformity was found on exam, no costochondral pain or discomfort. Heart: Regular rate and rhythm, S1, S2 normal, no murmur, rub or gallop. Back: Mild scoliosis with slight discomfort the L-spine area. Abdomen: Soft, non-tender, bowel sounds active all four quadrants, no masses, no organomegaly. Extremities: Trace edema decreased pulse and dorsalis pedis bilaterally, no c yanosis or edema. Pulses: 2+ and symmetric. Skin: Skin color, texture, tugor normal, no rashes or lesions. Neurologic: Alert oriented x3 cranial nerves II through XII intact, no motor deficit, no abnormal balance or gait. - Labs CBC & Chem 7: 03/19/19 05:34 03/19/19 05:34 Labs: Abnormal Lab Results - Last 24 Hours (Table) 03/18/19 03/18/19 03/18/19 Range/Units 11:58 17:08 17:19 MCV (80.0-100.0) fL RDW (11.5-15.5) % Lymphocytes # (1.0-4.8) k/uL Macrocytosis Sodium 130 L (137-145) mmol/L Potassium 5.3 H (3.5-5.1) mmol/L Chloride (98-107) mmol/L BUN (7-17) mg/dL Creatinine (0.52-1.04) mg/dL Glucose (74-99) mg/dL POC Glucose (mg/dL) 136 H 124 H (75-99) mg/dL Calcium (8.4-10.2) mg/dL 03/18/19 03/19/19 03/19/19 Range/Units 21:03 05:34 05:34 MCV 104.5 H (80.0-100.0) fL RDW 19.7 H (11.5-15.5) % Lymphocytes # 0.6 L (1.0-4.8) k/uL Macrocytosis Marked A Sodium 130 L (137-145) mmol/L Potassium 5.2 H (3.5-5.1) mmol/L Chloride 96 L (98-107) mmol/L BUN 34 H (7-17) mg/dL Creatinine 0.47 L (0.52-1.04) mg/dL Glucose 105 H (74-99) mg/dL POC Glucose (mg/dL) 136 H (75-99) mg/dL Calcium 8.2 L (8.4-10.2) mg/dL 03/19/19 Range/Units 06:58 MCV (80.0-100.0) fL RDW (11.5-15.5) % Lymphocytes # (1.0-4.8) k/uL Macrocytosis Sodium (137-145) mmol/L Potassium (3.5-5.1) mmol/L Chloride (98-107) mmol/L BUN (7-17) mg/dL Creatinine (0.52-1.04) mg/dL Glucose (74-99) mg/dL POC Glucose (mg/dL) 112 H (75-99) mg/dL Calcium (8.4-10.2) mg/dL Assessment and Plan Plan: 1. Hyponatremia: Multifactorial, sodium is 130 today been doing well still seen nephrology. 2. Stage IV breast CA with malignant pleural effusion. Chest tube is out so far and has done well with repeat chest x-ray significant improvement patient patient will be seen oncology and possibly going for more chemotherapy. 3. Malnutrition secondary to breast CA. As noted above nutrition consult. 4. Hyperkalemia. With stage II chronic kidney disease: Potassium is down and improve patient still been managing conservative management. 5. Malignant Pleural effusion: Chest tube was removed from patient is doing better clinically. 6. Failure to thrive with severe protein calorie malnutrition and weight loss. Remeron 15 mg at bedtime, ensure daily. Encourage oral intake. Diet changed to regular. Patient is followed by registered dietitian. 7. Right breast wound. Positive for Proteus Wound culture ordered, consult with Dr. Wilcox, continue Unasyn susceptible to Unasyn. Flagyl is used for local wound care. 8. Pericardial effusion status post pericardial window by cardiothoracic surgery. Patient was transferred to intensive care unit. Cytology is pending. 9. DVT prophylaxis pneumatic compression sleeves 8. GI prophylaxis. Pepcid 20 mg daily 10. Hypotension likely secondary to decreased intravascular volume. Rule out critical illness adrenal insufficiency cortisol and ACTH ordered Midodrine initiated at 10 mg 3 times a day Discharge planning: Possible discharge in 48 hours.
[2019-03-19 12:02] LABS: Glucose,Whole Blood 150 mg/dL (75-99)
--- NOTE | 2019-03-19 16:29 | P.PN ---
Subjective Progress Note Date: 03/19/19 This is a 69-year-old female patient with past medical history of initial diagnosis of left sided breast cancer in 2011 and treated with IV chemotherapy and placed on observation. She developed metastatic disease in 2014 with a large right supraclavicular mass. She received radiation and vario us regimes. She developed a right chest wall lesion and repeat biopsy was done and is currently on Ibrance and Faslodex. She had progressive symptoms and the lesion on the right chest wall with superficial ulceration and drainage. She has a thoracentesis done for right-sided pleural effusion last week at [facility] and 1.2 L removed and pathology pending. Patient presented to the hospital complaining of weakness poor appetite and decreased oral intake not able to eat or drink very well and generalized malaise. She denied any fever, chills, nausea or vomiting at that time. Patient states over the last few weeks she's had episodes of vomiting and nausea. Patient denies any diarrhea or constipation. Patient has been complaining of chest wall pain and difficulty breathing. Patient states that she is to start chemotherapy on Wednesday. Regarding the wound on the right chest, she has not been on any antibiotics. Wound culture was obtained today. She has had drainage from the area but noted today but had a foul odor. She underwent a CAT scan of the abdomen and pelvis which revealed interval development of bilateral pleural effusions, pericardial effusion, ascites. Metastatic disease to the liver. Chest x-ray from yesterday showed no significant interval change in the appearance of the chest. Additional consults in place including oncology, cardiology for pericardial effusion, nephrology for hyponatremia. Patient has been started on Unasyn. 03/14/2019 Patient still feels poorly and has shortness of breath but nausea has improved. Still very fatigued. 03/15/2019 patient is status post pericardial window and is feeling somewhat better today. She still is quite weak. Was able to drink liquids without great difficulty. Appetite is poor. Denies nausea or emesis at this time. Pain is under good control. Mood is improved. 03/16/2019 patient continues to have some improvement after the pericardial window. Pain is improved. She is sitting up in a chair. Looks towards having her lunch. Is a 90 difficulties. Shortness of breath is improved. 03/17/2019 patient remains improved after the pericardial window. As expected it was a malignant effusion. She fortunately is feeling much less short of breath mood is improved. No other new complaints still poor appetite. March 18, 2019 patient sitting up feeling better improving her appetite. Request some chips which she sounded good to her. March 19, 2019 patient sitting up looking forward to having a walk. Has had a bowel movement in definitely feels better. Putrid odor from the breast is imp roved Objective - Vital Signs Vital signs: Vital Signs Temp 97.8 F 03/19/19 00:00 Pulse 97 03/19/19 10:00 Resp 17 03/19/19 10:00 BP 99/72 03/19/19 10:00 Pulse Ox 98 03/19/19 10:00 Intake & Output 03/18/19 03/19/19 03/19/19 18:59 06:59 18:59 Intake Total 1436 120 300 Output Total 910 1300 950 Balance 526 -6270 -650 Weight 72.9 kg Intake: IV 170 0.9 KVO 20 Ampicillin-Sulbactam 3 gm 150 In Sodium Chloride 0.9% 100 ml @ 200 mls/hr IVPB Q8HR [facility] Rx#:[id number] Oral 1266 120 300 Output: Chest Tube Drainage 10 Mediastinal 10 Urine 900 1300 950 Other: Voiding Method Bedside Commode # Voids 0 1 # Bowel Movements 1 ABP, PAP, CO, CI - Last Documented Arterial Blood Pressure 84/57 - Exam Gen: This is a 69-year-old female. She is up in the chair and feels better today HEENT: Head is atraumatic, normocephalic. Pupils equal, round. Sclerae is anicteric. NECK: Supple. No JVD. No lymphadenopathy. No thyromegaly. LUNGS: Clear to auscultation. No wheezes or rhonchi. basilar crackles subxiphoid chest tube is now removed and patient feels better. HEART: Regular rate and rhythm. No murmur. Port to the right upper chest wall. Breast: Significant ulceration to the right breast anterior aspect with necrosis followed her has completely resolved ABDOMEN: Soft. Bowel sounds are present. No masses. No tenderness. EXTREMITIES: No pedal edema. No calf tenderness. NEUROLOGICAL: Patient is awake, alert and oriented x3. - Labs CBC & Chem 7: 03/19/19 05:34 05/19/19 05:34 Labs: Abnormal Lab Results - Last 24 Hours (Table) 03/18/19 03/18/19 03/18/19 Range/Units 17:08 17:19 21:03 MCV (80.0-100.0) fL RDW (11.5-15.5) % Lymphocytes # (1.0-4.8) k/uL Macrocytosis Sodium 130 L (137-145) mmol/L Potassium 5.3 H (3.5-5.1) mmol/L Chloride (98-107) mmol/L BUN (7-17) mg/dL Creatinine (0.52-1.04) mg/dL Glucose (74-99) mg/dL POC Glucose (mg/dL) 124 H 136 H (75-99) mg/dL Calcium (8.4-10.2) mg/dL 03/19/19 03/19/19 03/19/19 Range/Units 05:34 05:34 06:58 MCV 104.5 H (80.0-100.0) fL RDW 19.7 H (11.5-15.5) % Lymphocytes # 0.6 L (1.0-4.8) k/uL Macrocytosis Marked A Sodium 130 L (137-145) mmol/L Potassium 5.2 H (3.5-5.1) mmol/L Chloride 96 L (98-107) mmol/L BUN 34 H (7-17) mg/dL Creatinine 0.47 L (0.52-1.04) mg/dL Glucose 105 H (74-99) mg/dL POC Glucose (mg/dL) 112 H (75-99) mg/dL Calcium 8.2 L (8.4-10.2) mg/dL 03/19/19 Range/Units 12:00 MCV (80.0-100.0) fL RDW (11.5-15.5) % Lymphocytes # (1.0-4.8) k/uL Macrocytosis Sodium (137-145) mmol/L Potassium (3.5-5.1) mmol/L Chloride (98-107) mmol/L BUN (7-17) mg/dL Creatinine (0.52-1.04) mg/dL Glucose (74-99) mg/dL POC Glucose (mg/dL) 150 H (75-99) mg/dL Calcium (8.4-10.2) mg/dL Laboratory Results WBC 5.8 k/uL (3.8-10.6) 03/19/19 05:34 RBC 3.80 m/uL (3.80-5.40) 03/19/19 05:34 Hgb 12.6 gm/dL (11.4-16.0) 03/19/19 05:34 Hct 39.7 % (34.0-46.0) 03/19/19 05:34 MCV 104.5 fL (80.0-100.0) H 03/19/19 05:34 MCH 33.3 pg (25.0-35.0) 03/19/19 05:34 MCHC 31.8 g/dL (31.0-37.0) 03/19/19 05:34 RDW 19.7 % (11.5-15.5) H 03/19/19 05:34 Plt Count 210 k/uL (150-450) 03/19/19 05:34 Neutrophils % 69 % 03/19/19 05:34 Neutrophils % (Manual) 63 % 03/17/19 05:33 Band Neutrophils % 5 % 03/17/19 05:33 Lymphocytes % 11 % 03/19/19 05:34 Lymphocytes % (Manual) 18 % 03/17/19 05:33 Monocytes % 15 % 03/19/19 05:34 Monocytes % (Manual) 13 % 03/17/19 05:33 Eosinophils % 1 % 03/19/19 05:34 Eosinophils % (Manual) 1 % 03/17/19 05:33 Basophils % 0 % 03/19/19 05:34 Neutrophils # 4.0 k/uL (1.3-7.7) 03/19/19 05:34 Neutrophils # (Manual) 2.90 k/uL (1.3-7.7) 03/17/19 05:33 Lymphocytes # 0.6 k/uL (1.0-4.8) L 03/19/19 05:34 Lymphocytes # (Manual) 0.77 k/uL (1.0-4.8) L 03/17/19 05:33 Monocytes # 0.9 k/uL (0-1.0) 03/19/19 05:34 Monocytes # (Manual) 0.56 k/uL (0-1.0) 03/17/19 05:33 Eosinophils # 0.1 k/uL (0-0.7) 03/19/19 05:34 Eosinophils # (Manual) 0.04 k/uL (0-0.7) 03/17/19 05:33 Basophils # 0.0 k/uL (0-0.2) 03/19/19 05:34 Nucleated RBCs 0 /100 WBC (0-0) 03/17/19 05:33 Manual Slide Review Performed 03/17/19 05:33 Polychromasia Present 03/17/19 05:33 Poikilocytosis (manual Present 03/17/19 05:33 Anisocytosis Slight 03/19/19 05:34 Anisocytosis (manual) Present 03/16/19 04:13 Macrocytosis Marked A 03/19/19 05:34 PT 12.5 sec (9.0-12.0) H 03/15/19 04:15 INR 1.2 (<1.2) H 03/15/19 04:15 APTT 24.0 sec (22.0-30.0) 03/15/19 04:15 Sample Site [place] 03/15/19 05:07 ABG pH 7.47 (7.35-7.45) H 03/15/19 05:07 ABG pCO2 28 mmHg (35-45) L 03/15/19 05:07 ABG pO2 82 mmHg (83-108) L 03/15/19 05:07 ABG HCO3 21 mmol/L (21-25) 03/15/19 05:07 ABG Total CO2 22 mmol/L (19-24) 03/15/19 05:07 ABG O2 Saturation 96.7 % (94-97) 03/15/19 05:07 ABG Base Excess -3.0 mmol/L 03/15/19 05:07 Negro Test Yes 03/15/19 05:07 FiO2 50 % 03/15/19 05:07 Sodium 130 mmol/L (137-145) L 03/19/19 05:34 Potassium 5.2 mmol/L (3.5-5.1) H 03/19/19 05:34 Chloride 96 mmol/L (98-107) L 03/19/19 05:34 Carbon Dioxide 29 mmol/L (22-30) 03/19/19 05:34 Anion Gap 5 mmol/L 03/19/19 05:34 BUN 34 mg/dL (7-17) H 03/19/19 05:34 Creatinine 0.47 mg/dL (0.52-1.04) L 03/19/19 05:34 Est GFR (CKD-EPI)AfAm >90 (>60 ml/min/1.73 sqM) 03/19/19 05:34 Est GFR (CKD-EPI)NonAf >90 (>60 ml/min/1.73 sqM) 03/19/19 05:34 Glucose 105 mg/dL (74-99) H 03/19/19 05:34 POC Glucose (mg/dL) 150 mg/dL (75-99) H 03/19/19 12:00 POC Glu Hosiery Mender ID 03/19/19 12:00 Osmolality 285 mosm/kg (280-301) 03/12/19 10:00 Plasma Lactic Acid [place] 1.8 mmol/L (0.7-2.0) 03/11/19 22:54 Uric Acid 7.1 mg/dL (3.7-7.4) 03/15/19 04:15 Calcium 8.2 mg/dL (8.4-10.2) L 03/19/19 05:34 Phosphorus 3.0 mg/dL (2.5-4.5) 03/16/19 04:13 Magnesium 2.1 mg/dL (1.6-2.3) 03/16/19 04:13 Total Bilirubin 0.7 mg/dL (0.2-1.3) 03/15/19 04:15 Conjugated Bilirubin 0.0 mg/dL (0.0-0.3) 03/12/19 10:00 Unconjugated Bilirubin 0.2 mg/dL (0.0-1.1) 03/12/19 10:00 Delta Bilirubin 0.3 mg/dL (0.0-0.2) H 03/12/19 10:00 AST 39 U/L (14-36) H 03/15/19 04:15 ALT 72 U/L (9-52) H 03/15/19 04:15 Alkaline Phosphatase 304 U/L (38-126) H 03/15/19 04:15 Creatine Kinase 29 U/L (30-135) L 03/11/19 22:54 Troponin I <0.012 ng/mL (0.000-0.034) 03/11/19 22:54 Total Protein 5.1 g/dL (6.3-8.2) L 03/15/19 04:15 Albumin 2.9 g/dL (3.5-5.0) L 03/15/19 04:15 CA 15-3 Antigen 41.4 U/mL (0.0-32.3) H 03/13/19 06:10 TSH 2.770 mIU/L (0.465-4.680) 03/11/19 22:54 Cortisol 32 ug/dL 03/17/19 05:33 ACTH 37.40 pg/mL (0.00-45.99) 03/17/19 05:33 Urine Color Yellow 03/12/19 01:35 Urine Appearance Clear (Clear) 03/12/19 01:35 Urine pH 5.5 (5.0-8.0) 03/12/19 01:35 Ur Specific [place] 1.036 (1.001-1.035) H 03/12/19 01:35 Urine Protein 1+ (Negative) H 03/12/19 01:35 Urine Glucose (UA) Negative (Negative) 03/12/19 01:35 Urine Ketones Negative (Negative) 03/12/19 01:35 Urine Blood Negative (Negative) 03/12/19 01:35 Urine Nitrite Negative (Negative) 03/12/19 01:35 Urine Bilirubin Negative (Negative) 03/12/19 01:35 Urine Urobilinogen 2.0 mg/dL (<2.0) 03/12/19 01:35 Ur Leukocyte Esterase Small (Negative) H 03/12/19 01:35 Urine RBC 4 /hpf (0-5) 03/12/19 01:35 Urine WBC 11 /hpf (0-5) H 03/12/19 01:35 Ur Squamous Epith Cells 1 /hpf (0-4) 03/12/19 01:35 Urine Bacteria Occasional /hpf (None) H 03/12/19 01:35 Hyaline Casts 202 /lpf (0-2) H 03/12/19 01:35 Granular Casts 61 /lpf (0) 03/12/19 01:35 Urine Mucus Rare /hpf (None) H 03/12/19 01:35 Urine Osmolality 899 mosm/kg (50-1400) 03/12/19 11:20 Ur Random Creatinine 202.8 mg/dL 03/12/19 11:20 Ur Random Sodium <10 mmol/L 03/12/19 11:20 Microbiology 03/11/19 22:54 Blood Blood Culture - Final No Growth after 144 hours 03/13/19 15:00 Breast - Right Gram Stain - Final 03/13/19 15:00 Breast - Right Wound Culture - Final Proteus mirabilis 03/12/19 01:35 Urine,Voided Urine Culture - Final Assessment and Plan (1) Breast cancer Narrative/Plan: 69-year-old female who has metastatic breast carcinoma with recent significant worsening of her status presents to Hospital feeling very poorly. She difficulty with her breast ulceration with increasing odor drainage and increasing fatigue and malaise. She's also developed some nausea with emesis and feels very poorly. It is noted developed some hyponatremia also. On the exam the patient has the extensive ulceration to the right breast that is necrotic and malodorous. There is some surrounding erythema. At this time Unasyn is an excellent choice for the cellulitis that has developed in the roselia-ulcer area on the breast from the carcinoma. Topical metronidazole that are the tablets that are crushed in sprinkled onto the ulcers is often helpful in reducing the strong odor. It appears at the patient is developed progression of her metastatic disease since her last set of scans and it's not clear at this point in time with the overall process will be. 03/14/2019 patient is had little improvement. However the topical metronidazole has helped the significant malodorous nature to the right breast. Patient over still short of breath. Echocardiogram shows evidence of a pericardial effusion. Will be seen by cardiovascular surgery and likely will have an emergent pericardial window. Continue as before by cultures are pending. 03/15/2019 patient is status post the pericardial window. She is having some improvement of her status. Blood pressure remains low urine output is adequate. She is not requiring vasopressor therapy. Wound culture does show evidence of the Proteus which is susceptible to Unasyn and constantly current antibiotic therapy continues. Topical metronidazole has been very helpful in reducing the putrid odor from the right breast ulceration. Patient does feel better because the improved odor. Await the cytology results and overall plan. 03/16/2019 patient has further improvement to be able to tolerate sitting up in the chair. He looks forward to ingesting some of her lunch. Is denying amounts of pain. Remains afebrile. Odor from the right breast ulceration from her breast cancer has responded very well to the topical metronidazole. Fortunately she's feeling somewhat better since the pericardial window and is less short of breath. 03/17/2019 patient is feeling better. Tolerate sitting up quite well. She's done well with current antibiotic therapy with Unasyn and topical metronidazole to the ulceration of the chest wall. If she improves and her chest tube becomes removed there will be discharge plans and process. As she ready for discharge the Unasyn may be changed to Augmentin May continue the topical metronidazole to the ulceration of the chest wall. Palliative care consultation would be helpful, as could be consideration for a hospice approach. March 18, 2019 patient fortunately continues to have some improvement now that her chest tube is been removed. Her discomforts are improved. Her appetite is im proving. If she improves we'll suggest Unasyn and will be changed to Augmentin to complete a course of therapy. And topical metronidazole applied to the chest wall to help with the pungent odor the necrotic tissue. Palliative care consult would be helpful. March 19, 2019 patient continues to feel a bit better after the pericardial window was placed. She's also had thoracentesis which is also improved her respiratory status. She is no other new acute complaints at this point in time. No fevers. Discharge planning I believe is in process.. Palitive care consult would be helpful. Current Visit: Yes Status: Acute Code(s): C50.919 - MALIGNANT NEOPLASM OF UNSP SITE OF UNSPECIFIED FEMALE BREAST SNOMED Code(s): 316296009 (2) Pericardial effusion, acute Current Visit: Yes Status: Acute Code(s): I30.9 - ACUTE PERICARDITIS, UNSPECIFIED SNOMED Code(s): 05819830
[2019-03-19] MEDS: GLYCERIN ADULT SUPPOSITORY 1 EACH RECTAL SCH (16:49)
[2019-03-19 16:55] LABS: Glucose,Whole Blood 114 mg/dL (75-99)
[2019-03-19 21:34] LABS: Glucose,Whole Blood 148 mg/dL (75-99)
[2019-03-19] MEDS: MIRTAZAPINE 15 MG TAB PO SCH (21:36)
[2019-03-20] MEDS: AMPICILLIN-SULBACTAM 3 GM in SODIUM CHLORIDE 0.9% 100 ML IVPB SCH ×3 (00:29→17:29)
[2019-03-20 06:57] LABS: Glucose,Whole Blood 108 mg/dL (75-99)
[2019-03-20 08:33] LABS: Anisocytosis Slight; Basophils % (A) 0 %; Eosinophils # (A) 0.1 k/uL (0-0.7); Eosinophils % (A) 1 %; HCT 36.1 % (34.0-46.0); HGB 11.5 gm/dL (11.4-16.0); Lymphocytes # (A) 0.5 k/uL (1.0-4.8); Lymphocytes % (A) 9 %; MCH 33.4 pg (25.0-35.0); MCHC 31.8 g/dL (31.0-37.0); MCV 105.2 fL (80.0-100.0); Macrocytosis Marked; Mean Platelet Volume 7.3; Monocytes # (A) 0.7 k/uL (0-1.0); Monocytes % (A) 11 %; Neutrophils # (A) 4.5 k/uL (1.3-7.7); Neutrophils % (A) 75 %; Platelet Count 201 k/uL (150-450); RBC 3.43 m/uL (3.80-5.40); RDW 19.6 % (11.5-15.5)
[2019-03-20] MEDS: DOCUSATE 100 MG CAP PO SCH ×2 (08:33→20:23)
[2019-03-20] MEDS: metroNIDAZOLE 500 MG TAB PO SCH ×4 (08:33→22:48)
[2019-03-20] MEDS: FAMOTIDINE 20 MG TAB PO SCH (08:33)
[2019-03-20] MEDS: MIDODRINE 5 MG TAB PO SCH ×3 (08:33→17:29)
[2019-03-20 08:43] LABS: Anion Gap 3 mmol/L; Blood Urea Nitrogen 27 mg/dL (7-17); Calcium 8.2 mg/dL (8.4-10.2); Carbon Dioxide 31 mmol/L (22-30); Chloride 101 mmol/L (98-107); Glucose 97 mg/dL (74-99); Potassium 4.7 mmol/L (3.5-5.1); Sodium 135 mmol/L (137-145)
[2019-03-20] MEDS: INSULIN ASPART (NovoLOG) 100 UNIT/ML VIAL SQ SCH ×4 (08:56→20:23)
[2019-03-20] MEDS: GLYCERIN ADULT SUPPOSITORY 1 EACH RECTAL SCH (08:56)
[2019-03-20] MEDS: traMADol 50 MG TAB PO PRN ×2 (08:58→20:23)
--- NOTE | 2019-03-20 09:21 | P.PN ---
Subjective Patient is seen in follow-up for hyponatremia. Sodium level today is improved to 135. Oral intake is fair. Denies chest pain. GFR at baseline. She underwent bilateral thoracentesis on March 17 with nearly 2.5 L drained. Chest tube has been removed. Still complains of generalized swelling. She wants to ambulate more. Vital signs are stable. Blood pressure on the lower side. General: The patient appeared well nourished and normally developed. HEENT: Head exam is unremarkable. Neck is without jugular venous distension. LUNGS: Breath sounds decreased. HEART: Rate and Rhythm are regular. First and second heart sounds normal. No murmurs, rubs or gallops. ABDOMEN: Abdominal exam reveals normal bowel sounds. Non-tender. EXTREMITITES: 1+ edema. Objective - Vital Signs Vital signs: Vital Signs Temp 98.0 F 03/20/19 08:00 Pulse 113 H 03/20/19 08:00 Resp 18 03/20/19 01:28 BP 122/79 03/20/19 08:00 Pulse Ox 97 03/20/19 09:04 Intake & Output 03/19/19 03/20/19 03/20/19 18:59 06:59 18:59 Intake Total 1311 Output Total 1650 300 100 Balance -339 -300 -100 Weight 69.8 kg Intake: IV 100 Ampicillin-Sulbactam 3 gm 100 In Sodium Chloride 0.9% 100 ml @ 200 mls/hr IVPB Q8HR [facility] Rx#:[id number] Oral 1211 Output: Urine 1650 300 100 Other: Voiding Method Bedside Commode # Voids 2 # Bowel Movements 2 ABP, PAP, CO, CI - Last Documented Arterial Blood Pressure 84/57 - Labs CBC & Chem 7: 03/20/19 07:42 03/20/19 07:42 Labs: Abnormal Lab Results - Last 24 Hours (Table) 03/19/19 03/19/19 03/19/19 Range/Units 12:00 15:57 16:53 RBC (3.80-5.40) m/uL MCV (80.0-100.0) fL RDW (11.5-15.5) % Lymphocytes # (1.0-4.8) k/uL Macrocytosis Sodium 132 L (137-145) mmol/L Carbon Dioxide (22-30) mmol/L BUN (7-17) mg/dL Creatinine (0.52-1.04) mg/dL POC Glucose (mg/dL) 150 H 114 H (75-99) mg/dL Calcium (8.4-10.2) mg/dL 03/19/19 03/20/19 03/20/19 Range/Units 21:32 06:55 07:42 RBC 3.43 L (3.80-5.40) m/uL MCV 105.2 H (80.0-100.0) fL RDW 19.6 H (11.5-15.5) % Lymphocytes # 0.5 L (1.0-4.8) k/uL Macrocytosis Marked A Sodium (137-145) mmol/L Carbon Dioxide (22-30) mmol/L BUN (7-17) mg/dL Creatinine (0.52-1.04) mg/dL POC Glucose (mg/dL) 148 H 108 H (75-99) mg/dL Calcium (8.4-10.2) mg/dL 03/20/19 Range/Units 07:42 RBC (3.80-5.40) m/uL MCV (80.0-100.0) fL RDW (11.5-15.5) % Lymphocytes # (1.0-4.8) k/uL Macrocytosis Sodium 135 L (137-145) mmol/L Carbon Dioxide 31 H (22-30) mmol/L BUN 27 H (7-17) mg/dL Creatinine 0.48 L (0.52-1.04) mg/dL POC Glucose (mg/dL) (75-99) mg/dL Calcium 8.2 L (8.4-10.2) mg/dL Assessment and Plan Plan: Assessment: 1. Hyponatremia. Patient is hypervolemic. 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 Sodium level improved to 135 today. Urine sodium noted to be less than 10. Urine osmolality 899. TSH, uric acid and cortisol level normal. 2. 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 3. Metastatic breast cancer. 4. Breast wound culture positive for Proteus maintained on antibiotics. 5. Volume overload. 6. Pleural effusion status post bilateral thoracentesis on March 17 with nearly 2.5 L drained. Plan: Status post Samsca on March 19. Resume Lasix 40 mg IV twice daily. Can be transitioned over to oral upon discharge. Maintain 1.5 L free water restriction. Resume ensure 3 times daily.
[2019-03-20] MEDS: FUROSEMIDE 10 MG/ML 4 ML VIAL IV SCH ×2 (09:51→20:23)
--- NOTE | 2019-03-20 11:02 | P.PN ---
Subjective Progress Note Date: 03/20/19 Principal diagnosis: Dehydration, hyponatremia, metastatic breast cancer with malignant pericardial effusion In follow-up today patient is continuing to require oxygen for shortness of breath on exertion, she is very thirsty and irritated by fluid restriction, she denies any chest pain, abdominal pain, her leg swelling is tolerable, she able to ambulate independently, after starting stool softener she did have a bowel movement today. Objective - Vital Signs Vital signs: Vital Signs Temp 98.0 F 03/20/19 08:00 Pulse 113 H 03/20/19 08:00 Resp 18 03/20/19 01:28 BP 122/79 03/20/19 08:00 Pulse Ox 97 03/20/19 09:04 Intake & Output 03/19/19 03/20/19 03/20/19 18:59 06:59 18:59 Intake Total 1311 Output Total 1650 300 500 Balance -339 -300 -500 Weight 69.8 kg Intake: IV 100 Ampicillin-Sulbactam 3 gm 100 In Sodium Chloride 0.9% 100 ml @ 200 mls/hr IVPB Q8HR [facility] Rx#:[id number] Oral 1211 Output: Urine 1650 300 500 Other: Voiding Method Bedside Commode # Voids 2 # Bowel Movements 2 2 ABP, PAP, CO, CI - Last Documented Arterial Blood Pressure 84/57 - Constitutional General appearance: Present: average body habitus, mild distress - EENT Eyes: Present: anicteric sclerae, EOMI ENT: Present: hearing grossly normal. Absent: hard of hearing, NA/AT, normal oropharynx, other, pharyngeal erythema, thrush, tonsillar exudates, tonsillar swelling - Respiratory Respiratory: bilateral: diminished (Bases) - Cardiovascular Rhythm: regular Heart sounds: normal: S1, S2 Abnormal Heart Sounds: Present: systolic murmur - Peripheral edema leg Peripheral Edema: bilateral: 1+ (Nonpitting) foot Peripheral Edema: bilateral: 2+ (Pitting) - Gastrointestinal General gastrointestinal: Present: normal bowel sounds, soft - Neurologic Neurologic: Present: CNII-XII intact - Musculoskeletal Musculoskeletal: Present: generalized weakness, strength equal bilaterally - Psychiatric Psychiatric: Present: A&O x's 3, appropriate affect, intact judgment & insight - Labs CBC & Chem 7: 03/20/19 07:42 03/20/19 07:42 Labs: Abnormal Lab Results - Last 24 Hours (Table) 03/19/19 03/19/19 03/19/19 Range/Units 12:00 15:57 16:53 RBC (3.80-5.40) m/uL MCV (80.0-100.0) fL RDW (11.5-15.5) % Lymphocytes # (1.0-4.8) k/uL Macrocytosis Sodium 132 L (137-145) mmol/L Carbon Dioxide (22-30) mmol/L BUN (7-17) mg/dL Creatinine (0.52-1.04) mg/dL POC Glucose (mg/dL) 150 H 114 H (75-99) mg/dL Calcium (8.4-10.2) mg/dL 03/19/19 03/20/19 03/20/19 Range/Units 21:32 06:55 07:42 RBC 3.43 L (3.80-5.40) m/uL MCV 105.2 H (80.0-100.0) fL RDW 19.6 H (11.5-15.5) % Lymphocytes # 0.5 L (1.0-4.8) k/uL Macrocytosis Marked A Sodium (137-145) mmol/L Carbon Dioxide (22-30) mmol/L BUN (7-17) mg/dL Creatinine (0.52-1.04) mg/dL POC Glucose (mg/dL) 148 H 108 H (75-99) mg/dL Calcium (8.4-10.2) mg/dL 03/20/19 Range/Units 07:42 RBC (3.80-5.40) m/uL MCV (80.0-100.0) fL RDW (11.5-15.5) % Lymphocytes # (1.0-4.8) k/uL Macrocytosis Sodium 135 L (137-145) mmol/L Carbon Dioxide 31 H (22-30) mmol/L BUN 27 H (7-17) mg/dL Creatinine 0.48 L (0.52-1.04) mg/dL POC Glucose (mg/dL) (75-99) mg/dL Calcium 8.2 L (8.4-10.2) mg/dL Assessment and Plan (1) Breast cancer Narrative/Plan: Patient due to start new regimen with Abraxane. Plan is for treatment outpatient. Patient is status post pericardial window for malignant pericardial fluid. Request for ER/ID on pericardial fluid has been sent. Follow-up/chemotherapy as soon as patient is stabilized and discharged. Current Visit: Yes Status: Acute Priority: High Code(s): C50.919 - MALIGNANT NEOPLASM OF [facility] SITE OF UNSPECIFIED FEMALE BREAST SNOMED Code(s): 784313083 (2) Dehydration Narrative/Plan: CBC and CMP stable. Patient is on a fluid restriction currently. Hopefully with relief of pericardial effusion her cardiac status will improve and she will be able to hydrate. Current Visit: Yes Status: Acute Priority: Medium Code(s): E86.0 - DEHYDRATION SNOMED Code(s): 87422983 (3) Hyponatremia Narrative/Plan: Improved with fluid restriction, Lasix and gentle hydration with isotonic solution. Nephrology following Current Visit: Yes Status: Acute Priority: Medium Code(s): E87.1 - HYPO- OSMOLALITY AND HYPONATREMIA SNOMED Code(s): 44576139 (4) Pericardial effusion, acute Narrative/Plan: We reviewed malignant pericardial fluid. Reviewed pericardial window with the intent being to not allow the pericardial sac to collect fluid and constrict heart. As stated above request has been sent for ER/ID to be performed on the pericardial fluid. Current Visit: Yes Status: Acute Priority: High Code(s): I30.9 - ACUTE PERICARDITIS, UNSPECIFIED SNOMED Code(s): 40256711
[2019-03-20 11:59] LABS: Glucose,Whole Blood 145 mg/dL (75-99)
--- NOTE | 2019-03-20 13:33 | P.PN ---
Subjective Progress Note Date: 03/20/19 Principal diagnosis: Severe hyponatremia, failure to thrive, pleural effusion, stage IV breast cancer with pleural effusion, right breast wound, pericardial effusion This is a 69-year-old pleasant female patient of Dr. Glen Vázquez who presented to the emergency room complaining of generalized weakness. Patient states that over the last couple weeks she has not had any appetite she has not been able to eat or drink well. Patient states that she seen her primar care physician about a week ago and was told that the left looks fine at that time however since then she has not been able to eat or drink. Patient reported generalized malaise. She denied any fever, chills, nausea or vomiting at that time. Patient has past medical history significant of recurrent breast CA, initial diagnosis apparently 7 years ago. Patient has a necrotic breast lesion on the right chest wall that is progressively getting worse. Past medical history also includes anxiety and depression. Patient has never been a smoker. At this time patient is resting in bed in no acute distress. She is complaining of lack of appetite, weakness, malaise. Patient states over the last few weeks she's had episodes of vomiting and nausea. Patient denies any diarrhea or constipation. Patient has been complaining of chest wall pain and difficulty breathing. On Wednesday of last week she had thoracentesis due to bilateral pleural effusion. 1.3 L of fluid was drained from the right lung. Patient states after the procedure was done she did have an easier time breathing. However it did not help her weakness or malaise. Patient states that next week she will be starting another chemotherapy since previous treatments have not been successful. Patient denies any fevers or chills. 03/13: Patient has a wound on her right breast which she states has been drinking for 5 days but now has a foul order. She denies being on any antibiotics recently. Consult for Dr. Wilcox has been ordered and will culture ordered. She has been seen by Dr. Zamora regarding breast cancer the plan is to start chemotherapy with Abraxane as an outpatient. Patient is noted to have increased liver enzymes and Dr. Zamora ordered CAT scan of the abdomen and pelvis which revealed interval development of bilateral pleural effusions, pericardial effusion, ascites. Metastatic disease to the liver. Consult has been admitted for cardiology regarding pericardial effusion. Chest x-ray from yesterday showed no significant interval change in the appearance of the chest. Repeat lab work reveals sodium 127, potassium 5.4, chloride 97, CO2 21, BUN 15 creatinine 0.91, blood sugar 130. Cortisol 67 Consult has been added for nephrology for hyponatremia possible SIADH. Patient does have some increased edema for which IV fluids will be decreased to 50 mL per hour. 03/14: Echocardiogram reveals EF of 60-65%, mild aortic valve sclerosis, mild pulmonary hypertension, large generalized pericardial effusion. Patient was transferred to the cardiac stepdown unit. She did have marginal blood pressure readings and pulse ox was 91% on 2 L increased to 3 L. Patient has been seen by oncology and MRI of the brain was ordered for today looking for brain metastases but patient is unable to lay flat for this and we will cancel it for now. Xanax ordered for anxiety. Discussed case with cardiology and cardiothoracic surgery consult has been added. Patient received 1 dose of IV albumin yesterday we will repeat for today. Chest x-ray ordered for today. Patient states that she has less edema in her legs but continues to have edema in her arms. She denies any diarrhea. She has not had a bowel movement since admission. Patient is having very little oral intake. She is followed by dietitian and I will be changed to a regular diet to make it more accommodating for her. Repeat lab work reveals sodium 127, potassium 5.8, chloride 96, CO2 19. Patient has been afebrile, heart rate in the low 100s up to 106, pulse ox 95% on 3 L. Blood pressure 96/58. 03/15: Patient underwent subxiphoid pericardiostomy yesterday evening with Dr. Hickman for malignant pericardial effusion with early tamponade with drainage of 500 ML's of bloody fluid and specimen was sent for cytology. Patient was s intubated and admitted into the intensive care unit. Patient was successfully extubated around 6 AM. Chest x-ray this morning reveals similar-appearing pleural effusions and associated bibasilar airspace disease likely atelectasis. Patient has been afebrile, heart rate 112, blood pressure 90/69, pulse ox 96% on high flow nasal cannula 8 L. Repeat lab work reveals white count 1.4, hemoglobin 12.6, platelet count 130, INR 1.2. Sodium remains at 127, BUN 15 creatinine 0.75. Liver function tests remain elevated with AST 39, ALT 72 and alkaline phosphatase 304. Patient was also seen yesterday by Dr. Bush and additional dose of Lasix ordered. Wound cultures showing gram-negative bacilli. Patient is complaining of severe chest pain for which she has morphine available but due to her blood pressure has not been given. We will add in tramadol and plain Tylenol for pain control. 03/16 patient is sitting up in the chair in the ICU. Denies any shortness of breath. Blood pressure 88/66 pulse rate 110 temp 97.8 saturating well heat liters high flow nasal cannula. Continues to drain serosanguineous drainage from the subxiphoid chest to with 50 mL since her last 8 hours. Cortisol on 03/01 3 was normal will repeat cortisol with ACTH. Midodrine initiated 10 mg 3 times a day for blood pressure. Wound culture positive for Proteus susceptible to Unasyn 03/17 patient is sitting up in chair in the ICU. She is feeling better than yesterday had 90 mL output from the pericardial tube. Patient did get thoracentesis this morning from her right chest . Currently saturating 97% on 5 L of high flow blood pressure 95/68 tachycardic to 113. Patient initiated on midodrine 10 mg 3 times a day cortisol 37 normal. Plan for thoracentesis on the left. Pathology from pericardial fluid positive for metastatic adenocarcinoma primary breast lesion ER negative. 03/18: Patient is laying in bed still in the ICU her blood pressure has been slightly but better remain on midodrine sodium has improved some chest tube will be removed today patient might be able to leave the ICU after this is done. Pain management is better controlled. 03/19: Patient still in the ICU, out of her bed, chest tube is out, pain is well controlled on manage, chest x-ray has significant improvement so far, her sodium has improved as well. We'll consult mental health social worker and started looking for possibility of discharge in the next 24-48 hours. 03/20: Patient still slightly bit sick, mildly hypoxic, chest tube is out, clinically has improved some compared to before. Patient seen oncology and pulmonary metastases ready to go home yet patient still refuses to go to any rehab place in assisted at this point she is planning to go home with home care and the issue when to restart her back on chemotherapy still be determined by oncology. Objective - Vital Signs Vital signs: Vital Signs Temp 98.0 F 03/20/19 08:00 Pulse 113 H 03/20/19 08:00 Resp 18 03/20/19 01:28 BP 122/79 03/20/19 08:00 Pulse Ox 97 03/20/19 09:04 Intake & Output 03/19/19 03/20/19 03/20/19 18:59 06:59 18:59 Intake Total 1311 Output Total 1650 300 850 Balance -339 -300 -850 Weight 69.8 kg Intake: IV 100 Ampicillin-Sulbactam 3 gm 100 In Sodium Chloride 0.9% 100 ml @ 200 mls/hr IVPB Q8HR [facility] Rx#:[id number] Oral 1211 Output: Urine 1650 300 850 Other: Voiding Method Bedside Commode # Voids 2 # Bowel Movements 2 2 ABP, PAP, CO, CI - Last Documented Arterial Blood Pressure 84/57 - Exam Review of systems: CONSTITUTIONAL: Very malnourished laying in bed still look and slight distress not dyspneic with mild hypoxia. EYES: No icterus sclerae, no conjunctivitis. EARS, NOSE, MOUTH, THROAT, and FACE: No sore throat, lymphadenopathy, carotid bruits or deformity. RESPIRATORY: Positive shortness of breath cough wheezes. CARDIOVASCULAR: Positive PND orthopnea no angina. GASTROINTESTINAL: Nausea no vomiting diarrhea constipation. GENITOURINARY: Negative for Hematuria or UTI, no kidney stones. INTEGUMENT/BREAST: Negative for any muscular injury with mild osteoarthritis.. HEMATOLOGIC/LYMPHATIC: Advanced lung cancer with metastasis. MUSCULOSKELTAL: Negative for Myalgia or arthralgia. NEURLOGICAL: No LOC, Sz or syncope, blurred vision dizziness or abnormality.. BEHAVIORAL/PSYCH: Negative. ENDOCRINE: Negative. Physical examination: General Appearance: Alert, cooperative, no distress, very skinny look older than her age. Neck HEENT: Supple, no lymphadenopathy, no thyroid enlargement, no carotid bruits. Lungs: Decreased breath some bilaterally specially the left side positive fine rhonchi without crackles positive mild expiratory wheezes. Chest Wall: Decrease expansion with deep inspiration no tenderness and no deformity was found on exam, no costochondral pain or discomfort. Heart: Regular rate and rhythm, S1, S2 normal, no murmur, rub or gallop. Back: Mild scoliosis with slight discomfort the L-spine area. Abdomen: Soft, non-tender, bowel sounds active all four quadrants, no masses, no organomegaly. Extremities: Trace edema decreased pulse and dorsalis pedis bilaterally, no cyanosis or edema. Pulses: 2+ and symmetric. Skin: Skin color, texture, tugor normal, no rashes or lesions. Neurologic: Alert oriented x3 cranial nerves II through XII intact, no motor deficit, no abnormal balance or gait. - Labs CBC & Chem 7: 03/20/19 07:42 03/20/19 07:42 Labs: Abnormal Lab Results - Last 24 Hours (Table) 03/19/19 03/19/19 03/19/19 Range/Units 15:57 16:53 21:32 RBC (3.80-5.40) m/uL MCV (80.0-100.0) fL RDW (11.5-15.5) % Lymphocytes # (1.0-4.8) k/uL Macrocytosis Sodium 132 L (137-145) mmol/L Carbon Dioxide (22-30) mmol/L BUN (7-17) mg/dL Creatinine (0.52-1.04) mg/dL POC Glucose (mg/dL) 114 H 148 H (75-99) mg/dL Calcium (8.4-10.2) mg/dL 03/20/19 03/20/19 03/20/19 Range/Units 06:55 07:42 07:42 RBC 3.43 L (3.80-5.40) m/uL MCV 105.2 H (80.0-100.0) fL RDW 19.6 H (11.5-15.5) % Lymphocytes # 0.5 L (1.0-4.8) k/uL Macrocytosis Marked A Sodium 135 L (137-145) mmol/L Carbon Dioxide 31 H (22-30) mmol/L BUN 27 H (7-17) mg/dL Creatinine 0.48 L (0.52-1.04) mg/dL POC Glucose (mg/dL) 108 H (75-99) mg/dL Calcium 8.2 L (8.4-10.2) mg/dL 03/20/19 Range/Units 11:58 RBC (3.80-5.40) m/uL MCV (80.0-100.0) fL RDW (11.5-15.5) % Lymphocytes # (1.0-4.8) k/uL Macrocytosis Sodium (137-145) mmol/L Carbon Dioxide (22-30) mmol/L BUN (7-17) mg/dL Creatinine (0.52-1.04) mg/dL POC Glucose (mg/dL) 145 H (75-99) mg/dL Calcium (8.4-10.2) mg/dL Assessment and Plan Plan: 1. Acute respiratory failure: Secondary to pleural effusion and pericardial effusion has been much better so far chest tube is out and there is a lot less fluid around along in the heart. 2. Stage IV breast CA with malignant pleural effusion. Chest tube is out so far and has done well with repeat chest x-ray significant improvement patient patient will be seen oncology and possibly going for more chemotherapy. 3. Hyponatremia: Multifactorial, sodium is 130 today been doing well still seen nephrology. 4. Hyperkalemia. With stage II chronic kidney disease: Potassium is down and improve patient still been managing conservative management. 5. Malignant Pleural effusion: Chest tube was removed from patient is doing be tter clinically. 6. Failure to thrive with severe protein calorie malnutrition and weight loss. Remeron 15 mg at bedtime, ensure daily. Encourage oral intake. Diet changed to regular. Patient is followed by registered dietitian. 7. Right breast wound. Positive for Proteus Wound culture ordered, consult with Dr. Wilcox, continue Unasyn susceptible to Unasyn. Flagyl is used for local wound care. 8. Pericardial effusion status post pericardial window by cardiothoracic surgery. Patient was transferred to intensive care unit. Cytology is pending. 9. DVT prophylaxis pneumatic compression sleeves 8. GI prophylaxis. Pepcid 20 mg daily 10. Hypotension likely secondary to decreased intravascular volume. Rule out critical illness adrenal insufficiency cortisol and ACTH ordered Midodrine initiated at 10 mg 3 times a day Discharge planning: Possible discharge in 48 hours.
--- NOTE | 2019-03-20 14:06 | P.PN ---
Subjective Progress Note Date: 03/20/19 Principal diagnosis: Pericardial effusion, status post pericardial window This is a 69-year-old white female patient of Dr. Glen Vázquez, with past medical history of metastatic breast cancer, diagnosed in her left breast back in 2011 and patient was treated with chemoradiation. Patient developed metastatic disease in 2014 with a large right supraclavicular mass, for which she received radiation. She had since progressed through various regimens, she developed a right chest wall lesion with repeat biopsy showing hormone receptor positive disease. She most recently was on hypertensive and the Faslodex. She was developing increasing shortness of breath, and progressive symptoms in the lesion in the right chest wall with superficial ulceration and intermittent drai nage. She underwent right-sided thoracentesis at the [facility] last week with removal of 1.2 L of pleural fluid with improvement of her dyspnea. Pathology results are not available to us at this time. Patient had progressive weakness, poor appetite and decreased oral intake. She was brought into the emergency department on 03/11/2019, found to be clinically dehydrated with multiple lab abnormalities including low sodium, elevated potassium, and elevated liver enzymes. Most recent PET scan on November 19 showed uptake in the right chest wall lesion, and left supraclavicular lymph nodes. CT of the abdomen and pelvis was completed in the emergency department and showed multiple low density foci scattered within the liver at least 10 lesions related to metastatic disease to the liver, with pericholecystic fluid present about the gallbladder, no significant abnormality in the pancreas, spleen or adrenal glands. There was ascites developing in the upper abdomen. An interval development of bilateral pleural effusions pericardial effusion and ascites. Echocardiogram revealed EF of 60-65%, and a large generalized pericardial effusion. Patient was having marginal low blood pressures. She was seen by cardiothoracic surgery, and surgical intervention was recommended for a large pericardial effusion. And patient underwent pericardial window on 03/14/2019 and following her surgery she returned to the ICU on the ventilator. Patient has been successfully weaned from the ventilator support, she was extubated sometime this morning, she is currently seen in the intensive care unit, this is postoperative day 1, status post pericardial window. She is currently on 6 L of oxygen per nasal cannula, her IV 0.9 normal saline at a rate of 50 ML per hour, she was extubated at 05 40 this morning. Today's chest x-ray has been reviewed, and shows pleural effusions, and associated bibasilar airspace disease likely related to atelectasis. Patient has a subxiphoid chest tube in place, has been 198 mL of serosanguineous output since surgery, with drainage of 500 mL of serosanguineous output during surgery from the chest tube. On 03/16/2019 patient seen in follow-up in the intensive care unit, she is resting in bed, awake and alert, in no acute distress, she is on 8 L per high flow nasal cannula, and her pulse ox is 96%, she is afebrile, blood pressures at times are marginal, with BP in the 80s over 50s, and 90s over 60s, hour the patient is asymptomatic, and producing urine and the order of 30-45 ML per hour, alert, and not complaining of anything, his labs have been reviewed, and showed dull white blood cell count of 2.7, hemoglobin of 12.5, serum sodium is 129, potassium is 4.3, chloride is 100, BUN is 43, creatinine is 0.62. I-S effort is 500 mL, lung sounds are clear to auscultation, no rhonchi or rales. The 0.9 normal saline at a rate of 10 ML per hour. Right breast wound culture was positive for Proteus mirabilis, she is on Unasyn which organism is susceptible to, tolerating oral intake, although appetite remains poor. Subxiphoid chest tube is in place, and there has been 182 mL of thin serosanguineous output over last 24 hours. no specific complaints, patient is calm and comfortable, denies any difficulty breathing or chest pain On 03/19/2019 patient seen in follow-up in the intensive care unit. Patient has been in the low status for last 24 hours, she is awaiting a bed on general medical floor. She is awake and alert, oriented 3, currently on 2 L of oxygen, with a pulse ox of 94-95%, she is afebrile, hemodynamically patient is stable, no specific complaints, she underwent bilateral thoracentesis on 03/17/2019, and there was a 1.3 L removed from her left side, and 1450 ML removed from the right side. On today's chest x-ray there is still residual small pleural effusions bilaterally. Patient denies any acute distress. Patient was given a dose of IV Lasix per nephrology service, and her renal profile is stable, with BUN of 34, and creatinine 0.47, electrolytes revealed a serum sodium of 1:30, potassium is 5.2, chloride is 96, CO2 is 29, anion gap was 5. White blood cell count was 5.8, hemoglobin was 12.6, no fever or chills. Patient is on antibiotics for evidence of Proteus mirabilis infection in the right breast wound, urine culture and blood culture showed no growth. Antibiotic coverage in the form of Unasyn, and patient is receiving Flagyl by mouth On 03/20/2019 patient seen in follow-up on medical surgical floor. Is awake and alert, in no acute distress, she is sitting up in a recliner. No acute distress, she remains on 4 L of oxygen with a pulse ox of 97%, no fever or chills, patient has been ambulating to the bathroom, tolerating activity well, no worsening shortness of breath. Lung sounds reveal diminished breath sounds at bilateral bases, patient is working on the incentive spirometer. Status post bilateral thoracentesis with removal of 1450 ML from the right side and 1.3 L fr om the left side on 03/17/2019. Blood and urine cultures were negative, and the wound culture on her right breast was positive for Proteus mirabilis, and patient is on the antibiotics in the form of Unasyn, and oral Flagyl. ID service is following, no specific complaints, she remains on IV diuretics at 40 mg every 12 hours. These labs have been reviewed, with blood cell count is 6.0, hemoglobin is 11.5, serum sodium is 135, potassium is 4.7, chloride is 101, CO2 31 BUN is 27 creatinine 0.48. Objective - Vital Signs Vital signs: Vital Signs Temp 98.0 F 03/20/19 08:00 Pulse 113 H 03/20/19 08:00 Resp 18 03/20/19 01:28 BP 122/79 03/20/19 08:00 Pulse Ox 97 03/20/19 09:04 Intake & Output 03/19/19 03/20/19 03/20/19 18:59 06:59 18:59 Intake Total 1311 Output Total 1650 300 850 Balance -339 -300 -850 Weight 69.8 kg Intake: IV 100 Ampicillin-Sulbactam 3 gm 100 In Sodium Chloride 0.9% 100 ml @ 200 mls/hr IVPB Q8HR [facility] Rx#:[id number] Oral 1211 Output: Urine 1650 300 850 Other: Voiding Method Bedside Commode # Voids 2 # Bowel Movements 2 2 ABP, PAP, CO, CI - Last Documented Arterial Blood Pressure 84/57 - Exam GENERAL EXAM: Alert, pleasant, weak and fatigued chronically ill-looking [age]-year-old white female, on 4 L of oxygen, comfortable in no apparent distress. HEAD: Normocephalic/atraumatic. EYES: Normal reaction of pupils, equal size. Conjunctiva pink, sclera white. NOSE: Clear with pink turbinates. THROAT: No erythema or exudates. NECK: No masses, no JVD, no thyroid enlargement, no adenopathy. CHEST: No chest wall deformity. Symmetrical expansion. Interval removal of the subxiphoid chest tube and there are extensive ulcerated wounds on her right breast with the some limited drainage LUNGS: Equal air entry with no crackles, wheeze, rhonchi or dullness. Diminished breath sounds at the bases CVS: Regular rate and rhythm, normal S1 and S2, no gallops, no murmurs, no rubs ABDOMEN: Soft, nontender. No hepatosplenomegaly, normal bowel sounds, no guarding or rigidity. EXTREMITIES: No clubbing, mild lower extremity edema, no cyanosis, 2+ pulses and upper and lower extremities. MUSCULOSKELETAL: Muscle strength and tone normal. SPINE: No scoliosis or deformity SKIN: No rashes CENTRAL NERVOUS SYSTEM: Alert and oriented -3. No focal deficits, tone is normal in all 4 extremities. PSYCHIATRIC: Alert and oriented -3. Appropriate affect. Intact judgment and insight. - Labs CBC & Chem 7: 03/20/19 07:42 03/20/19 07:42 Labs: Abnormal Lab Results - Last 24 Hours (Table) 03/19/19 03/19/19 03/19/19 Range/Units 15:57 16:53 21:32 RBC (3.80-5.40) m/uL MCV (80.0-100.0) fL RDW (11.5-15.5) % Lymphocytes # (1.0-4.8) k/uL Macrocytosis Sodium 132 L (137-145) mmol/L Carbon Dioxide (22-30) mmol/L BUN (7-17) mg/dL Creatinine (0.52-1.04) mg/dL POC Glucose (mg/dL) 114 H 148 H (75-99) mg/dL Calcium (8.4-10.2) mg/dL 03/20/19 03/20/19 03/20/19 Range/Units 06:55 07:42 07:42 RBC 3.43 L (3.80-5.40) m/uL MCV 105.2 H (80.0-100.0) fL RDW 19.6 H (11.5-15.5) % Lymphocytes # 0.5 L (1.0-4.8) k/uL Macrocytosis Marked A Sodium 135 L (137-145) mmol/L Carbon Dioxide 31 H (22-30) mmol/L BUN 27 H (7-17) mg/dL Creatinine 0.48 L (0.52-1.04) mg/dL POC Glucose (mg/dL) 108 H (75-99) mg/dL Calcium 8.2 L (8.4-10.2) mg/dL 03/20/19 Range/Units 11:58 RBC (3.80-5.40) m/uL MCV (80.0-100.0) fL RDW (11.5-15.5) % Lymphocytes # (1.0-4.8) k/uL Macrocytosis Sodium (137-145) mmol/L Carbon Dioxide (22-30) mmol/L BUN (7-17) mg/dL Creatinine (0.52-1.04) mg/dL POC Glucose (mg/dL) 145 H (75-99) mg/dL Calcium (8.4-10.2) mg/dL Assessment and Plan Plan: Assessment: #1. Malignant pericardial effusion, status post pericardial window, postop day 6, with the immediate removal of 500 mL of serosanguineous output in surgery. Cytology of the pericardial fluid was positive for metastatic adenocarcinoma consistent with primary breast origin #2. Routine ventilator management, and patient was successfully extubated this morning on 03/15/2019, postop day 1, status post pericardial window #3. Metastatic recurrent breast cancer, with metastasis to the liver, and the supraclavicular nodes #4. History of left breast cancer in 2011 treated with chemoradiation #5. Generalized weakness, anorexia, weakness, dehydration #6. Leukopenia #7. Hyponatremia, improving with hydration #8. Non-anion gap metabolic acidosis, improving #9. Elevated liver enzymes related to liver metastasis #10. Bilateral pleural Effusions, and recent history of thoracentesis at [facility] with removal of 1.2 L of pleural fluid, cytology results we re positive for metastatic adenocarcinoma with breast primary. Patient underwent bilateral thoracentesis on 03/17/2019 with removal of 1450 of pleural fluid the right side, and 1.3 L from the left side, no cytology was sent Plan: Continue with IV diuretics, continue encouraging deep breathing and coughing, ambulation. Patient will restart chemotherapy with Abraxane as an outpatient. Dr. Wilcox is following, and managing the antibiotics, will continue with the Unasyn and Flagyl, hemodynamically and clinically patient is stable, no worsening shortness of breath, no chest pain. She is tolerating ambulation, she is anticipated to go to subacute rehab after discharge. I performed a history & physical examination of the patient and discussed their management with my nurse practitioner, Renea Ames. I reviewed the nurse practitioner's note and agree with the documented findings and plan of care. Lung sounds are positive for diminished breath sounds. The findings and the impression was discussed with the patient. I attest to the documentation by the nurse practitioner. Time with Patient: Less than 30
[2019-03-20 16:45] LABS: Glucose,Whole Blood 119 mg/dL (75-99)
[2019-03-20 20:07] LABS: Glucose,Whole Blood 205 mg/dL (75-99)
[2019-03-20] MEDS: MIRTAZAPINE 15 MG TAB PO SCH (20:23)
[2019-03-21 07:58] LABS: Anion Gap 4 mmol/L; Blood Urea Nitrogen 30 mg/dL (7-17); Calcium 8.2 mg/dL (8.4-10.2); Carbon Dioxide 34 mmol/L (22-30); Chloride 97 mmol/L (98-107); Glucose 96 mg/dL (74-99); Magnesium 1.9 mg/dL (1.6-2.3); Sodium 135 mmol/L (137-145)
[2019-03-21] MEDS: MIDODRINE 5 MG TAB PO SCH ×3 (08:09→17:40)
[2019-03-21] MEDS: FUROSEMIDE 10 MG/ML 4 ML VIAL IV SCH ×2 (08:10→14:23)
[2019-03-21] MEDS: metroNIDAZOLE 500 MG TAB PO SCH ×4 (08:10→21:30)
[2019-03-21] MEDS: DOCUSATE 100 MG CAP PO SCH ×2 (08:10→20:24)
[2019-03-21] MEDS: FAMOTIDINE 20 MG TAB PO SCH (08:10)
[2019-03-21 08:12] LABS: Glucose,Whole Blood 103 mg/dL (75-99)
[2019-03-21] MEDS: INSULIN ASPART (NovoLOG) 100 UNIT/ML VIAL SQ SCH ×4 (08:16→21:31)
[2019-03-21] MEDS: GLYCERIN ADULT SUPPOSITORY 1 EACH RECTAL SCH (09:11)
[2019-03-21 11:42] LABS: Glucose,Whole Blood 143 mg/dL (75-99)
--- NOTE | 2019-03-21 11:51 | P.PN ---
Subjective Progress Note Date: 03/21/19 Principal diagnosis: Pericardial effusion, status post pericardial window This is a 69-year-old white female patient of Dr. Glen Vázquez, with past medical history of metastatic breast cancer, diagnosed in her left breast back in 2011 and patient was treated with chemoradiation. Patient developed metastatic disease in 2014 with a large right supraclavicular mass, for which she received radiation. She had since progressed through various regimens, she developed a right chest wall lesion with repeat biopsy showing hormone receptor positive disease. She most recently was on hypertensive and the Faslodex. She was developing increasing shortness of breath, and progressive symptoms in the lesion in the right chest wall with superficial ulceration and intermittent drai nage. She underwent right-sided thoracentesis at the [facility] last week with removal of 1.2 L of pleural fluid with improvement of her dyspnea. Pathology results are not available to us at this time. Patient had progressive weakness, poor appetite and decreased oral intake. She was brought into the emergency department on 03/11/2019, found to be clinically dehydrated with multiple lab abnormalities including low sodium, elevated potassium, and elevated liver enzymes. Most recent PET scan on November 19 showed uptake in the right chest wall lesion, and left supraclavicular lymph nodes. CT of the abdomen and pelvis was completed in the emergency department and showed multiple low density foci scattered within the liver at least 10 lesions related to metastatic disease to the liver, with pericholecystic fluid present about the gallbladder, no significant abnormality in the pancreas, spleen or adrenal glands. There was ascites developing in the upper abdomen. An interval development of bilateral pleural effusions pericardial effusion and ascites. Echocardiogram revealed EF of 60-65%, and a large generalized pericardial effusion. Patient was having marginal low blood pressures. She was seen by cardiothoracic surgery, and surgical intervention was recommended for a large pericardial effusion. And patient underwent pericardial window on 03/14/2019 and following her surgery she returned to the ICU on the ventilator. Patient has been successfully weaned from the ventilator support, she was extubated sometime this morning, she is currently seen in the intensive care unit, this is postoperative day 1, status post pericardial window. She is currently on 6 L of oxygen per nasal cannula, her IV 0.9 normal saline at a rate of 50 ML per hour, she was extubated at 05 40 this morning. Today's chest x-ray has been reviewed, and shows pleural effusions, and associated bibasilar airspace disease likely related to atelectasis. Patient has a subxiphoid chest tube in place, has been 198 mL of serosanguineous output since surgery, with drainage of 500 mL of serosanguineous output during surgery from the chest tube. On 03/16/2019 patient seen in follow-up in the intensive care unit, she is resting in bed, awake and alert, in no acute distress, she is on 8 L per high flow nasal cannula, and her pulse ox is 96%, she is afebrile, blood pressures at times are marginal, with BP in the 80s over 50s, and 90s over 60s, hour the patient is asymptomatic, and producing urine and the order of 30-45 ML per hour, alert, and not complaining of anything, his labs have been reviewed, and showed dull white blood cell count of 2.7, hemoglobin of 12.5, serum sodium is 129, potassium is 4.3, chloride is 100, BUN is 43, creatinine is 0.62. I-S effort is 500 mL, lung sounds are clear to auscultation, no rhonchi or rales. The 0.9 normal saline at a rate of 10 ML per hour. Right breast wound culture was positive for Proteus mirabilis, she is on Unasyn which organism is susceptible to, tolerating oral intake, although appetite remains poor. Subxiphoid chest tube is in place, and there has been 182 mL of thin serosanguineous output over last 24 hours. no specific complaints, patient is calm and comfortable, denies any difficulty breathing or chest pain On 03/19/2019 patient seen in follow-up in the intensive care unit. Patient has been in the low status for last 24 hours, she is awaiting a bed on general medical floor. She is awake and alert, oriented 3, currently on 2 L of oxygen, with a pulse ox of 94-95%, she is afebrile, hemodynamically patient is stable, no specific complaints, she underwent bilateral thoracentesis on 03/17/2019, and there was a 1.3 L removed from her left side, and 1450 ML removed from the right side. On today's chest x-ray there is still residual small pleural effusions bilaterally. Patient denies any acute distress. Patient was given a dose of IV Lasix per nephrology service, and her renal profile is stable, with BUN of 34, and creatinine 0.47, electrolytes revealed a serum sodium of 1:30, potassium is 5.2, chloride is 96, CO2 is 29, anion gap was 5. White blood cell count was 5.8, hemoglobin was 12.6, no fever or chills. Patient is on antibiotics for evidence of Proteus mirabilis infection in the right breast wound, urine culture and blood culture showed no growth. Antibiotic coverage in the form of Unasyn, and patient is receiving Flagyl by mouth On 03/20/2019 patient seen in follow-up on medical surgical floor. Is awake and alert, in no acute distress, she is sitting up in a recliner. No acute distress, she remains on 4 L of oxygen with a pulse ox of 97%, no fever or chills, patient has been ambulating to the bathroom, tolerating activity well, no worsening shortness of breath. Lung sounds reveal diminished breath sounds at bilateral bases, patient is working on the incentive spirometer. Status post bilateral thoracentesis with removal of 1450 ML from the right side and 1.3 L fr om the left side on 03/17/2019. Blood and urine cultures were negative, and the wound culture on her right breast was positive for Proteus mirabilis, and patient is on the antibiotics in the form of Unasyn, and oral Flagyl. ID service is following, no specific complaints, she remains on IV diuretics at 40 mg every 12 hours. These labs have been reviewed, with blood cell count is 6.0, hemoglobin is 11.5, serum sodium is 135, potassium is 4.7, chloride is 101, CO2 31 BUN is 27 creatinine 0.48. On 03/21/2019 patient seen in follow-up on medical surgical floor. Doing well, her main complaint is nasal congestion, no worsening dyspnea, remains on 4 L of oxygen, and it is connected to humidification. Pulse ox is 91-98%, afebrile, hemodynamically stable, patient has been tolerating ambulation, still has swelling in the lower and upper extremities, but it is improving, is on IV diuretics, currently 40 mg every 12 hours, lung sounds reveal diminished breath sounds at the bases, no rhonchi, or wheezes, patient is working on her incentive spirometer. Maintaining negative fluid balance, her weight is down 3.1 kg in the last 24 hours. Objective - Vital Signs Vital signs: Vital Signs Temp 97.8 F 03/21/19 07:54 Pulse 106 H 03/21/19 09:00 Resp 18 03/21/19 09:00 BP 101/67 03/21/19 07:54 Pulse Ox 91 L 03/21/19 07:54 Intake & Output 03/20/19 03/21/19 03/21/19 18:59 06:59 18:59 Intake Total 360 660 Output Total 850 1075 300 Balance -490 -415 -300 Intake: IV 170 0.9 KVO 70 Ampicillin-Sulbactam 3 gm 100 In Sodium Chloride 0.9% 100 ml @ 200 mls/hr IVPB Q8HR [facility] Rx#:[id number] Intake, IV Titration 120 Amount IV Fluid Continuation 1, 120 000 ml @ 0 mls/hr IV .[facility] Rx#:[id number] Oral 240 490 Output: Urine 850 1075 300 Other: Voiding Method Toilet Toilet # Voids 1 1 # Bowel Movements 2 1 ABP, PAP, CO, CI - Last Documented Arterial Blood Pressure 84/57 - Exam GENERAL EXAM: Alert, pleasant, weak and fatigued chronically ill-looking 69-ye ar-old white female, on 4 L of oxygen, comfortable in no apparent distress. HEAD: Normocephalic/atraumatic. EYES: Normal reaction of pupils, equal size. Conjunctiva pink, sclera white. NOSE: Clear with pink turbinates. THROAT: No erythema or exudates. NECK: No masses, no JVD, no thyroid enlargement, no adenopathy. CHEST: No chest wall deformity. Symmetrical expansion. Interval removal of the subxiphoid chest tube and there are extensive ulcerated wounds on her right breast with the some limited drainage LUNGS: Equal air entry with no crackles, wheeze, rhonchi or dullness. Diminished breath sounds at the bases CVS: Regular rate and rhythm, normal S1 and S2, no gallops, no murmurs, no rubs ABDOMEN: Soft, nontender. No hepatosplenomegaly, normal bowel sounds, no guarding or rigidity. EXTREMITIES: No clubbing, mild lower extremity edema, no cyanosis, 2+ pulses and upper and lower extremities. MUSCULOSKELETAL: Muscle strength and tone normal. SPINE: No scoliosis or deformity SKIN: No rashes CENTRAL NERVOUS SYSTEM: Alert and oriented -3. No focal deficits, tone is normal in all 4 extremities. PSYCHIATRIC: Alert and oriented -3. Appropriate affect. Intact judgment and insight. - Labs CBC & Chem 7: 03/20/19 07:42 03/21/19 06:41 Labs: Abnormal Lab Results - Last 24 Hours (Table) 03/20/19 03/20/19 03/20/19 Range/Units 11:58 16:44 20:05 Sodium (137-145) mmol/L Chloride (98-107) mmol/L Carbon Dioxide (22-30) mmol/L BUN (7-17) mg/dL POC Glucose (mg/dL) 145 H 119 H 205 H (75-99) mg/dL Calcium (8.4-10.2) mg/dL 03/21/19 03/21/19 03/21/19 Range/Units 06:41 07:55 11:38 Sodium 135 L (137-145) mmol/L Chloride 97 L (98-107) mmol/L Carbon Dioxide 34 H (22-30) mmol/L BUN 30 H (7-17) mg/dL POC Glucose (mg/dL) 103 H 143 H (75-99) mg/dL Calcium 8.2 L (8.4-10.2) mg/dL Assessment and Plan Plan: Assessment: #1. Malignant pericardial effusion, status post pericardial window, postop day 7, with the immediate removal of 500 mL of serosanguineous output in surgery. Cytology of the pericardial fluid was positive for metastatic adenocarcinoma consistent with primary breast origin #2. Routine ventilator management, and patient was successfully extubated this morning on 03/15/2019, postop day 1, status post pericardial window #3. Metastatic recurrent breast cancer, with metastasis to the liver, and the supraclavicular nodes #4. History of left breast cancer in 2011 treated with chemoradiation #5. Generalized weakness, anorexia, weakness, dehydration #6. Leukopenia #7. Hyponatremia, improving with hydration #8. Non-anion gap metabolic acidosis, improving #9. Elevated liver enzymes related to liver metastasis #10. Bilateral pleural Effusions, and recent history of thoracentesis at [facility] with removal of 1.2 L of pleural fluid, cytology results were positive for metastatic adenocarcinoma with breast primary. Patient und erwent bilateral thoracentesis on 03/17/2019 with removal of 1450 of pleural fluid the right side, and 1.3 L from the left side, no cytology was sent Plan: Continue IV diuretics, FiO2, we will order some [place] spray for nasal congestion.Clinically patient is stable, tolerating and deletion, anticipate discharge to subacute rehab in the next 24 hours. I performed a history & physical examination of the patient and discussed their management with my nurse practitioner, Renea Ames. I reviewed the nurse practitioner's note and agree with the documented findings and plan of care. Lung sounds are positive for diminished breath sounds. The findings and the impression was discussed with the patient. I attest to the documentation by the nurse practitioner. Time with Patient: Less than 30
[2019-03-21] MEDS ORDERED: SODIUM CHLORIDE 0.65% NASAL SPRAY 44 ML BTL NASAL PRN (12:04)
--- NOTE | 2019-03-21 12:06 | P.PN ---
Subjective Patient is seen in follow-up for hyponatremia. Sodium level today is stable at 135. Denies chest pain. GFR at baseline. She underwent bilateral thoracentesis on March 17 with nearly 2.5 L drained. Chest tube has been removed. Still complains of generalized swelling. Oral intake is fair. Doesn't like the food in the hospital. Vital signs are stable. Blood pressure on the lower side. General: The patient appeared well nourished and normally developed. HEENT: Head exam is unremarkable. Neck is without jugular venous distension. LUNGS: Breath sounds decreased. HEART: Rate and Rhythm are regular. First and second heart sounds normal. No murmurs, rubs or gallops. ABDOMEN: Abdominal exam reveals normal bowel sounds. Non-tender. EXTREMITITES: 1+ edema. Objective - Vital Signs Vital signs: Vital Signs Temp 97.8 F 03/21/19 07:54 Pulse 106 H 03/21/19 09:00 Resp 18 03/21/19 09:00 BP 101/67 03/21/19 07:54 Pulse Ox 91 L 03/21/19 07:54 Intake & Output 03/20/19 03/21/19 03/21/19 18:59 06:59 18:59 Intake Total 360 660 Output Total 850 1075 300 Balance -490 -415 -300 Intake: IV 170 0.9 KVO 70 Ampicillin-Sulbactam 3 gm 100 In Sodium Chloride 0.9% 100 ml @ 200 mls/hr IVPB Q8HR [facility] Rx#:[id number] Intake, IV Titration 120 Amount IV Fluid Continuation 1, 120 000 ml @ 0 mls/hr IV .[facility] Rx#:[id number] Oral 240 490 Output: Urine 850 1075 300 Other: Voiding Method Toilet Toilet # Voids 1 1 # Bowel Movements 2 1 ABP, PAP, CO, CI - Last Documented Arterial Blood Pressure 84/57 - Labs CBC & Chem 7: 03/20/19 07:42 03/21/19 06:41 Labs: Abnormal Lab Results - Last 24 Hours (Table) 03/20/19 03/20/19 03/21/19 Range/Units 16:44 20:05 06:41 Sodium 135 L (137-145) mmol/L Chloride 97 L (98-107) mmol/L Carbon Dioxide 34 H (22-30) mmol/L BUN 30 H (7-17) mg/dL POC Glucose (mg/dL) 119 H 205 H (75-99) mg/dL Calcium 8.2 L (8.4-10.2) mg/dL 03/21/19 03/21/19 Range/Units 07:55 11:38 Sodium (137-145) mmol/L Chloride (98-107) mmol/L Carbon Dioxide (22-30) mmol/L BUN (7-17) mg/dL POC Glucose (mg/dL) 103 H 143 H (75-99) mg/dL Calcium (8.4-10.2) mg/dL Assessment and Plan Plan: Assessment: 1. Hyponatremia. Patient is hypervolemic. 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 Sodium level stable at 135 today. Urine sodium noted to be less than 10. Urine osmolality 899. TSH, uric acid and cortisol level normal. 2. 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 3. Metastatic breast cancer. 4. Breast wound culture positive for Proteus maintained on antibiotics. 5. Volume overload. 6. Pleural effusion status post bilateral thoracentesis on March 17 with nearly 2.5 L drained. Plan: Status post Samsca on March 19. Resume Lasix 40 mg IV twice daily - this evening I will give her 60 mg IV Lasix. Can be transitioned over to oral upon discharge. Maintain 1.5 L free water restriction. Continue ensure 3 times daily.
[2019-03-21 15:43] VITALS: BMI 24.8
[2019-03-21 16:37] LABS: Glucose,Whole Blood 95 mg/dL (75-99)
[2019-03-21] MEDS: traMADol 50 MG TAB PO PRN (20:24)
[2019-03-21] MEDS ORDERED: FUROSEMIDE 10 MG/ML 10 ML VIAL IV ONE (21:00)
[2019-03-21 21:23] LABS: Glucose,Whole Blood 177 mg/dL (75-99)
[2019-03-21] MEDS: MIRTAZAPINE 15 MG TAB PO SCH (21:30)
--- NOTE | 2019-03-22 00:11 | P.PN ---
Subjective Progress Note Date: 03/21/19 This is a 69-year-old female patient with past medical history of initial diagnosis of left sided breast cancer in 2011 and treated with IV chemotherapy and placed on observation. She developed metastatic disease in 2014 with a large right supraclavicular mass. She received radiation and vario us regimes. She developed a right chest wall lesion and repeat biopsy was done and is currently on Ibrance and Faslodex. She had progressive symptoms and the lesion on the right chest wall with superficial ulceration and drainage. She has a thoracentesis done for right-sided pleural effusion last week at [facility] and 1.2 L removed and pathology pending. Patient presented to the hospital complaining of weakness poor appetite and decreased oral intake not able to eat or drink very well and generalized malaise. She denied any fever, chills, nausea or vomiting at that time. Patient states over the last few weeks she's had episodes of vomiting and nausea. Patient denies any diarrhea or constipation. Patient has been complaining of chest wall pain and difficulty breathing. Patient states that she is to start chemotherapy on Wednesday. Regarding the wound on the right chest, she has not been on any antibiotics. Wound culture was obtained today. She has had drainage from the area but noted today but had a foul odor. She underwent a CAT scan of the abdomen and pelvis which revealed interval development of bilateral pleural effusions, pericardial effusion, ascites. Metastatic disease to the liver. Chest x-ray from yesterday showed no significant interval change in the appearance of the chest. Additional consults in place including oncology, cardiology for pericardial effusion, nephrology for hyponatremia. Patient has been started on Unasyn. 03/14/2019 Patient still feels poorly and has shortness of breath but nausea has improved. Still very fatigued. 03/15/2019 patient is status post pericardial window and is feeling somewhat better today. She still is quite weak. Was able to drink liquids without great difficulty. Appetite is poor. Denies nausea or emesis at this time. Pain is under good control. Mood is improved. 03/16/2019 patient continues to have some improvement after the pericardial window. Pain is improved. She is sitting up in a chair. Looks towards having her lunch. Is a 90 difficulties. Shortness of breath is improved. 03/17/2019 patient remains improved after the pericardial window. As expected it was a malignant effusion. She fortunately is feeling much less short of breath mood is improved. No other new complaints still poor appetite. March 18, 2019 patient sitting up feeling better improving her appetite. Request some chips which she sounded good to her. March 19, 2019 patient sitting up looking forward to having a walk. Has had a bowel movement in definitely feels better. Putrid odor from the breast is imp roved 03/21/2019 revealed changes status post feeling better. Potential moving to discharge to home Objective - Vital Signs Vital signs: Vital Signs Temp 98.7 F 03/21/19 19:50 Pulse 115 H 03/21/19 19:50 Resp 19 03/21/19 19:50 BP 117/73 03/21/19 19:50 Pulse Ox 94 L 03/21/19 19:50 Intake & Output 03/21/19 03/21/19 03/22/19 06:59 18:59 06:59 Intake Total 660 250 Output Total 1075 1000 975 Balance -415 1000 721 Weight 69.8 kg Intake: IV 170 0.9 KVO 70 Ampicillin-Sulbactam 3 gm 100 In Sodium Chloride 0.9% 100 ml @ 200 mls/hr IVPB Q8HR [facility] Rx#:[id number] Oral 490 250 Output: Urine 1075 1000 975 Other: Voiding Method Toilet Toilet # Voids 1 1 # Bowel Movements 1 1 ABP, PAP, CO, CI - Last Documented Arterial Blood Pressure 84/57 - Exam Gen: This is a 69-year-old female. She is up in the chair and feels better today HEENT: Head is atraumatic, normocephalic. Pupils equal, round. Sclerae is anicteric. NECK: Supple. No JVD. No lymphadenopathy. No thyromegaly. LUNGS: Clear to auscultation. No wheezes or rhonchi. basilar crackles subxiphoid chest tube is now removed and patient feels better. HEART: Regular rate and rhythm. No murmur. Port to the right upper chest wall. Breast: Significant ulceration to the right breast anterior aspect with necrosis followed her has completely resolved ABDOMEN: Soft. Bowel sounds are present. No masses. No tenderness. EXTREMITIES: No pedal edema. No calf tenderness. NEUROLOGICAL: Patient is awake, alert and oriented x3. - Labs CBC & Chem 7: 03/20/19 07:42 03/21/19 06:41 Labs: Abnormal Lab Results - Last 24 Hours (Table) 03/21/19 03/21/19 03/21/19 Range/Units 06:41 07:55 11:38 Sodium 135 L (137-145) mmol/L Chloride 97 L (98-107) mmol/L Carbon Dioxide 34 H (22-30) mmol/L BUN 30 H (7-17) mg/dL POC Glucose (mg/dL) 103 H 143 H (75-99) mg/dL Calcium 8.2 L (8.4-10.2) mg/dL 03/21/19 Range/Units 21:22 Sodium (137-145) mmol/L Chloride (98-107) mmol/L Carbon Dioxide (22-30) mmol/L BUN (7-17) mg/dL POC Glucose (mg/dL) 177 H (75-99) mg/dL Calcium (8.4-10.2) mg/dL Laboratory Results WBC 6.0 k/uL (3.8-10.6) 03/20/19 07:42 RBC 3.43 m/uL (3.80-5.40) L 03/20/19 07:42 Hgb 11.5 gm/dL (11.4-16.0) 03/20/19 07:42 Hct 36.1 % (34.0-46.0) 03/20/19 07:42 MCV 105.2 fL (80.0-100.0) H 03/20/19 07:42 MCH 33.4 pg (25.0-35.0) 03/20/19 07:42 MCHC 31.8 g/dL (31.0-37.0) 03/20/19 07:42 RDW 19.6 % (11.5-15.5) H 03/20/19 07:42 Plt Count 201 k/uL (150-450) 03/20/19 07:42 Neutrophils % 75 % 03/20/19 07:42 Neutrophils % (Manual) 63 % 03/17/19 05:33 Band Neutrophils % 5 % 03/17/19 05:33 Lymphocytes % 9 % 03/20/19 07:42 Lymphocytes % (Manual) 18 % 03/17/19 05:33 Monocytes % 11 % 03/20/19 07:42 Monocytes % (Manual) 13 % 03/17/19 05:33 Eosinophils % 1 % 03/20/19 07:42 Eosinophils % (Manual) 1 % 03/17/19 05:33 Basophils % 0 % 03/20/19 07:42 Neutrophils # 4.5 k/uL (1.3-7.7) 03/20/19 07:42 Neutrophils # (Manual) 2.90 k/uL (1.3-7.7) 03/17/19 05:33 Lymphocytes # 0.5 k/uL (1.0-4.8) L 03/20/19 07:42 Lymphocytes # (Manual) 0.77 k/uL (1.0-4.8) L 03/17/19 05:33 Monocytes # 0.7 k/uL (0-1.0) 03/20/19 07:42 Monocytes # (Manual) 0.56 k/uL (0-1.0) 03/17/19 05:33 Eosinophils # 0.1 k/uL (0-0.7) 03/20/19 07:42 Eosinophils # (Manual) 0.04 k/uL (0-0.7) 03/17/19 05:33 Basophils # 0.0 k/uL (0-0.2) 03/20/19 07:42 Nucleated RBCs 0 /100 WBC (0-0) 03/17/19 05:33 Manual Slide Review Performed 03/17/19 05:33 Polychromasia Present 03/17/19 05:33 Poikilocytosis (manual Present 03/17/19 05:33 Anisocytosis Slight 03/20/19 07:42 Anisocytosis (manual) Present 03/16/19 04:13 Macrocytosis Marked A 03/20/19 07:42 PT 12.5 sec (9.0-12.0) H 03/15/19 04:15 INR 1.2 (<1.2) H 03/15/19 04:15 APTT 24.0 sec (22.0-30.0) 03/15/19 04:15 Sample Site DAHINDA 03/15/19 05:07 ABG pH 7.47 (7.35-7.45) H 03/15/19 05:07 ABG pCO2 28 mmHg (35-45) L 03/15/19 05:07 ABG pO2 82 mmHg (83-108) L 03/15/19 05:07 ABG HCO3 21 mmol/L (21-25) 03/15/19 05:07 ABG Total CO2 22 mmol/L (19-24) 03/15/19 05:07 ABG O2 Saturation 96.7 % (94-97) 03/15/19 05:07 ABG Base Excess -3.0 mmol/L 03/15/19 05:07 Negro Test Yes 03/15/19 05:07 FiO2 50 % 03/15/19 05:07 Sodium 135 mmol/L (137-145) L 03/21/19 06:41 Potassium 4.0 mmol/L (3.5-5.1) 03/21/19 06:41 Chloride 97 mmol/L (98-107) L 03/21/19 06:41 Carbon Dioxide 34 mmol/L (22-30) H 03/21/19 06:41 Anion Gap 4 mmol/L 03/21/19 06:41 BUN 30 mg/dL (7-17) H 03/21/19 06:41 Creatinine 0.54 mg/dL (0.52-1.04) 03/21/19 06:41 Est GFR (CKD-EPI)AfAm >90 (>60 ml/min/1.73 sqM) 03/21/19 06:41 Est GFR (CKD-EPI)NonAf >90 (>60 ml/min/1.73 sqM) 03/21/19 06:41 Glucose 96 mg/dL (74-99) 03/21/19 06:41 POC Glucose (mg/dL) 177 mg/dL (75-99) H 03/21/19 21:22 POC Glu Digital [employer] ID Aquiles Robles 03/21/19 21:22 Osmolality 285 mosm/kg (280-301) 03/12/19 10:00 Plasma Lactic Acid Gurmeet 1.8 mmol/L (0.7-2.0) 03/11/19 22:54 Uric Acid 7.1 mg/dL (3.7-7.4) 03/15/19 04:15 Calcium 8.2 mg/dL (8.4-10.2) L 03/21/19 06:41 Phosphorus 3.0 mg/dL (2.5-4.5) 03/16/19 04:13 Magnesium 1.9 mg/dL (1.6-2.3) 03/21/19 06:41 Total Bilirubin 0.7 mg/dL (0.2-1.3) 03/15/19 04:15 Conjugated Bilirubin 0.0 mg/dL (0.0-0.3) 03/12/19 10:00 Unconjugated Bilirubin 0.2 mg/dL (0.0-1.1) 03/12/19 10:00 Delta Bilirubin 0.3 mg/dL (0.0-0.2) H 03/12/19 10:00 AST 39 U/L (14-36) H 03/15/19 04:15 ALT 72 U/L (9-52) H 03/15/19 04:15 Alkaline Phosphatase 304 U/L (38-126) H 03/15/19 04:15 Creatine Kinase 29 U/L (30-135) L 03/11/19 22:54 Troponin I <0.012 ng/mL (0.000-0.034) 03/11/19 22:54 Total Protein 5.1 g/dL (6.3-8.2) L 03/15/19 04:15 Albumin 2.9 g/dL (3.5-5.0) L 03/15/19 04:15 CA 15-3 Antigen 41.4 U/mL (0.0-32.3) H 03/13/19 06:10 TSH 2.770 mIU/L (0.465-4.680) 03/11/19 22:54 Cortisol 32 ug/dL 03/17/19 05:33 ACTH 37.40 pg/mL (0.00-45.99) 03/17/19 05:33 Urine Color Yellow 03/12/19 01:35 Urine Appearance Clear (Clear) 03/12/19 01:35 Urine pH 5.5 (5.0-8.0) 03/12/19 01:35 Ur Specific [place] 1.036 (1.001-1.035) H 03/12/19 01:35 Urine Protein 1+ (Negative) H 03/12/19 01:35 Urine Glucose (UA) Negative (Negative) 03/12/19 01:35 Urine Ketones Negative (Negative) 03/12/19 01:35 Urine Blood Negative (Negative) 03/12/19 01:35 Urine Nitrite Negative (Negative) 03/12/19 01:35 Urine Bilirubin Negative (Negative) 03/12/19 01:35 Urine Urobilinogen 2.0 mg/dL (<2.0) 03/12/19 01:35 Ur Leukocyte Esterase Small (Negative) H 03/12/19 01:35 Urine RBC 4 /hpf (0-5) 03/12/19 01:35 Urine WBC 11 /hpf (0-5) H 03/12/19 01:35 Ur Squamous Epith Cells 1 /hpf (0-4) 03/12/19 01:35 Urine Bacteria Occasional /hpf (None) H 03/12/19 01:35 Hyaline Casts 202 /lpf (0-2) H 03/12/19 01:35 Granular Casts 61 /lpf (0) 03/12/19 01:35 Urine Mucus Rare /hpf (None) H 03/12/19 01:35 Urine Osmolality 899 mosm/kg (50-1400) 03/12/19 11:20 Ur Random Creatinine 202.8 mg/dL 03/12/19 11:20 Ur Random Sodium <10 mmol/L 03/12/19 11:20 Microbiology 03/11/19 22:54 Blood Blood Culture - Final No Growth after 144 hours 03/13/19 15:00 Breast - Right Gram Stain - Final 03/13/19 15:00 Breast - Right Wound Culture - Final Proteus mirabilis 03/12/19 01:35 Urine,Voided Urine Culture - Final Assessment and Plan (1) Breast cancer Narrative/Plan: 69-year-old female who has metastatic breast carcinoma with recent significant worsening of her status presents to Hospital feeling very poorly. She difficulty with her breast ulceration with increasing odor drainage and increasing fatigue and malaise. She's also developed some nausea with emesis and feels very poorly. It is noted developed some hyponatremia also. On the exam the patient has the extensive ulceration to the right breast that is nec rotic and malodorous. There is some surrounding erythema. At this time Unasyn is an excellent choice for the cellulitis that has developed in the roselia-ulcer area on the breast from the carcinoma. Topical metronidazole that are the tablets that are crushed in sprinkled onto the ulcers is often help ful in reducing the strong odor. It appears at the patient is developed progression of her metastatic disease since her last set of scans and it's not clear at this point in time with the overall process will be. 03/14/2019 patient is had little improvement. However the topical metronidazole has helped the significant malodorous nature to the right breast. Patient over still short of breath. Echocardiogram shows evidence of a pericardial effusion. Will be seen by cardiovascular surgery and likely will have an emergent pericardial window. Continue as before by cultures are pending. 03/15/2019 patient is status post the pericardial window. She is having some improvement of her status. Blood pressure remains low urine output is adequate. She is not requiring vasopressor therapy. Wound culture does show evidence of the Proteus which is susceptible to Unasyn and constantly current antibiotic therapy continues. Topical metronidazole has been very helpful in reducing the putrid odor from the right breast ulceration. Patient does feel better because the improved odor. Await the cytology results and overall plan. 03/16/2019 patient has further improvement to be able to tolerate sitting up in the chair. He looks forward to ingesting some of her lunch. Is denying amounts of pain. Remains afebrile. Odor from the right breast ulceration from her breast cancer has responded very well to the topical metronidazole. Fortunately she's feeling somewhat better since the pericardial window and is less short of breath. 03/17/2019 patient is feeling better. Tolerate sitting up quite well. She's done well with current antibiotic therapy with Unasyn and topical metronidazole to the ulceration of the chest wall. If she improves and her chest tube becomes removed there will be discharge plans and process. As she ready for discharge the Unasyn may be changed to Augmentin May continue the topical metronidazole to the ulceration of the chest wall. Palliative care consultation would be helpful, as could be consideration for a hospice approach. March 18, 2019 patient fortunately continues to have some improvement now that her chest tube is been removed. Her discomforts are improved. Her appetite is improving. If she improves we'll suggest Unasyn and will be changed to Augmentin to complete a course of therapy. And topical metronidazole applied to the chest wall to help with the pungent odor the necrotic tissue. Palliative care consult would be helpful. March 19, 2019 patient continues to feel a bit better after the pericardial window was placed. She's also had thoracentesis which is also improved her respiratory status. She is no other new acute complaints at this point in time. No fevers. Discharge planning I believe is in process.. Palitive care consult would be helpful. 03/21/2019 discharge planning is in progress. Unclear if palliative care will be occurring. Regardless she likely will be discharged home the next day or so. Would complete a course of Augmentin at home. Topical metronidazole may be transitioned to Dakin solution which would be easier for the home care to utilize. Dakin's can be applied on a daily basis. Current Visit: Yes Status: Acute Priority: High Code(s): C50.919 - MALIGNANT NEOPLASM OF UNSP SITE OF UNSPECIFIED FEMALE BREAST SNOMED Code(s): 873192163 (2) Pericardial effusion, acute Current Visit: Yes Status: Acute Priority: High Code(s): I30.9 - ACUTE PERICARDITIS, UNSPECIFIED SNOMED Code(s): 04003995
[2019-03-22 02:47] VITALS: RESP 18; TEMP 97.9
[2019-03-22 07:51] LABS: Glucose,Whole Blood 102 mg/dL (75-99)
[2019-03-22] MEDS: INSULIN ASPART (NovoLOG) 100 UNIT/ML VIAL SQ SCH ×2 (07:52→12:11)
[2019-03-22] MEDS: metroNIDAZOLE 500 MG TAB PO SCH ×2 (07:58→12:13)
[2019-03-22] MEDS: FUROSEMIDE 10 MG/ML 4 ML VIAL IV SCH (07:59)
[2019-03-22] MEDS: DOCUSATE 100 MG CAP PO SCH (07:59)
[2019-03-22] MEDS: FAMOTIDINE 20 MG TAB PO SCH (07:59)
[2019-03-22] MEDS: MIDODRINE 5 MG TAB PO SCH ×2 (07:59→12:10)
[2019-03-22] MEDS: GLYCERIN ADULT SUPPOSITORY 1 EACH RECTAL SCH (07:59)
[2019-03-22 08:56] VITALS: BP 99/66; PULSE 99
--- NOTE | 2019-03-22 11:21 | P.PN ---
Subjective Patient is seen in follow-up for hyponatremia. Sodium level stable at 135 as of yesterday. Denies chest pain. GFR at baseline. She underwent bilateral thoracentesis on March 17 with nearly 2.5 L drained. Chest tube has been removed. Still complains of generalized swelling. Oral intake is fair. Doesn't like the food in the hospital. Going home today. Vital signs are stable. Blood pressure on the lower side. General: The patient appeared well nourished and normally developed. HEENT: Head exam is unremarkable. Neck is without jugular venous distension. LUNGS: Breath sounds decreased. HEART: Rate and Rhythm are regular. First and second heart sounds normal. No murmurs, rubs or gallops. ABDOMEN: Abdominal exam reveals normal bowel sounds. Non-tender. EXTREMITITES: 1+ edema. Objective - Vital Signs Vital signs: Vital Signs Temp 97.9 F 03/22/19 07:39 Pulse 99 03/22/19 07:39 Resp 18 03/22/19 07:39 BP 99/66 03/22/19 07:39 Pulse Ox 93 L 03/22/19 07:39 Intake & Output 03/21/19 03/22/19 03/22/19 18:59 06:59 18:59 Intake Total 1700 235 Output Total 1000 1775 771 Balance -1000 -75 -536 Weight 69.8 kg 68.9 kg Intake: Oral 1700 235 Output: Urine 1000 1775 771 Other: Voiding Method Toilet Toilet Toilet # Voids 1 # Bowel Movements 1 1 ABP, PAP, CO, CI - Last Documented Arterial Blood Pressure 84/57 - Labs CBC & Chem 7: 03/20/19 07:42 03/21/19 06:41 Labs: Abnormal Lab Results - Last 24 Hours (Table) 03/21/19 03/21/19 03/22/19 Range/Units 11:38 21:22 07:40 POC Glucose (mg/dL) 143 H 177 H 102 H (75-99) mg/dL Assessment and Plan Plan: Assessment: 1. Hyponatremia. Patient is hypervolemic. 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 Sodium level stable at 135 as of yesterday. Urine sodium noted to be less than 10. Urine osmolality 899. TSH, uric acid and cortisol level normal. 2. 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 3. Metastatic breast cancer. 4. Breast wound culture positive for Proteus maintained on antibiotics. 5. Volume overload. 6. Pleural effusion status post bilateral thoracentesis on March 17 with nearly 2.5 L drained. Plan: Status post Samsca on March 19. Maintain 1.5 L free water restriction. Continue ensure 3 times daily. Stable to be discharged home from nephrology standpoint on Lasix 40 mg orally twice daily. Repeat BMP in 2-3 days postdischarge. Follow up outpatient in the next 1-2 weeks.
[2019-03-22 11:34] LABS: Glucose,Whole Blood 155 mg/dL (75-99)
--- NOTE | 2019-03-22 15:04 | P.DS ---
Providers Date of admission: 03/11/19 23:46 Expected date of discharge: 03/22/19 Attending physician: Keaton Espinoza MD Consults: 03/11/19 23:56 Consult Physician Urgent Consulting Provider: Rigoberto Prasad Consult Reason/Comments: established patinet Do you want consulting provider notified?: Yes 03/13/19 12:34 Consult Physician Routine Consulting Provider: Awilda Courtney Consult Reason/Comments: pericardial effusion Do you want consulting provider notified?: Yes Consult Physician Routine Consulting Provider: Chris Wilcox Consult Reason/Comments: breast wounds Do you want consulting provider notified?: Yes 03/13/19 12:40 Consult Physician Routine Consulting Provider: Rufino Scott Consult Reason/Comments: hyponatremia Do you want consulting provider notified?: Yes 03/14/19 09:17 Consult Physician Urgent Consulting Provider: Pam Hickman Consult Reason/Comments: pericardial eff Do you want consulting provider notified?: Already Contacted 03/15/19 07:27 Consult Physician Stat Consulting Provider: Tereso Hayes Consult Reason/Comments: ICU care Do you want consulting provider notified?: Yes Primary care physician: [facility] Course: This is a 69-year-old pleasant female patient of Dr. Glen Vázquez who presented to the emergency room complaining of generalized weakness. Patient states that over the last couple weeks she has not had any appetite she has not been able to eat or drink well. Patient states that she seen her primary care physician about a week ago and was told that the left looks fine at that time however since then she has not been able to eat or drink. Patient reported generalized malaise. She denied any fever, chills, nausea or vomiting at that time. Patient has past medical history significant of recurrent breast CA, initial diagnosis apparently 7 years ago. Patient has a necrotic breast lesion on the right chest wall that is progressively getting worse. Past medical history also includes anxiety and depression. Patient has never been a smoker. At this time patient is resting in bed in no acute distress. She is complaining of lack of appetite, weakness, malaise. Patient states over the last few weeks she's had episodes of vomiting and nausea. Patient denies any diarrhea or constipation. Patient has been complaining of chest wall pain and difficulty breathing. On Wednesday of last week she had thoracentesis due to bilateral pleural effusion. 1.3 L of fluid was drained from the right lung. Patient states after the procedure was done she did have an easier time breathing. However it did not help her weakness or malaise. Patient states that next week she will be starting another chemotherapy since previous treatments have not been successful. Patient denies any fevers or chills. 03/13: Patient has a wound on her right breast which she states has been drinking for 5 days but now has a foul order. She denies being on any antibiotics recently. Consult for Dr. Wilcox has been ordered and will culture ordered. She has been seen by Dr. Zamora regarding breast cancer the plan is to start chemotherapy with Abraxane as an outpatient. Patient is noted to have increased liver enzymes and Dr. Zamora ordered CAT scan of the abdomen and pelvis which revealed interval development of bilateral pleural effusions, pericardial effusion, ascites. Metastatic disease to the liver. Consult has been admitted for cardiology regarding pericardial effusion. Chest x-ray from yesterday showed no significant interval change in the appearance of the chest. Repeat lab work reveals sodium 127, potassium 5.4, chloride 97, CO2 21, BUN 15 creatinine 0.91, blood sugar 130. Cortisol 67 Consult has been added for nephrology for hyponatremia possible SIADH. Patient does have some increased edema for which IV fluids will be decreased to 50 mL per hour. 03/14: Echocardiogram reveals EF of 60-65%, mild aortic valve sclerosis, mild pulmonary hypertension, large generalized pericardial effusion. Patient was transferred to the cardiac stepdown unit. She did have marginal blood pressure readings and pulse ox was 91% on 2 L increased to 3 L. Patient has been seen by oncology and MRI of the brain was ordered for today looking for brain metastases but patient is unable to lay flat for this and we will cancel it for now. Xanax ordered for anxiety. Discussed case with cardiology and cardiothoracic surgery consult has been added. Patient received 1 dose of IV albumin yesterday we will repeat for today. Chest x-ray ordered for today. Patient states that she has less edema in her legs but continues to have edema in her arms. She denies any diarrhea. She has not had a bowel movement since admission. Patient is having very little oral intake. She is followed by dietitian and I will be changed to a regular diet to make it more accommodating for her. Repeat lab work reveals sodium 127, potassium 5.8, chloride 96, CO2 19. Patient has been afebrile, heart rate in the low 100s up to 106, pulse ox 95% on 3 L. Blood pressure 96/58. 03/15: Patient underwent subxiphoid pericardiostomy yesterday evening with Dr. Hickman for malignant pericardial effusion with early tamponade with drainage of 500 ML's of bloody fluid and specimen was sent for cytology. Patient was s intubated and admitted into the intensive care unit. Patient was successfully e xtubated around 6 AM. Chest x-ray this morning reveals similar-appearing pleural effusions and associated bibasilar airspace disease likely atelectasis. Patient has been afebrile, heart rate 112, blood pressure 90/69, pulse ox 96% on high flow nasal cannula 8 L. Repeat lab work reveals white count 1.4, hemoglobin 12.6, platelet count 130, INR 1.2. Sodium remains at 127, BUN 15 creatinine 0.75. Liver function tests remain elevated with AST 39, ALT 72 and alkaline phosphatase 304. Patient was also seen yesterday by Dr. Bush and additional dose of Lasix ordered. Wound cultures showing gram-negative bacilli. Patient is complaining of severe chest pain for which she has morphine available but due to her blood pressure has not been given. We will add in tramadol and plain Tylenol for pain control. 03/16 patient is sitting up in the chair in the ICU. Denies any shortness of breath. Blood pressure 88/66 pulse rate 110 temp 97.8 saturating well heat liters high flow nasal cannula. Continues to drain serosanguineous drainage from the subxiphoid chest to with 50 mL since her last 8 hours. Cortisol on 03/13 was normal will repeat cortisol with ACTH. Midodrine initiated 10 mg 3 t imes a day for blood pressure. Wound culture positive for Proteus susceptible to Unasyn 03/17 patient is sitting up in chair in the ICU. She is feeling better than yesterday had 90 mL output from the pericardial tube. Patient did get thoracentesis this morning from her right chest . Currently saturating 97% on 5 L of high flow blood pressure 95/68 tachycardic to 113. Patient initiated on midodrine 10 mg 3 times a day cortisol 37 normal. Plan for thoracentesis on the left. Pathology from pericardial fluid positive for metastatic adenocarcinoma primary breast lesion ER negative. 03/18: Patient is laying in bed still in the ICU her blood pressure has been slightly but better remain on midodrine sodium has improved some chest tube will be removed today patient might be able to leave the ICU after this is done. Pain management is better controlled. 03/19: Patient still in the ICU, out of her bed, chest tube is out, pain is well controlled on manage, chest x-ray has significant improvement so far, her sodium has improved as well. We'll consult social worker masters and started looking for possibility of discharge in the next 24-48 hours. 03/20: Patient still slightly bit sick, mildly hypoxic, chest tube is out, clinically has improved some compared to before. Patient seen oncology and pulmonary metastases ready to go home yet patient still refuses to go to any rehab place in [place] at this point she is planning to go home with home care and the issue when to restart her back on chemotherapy still be determined by oncology. 03/22: Home oxygen has been arranged as her pulse ox dropped to 78% while at rest. Patient's son is at the bedside and plan is for her to go home today. She has been afebrile, heart rate 99-102, pulse ox 93% on 4 L nasal cannula. Blood pressure is 99/66 and patient was started on middle drain during this hospitalization. Dr. Wilcox has recommended Augmentin which she is sent through as well as Dakin solution to be used daily for the right breast ulcer. Patient is to continue per Dr. Scott on 1-1/2 L fluid restriction. He has cleared her to start oral Lasix and continue Ensure 3 times daily. Patient will be discharged home on Xanax and tramadol and to start talking form has been reviewed with the patient and signed. Patient will be discharged home today in stable condition. Discharge diagnoses: 1. Hyponatremia secondary to dehydration possible SIADH not completely ruled out related to stage IV breast cancer. 2. Failure to thrive with severe protein calorie malnutrition and weight loss. 3. Malnutrition secondary to breast CA. 4. Hyperkalemia. 5. Acute hypoxic respiratory failure secondary to malignant pleural effusion and malignant pericardial effusion 6. Stage IV breast CA. 7. Right breast ulcer secondary to malignancy 8. Pericardial effusion status post pericardial window by cardiothoracic surgery. Patient was transferred to intensive care unit. Cytology is pending. 9. Hypotension likely secondary to take decrease intravascular volume, critical illness. 10. Chronic hypoxic respiratory failure requiring home oxygen. 11. Non-anion gap metabolic acidosis. 12. Elevated liver enzymes secondary to liver metastasis. Discharge plan: Home with [facility] Impression and plan of care have been directed as dictated by the signing physician. Marybeth Hensley nurse practitioner acting as scribe for signing physician. Patient Condition at Discharge: Good Plan - Discharge Summary Discharge Rx Participant: No New Discharge Prescriptions: New Amoxic-Pot Clav 875-125Mg [Augmentin 875-125] 1 tab PO Q12HR #14 tablet Non-Formulary Drug [Non Formulary Drug] 1 each TOPICAL DAILY #1 bottle Docusate [Colace] 100 mg PO BID cap Sodium Chloride 0.65% Nasal [Deep Sea (Saline)] 2 spray NASAL QID PRN spray PRN Reason: Dry Nasal Passages Ensure Complete 1 can PO TID BETWEEN MEALS #18 can Potassium Chloride ER [K-Dur 20] 20 meq PO BID #60 tab Furosemide [Lasix] 40 mg PO BID #60 tablet Midodrine [ProAmatine] 10 mg PO AC-TID #180 tab Mirtazapine [Remeron] 15 mg PO HS #30 tab traMADol HCl [Ultram] 50 mg PO TID PRN #9 tab PRN Reason: Moderate Pain ALPRAZolam [Xanax] 0.5 mg PO BID PRN #6 tab PRN Reason: Anxiety Continue Acetaminophen Tab [Tylenol] 1,000 mg PO Q6H PRN PRN Reason: Pain Multivit-Min/FA/Lycopene/Lut [Centrum Silver Tablet] 1 tab PO DAILY Ca/D3/Mag/Zinc/Meghana/Jackson/Mgbor [Caltrate 600-D3-Min Chew Tab] 1 tab PO DAILY Vitamin B Complex 1 cap PO DAILY Biotin 5 mg PO DAILY Discharge Medication List Acetaminophen Tab [Tylenol] 1,000 mg PO Q6H PRN 05/06/15 [History] Ca/D3/Mag/Zinc/Meghana/Jackson/Mgbor [Caltrate 600-D3-Min Chew Tab] 1 tab PO DAILY 05/06/15 [History] Multivit-Min/FA/Lycopene/Lut [Centrum Silver Tablet] 1 tab PO DAILY 05/06/15 [History] Vitamin B Complex 1 cap PO DAILY 10/14/17 [History] Biotin 5 mg PO DAILY 11/05/17 [History] ALPRAZolam [Xanax] 0.5 mg PO BID PRN #6 tab 03/22/19 [Rx] Amoxic-Pot Clav 875-125Mg [Augmentin 875-125] 1 tab PO Q12HR #14 tablet 03/22/19 [Rx] Docusate [Colace] 100 mg PO BID cap 03/22/19 [Rx] Ensure Complete 1 can PO TID BETWEEN MEALS #18 can 03/22/19 [Rx] Furosemide [Lasix] 40 mg PO BID #60 tablet 03/22/19 [Rx] Midodrine [ProAmatine] 10 mg PO AC-TID #180 tab 03/22/19 [Rx] Mirtazapine [Remeron] 15 mg PO HS #30 tab 03/22/19 [Rx] Non-Formulary Drug [Non Formulary Drug] 1 each TOPICAL DAILY #1 bottle 03/22/19 [Rx] Potassium Chloride ER [K-Dur 20] 20 meq PO BID #60 tab 03/22/19 [Rx] Sodium Chloride 0.65% Nasal [Deep Sea (Saline)] 2 spray NASAL QID PRN spray 03/22/19 [Rx] traMADol HCl [Ultram] 50 mg PO TID PRN #9 tab 03/22/19 [Rx] Follow up Appointment(s)/Referral(s): [facility], [NON-STAFF] - Glen Vázquez MD [Primary Care Provider] - 03/24/19 10:30 am Patient Instructions/Handouts: High Protein Diet (DC), Hyponatremia (DC) Discharge Disposition: HOME WITH HOME HEALTH SERVICES
[2019-03-22] MEDS ORDERED: FUROSEMIDE 40 MG TAB PO SCH (16:00)
--- NOTE | 2019-03-22 16:28 | P.PN ---
Subjective Progress Note Date: 03/22/19 Principal diagnosis: Pericardial effusion, status post pericardial window This is a 69-year-old white female patient of Dr. Glen Vázquez, with past medical history of metastatic breast cancer, diagnosed in her left breast back in 2011 and patient was treated with chemoradiation. Patient developed metastatic disease in 2014 with a large right supraclavicular mass, for which she received radiation. She had since progressed through various regimens, she developed a right chest wall lesion with repeat biopsy showing hormone receptor positive disease. She most recently was on hypertensive and the Faslodex. She was developing increasing shortness of breath, and progressive symptoms in the lesion in the right chest wall with superficial ulceration and intermittent drai nage. She underwent right-sided thoracentesis at the [facility] last week with removal of 1.2 L of pleural fluid with improvement of her dyspnea. Pathology results are not available to us at this time. Patient had progressive weakness, poor appetite and decreased oral intake. She was brought into the emergency department on 03/11/2019, found to be clinically dehydrated with multiple lab abnormalities including low sodium, elevated potassium, and elevated liver enzymes. Most recent PET scan on November 19 showed uptake in the right chest wall lesion, and left supraclavicular lymph nodes. CT of the abdomen and pelvis was completed in the emergency department and showed multiple low density foci scattered within the liver at least 10 lesions related to metastatic disease to the liver, with pericholecystic fluid present about the gallbladder, no significant abnormality in the pancreas, spleen or adrenal glands. There was ascites developing in the upper abdomen. An interval development of bilateral pleural effusions pericardial effusion and ascites. Echocardiogram revealed EF of 60-65%, and a large generalized pericardial effusion. Patient was having marginal low blood pressures. She was seen by cardiothoracic surgery, and surgical intervention was recommended for a large pericardial effusion. And patient underwent pericardial window on 03/14/2019 and following her surgery she returned to the ICU on the ventilator. Patient has been successfully weaned from the ventilator support, she was extubated sometime this morning, she is currently seen in the intensive care unit, this is postoperative day 1, status post pericardial window. She is currently on 6 L of oxygen per nasal cannula, her IV 0.9 normal saline at a rate of 50 ML per hour, she was extubated at 05 40 this morning. Today's chest x-ray has been reviewed, and shows pleural effusions, and associated bibasilar airspace disease likely related to atelectasis. Patient has a subxiphoid chest tube in place, has been 198 mL of serosanguineous output since surgery, with drainage of 500 mL of serosanguineous output during surgery from the chest tube. On 03/16/2019 patient seen in follow-up in the intensive care unit, she is resting in bed, awake and alert, in no acute distress, she is on 8 L per high flow nasal cannula, and her pulse ox is 96%, she is afebrile, blood pressures at times are marginal, with BP in the 80s over 50s, and 90s over 60s, hour the patient is asymptomatic, and producing urine and the order of 30-45 ML per hour, alert, and not complaining of anything, his labs have been reviewed, and showed dull white blood cell count of 2.7, hemoglobin of 12.5, serum sodium is 129, potassium is 4.3, chloride is 100, BUN is 43, creatinine is 0.62. I-S effort is 500 mL, lung sounds are clear to auscultation, no rhonchi or rales. The 0.9 normal saline at a rate of 10 ML per hour. Right breast wound culture was positive for Proteus mirabilis, she is on Unasyn which organism is susceptible to, tolerating oral intake, although appetite remains poor. Subxiphoid chest tube is in place, and there has been 182 mL of thin serosanguineous output over last 24 hours. no specific complaints, patient is calm and comfortable, denies any difficulty breathing or chest pain On 03/19/2019 patient seen in follow-up in the intensive care unit. Patient has been in the low status for last 24 hours, she is awaiting a bed on general medical floor. She is awake and alert, oriented 3, currently on 2 L of oxygen, with a pulse ox of 94-95%, she is afebrile, hemodynamically patient is stable, no specific complaints, she underwent bilateral thoracentesis on 03/17/2019, and there was a 1.3 L removed from her left side, and 1450 ML removed from the right side. On today's chest x-ray there is still residual small pleural effusions bilaterally. Patient denies any acute distress. Patient was given a dose of IV Lasix per nephrology service, and her renal profile is stable, with BUN of 34, and creatinine 0.47, electrolytes revealed a serum sodium of 1:30, potassium is 5.2, chloride is 96, CO2 is 29, anion gap was 5. White blood cell count was 5.8, hemoglobin was 12.6, no fever or chills. Patient is on antibiotics for evidence of Proteus mirabilis infection in the right breast wound, urine culture and blood culture showed no growth. Antibiotic coverage in the form of Unasyn, and patient is receiving Flagyl by mouth On 03/20/2019 patient seen in follow-up on medical surgical floor. Is awake and alert, in no acute distress, she is sitting up in a recliner. No acute distress, she remains on 4 L of oxygen with a pulse ox of 97%, no fever or chills, patient has been ambulating to the bathroom, tolerating activity well, no worsening shortness of breath. Lung sounds reveal diminished breath sounds at bilateral bases, patient is working on the incentive spirometer. Status post bilateral thoracentesis with removal of 1450 ML from the right side and 1.3 L fr om the left side on 03/17/2019. Blood and urine cultures were negative, and the wound culture on her right breast was positive for Proteus mirabilis, and patient is on the antibiotics in the form of Unasyn, and oral Flagyl. ID service is following, no specific complaints, she remains on IV diuretics at 40 mg every 12 hours. These labs have been reviewed, with blood cell count is 6.0, hemoglobin is 11.5, serum sodium is 135, potassium is 4.7, chloride is 101, CO2 31 BUN is 27 creatinine 0.48. On 03/21/2019 patient seen in follow-up on medical surgical floor. Doing well, her main complaint is nasal congestion, no worsening dyspnea, remains on 4 L of oxygen, and it is connected to humidification. Pulse ox is 91-98%, afebrile, hemodynamically stable, patient has been tolerating ambulation, still has swelling in the lower and upper extremities, but it is improving, is on IV diuretics, currently 40 mg every 12 hours, lung sounds reveal diminished breath sounds at the bases, no rhonchi, or wheezes, patient is working on her incentive spirometer. Maintaining negative fluid balance, her weight is down 3.1 kg in the last 24 hours. On 03/22/2019 patient seen in follow-up on medical surgical floor. She is awake and alert, oriented 3, she sits up in the recliner, in no acute distress, remains on 4 L of oxygen, pulse ox of 93%, she states her breathing is improving, no worsening shortness of breath, no complaints of pleuritic chest discomfort. Signs are stable, patient is afebrile. She has been tolerating ambulation, she continues on oral diuretics, she still has some residual swelling in his lower extremities and upper extremities, but overall it is improving. Neulasta chest x-rays today. Patient has been treated with antibiotics for infection with Proteus mirabilis in the right breast wound, has been treated with combination of Unasyn and Flagyl. From pulmonary perspective he remains stable, she is working on the incentive spirometer. On sounds reveal diminished breath sounds at the bases. Patient is being discharged home today Objective - Vital Signs Vital signs: Vital Signs Temp 97.9 F 03/22/19 07:39 Pulse 99 03/22/19 07:39 Resp 18 03/22/19 07:39 BP 99/66 03/22/19 07:39 Pulse Ox 93 L 03/22/19 07:39 Intake & Output 03/21/19 03/22/19 03/22/19 18:59 06:59 18:59 Intake Total 1700 235 Output Total 1000 1775 771 Balance -1000 -75 -536 Weight 69.8 kg 68.9 kg Intake: Oral 1700 235 Output: Urine 1000 1775 771 Other: Voiding Method Toilet Toilet Toilet # Voids 1 # Bowel Movements 1 1 ABP, PAP, CO, CI - Last Documented Arterial Blood Pressure 84/57 - Exam GENERAL EXAM: Alert, pleasant, weak and fatigued chronically ill-looking 69-year-old white female, on 4 L of oxygen, comfortable in no apparent distress. HEAD: Normocephalic/atraumatic. EYES: Normal reaction of pupils, equal size. Conjunctiva pink, sclera white. NOSE: Clear with pink turbinates. THROAT: No erythema or exudates. NECK: No masses, no JVD, no thyroid enlargement, no adenopathy. CHEST: No chest wall deformity. Symmetrical expansion. Interval removal of the subxiphoid chest tube and there are extensive ulcerated wounds on her right breast with the some limited drainage LUNGS: Equal air entry with no crackles, wheeze, rhonchi or dullness. Diminished breath sounds at the bases CVS: Regular rate and rhythm, normal S1 and S2, no gallops, no murmurs, no rubs ABDOMEN: Soft, nontender. No hepatosplenomegaly, normal bowel sounds, no guarding or rigidity. EXTREMITIES: No clubbing, mild lower extremity edema, no cyanosis, 2+ pulses and upper and lower extremities. MUSCULOSKELETAL: Muscle strength and tone normal. SPINE: No scoliosis or deformity SKIN: No rashes CENTRAL NERVOUS SYSTEM: Alert and oriented -3. No focal deficits, tone is normal in all 4 extremities. PSYCHIATRIC: Alert and oriented -3. Appropriate affect. Intact judgment and insight. - Labs CBC & Chem 7: 03/20/19 07:42 03/21/19 06:41 Labs: Abnormal Lab Results - Last 24 Hours (Table) 03/21/19 03/22/19 03/22/19 Range/Units 21:22 07:40 11:31 POC Glucose (mg/dL) 177 H 102 H 155 H (75-99) mg/dL Assessment and Plan Plan: Assessment: #1. Malignant pericardial effusion, status post pericardial window, postop day 7, with the immediate removal of 500 mL of serosanguineous output in surgery. Cytology of the pericardial fluid was positive for metastatic adenocarcinoma consistent with primary breast origin #2. Routine ventilator management, and patient was successfully extubated this morning on 03/15/2019, postop day 1, status post pericardial window #3. Metastatic recurrent breast cancer, with metastasis to the liver, and the supraclavicular nodes #4. History of left breast cancer in 2011 treated with chemoradiation #5. Generalized weakness, anorexia, weakness, dehydration #6. Leukopenia #7. Hyponatremia, improving with hydration #8. Non-anion gap metabolic acidosis, improving #9. Elevated liver enzymes related to liver metastasis #10. Bilateral pleural Effusions, and recent history of thoracentesis at [facility] with removal of 1.2 L of pleural fluid, cytology results were positive for metastatic adenocarcinoma with breast primary. Patient underwent bilateral thoracentesis on 03/17/2019 with removal of 1450 of pleural fluid the right side, and 1.3 L from the left side, no cytology was sent Plan: Remains stable from pulmonary perspective, no worsening dyspnea, she will go home on oxygen. Continues on oral diuretics, vital signs are stable. Patient is being discharged home today. She was encouraged to call the office with any pulmonary complaints. I performed a history & physical examination of the patient and discussed their management with my nurse practitioner, Renea Ames. I reviewed the nurse practitioner's note and agree with the documented findings and plan of care. Lung sounds are positive for diminished breath sounds. The findings and the impression was discussed with the patient. I attest to the documentation by the nurse practitioner. Time with Patient: Less than 30
== END 2019-03-22 13:57 | disposition home health service (06) | DRG 981 ==
LOC: EC 21:24 → 3NMEDONC 23:46 → 3SCARD 03-12 03:45 → 4MS4W 03-12 16:18 → 3SCARD 03-13 19:06 → 2SICU 03-14 19:41 → 4SSUR 03-19 20:16
PROVIDERS: ADMIT Internal Medicine; ATTEND Internal Medicine
PROC: 0D9670Z Drainage of Stomach with Drainage Device, Via Natural or Artificial Opening (ICD-10-PCS; 2019-03-14)
PROC: 0W9D00Z Drainage of Pericardial Cavity with Drainage Device, Open Approach (ICD-10-PCS; principal; 2019-03-14 11:55)
PROC: 0W993ZZ Drainage of Right Pleural Cavity, Percutaneous Approach (ICD-10-PCS; 2019-03-17)
PROC: 0W9B3ZZ Drainage of Left Pleural Cavity, Percutaneous Approach (ICD-10-PCS; 2019-03-17)
DX: E22.2 Syndrome of inappropriate secretion of antidiuretic hormone (principal); E43 Unspecified severe protein-calorie malnutrition; J96.21 Acute and chronic respiratory failure with hypoxia; J91.0 Malignant pleural effusion; C78.7 Secondary malignant neoplasm of liver and intrahepatic bile duct; R18.8 Other ascites; C77.0 Secondary and unspecified malignant neoplasm of lymph nodes of head, face and neck; J98.11 Atelectasis; E87.2 Acidosis; C79.89 Secondary malignant neoplasm of other specified sites; B96.4 Proteus (mirabilis) (morganii) as the cause of diseases classified elsewhere; I95.9 Hypotension, unspecified; I27.20 Pulmonary hypertension, unspecified; E87.70 Fluid overload, unspecified; E87.5 Hyperkalemia; C50.911 Malignant neoplasm of unspecified site of right female breast; C50.912 Malignant neoplasm of unspecified site of left female breast; E86.0 Dehydration; E86.1 Hypovolemia; N18.2 Chronic kidney disease, stage 2 (mild); D72.819 Decreased white blood cell count, unspecified; I35.8 Other nonrheumatic aortic valve disorders; N61.0 Mastitis without abscess; F41.9 Anxiety disorder, unspecified; F32.9 Major depressive disorder, single episode, unspecified; R62.7 Adult failure to thrive; Z68.24 Body mass index [BMI] 24.0-24.9, adult; Z71.3 Dietary counseling and surveillance; Z17.1 Estrogen receptor negative status [ER-]; Z86.010 Personal history of colon polyps; Z79.899 Other long term (current) drug therapy; Z90.710 Acquired absence of both cervix and uterus; Z90.12 Acquired absence of left breast and nipple; Z92.21 Personal history of antineoplastic chemotherapy; Z92.3 Personal history of irradiation; Z82.49 Family history of ischemic heart disease and other diseases of the circulatory system; Z82.5 Family history of asthma and other chronic lower respiratory diseases; Z80.3 Family history of malignant neoplasm of breast; Z80.42 Family history of malignant neoplasm of prostate
CPT/HCPCS: 36415; 71045; 71046; 74177; 76604; 80048; 80051; 80053; 80076; 81001; 82024; 82533; 82550; 82570; 82805; 83605; 83735; 83930; 83935; 84100; 84295; 84300; 84443; 84484; 84550; 85025; 85610; 85730; 86300; 87040; 87070; 87077; 87086; 87186; 87205; 88108; 88305; 88341; 88342; 93005; 93306; 94002; 94003; 94640; 94760; 96361; 96374; 96375; 99285